=== PATIENT | female | born 1965 | race African-American/Black ===

== ENCOUNTER 2019-04-07 04:01 | Inpatient (IN) | payer MEDICARE ==
[~2019-04-07] VITALS: Ht 160 cm; Wt 54.0 kg
[2019-04-07] VITALS (19 sets, daily range): BP systolic 90–126; BP diastolic 60–85
[2019-04-07] MEDS ORDERED: ACETAMINOPHEN 1000 MG/100 ML IV STA (04:05)
[2019-04-07] MEDS ORDERED: CEFEPIME 2 GM/NS 0.9% 100 ML 100 ML IV ONE (04:15)
[2019-04-07] MEDS ORDERED: SODIUM CHLORIDE 0.9% 1000ML 1,000 ML IV ONE (04:15)
[2019-04-07 04:38] LABS: BASOPHILS # (AUTO) 0.1 (0.0-0.1); BASOPHILS % 0.3 % (0.0-1.0); HEMATOCRIT 42.1 % (34.2-44.1); LYMPHOCYTES # (AUTO) 1.2 (1.0-3.2); LYMPHOCYTES % 4.8 % (18.0-39.1); MEAN CORPUSCULAR HEMOGLOBIN 21.4 pg (28-32); MEAN CORPUSCULAR HGB CONC 28.5 g/dL (31-35); MEAN CORPUSCULAR VOLUME 75.2 fL (81-99); MONOCYTES # (AUTO) 1.8 (0.2-0.8); NEUTROPHILS # (AUTO) 22.1 (2.1-6.9); NEUTROPHILS % 87.2 % (38.7-80.0); PLATELET COUNT 317 x10e3/uL (140-360); RED CELL DISTRIBUTION WIDTH 19.2 % (11.7-14.4)
[2019-04-07 04:50] LABS: INR 1.64
[2019-04-07 04:51] LABS: PARTIAL THROMBOPLASTIN TIME 36.1 seconds (23.8-35.5)
[2019-04-07 04:59] LABS: ALANINE AMINOTRANSFERASE 187 IU/L (0-55); ALBUMIN 3.4 g/dL (3.5-5.0); ALBUMIN/GLOBULIN RATIO 0.6 (0.8-2.0); ALKALINE PHOSPHATASE 119 IU/L (40-150); BLOOD UREA NITROGEN 19 mg/dL (7-26); BUN/CREATININE RATIO 31 (6-25); CALCIUM 9.9 mg/dL (8.4-10.2); CARBON DIOXIDE 32 mmol/L (22-29); CHLORIDE 101 mmol/L (98-107); CREATININE, SERUM 0.62 mg/dL (0.57-1.11); EST GLOMERULAR FILTRATION RATE > 60 ML/MIN (60-); GLUCOSE 137 mg/dL (74-118); SODIUM 144 mmol/L (136-145)
--- NOTE | 2019-04-07 05:01 | Diagnostic Imaging Report ---
A single frontal view of the chest. HISTORY: Aspiration COMPARISON: None available. DISCUSSION: Portable technique, limits sensitivity of the exam. Soft tissue attenuation partially limits sensitivity of the exam. Overlying monitoring leads and artifacts. Tubes/Lines: Tracheostomy tube Lungs and pleura: Low lung volumes result in bibasilar vascular crowding, accentuation of the pulmonary interstitial markings, central pulmonary vasculature, and the cardiac silhouette. Allowing for these limitations, the findings are as follows: Mid to lower lung zone predominant increased interstitial markings with more confluent patchy interstitial and airspace opacities at the left lung base greater than the right. A small left pleural effusion is probable. Heart and mediastinum: The cardiomediastinal silhouette appears unremarkable. Bones and soft tissues: Appear unremarkable, given this limited exam. IMPRESSION: 1. Left greater than right basilar and additional and airspace opacities, compatible with provided history of aspiration. A multifocal pneumonia could have a similar appearance. 2. Probable small left pleural effusion. 3. Recommend short term follow up routine PA and lateral chest radiographs, in 6 to 8 weeks, to evaluate for resolution. Signed by: Dr. Delfin Frausto D.O., M.M.M. on 04/07/2019 4:58 AM
[2019-04-07] MEDS ORDERED: ONDANSETRON HCL INJ 2MG/ML 2ML 2 MG/ML VIAL IV STA (05:39)
[2019-04-07] MEDS ORDERED: SODIUM CHLORIDE 0.9% 1000ML 1,000 ML IV SCH (05:39)
[2019-04-07] MEDS ORDERED: ALBUTEROL SULF 0.083% NEB SOLN 3 ML NEB NEB SCH (05:45)
[2019-04-07] MEDS ORDERED: ACETAMINOPHEN 1000 MG/100 ML IV PRN (05:45)
--- OUTSIDE RECORDS SUMMARY | 2019-04-07 05:46 | XMS REPORT ---
Author Author [facility] Address Unknown Phone Unavailable Care Team Providers Care Dance Director Name Role Phone Stiven CHAIREZ Unavailable Unavailable Problems This patient has no known problems. Allergies, Adverse Reactions, Alerts This patient has no known allergies or adverse reactions. Medications This patient has no known medications. Results Test Description Test Time Test Comments Text Results Atomic Results Result Comments CHEST SINGLE (PORTABLE) 2019-04-07 04:54:00 [place] [address] Patient Name: MAYELA KAY MR #: [id number] : 1965 Age/Sex: 53/F Req #: [id number] Adm Physician: Ordered by: HUMA CHAIREZ MD Report #: [id number] Location: ER Room/Bed: Procedure: [id number] DX/CHEST SINGLE (PORTABLE) Exam Date: 04/07/19 Exam Time: 0435 REPORT STATUS: Signed A single frontal view of the chest. HISTORY: Aspiration COMPARISON: None available. DISCUSSION: Portable technique, limits sensitivity of the exam. Soft tissue attenuation partially limits sensitivity of the exam. Overlying monitoring leads and artifacts. Tubes/Lines: Tracheostomy tube Lungs and pleura: Low lung volumes result in bibasilar vascular crowding, accentuation of the pulmonary interstitial markings, central pulmonary vasculature, and the cardiac silhouette. Allowing for these limitations, the findings are as follows: Mid to lower lung zone predominant increased interstitial markings with more confluent patchy interstitial and airspace opacities at the left lung base greater than the right. A small left pleural effusion is probable. Heart and mediastinum: The cardiomediastinal silhouette appears unremarkable. Bones and soft tissues: Appear unremarkable, given this limited exam. IMPRESSION: 1. Left greater than right basilar and additional and airspace opacities, compatible with provided history of aspiration. A multifocal pneumonia could have a similar appearance. 2. Probable small left pleural effusion. 3. Recommend short term follow up routine PA and lateral chest radiographs, in 6 to 8 weeks, to evaluate for resolution. Signed by: Dr. Iam Frausto D.O., M.M.M. on 04/07/2019 4:58 AM Dictated By: IAM FRAUSTO DO 7 Transcribed By: DION on 04/07/19457 COPY TO: HUMA CHAIREZ MD
[2019-04-07] MEDS: CLINDAMYCIN 600MG / 50ML 50 ML IV SCH ×3 (05:54→21:27)
[2019-04-07 05:55] LABS: ABG PH 7.29 (7.31-7.41)
[2019-04-07 05:56] LABS: ABG HCO3 33 mmol/L (23-28); ABG PCO2 69 mmHg (41-51); ABG PO2 43 mmHg (80-105)
[2019-04-07 05:59] LABS: BILIRUBIN,URINE NEGATIVE (NEGATIVE); CLARITY,URINE CLEAR (CLEAR); COLOR,URINE YELLOW (YELLOW); KETONES,URINE NEGATIVE (NEGATIVE); LEUKOCYTE ESTERASE ,URINE NEGATIVE (NEGATIVE); NITRITE,URINE NEGATIVE (NEGATIVE); PROTEIN,URINE DIPSTICK NEGATIVE (NEGATIVE); URINE UROBILINOGEN 1 mg/dL (0.2 - 1)
[2019-04-07 06:12] LABS: BACTERIA,URINE FEW /HPF; EPITHELIAL CELLS,URINE FEW /LPF; RBC,URINE 0-5 /HPF (0-5)
--- NOTE | 2019-04-07 06:30 | NUR ---
Pts POA - Ciaran Jason [phone] - contacted via telephone to consent for PICC line placement; transfusion of blood and or blood products; verified by this RN and Reza Sharma LVN with NEEL Le
--- NOTE | 2019-04-07 06:36 | NUR ---
Annemarie Mackey [phone], pts daughter speaking to ER , Dr. Ko, at this time
[2019-04-07] MEDS ORDERED: LORAZEPAM INJ 2 MG/ML VIAL ONE (06:37)
--- NOTE | 2019-04-07 06:45 | NUR ---
Pt arrived to ICU at 0630, pt was medicated with 1mg ativan per Dr Stiven Melendrez. Dr Melendrez then changed the trach to a #4 Shiley cuffed. Respiratory at bedside to assist and place on vent post procedure. No complications noted.
[2019-04-07] MEDS ORDERED: SODIUM CHLORIDE 0.45% 1,000 ML IV ONE (07:00)
[2019-04-07] MEDS: PROPOFOL IV EMULSION 10MG/ML 100 ML IV SCH (07:00)
[2019-04-07] MEDS ORDERED: LORAZEPAM INJ 2 MG/ML VIAL IV ONE (07:00)
[2019-04-07 07:31] LABS: CREATINE KINASE MB 1.1 ng/mL (0-5.0)
[2019-04-07] MEDS: IPRATROPIUM BROMIDE 0.02% 2.5 ML NEB NEB SCH ×4 (07:50→19:00)
--- NOTE | 2019-04-07 07:55 | Consultation ---
DATE OF CONSULTATION: 04/07/2019 Pulmonary Critical Care Consultation ADDITIONAL REFERRING PHYSICIAN: Dr. Jaquan Faustin. CHIEF COMPLAINT: New infiltrate, leukocytosis, and respiratory distress. HISTORY OF PRESENT ILLNESS: The patient is a 53-year-old woman. 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 She also has a subsequent seizure disorder. She was hospitalized at [facility] from January 19 until February 07 with aspiration pneumonia. She required a tracheostomy and a PEG. She was subsequently sent back to [facility] [place] [facility], she had increasing dyspnea and congestion. She had phlegm production and tachypnea. The rescue squad was called and took her across the street to the [facility]. PAST SURGICAL HISTORY: 1. Status post tracheostomy. 2. Status post PEG. PAST MEDICAL HISTORY: 1. Cerebrovascular accident. 2. Chronic respiratory failure. 3. Protein-calorie malnutrition. 4. Seizure disorder. 5. Hypertension. SOCIAL HISTORY: The patient is not an active smoker or drinker. FAMILY HISTORY: Family history is noncontributory. REVIEW OF SYSTEMS: The patient possibly had fevers at [facility]. She had no headache. She had no neck pain. She had some more difficulty breathing. She had some phlegm production. She had no chest pain. She had cough and congestion. No abdominal pain. No nausea or vomiting. She has no leg edema. She has chronic neurological abnormalities. PHYSICAL EXAMINATION: VITAL SIGNS: The blood pressure is 133/81, respiratory rate is 28, the pulse is 130 to 140, and her T-max is 99.7. HEENT: Shows no facial swelling or erythema. She has a tracheostomy in place. The site looks clean. CARDIAC: Reveals a regular rate and rhythm with a normal S1 and S2. There are no murmurs or rubs. Auscultation of the lungs reveals rhonchorous breath sounds bilaterally. There is no wheezing. ABDOMEN: Soft and nontender. There is no rebound or guarding. There is a feeding tube in place. EXTREMITIES: There is no leg edema or calf tenderness. She does have some focal neurological abnormalities at whole. LABORATORY DATA: White blood cell count is 25.3, hemoglobin is 12, and platelet count is 371. BUN to creatinine ratio is 19 to 0.62 and the other electrolytes are within normal limits. AST is 88 and ALT is 187. Blood gas; 7.29, 69 with an O2 of 43 and a bicarb of 33. INR is 1.64. Urinalysis shows 10 to 20 white blood cells. RADIOGRAPHIC DATA: Chest x-ray shows left greater than right basilar airspace opacity. IMPRESSION: 1. Aspiration pneumonia with severe sepsis, present on admission. 2. Hdoja-od-anoyguc respiratory failure. 3. Moderate protein calorie malnutrition. 4. Hypertension. 5. Seizure disorder. 6. Remote stroke. PLAN: 1. The patient will need tracheostomy changed to a cuffed trach. She was subsequently restarted on mechanical ventilation. 2. Panculture the patient and begin appropriate antibiotics. 3. IV fluids. 4. Continue prior antiseizure regimen. 5. Continue current antihypertensive regimen. Rufino Melendrez MD [facility] /[id number]
[2019-04-07] MEDS: LEVOFLOXACIN 250MG/D5W 50ML 50 ML IV SCH (08:04)
--- NOTE | 2019-04-07 08:19 | Diagnostic Imaging Report ---
EXAMINATION: CHEST XRAY POST PROCEDURE INDICATION: Status post tracheostomy change COMPARISON: Chest radiograph of earlier the same day FINDINGS: TUBES and LINES: Tracheostomy and tube, terminating approximately 4 cm above the kaleb. EKG leads overlie the chest. LUNGS: The lungs volumes are low. There is perihilar fullness and indistinctness of the pulmonary vasculature.. Focal consolidation. PLEURA: No pleural effusion or pneumothorax. HEART AND MEDIASTINUM: The cardiomediastinal silhouette is normal in size and contour. BONES AND SOFT TISSUES: No acute fracture or dislocation. UPPER ABDOMEN: No free air under the diaphragm. IMPRESSION: Tracheostomy in good position. Low lung volumes and pulmonary interstitial edema. Signed by: Thuy Mahmood MD on 04/07/2019 8:16 AM
[2019-04-07] MEDS ORDERED: ALPRAZOLAM0.5 MG GT (08:41)
[2019-04-07] MEDS ORDERED: ONDANSETRON2 MG/1 ML IV (08:54)
[2019-04-07] MEDS ORDERED: METOPROLOL TART50 MG GT (08:54)
[2019-04-07] MEDS ORDERED: METOCLOPRA10 MG/2 ML IV (08:54)
[2019-04-07] MEDS ORDERED: BUDESONIDE0.5 MG/2 M NEB (08:54)
[2019-04-07] MEDS ORDERED: LUBRICANT EYE1 EACH OU (08:54)
[2019-04-07] MEDS ORDERED: ATORVASTATIN CA10 MG GT (08:54)
[2019-04-07] MEDS ORDERED: HYDRALAZIN20 MG/1 ML IV (08:54)
[2019-04-07] MEDS ORDERED: AMLODIPINE BESY10 MG GT (08:54)
[2019-04-07] MEDS ORDERED: LEVETIRACETAM500 MG GT (08:54)
[2019-04-07] MEDS ORDERED: LABETALOL20 MG/4 ML IVP (08:54)
[2019-04-07] MEDS ORDERED: DULCOLAX SUPP10 MG RC (08:54)
[2019-04-07] MEDS ORDERED: PROTONIX40 MG GT (08:54)
[2019-04-07] MEDS ORDERED: SERTRALINE HCL50 MG GT (08:56)
[2019-04-07] MEDS ORDERED: XARELTO20 MG GT (08:56)
[2019-04-07] MEDS ORDERED: TRANSDERM-SCOP1 EACH TD (08:56)
[2019-04-07] MEDS ORDERED: DOCUSATE SODIU100 MG PO (09:00)
[2019-04-07] MEDS ORDERED: SENNA LAX8.6 MG GT (09:00)
[2019-04-07] MEDS ORDERED: MAGNESIUM CITR296 ML GT (09:00)
[2019-04-07] MEDS ORDERED: COLACE100 MG/10 PO (09:00)
[2019-04-07] MEDS ORDERED: GLYCOPYRRO0.2 MG/1 M IV (09:02)
[2019-04-07] MEDS ORDERED: TYLENOL WITH C1 EACH GT (09:04)
[2019-04-07] MEDS ORDERED: ACETAMINOP325 MG/10 PO (09:04)
--- NOTE | 2019-04-07 11:02 | NUR ---
Nutrition Intervention Note RD Recommendation(s) for Physician: - When on the vent, rec to intitiate continuous TF with Vital 1.2 @25ml/hr, advance as tolerated to, goal rate of 45mL/hr (1296kcal, 81g protein, 876mL water) - to more adequately meet her protein and calorie needs - When off the vent, rec to resume old TF order with Jevity 1.2 @ goal rate of 65mL/hr (1872kcal, 87g protein, and 1259mL water) - Rec 50ml water flushes q 4hr, additional per MD - Check gastric residual, labs, and weight daily Plan of Care: RD following, monitoring for tolerance and adequacy, TF rec Nutrition reason for involvement:MD Consult - TF rec RD Assessment 04/07 - 53yo F, who was admitted [facility] for new infiltrate, leukocytosis, and respiratory distress.Pt had prior CVA with resulting aphasia and partial hemiparesis. Pt presented with PEG and tracheostomy. Trach was connected to vent. IVF at 125mL/hr noted. Visited pt in the room. Unable to obtain any info and no family on bedside. Reviewed medical record from [facility]. Pt was getting Jevity 1.2 @65mL/hr, providing 1872kcal, 87g protein, and 1259mL water. Will communicate TF rec with RN. Principal Problems/Diagnoses: 1. Aspiration pneumonia with severe sepsis, present on admission. 2. Oevjs-vc-blbjfdu respiratory failure. 3. Moderate protein calorie malnutrition. PMH: 1. Cerebrovascular accident. 2. Chronic respiratory failure. 3. Protein-calorie malnutrition. 4. Seizure disorder. 5. Hypertension. GI: + PEG Skin: No pressure wound noted Labs: (04/07) glucose 137 H Meds: NaCl @125mL/hr Ht: 63in Wt: 125lb; BMI: 22.1kg/m2 IBW: 115lb +/- 10% Malnutrition Evaluation (04/07/2019) Unable to determine as pt is non-verbal. No family on bedside to provide hx. Noted minimal muscle loss with some temporal depression. Nutrition Prescription (Diet Order): NPO Estimated Nutritional Needs (Ventilated): Calories: 1060 - 1325kcal (1.3-2kcal/kg/d) Weight used: IBW Protein:69 - 106g (1.3-2g/kg/d) Weight used: IBW Diet Adequacy: Not meeting calorie needs, Not meeting protein needs Diet Education Needs Assessment: Diet education not indicated. Nutrition Care Level: mod Nutrition Diagnosis: Inadequate oral intake related to CVA as evidenced by pt requiring watermelon inspector EN through PEG. Goal: Patient will meet 75-100% of estimated needs by follow up Progress: n/a Interventions: Composition, Rate, Route Monitoring/Evaluation: Total energy intake, Total protein intake, Formula/Solution, Weight change Signed: Isi Blackmon MS, RD, LD
--- NOTE | 2019-04-07 11:59 | Diagnostic Imaging Report ---
EXAMINATION: CHEST XRAY LINE PLACEMENT INDICATION: Line insertion COMPARISON: Chest rated graph of 04/07/2019 FINDINGS: TUBES and LINES: Interval placement of left PICC line terminating in the superior vena cava. LUNGS: The lungs are well-inflated. 5 mm nodular opacity over the right mid lung zone, likely a calcified granuloma. Previously seen pulmonary edema has resolved. No focal consolidation. PLEURA: No pleural effusion or pneumothorax. HEART AND MEDIASTINUM: The cardiomediastinal silhouette is normal in size and contour. BONES AND SOFT TISSUES: No acute fracture or dislocation. UPPER ABDOMEN: No free air under the diaphragm. IMPRESSION: Interval placement of left PICC line terminating in the SVC. No focal pneumonia or pulmonary edema. Signed by: Thuy Mahmood MD on 04/07/2019 11:56 AM
[2019-04-07 12:44] LABS: CREATINE KINASE MB 1.2 ng/mL (0-5.0)
[2019-04-07] MEDS: CEFEPIME 2 GM/NS 0.9% 100 ML 100 ML IV SCH ×2 (13:22→21:27)
[2019-04-07] MEDS ORDERED: CEFEPIME HCL 2 GM/SOD CHL 0.9% 100 ML BAG IV SCH (14:00)
[2019-04-07] MEDS: LEVALBUTEROL HCL SOLN NEBU 1.25 MG/3 ML NEB INH SCH ×2 (14:50→19:00)
[2019-04-07] MEDS ORDERED: LEVETIRACETAM 500 MG TAB GT SCH (16:45)
[2019-04-07] MEDS: METOCLOPRAMIDE HCL 10 MG TAB GT SCH ×2 (17:41→23:51)
[2019-04-07] MEDS: PANTOPRAZOLE SODIUM 40 MG SUSPDR.PKT GT SCH (17:41)
[2019-04-07] MEDS: LEVETIRACETAM ORAL SOLUTION 500 MG/5 ML SOLN PEG SCH (17:42)
--- NOTE | 2019-04-07 18:35 | NUR ---
0635- Pt arrived to unit per nightshift RN. 1200- PICC line placed and chest x ray ordered to verify placement.
[2019-04-07] MEDS: METOPROLOL TARTRATE 50 MG TAB GT SCH (20:15)
[2019-04-07] MEDS: RIVAROXABAN 20 MG TABLET GT SCH (20:15)
[2019-04-07 21:05] LABS: CREATINE KINASE 16 IU/L (29-168)
[2019-04-08] VITALS (25 sets, daily range): BP systolic 84–151; BP diastolic 44–101
[2019-04-08] MEDS: IPRATROPIUM BROMIDE 0.02% 2.5 ML NEB NEB SCH ×5 (01:50→23:10)
[2019-04-08] MEDS: LEVALBUTEROL HCL SOLN NEBU 1.25 MG/3 ML NEB INH SCH ×5 (01:50→23:10)
[2019-04-08] MEDS: METOPROLOL TARTRATE 50 MG TAB GT SCH ×2 (06:11→18:00)
[2019-04-08] MEDS: CLINDAMYCIN 600MG / 50ML 50 ML IV SCH ×3 (06:18→21:54)
[2019-04-08] MEDS: METOCLOPRAMIDE HCL 10 MG TAB GT SCH ×3 (06:18→18:11)
[2019-04-08] MEDS: CEFEPIME 2 GM/NS 0.9% 100 ML 100 ML IV SCH ×3 (06:18→21:54)
--- NOTE | 2019-04-08 06:22 | Diagnostic Imaging Report ---
A single frontal view of the chest. HISTORY: Respiratory failure COMPARISON: Chest radiographs April 07, 2019. DISCUSSION: Portable technique, limits sensitivity of the exam. Soft tissue attenuation partially limits sensitivity of the exam. Overlying monitoring leads and artifacts. Right anterior oblique rotation. Tubes/Lines: Tracheostomy tube and left upper extremity PICC line appear unchanged. Lungs and pleura: Low lung volumes result in bibasilar vascular crowding, accentuation of the pulmonary interstitial markings, central pulmonary vasculature, and the cardiac silhouette. Allowing for these limitations, the findings are as follows: Interval increased left basilar atelectasis versus aspiration. A small left pleural effusion remains probable. Heart and mediastinum: The cardiomediastinal silhouette appears unchanged. Bones and soft tissues: Appear unchanged. IMPRESSION: 1. Short-term increased left basilar opacity, considerations include atelectasis or aspiration in the appropriate setting. 2. Probable small left pleural effusion. Signed by: Dr. Delfin Frausto D.O., M.M.M. on 04/08/2019 6:19 AM
[2019-04-08 07:24] LABS: BASOPHILS # (AUTO) 0.1 (0.0-0.1); BASOPHILS % 0.4 % (0.0-1.0); EOSINOPHILS # (AUTO) 0.2 (0.0-0.4); EOSINOPHILS % 1.2 % (0.0-6.0); HEMATOCRIT 29.8 % (34.2-44.1); HEMOGLOBIN 8.8 g/dL (12.0-16.0); LYMPHOCYTES # (AUTO) 1.7 (1.0-3.2); LYMPHOCYTES % 12.4 % (18.0-39.1); MEAN CORPUSCULAR HEMOGLOBIN 21.6 pg (28-32); MEAN CORPUSCULAR HGB CONC 29.5 g/dL (31-35); MEAN CORPUSCULAR VOLUME 73.2 fL (81-99); MONOCYTES # (AUTO) 1.3 (0.2-0.8); MONOCYTES % 9.6 % (4.4-11.3); NEUTROPHILS # (AUTO) 10.4 (2.1-6.9); NEUTROPHILS % 75.8 % (38.7-80.0); PLATELET COUNT 174 x10e3/uL (140-360); RED BLOOD COUNT 4.07 x10e6/uL (3.6-5.1); RED CELL DISTRIBUTION WIDTH 18.7 % (11.7-14.4)
[2019-04-08 08:00] LABS: ALANINE AMINOTRANSFERASE 106 IU/L (0-55); ALBUMIN 2.6 g/dL (3.5-5.0); ALBUMIN/GLOBULIN RATIO 0.6 (0.8-2.0); ALKALINE PHOSPHATASE 76 IU/L (40-150); ANION GAP 10.2 mmol/L (8-16); BLOOD UREA NITROGEN 19 mg/dL (7-26); BUN/CREATININE RATIO 35 (6-25); CALCIUM 8.9 mg/dL (8.4-10.2); CARBON DIOXIDE 27 mmol/L (22-29); CHLORIDE 106 mmol/L (98-107); CREATININE, SERUM 0.55 mg/dL (0.57-1.11); EST GLOMERULAR FILTRATION RATE > 60 ML/MIN (60-); GLUCOSE 94 mg/dL (74-118); POTASSIUM 3.2 mmol/L (3.5-5.1); SODIUM 140 mmol/L (136-145)
--- NOTE | 2019-04-08 08:42 | Diagnostic Imaging Report ---
Abdominal ultrasound. History: Abnormal LFTs. Comparison: None available. Discussion: Transverse and longitudinal images of the abdomen were obtained demonstrating a liver of normal size but diffusely increased echogenicity measuring 12.3 cm in length. There is no focal hepatic abnormality. The portal vein is patent with hepatopetal flow and is within normal limits measuring 9 mm in diameter. There is no intrahepatic biliary ductal dilatation. The gallbladder is normal without evidence of stones, wall thickening, or pericholecystic fluid. The sonographic Shepherd's sign was negative. The kidneys are normal in size and echogenicity bilaterally without evidence of hydronephrosis, stones, or mass. The right kidney measures 10.8 cm and the left kidney measures 9.8 cm in length. The spleen is normal in size and appearance measuring 9.3 cm in length. The pancreatic head and body are visualized and are normal in appearance. The abdominal aorta and IVC are within normal limits. There is no evidence of free fluid. IMPRESSION: Diffuse fatty infiltration of the liver without focal hepatic abnormality. Otherwise unremarkable abdominal ultrasound. Signed by: Sherwin Justice on 04/08/2019 8:39 AM
[2019-04-08 08:52] LABS: ABG HCO3 27 mmol/L (23-28); ABG PCO2 49 mmHg (41-51); ABG PH 7.35 (7.31-7.41); ABG PO2 126 mmHg (80-105)
[2019-04-08] MEDS ORDERED: POTASSIUM CHLORIDE 20MEQ/15ML UDC NG ONE (09:00)
[2019-04-08] MEDS: LEVETIRACETAM ORAL SOLUTION 500 MG/5 ML SOLN PEG SCH ×2 (09:57→21:53)
[2019-04-08] MEDS: PANTOPRAZOLE SODIUM 40 MG SUSPDR.PKT GT SCH (09:57)
[2019-04-08] MEDS: SERTRALINE HCL 50 MG TAB GT SCH (09:57)
[2019-04-08] MEDS: LEVOFLOXACIN 250MG/D5W 50ML 50 ML IV SCH (09:57)
[2019-04-08] MEDS: PROPOFOL IV EMULSION 10MG/ML 100 ML IV SCH ×2 (10:35→10:36)
--- NOTE | 2019-04-08 10:45 | Progress Note ---
DATE: 04/08/2019 Pulmonary Critical Care Progress Note SUBJECTIVE: The patient has remained on mechanical ventilator. She was switched to CPAP of 5 and pressure support of 8 this morning. Her tidal volumes are 250 mL and her respiratory rate is 25-30. She continues to have some phlegm production. PHYSICAL EXAMINATION: VITAL SIGNS: The blood pressure is 124/82 and the pulse is 97. Saturation is 100%. The patient is on pressure support and CPAP as noted above. NECK: Tracheostomy site looks clean. There is a #[address] CARDIAC: Reveals regular rate and rhythm with normal S1, S2. LUNGS: Auscultation of lungs reveals decreased breath sounds and crackles at the left base. ABDOMEN: Soft, nontender. There is no distention. There is a feeding tube in place. EXTREMITIES: There is no leg edema or calf tenderness. NEUROLOGIC: There is residual hemiparesis from a prior stroke. LABORATORY DATA: BUN to creatinine ratio is normal. The potassium is 3.2. ALT is 106 and AST is 46. White blood cell count is 13.7 and hemoglobin is 8.8. The platelet count is 174. RADIOGRAPHIC DATA: Chest x-ray shows worsening left lower lobe infiltrate. IMPRESSION: 1. Aspiration pneumonia with severe sepsis, present on admission. 2. Acute on chronic respiratory failure. 3. Moderate protein-calorie malnutrition. 4. Hypertension. 5. Seizure disorder. 6. Prior stroke. 7. Elevated LFTs of unclear significance. PLAN: 1. Spontaneous breathing trial today as tolerated. 2. Continue current antibiotics and await culture results. 3. Continue prior anti-seizure regimen. 4. Continue enteral feedings. 5. Replete potassium. 6. Case discussed with Nursing, Respiratory, and Dr. Draper. Greater than 35 minutes in direct critical care time. Rufino Melendrez MD [facility] /[id number]
--- NOTE | 2019-04-08 19:00 | NUR ---
Report received. Assumed care. Assessment done. See interventions. Trach to vent. Vent settings: TV 400, FIO2 40%, PRVC 10 & PEEP 5cm. Propofol for sedation. Jevity 1.2 to PEG tube @ 35ml/hr.
[2019-04-08] MEDS: RIVAROXABAN 20 MG TABLET GT SCH (21:53)
[2019-04-09] VITALS (26 sets, daily range): BP systolic 98–140; BP diastolic 69–95
[2019-04-09] MEDS: METOCLOPRAMIDE HCL 10 MG TAB GT SCH ×4 (00:13→17:44)
--- NOTE | 2019-04-09 01:45 | NUR ---
Complete bed bath given. Bed linens changed.
[2019-04-09 04:44] LABS: BASOPHILS # (AUTO) 0.1 (0.0-0.1); BASOPHILS % 0.7 % (0.0-1.0); EOSINOPHILS # (AUTO) 0.3 (0.0-0.4); HEMATOCRIT 29.1 % (34.2-44.1); HEMOGLOBIN 8.5 g/dL (12.0-16.0); LYMPHOCYTES # (AUTO) 1.4 (1.0-3.2); LYMPHOCYTES % 17.8 % (18.0-39.1); MEAN CORPUSCULAR HEMOGLOBIN 21.4 pg (28-32); MEAN CORPUSCULAR HGB CONC 29.2 g/dL (31-35); MEAN CORPUSCULAR VOLUME 73.1 fL (81-99); MONOCYTES % 12.5 % (4.4-11.3); NEUTROPHILS % 64.6 % (38.7-80.0); PLATELET COUNT 172 x10e3/uL (140-360); RED BLOOD COUNT 3.98 x10e6/uL (3.6-5.1); RED CELL DISTRIBUTION WIDTH 18.5 % (11.7-14.4)
[2019-04-09 05:08] LABS: ALANINE AMINOTRANSFERASE 90 IU/L (0-55); ALBUMIN 2.5 g/dL (3.5-5.0); ALKALINE PHOSPHATASE 72 IU/L (40-150); ANION GAP 13.2 mmol/L (8-16); BILIRUBIN,DIRECT 0.4 mg/dL (0.0-0.5); BLOOD UREA NITROGEN 13 mg/dL (7-26); BUN/CREATININE RATIO 22 (6-25); CALCIUM 8.8 mg/dL (8.4-10.2); CARBON DIOXIDE 28 mmol/L (22-29); CHLORIDE 103 mmol/L (98-107); CREATININE, SERUM 0.59 mg/dL (0.57-1.11); EST GLOMERULAR FILTRATION RATE > 60 ML/MIN (60-); GLUCOSE 121 mg/dL (74-118); POTASSIUM 3.2 mmol/L (3.5-5.1); SODIUM 141 mmol/L (136-145)
[2019-04-09] MEDS: CEFEPIME 2 GM/NS 0.9% 100 ML 100 ML IV SCH ×3 (05:45→21:08)
[2019-04-09] MEDS: PROPOFOL IV EMULSION 10MG/ML 100 ML IV SCH (06:12)
[2019-04-09] MEDS: CLINDAMYCIN 600MG / 50ML 50 ML IV SCH (06:19)
[2019-04-09] MEDS: METOPROLOL TARTRATE 50 MG TAB GT SCH ×2 (06:19→17:44)
--- NOTE | 2019-04-09 06:36 | Diagnostic Imaging Report ---
A single frontal view of the chest. HISTORY: Left lower lobe pneumonia, aspiration COMPARISON: Chest radiograph April 08, 2019 DISCUSSION: Portable technique, limits sensitivity of the exam. Soft tissue attenuation partially limits sensitivity of the exam. Overlying monitoring leads and artifacts. Right anterior oblique rotation. Tubes/Lines: Tracheostomy tube and left upper extremity PICC line appear unchanged. Lungs and pleura: Low lung volumes result in bibasilar vascular crowding, accentuation of the pulmonary interstitial markings, central pulmonary vasculature, and the cardiac silhouette. Allowing for these limitations, the findings are as follows: Stable left basilar opacity which partially obscures the left hemidiaphragm. Heart and mediastinum: The cardiomediastinal silhouette appears unchanged. Bones and soft tissues: Appear unchanged. IMPRESSION: 1. Stable left basilar atelectasis versus aspiration in the appropriate setting. 2. Probable small left pleural effusion. Signed by: Dr. Delfin Frausto D.O., M.M.M. on 04/09/2019 6:33 AM
[2019-04-09] MEDS: IPRATROPIUM BROMIDE 0.02% 2.5 ML NEB NEB SCH ×3 (06:55→19:32)
[2019-04-09] MEDS: LEVALBUTEROL HCL SOLN NEBU 1.25 MG/3 ML NEB INH SCH ×3 (06:55→19:32)
[2019-04-09] MEDS ORDERED: POTASSIUM CHLORIDE 20MEQ/100ML 100 ML IV ONE (08:30)
[2019-04-09] MEDS: PANTOPRAZOLE SODIUM 40 MG SUSPDR.PKT GT SCH (08:35)
[2019-04-09] MEDS: SERTRALINE HCL 50 MG TAB GT SCH (08:35)
[2019-04-09] MEDS: LEVETIRACETAM ORAL SOLUTION 500 MG/5 ML SOLN PEG SCH ×2 (08:35→21:08)
--- NOTE | 2019-04-09 08:45 | Progress Note ---
DATE: 04/09/2019 SUBJECTIVE: The patient is awake this morning. She was placed on CPAP of 5 and pressure support of 8. She seems to be tolerating this well. PHYSICAL EXAMINATION: VITAL SIGNS: The blood pressure is 118/80, saturation is 100%, pulse is 70. HEENT: Shows no facial swelling or erythema. The nasal mucosa is normal. The oropharynx is normal. LYMPHATIC: Shows no submandibular, cervical, or supraclavicular adenopathy. CARDIAC: Reveals a regular rate and rhythm with normal S1 and S2. There are no murmurs or rubs heard. LUNGS: Auscultation of lungs reveals decreased breath sounds at the bases. ABDOMEN: Soft, nontender. There is no rebound or guarding. EXTREMITIES: Show no leg edema or calf tenderness. There is no cyanosis or clubbing. IMPRESSION: 1. Aspiration pneumonia with severe sepsis, present on admission. 2. Zcetm-en-lkdczho respiratory failure. 3. Moderate protein-calorie malnutrition. 4. Seizure disorder. 5. Hypertension. 6. Prior stroke. PLAN: 1. Spontaneous breathing trial and move to trach collar as tolerated. 2. Continue current antibiotics. 3. Enteral feedings. 4. DVT prophylaxis. 5. Replete potassium. Rufino Melendrez MD [facility] /[id number]
[2019-04-09] MEDS: VANCOMYCIN 1GM/NS 250 ML 250 ML IV SCH ×2 (09:14→21:20)
[2019-04-09 09:27] LABS: ABG PCO2 47 mmHg (41-51); ABG PH 7.42 (7.31-7.41)
[2019-04-09 09:28] LABS: ABG HCO3 30 mmol/L (23-28); ABG PO2 167 mmHg (80-105)
--- NOTE | 2019-04-09 09:45 | NUR ---
PT STARTED HAVING PERIODS OF APNEA, AND DESAT INTO 78-84. SWITCHED FROM CPAP TO PRVC AT THIS TIME. SATS 100% RR 16
[2019-04-09] MEDS ORDERED: SODIUM CHLORIDE 0.9% 250ML 250 ML ONE (13:00)
[2019-04-09] MEDS: RIVAROXABAN 20 MG TABLET GT SCH (21:08)
[2019-04-10] VITALS (26 sets, daily range): BP systolic 107–182; BP diastolic 73–119
[2019-04-10] MEDS: IPRATROPIUM BROMIDE 0.02% 2.5 ML NEB NEB SCH ×4 (00:01→18:53)
[2019-04-10] MEDS: LEVALBUTEROL HCL SOLN NEBU 1.25 MG/3 ML NEB INH SCH ×4 (00:01→18:53)
[2019-04-10 04:37] LABS: BASOPHILS % 0.6 % (0.0-1.0); EOSINOPHILS # (AUTO) 0.3 (0.0-0.4); EOSINOPHILS % 4.8 % (0.0-6.0); HEMATOCRIT 29.3 % (34.2-44.1); HEMOGLOBIN 8.5 g/dL (12.0-16.0); LYMPHOCYTES # (AUTO) 1.2 (1.0-3.2); LYMPHOCYTES % 18.4 % (18.0-39.1); MEAN CORPUSCULAR HEMOGLOBIN 21.1 pg (28-32); MEAN CORPUSCULAR VOLUME 72.9 fL (81-99); MONOCYTES # (AUTO) 0.9 (0.2-0.8); MONOCYTES % 14.2 % (4.4-11.3); NEUTROPHILS # (AUTO) 4.1 (2.1-6.9); NEUTROPHILS % 61.5 % (38.7-80.0); PLATELET COUNT 174 x10e3/uL (140-360); RED BLOOD COUNT 4.02 x10e6/uL (3.6-5.1); RED CELL DISTRIBUTION WIDTH 18.5 % (11.7-14.4)
[2019-04-10 04:58] LABS: ALANINE AMINOTRANSFERASE 76 IU/L (0-55); ALBUMIN 2.5 g/dL (3.5-5.0); ALBUMIN/GLOBULIN RATIO 0.6 (0.8-2.0); ALKALINE PHOSPHATASE 72 IU/L (40-150); ANION GAP 13.5 mmol/L (8-16); BLOOD UREA NITROGEN 13 mg/dL (7-26); BUN/CREATININE RATIO 23 (6-25); CALCIUM 9.2 mg/dL (8.4-10.2); CARBON DIOXIDE 27 mmol/L (22-29); CHLORIDE 104 mmol/L (98-107); CREATININE, SERUM 0.57 mg/dL (0.57-1.11); EST GLOMERULAR FILTRATION RATE > 60 ML/MIN (60-); GLUCOSE 120 mg/dL (74-118); POTASSIUM 3.5 mmol/L (3.5-5.1); SODIUM 141 mmol/L (136-145)
[2019-04-10 05:17] LABS: MAGNESIUM 1.6 MG/DL (1.3-2.1); PHOSPHORUS 3.2 MG/DL (2.3-4.7)
[2019-04-10] MEDS: METOPROLOL TARTRATE 50 MG TAB GT SCH ×2 (06:00→17:34)
[2019-04-10] MEDS: METOCLOPRAMIDE HCL 10 MG TAB GT SCH ×4 (06:00→17:34)
[2019-04-10] MEDS: CEFEPIME 2 GM/NS 0.9% 100 ML 100 ML IV SCH ×3 (06:19→21:57)
--- NOTE | 2019-04-10 06:43 | Diagnostic Imaging Report ---
A single frontal view of the chest. HISTORY: Aspiration pneumonia. COMPARISON: Chest radiograph April 09, 2019 DISCUSSION: Tubes/Lines: Tracheostomy tube and left upper extremity PICC are unchanged. Lungs and pleura: Lungs are better inflated with decrease in left lower lobe patchy density. No pleural effusion or pneumothorax. Heart and mediastinum: The cardiomediastinal silhouette appears unchanged. Bones and soft tissues: No acute osseous abnormality.. IMPRESSION: Lungs are better inflated, with decreasing patchy density in the left lower lobe. Otherwise no significant change. Signed by: Dr. Kadeem Holman M.D. on 04/10/2019 6:39 AM
[2019-04-10] MEDS: PANTOPRAZOLE SODIUM 40 MG SUSPDR.PKT GT SCH (08:51)
[2019-04-10] MEDS: SERTRALINE HCL 50 MG TAB GT SCH (09:01)
[2019-04-10] MEDS: LEVETIRACETAM ORAL SOLUTION 500 MG/5 ML SOLN PEG SCH ×2 (09:01→20:54)
[2019-04-10] MEDS: VANCOMYCIN 1GM/NS 250 ML 250 ML IV SCH ×2 (09:01→20:54)
--- NOTE | 2019-04-10 10:47 | NUR ---
PT WAS ON CPAP FOR ONE HOUR AND A HALF AND WAS TOLERATING ATTEMPTED TO SWITCH PATIENT TO O2 VIA TRACH. PT HR INCREASED BP UP TO 182/119 HR 134 IN LESS THAN FIVE MIN. PT PLACED BACK ON PRVC. WILL CONTINUE TO MONITOR CLOSELY
[2019-04-10] MEDS ORDERED: MAGNESIUM SULFATE 2GM/50ML 50 ML IV ONE (13:30)
[2019-04-10] MEDS ORDERED: POTASSIUM CHLORIDE 20MEQ/15ML UDC PEG ONE (13:30)
[2019-04-10] MEDS: PROPOFOL IV EMULSION 10MG/ML 100 ML IV SCH (13:49)
--- NOTE | 2019-04-10 15:27 | Progress Note ---
DATE: 04/10/2019 SUBJECTIVE: The patient still has some congestion. She was placed on a CPAP trial this morning, but became more tachypneic and had to be switched back. PHYSICAL EXAMINATION: VITAL SIGNS: The patient is afebrile. Blood pressure is 118/96 and saturation is 100%. The pulse is 80. HEENT: Shows no facial swelling or erythema. There is an oral endotracheal tube. CARDIAC: Reveals regular rate and rhythm with normal S1, S2. There are no murmurs or rubs. LUNGS: Auscultation of lungs reveals rhonchorous breath sounds bilaterally. There is no wheezing. ABDOMEN: Soft, nontender. There is no rebound or guarding. EXTREMITIES: Show no leg edema or calf tenderness. There is no cyanosis or clubbing. SKIN: Shows no rashes. NEUROLOGIC: Shows no focal abnormalities. LABORATORY DATA: White blood cell count is 6.6 and hemoglobin is 8.5. Platelet count is 174. BUN to creatinine ratio is normal. The other electrolytes are within normal limits. RADIOGRAPHIC DATA: Chest x-ray shows left lower lobe infiltrate. IMPRESSION: 1. Aspiration pneumonia with severe sepsis, present on admission. 2. Acute on chronic respiratory failure. 3. Moderate protein-calorie malnutrition. 4. Seizure disorder. 5. Hypertension. 6. Prior stroke. PLAN: 1. Continue spontaneous breathing trials as tolerated. 2. Consider extubation when neurological status improves. 3. Continue enteral feedings. 4. DVT prophylaxis. 5. Continue antibiotics. 6. Physical therapy. Rufino Melendrez MD [facility] /[id number]
[2019-04-10] MEDS ORDERED: POTASSIUM CHLORIDE 20MEQ/15ML UDC ONE (17:37)
[2019-04-10] MEDS: RIVAROXABAN 20 MG TABLET GT SCH (20:54)
[2019-04-11] VITALS (33 sets, daily range): BP systolic 103–139; BP diastolic 69–101
[2019-04-11] MEDS: METOCLOPRAMIDE HCL 10 MG TAB GT SCH ×4 (00:45→18:15)
[2019-04-11 05:14] LABS: BASOPHILS # (AUTO) 0.1 (0.0-0.1); EOSINOPHILS # (AUTO) 0.4 (0.0-0.4); EOSINOPHILS % 5.7 % (0.0-6.0); HEMATOCRIT 30.4 % (34.2-44.1); HEMOGLOBIN 8.7 g/dL (12.0-16.0); LYMPHOCYTES # (AUTO) 1.2 (1.0-3.2); LYMPHOCYTES % 19.4 % (18.0-39.1); MEAN CORPUSCULAR HEMOGLOBIN 21.3 pg (28-32); MEAN CORPUSCULAR HGB CONC 28.6 g/dL (31-35); MEAN CORPUSCULAR VOLUME 74.3 fL (81-99); MONOCYTES # (AUTO) 0.9 (0.2-0.8); MONOCYTES % 14.8 % (4.4-11.3); NEUTROPHILS # (AUTO) 3.7 (2.1-6.9); NEUTROPHILS % 58.5 % (38.7-80.0); PLATELET COUNT 193 x10e3/uL (140-360); RED BLOOD COUNT 4.09 x10e6/uL (3.6-5.1); RED CELL DISTRIBUTION WIDTH 18.6 % (11.7-14.4)
[2019-04-11 05:35] LABS: ANION GAP 12.9 mmol/L (8-16); BLOOD UREA NITROGEN 13 mg/dL (7-26); BUN/CREATININE RATIO 23 (6-25); CALCIUM 9.1 mg/dL (8.4-10.2); CARBON DIOXIDE 26 mmol/L (22-29); CHLORIDE 107 mmol/L (98-107); CREATININE, SERUM 0.56 mg/dL (0.57-1.11); EST GLOMERULAR FILTRATION RATE > 60 ML/MIN (60-); GLUCOSE 102 mg/dL (74-118); MAGNESIUM 2.2 MG/DL (1.3-2.1); PHOSPHORUS 3.8 MG/DL (2.3-4.7); POTASSIUM 3.9 mmol/L (3.5-5.1); SODIUM 142 mmol/L (136-145)
[2019-04-11] MEDS: CEFEPIME 2 GM/NS 0.9% 100 ML 100 ML IV SCH ×3 (05:49→21:19)
[2019-04-11] MEDS: METOPROLOL TARTRATE 50 MG TAB GT SCH ×2 (05:49→18:00)
[2019-04-11] MEDS: PROPOFOL IV EMULSION 10MG/ML 100 ML IV SCH (07:00)
[2019-04-11] MEDS: IPRATROPIUM BROMIDE 0.02% 2.5 ML NEB NEB SCH ×4 (07:15→19:14)
[2019-04-11] MEDS: LEVALBUTEROL HCL SOLN NEBU 1.25 MG/3 ML NEB INH SCH ×4 (07:15→19:14)
[2019-04-11 07:28] LABS: ANISOCYTOSIS F; HYPOCHROMASIA F; OVALOCYTES FEW; PLATELET ESTIMATE ADEQUATE; PLATELET MORPHOLOGY COMMENT FEW LARGE; POIKILOCYTOSIS F; RBC MORPHOLOGY COMMENT ABNORMAL
[2019-04-11] MEDS: SERTRALINE HCL 50 MG TAB GT SCH (08:36)
[2019-04-11] MEDS: PANTOPRAZOLE SODIUM 40 MG SUSPDR.PKT GT SCH (08:36)
[2019-04-11] MEDS: LEVETIRACETAM ORAL SOLUTION 500 MG/5 ML SOLN PEG SCH ×2 (08:37→21:01)
--- NOTE | 2019-04-11 09:20 | Progress Note ---
DATE: 04/11/2019 SUBJECTIVE: The patient has remained on mechanical ventilation overnight. She has enteral feedings and sedation. PHYSICAL EXAMINATION: VITAL SIGNS: The blood pressure is 135/85. HEENT: Shows no facial swelling or erythema. Tracheostomy site is clean. There is no drainage. CARDIAC: Reveals regular rate and rhythm. Normal S1 and S2. There are no murmurs or rubs. LUNGS: Auscultation of the lungs reveals rhonchorous breath sounds bilaterally. There is no wheezing. ABDOMEN: Soft and nontender. There is no rebound or guarding. EXTREMITIES: Examination of the leg shows no leg edema or calf tenderness. There is no cyanosis or clubbing. SKIN: Shows no rashes. NEUROLOGIC: Shows some hemiparesis. LABORATORY DATA: Lytes, BUN, and creatinine are within normal limits. CBC is normal. IMPRESSION: 1. Aspiration pneumonia with severe sepsis, present on admission. 2. Ozxeb-bt-aziixrw respiratory failure. 3. Moderate protein-calorie malnutrition. 4. Seizure disorder. 5. Hypertension. 6. Prior stroke. PLAN: 1. Repeat spontaneous breathing trial today. 2. Repeat ABG and work towards extubation. 3. Continue enteral feedings. 4. Continue antibiotics. 5. DVT prophylaxis. 6. Physical therapy. Rufino Melendrez MD [facility] /[id number]
[2019-04-11] MEDS: VANCOMYCIN 1GM/NS 250 ML 250 ML IV SCH ×2 (10:11→21:00)
[2019-04-11] MEDS ORDERED: SODIUM CHLORIDE 0.9% 250ML 250 ML ONE (14:24)
[2019-04-11] MEDS: RIVAROXABAN 20 MG TABLET GT SCH (21:01)
[2019-04-12] VITALS (25 sets, daily range): BP systolic 92–133; BP diastolic 66–111
[2019-04-12] MEDS: IPRATROPIUM BROMIDE 0.02% 2.5 ML NEB NEB SCH ×4 (00:06→18:55)
[2019-04-12] MEDS: LEVALBUTEROL HCL SOLN NEBU 1.25 MG/3 ML NEB INH SCH ×4 (00:06→18:55)
[2019-04-12] MEDS: METOCLOPRAMIDE HCL 10 MG TAB GT SCH ×4 (00:07→18:37)
[2019-04-12 04:36] LABS: BASOPHILS % 0.5 % (0.0-1.0); EOSINOPHILS # (AUTO) 0.2 (0.0-0.4); EOSINOPHILS % 4.2 % (0.0-6.0); HEMATOCRIT 27.8 % (34.2-44.1); HEMOGLOBIN 7.9 g/dL (12.0-16.0); LYMPHOCYTES # (AUTO) 1.2 (1.0-3.2); MEAN CORPUSCULAR HEMOGLOBIN 21.2 pg (28-32); MEAN CORPUSCULAR HGB CONC 28.4 g/dL (31-35); MEAN CORPUSCULAR VOLUME 74.7 fL (81-99); MONOCYTES # (AUTO) 0.8 (0.2-0.8); MONOCYTES % 14.4 % (4.4-11.3); NEUTROPHILS # (AUTO) 3.2 (2.1-6.9); NEUTROPHILS % 58.4 % (38.7-80.0); PLATELET COUNT 145 x10e3/uL (140-360); RED BLOOD COUNT 3.72 x10e6/uL (3.6-5.1); RED CELL DISTRIBUTION WIDTH 18.4 % (11.7-14.4)
[2019-04-12 04:57] LABS: ANION GAP 10.8 mmol/L (8-16); BLOOD UREA NITROGEN 14 mg/dL (7-26); BUN/CREATININE RATIO 26 (6-25); CARBON DIOXIDE 27 mmol/L (22-29); CHLORIDE 102 mmol/L (98-107); CREATININE, SERUM 0.54 mg/dL (0.57-1.11); EST GLOMERULAR FILTRATION RATE > 60 ML/MIN (60-); GLUCOSE 113 mg/dL (74-118); POTASSIUM 3.8 mmol/L (3.5-5.1); SODIUM 136 mmol/L (136-145)
[2019-04-12] MEDS: CEFEPIME 2 GM/NS 0.9% 100 ML 100 ML IV SCH ×3 (05:57→22:09)
[2019-04-12] MEDS: METOPROLOL TARTRATE 50 MG TAB GT SCH ×2 (05:57→18:37)
[2019-04-12] MEDS ORDERED: METHYLPREDNISOLONE SOD SUCC 40 MG/ML VIAL 1ML IV ONE (08:35)
[2019-04-12] MEDS ORDERED: FUROSEMIDE INJ 10 MG/ML 4 ML VIAL IV ONE (08:35)
[2019-04-12] MEDS: VANCOMYCIN 1GM/NS 250 ML 250 ML IV SCH ×2 (09:00→21:00)
[2019-04-12] MEDS: LEVETIRACETAM ORAL SOLUTION 500 MG/5 ML SOLN PEG SCH ×2 (09:00→21:00)
[2019-04-12] MEDS: PANTOPRAZOLE SODIUM 40 MG SUSPDR.PKT GT SCH (09:00)
[2019-04-12] MEDS: SERTRALINE HCL 50 MG TAB GT SCH (09:00)
--- NOTE | 2019-04-12 09:06 | Progress Note ---
DATE: 04/12/2019 Pulmonary Critical Care Progress Note. SUBJECTIVE: The patient was taken off the ventilator and placed on trach collar. She had some increased secretions and required suctioning. PHYSICAL EXAMINATION: VITAL SIGNS: Vital signs are stable. HEENT: Shows no facial swelling or erythema. The tracheostomy site looks clean. There is minimal drainage. CARDIAC: Reveals regular rate and rhythm with normal S1 and S2. There are no murmurs or rubs heard. LUNGS: Auscultation of lungs reveals rhonchorous breath sounds bilaterally. There is no wheezing. ABDOMEN: Soft and nontender. IMPRESSION: 1. Nmpcv-mk-tasyrdl respiratory failure. 2. Aspiration pneumonia with sepsis, present on admission. 3. Encephalopathy, metabolic. 4. Seizure disorder. PLAN: 1. Trach collar as tolerated with repeat ABG. 2. Continue current antibiotics. 3. Echocardiogram. 4. Repeat chest x-ray. 5. Lasix x1 dose. Rufino Melendrez MD [facility] /[id number]
[2019-04-12 09:19] LABS: ABG HCO3 29 mmol/L (23-28); ABG PCO2 50 mmHg (41-51); ABG PH 7.38 (7.31-7.41); ABG PO2 62 mmHg (80-105)
--- NOTE | 2019-04-12 14:38 | NUR ---
PT DISCUSSED IN BARRIER ROUNDS; PT IS FROM [facility], GOAL FEEDS ARE 50, HAS A LOT OF SECRETIONS ON LSIX, PEG TUBE FEEDING, 40% TRACH COLLAR, ABG AND LABS ARE GOOD
--- NOTE | 2019-04-12 14:47 | NUR ---
Nutrition Follow-up Note RD Recommendation(s) for Physician: - Rec increasing continuous TF of Jevity 1.2 to goal rate of 55mL/hr (1584kcal, 73g protein, and 1065mL water) - Water flushes per MD - Check gastric residual, labs, and weight daily Plan of Care: RD following, monitoring for tolerance and adequacy, TF rec Nutrition reason for involvement: Follow up RD Assessment 04/12 Pt was discussed during AM rounds. The patient was taken off the ventilator and placed on trach collar. Chemistry labs WNL. TF was running at 35mL/hr with Jevity 1.2. Pt was tolerating TF well without gastric residual. Notified RN Franny about goal rate. Will continue to monitor and follow. 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 Pt presented with PEG and tracheostomy. Trach was connected to vent. IVF at 125mL/hr noted. Visited pt in the room. Unable to obtain any info and no family on bedside. Reviewed medical record from [facility]. Pt was getting Jevity 1.2 @65mL/hr, providing 1872kcal, 87g protein, and 1259mL water. Will communicate TF rec with RN. Principal Problems/Diagnoses: 1. Aspiration pneumonia with severe sepsis, present on admission. 2. Vdvbu-pf-kwandfa respiratory failure. 3. Moderate protein calorie malnutrition. PMH: 1. Cerebrovascular accident. 2. Chronic respiratory failure. 3. Protein-calorie malnutrition. 4. Seizure disorder. 5. Hypertension. GI: + PEG Skin: No pressure wound noted Labs: (04/12) reviewed (04/07) glucose 137 H Meds: reglan, vancomycin,protonix, lopressor, cefepime Ht: 63in Wt: 125lb; 116lb BMI: 22.1kg/m2 IBW: 115lb +/- 10% Malnutrition Evaluation (04/07/2019) Unable to determine as pt is non-verbal. No family on bedside to provide hx. Noted minimal muscle loss with some temporal depression. Nutrition Prescription (Diet Order): Jevity 1.2 @50mL/hr Estimated Nutritional Needs (Non-ventilated): Calories: 1325 - 1590kcal (25-30kcal/kg/d) Weight used: CBW Protein: 53 - 80g (1-1.5g/kg/d) Weight used: CBW Diet Adequacy: Not meeting calorie needs, Not meeting protein needs Diet Education Needs Assessment: Diet education not indicated. Nutrition Care Level: mod Nutrition Diagnosis: Inadequate oral intake related to CVA as evidenced by pt requiring retirement EN through PEG. Goal: Patient will meet 75-100% of estimated needs by follow up Progress: progressing Interventions: Composition, Rate, Route Monitoring/Evaluation: Total energy intake, Total protein intake, Formula/Solution, Weight change Signed: Isi Blackmon MS, RD, LD
[2019-04-12] MEDS: RIVAROXABAN 20 MG TABLET GT SCH (21:00)
[2019-04-13] VITALS (26 sets, daily range): BP systolic 88–145; BP diastolic 60–94
[2019-04-13] MEDS: METOCLOPRAMIDE HCL 10 MG TAB GT SCH ×5 (00:21→23:56)
[2019-04-13] MEDS: LEVALBUTEROL HCL SOLN NEBU 1.25 MG/3 ML NEB INH SCH ×4 (02:50→19:15)
[2019-04-13] MEDS: IPRATROPIUM BROMIDE 0.02% 2.5 ML NEB NEB SCH ×4 (02:50→19:15)
[2019-04-13 05:31] LABS: BASOPHILS # (AUTO) 0.1 (0.0-0.1); BASOPHILS % 0.4 % (0.0-1.0); EOSINOPHILS # (AUTO) 0.1 (0.0-0.4); EOSINOPHILS % 0.9 % (0.0-6.0); HEMATOCRIT 30.1 % (34.2-44.1); HEMOGLOBIN 8.7 g/dL (12.0-16.0); LYMPHOCYTES # (AUTO) 2.1 (1.0-3.2); LYMPHOCYTES % 18.1 % (18.0-39.1); MEAN CORPUSCULAR HEMOGLOBIN 21.1 pg (28-32); MEAN CORPUSCULAR HGB CONC 28.9 g/dL (31-35); MEAN CORPUSCULAR VOLUME 73.1 fL (81-99); MONOCYTES # (AUTO) 1.4 (0.2-0.8); MONOCYTES % 12.4 % (4.4-11.3); NEUTROPHILS # (AUTO) 7.7 (2.1-6.9); NEUTROPHILS % 67.1 % (38.7-80.0); PLATELET COUNT 163 x10e3/uL (140-360); RED BLOOD COUNT 4.12 x10e6/uL (3.6-5.1); RED CELL DISTRIBUTION WIDTH 18.1 % (11.7-14.4)
[2019-04-13] MEDS: METOPROLOL TARTRATE 50 MG TAB GT SCH ×2 (05:48→17:45)
[2019-04-13] MEDS: CEFEPIME 2 GM/NS 0.9% 100 ML 100 ML IV SCH (05:49)
[2019-04-13 05:55] LABS: ALANINE AMINOTRANSFERASE 70 IU/L (0-55); ALBUMIN 2.6 g/dL (3.5-5.0); ALBUMIN/GLOBULIN RATIO 0.6 (0.8-2.0); ALKALINE PHOSPHATASE 79 IU/L (40-150); ANION GAP 11.6 mmol/L (8-16); BLOOD UREA NITROGEN 18 mg/dL (7-26); BUN/CREATININE RATIO 32 (6-25); CALCIUM 9.3 mg/dL (8.4-10.2); CARBON DIOXIDE 28 mmol/L (22-29); CHLORIDE 103 mmol/L (98-107); CREATININE, SERUM 0.57 mg/dL (0.57-1.11); EST GLOMERULAR FILTRATION RATE > 60 ML/MIN (60-); GLUCOSE 121 mg/dL (74-118); POTASSIUM 3.6 mmol/L (3.5-5.1); SODIUM 139 mmol/L (136-145)
--- NOTE | 2019-04-13 08:25 | Diagnostic Imaging Report ---
EXAMINATION: CHEST SINGLE (PORTABLE) INDICATION: Respiratory failure COMPARISON: Multiple prior chest radiographs, most recently of 04/10/2019 FINDINGS: TUBES and LINES: Tracheostomy tube in unchanged position. EKG leads overlie the chest. Left PICC line terminates in the SVC. LUNGS: The lungs are moderately inflated. No focal consolidation or pulmonary edema. PLEURA: No pleural effusion or pneumothorax. HEART AND MEDIASTINUM: The cardiomediastinal silhouette is normal in size and contour. BONES AND SOFT TISSUES: No acute fracture or dislocation. UPPER ABDOMEN: No free air under the diaphragm. IMPRESSION: No focal consolidation or pulmonary edema. Signed by: Thuy Mahmood MD on 04/13/2019 8:21 AM
[2019-04-13] MEDS: VANCOMYCIN 1GM/NS 250 ML 250 ML IV SCH (09:00)
[2019-04-13] MEDS: FERROUS SULFATE 300 MG/5 ML LIQD GT SCH ×2 (10:05→17:59)
[2019-04-13] MEDS: ASCORBIC ACID 500 MG TAB PO SCH ×2 (10:05→17:45)
[2019-04-13] MEDS: LEVETIRACETAM ORAL SOLUTION 500 MG/5 ML SOLN PEG SCH ×2 (10:05→20:37)
[2019-04-13] MEDS: PANTOPRAZOLE SODIUM 40 MG SUSPDR.PKT GT SCH (10:05)
[2019-04-13] MEDS: SERTRALINE HCL 50 MG TAB GT SCH (10:05)
[2019-04-13 10:49] LABS: HYPOCHROMASIA SLIGHT; LYMPHOCYTES % (MANUAL) 23 % (19-48); MONOCYTES % (MANUAL) 13 % (3.4-9.0); NEUTROPHILS % (MANUAL) 64 % (40-74)
[2019-04-13 10:52] LABS: PLATELET ESTIMATE ADEQUATE; PLATELET MORPHOLOGY COMMENT FEW AGRANULAR
--- NOTE | 2019-04-13 14:13 | Progress Note ---
DATE: 04/13/2019 Pulmonary Progress Note SUBJECTIVE: The patient was on trach collar yesterday, but returned to the ventilator last night. She is now back on trach collar. She has no fevers. She has less congestion. PHYSICAL EXAMINATION: VITAL SIGNS: The blood pressure is 126/90 and the saturation is 100% on a trach collar. HEENT: Shows no facial swelling or erythema. The tracheostomy site is clean. There is no drainage. CARDIAC: Reveals regular rate and rhythm with normal S1, S2. There are no murmurs or rubs. LUNGS: Auscultation of lungs reveals rhonchorous breath sounds bilaterally. There is no wheezing. ABDOMEN: Soft, nontender. There is no rebound or guarding. EXTREMITIES: Show no leg edema or calf tenderness. LABORATORY DATA: Electrolytes within normal limits. The white blood cell count is 11.5 and hemoglobin is 8.7. The other electrolytes are within the in normal limits. IMPRESSION: 1. Acute on chronic respiratory failure. 2. Aspiration pneumonia with sepsis, present on admission. 3. Metabolic encephalopathy. 4. Seizure disorder. 5. Anemia secondary to chronic blood loss. PLAN: 1. Continue current antibiotics. 2. Trach collar as tolerated. 3. Physical therapy. 4. Continue enteral feedings. Rufino Melendrez MD [facility]/MODL /[id number]
--- NOTE | 2019-04-13 16:52 | NUR ---
FAXED CLINICALS TO [facility] PER ORDER, WAITING ON AUTH.
--- NOTE | 2019-04-13 17:02 | NUR ---
STARTED RTF FOR TRANSFER PROCESS AND PUT ON CHART TO COMPLETE WHEN GET AUTH.
[2019-04-13] MEDS ORDERED: TRAMADOL HCL 50 MG TAB PO ONE (18:15)
--- NOTE | 2019-04-13 18:51 | NUR ---
Patient was taken off mechanical ventilator at 0715 and placed on pressure support. At 1205 patient was placed on a trach collar. At 1330 patient became slightly distressed. Continued to monitor. Respiratory therapy returned patient to mechanical vent at 1400. notified.
--- NOTE | 2019-04-13 19:00 | NUR ---
Report received. Assumed care. Assessment done. See interventions. Trach to vent. Vent settings: TV 400, FIO2 40%, PRVC 10 & PEEP5. Jevity 1.2 to G tube @ 50ml/hr.
[2019-04-13] MEDS: RIVAROXABAN 20 MG TABLET GT SCH (20:37)
[2019-04-14] VITALS (34 sets, daily range): BP systolic 91–222; BP diastolic 62–127
[2019-04-14 04:05] LABS: BASOPHILS % 0.4 % (0.0-1.0); EOSINOPHILS # (AUTO) 0.1 (0.0-0.4); EOSINOPHILS % 0.8 % (0.0-6.0); HEMATOCRIT 26.5 % (34.2-44.1); HEMOGLOBIN 7.6 g/dL (12.0-16.0); LYMPHOCYTES # (AUTO) 1.7 (1.0-3.2); LYMPHOCYTES % 14.9 % (18.0-39.1); MEAN CORPUSCULAR HEMOGLOBIN 21.3 pg (28-32); MEAN CORPUSCULAR HGB CONC 28.7 g/dL (31-35); MEAN CORPUSCULAR VOLUME 74.4 fL (81-99); MONOCYTES # (AUTO) 1.3 (0.2-0.8); MONOCYTES % 11.7 % (4.4-11.3); NEUTROPHILS % 71.4 % (38.7-80.0); PLATELET COUNT 117 x10e3/uL (140-360); RED BLOOD COUNT 3.56 x10e6/uL (3.6-5.1); RED CELL DISTRIBUTION WIDTH 18.3 % (11.7-14.4)
[2019-04-14 04:29] LABS: ANION GAP 10.5 mmol/L (8-16); BLOOD UREA NITROGEN 16 mg/dL (7-26); BUN/CREATININE RATIO 30 (6-25); CALCIUM 8.8 mg/dL (8.4-10.2); CARBON DIOXIDE 29 mmol/L (22-29); CHLORIDE 102 mmol/L (98-107); CREATININE, SERUM 0.53 mg/dL (0.57-1.11); EST GLOMERULAR FILTRATION RATE > 60 ML/MIN (60-); GLUCOSE 109 mg/dL (74-118); MAGNESIUM 1.8 MG/DL (1.3-2.1); POTASSIUM 3.5 mmol/L (3.5-5.1); SODIUM 138 mmol/L (136-145)
--- NOTE | 2019-04-14 05:00 | NUR ---
Edda care done. Purewick replaced.
[2019-04-14] MEDS: METOCLOPRAMIDE HCL 10 MG TAB GT SCH ×3 (05:56→18:08)
[2019-04-14] MEDS: METOPROLOL TARTRATE 50 MG TAB GT SCH ×2 (05:56→18:08)
[2019-04-14] MEDS: IPRATROPIUM BROMIDE 0.02% 2.5 ML NEB NEB SCH ×4 (06:45→19:30)
[2019-04-14] MEDS: LEVALBUTEROL HCL SOLN NEBU 1.25 MG/3 ML NEB INH SCH ×4 (06:45→19:30)
--- NOTE | 2019-04-14 08:30 | NUR ---
PLACED PT ON ATC 40%,O2 SAT 100%,HEART RATE 100.NO RESPIRATORY DISTRESS AT THIS TIME
[2019-04-14] MEDS ORDERED: ACETAMINOPHEN 325 MG TAB PEG PRN (08:45)
[2019-04-14] MEDS ORDERED: ALTEPLASE RECOMBINANT 2 MG/2 ML VIAL IV PRN (08:45)
[2019-04-14] MEDS ORDERED: ONDANSETRON HCL INJ 2MG/ML 2ML 2 MG/ML VIAL IV PRN (08:45)
[2019-04-14 09:03] LABS: LYMPHOCYTES % (MANUAL) 15 % (19-48); MONOCYTES % (MANUAL) 10 % (3.4-9.0); NEUTROPHILS % (MANUAL) 75 % (40-74)
[2019-04-14 09:04] LABS: ANISOCYTOSIS SLIG; POIKILOCYTOSIS SLIGHT
[2019-04-14 09:05] LABS: PLATELET ESTIMATE ADEQUATE; PLATELET MORPHOLOGY COMMENT NORMAL
[2019-04-14] MEDS: LEVETIRACETAM ORAL SOLUTION 500 MG/5 ML SOLN PEG SCH ×2 (09:11→20:40)
[2019-04-14] MEDS: SERTRALINE HCL 50 MG TAB GT SCH (09:11)
[2019-04-14] MEDS: ASCORBIC ACID 500 MG TAB PO SCH ×2 (09:11→18:08)
[2019-04-14] MEDS: FERROUS SULFATE 300 MG/5 ML LIQD GT SCH ×2 (09:11→18:08)
[2019-04-14] MEDS: PANTOPRAZOLE SODIUM 40 MG SUSPDR.PKT GT SCH (09:11)
--- NOTE | 2019-04-14 10:04 | NUR ---
pt c/o being hot and diaphoretic. temp 98.6, removed covers, monitor read irregular HR pt became zev in upper 30's administered Atropine 0.5mg IV. PEA noted per Dr. Hayes chest compressions started, Epi administered. MATILDE @ 1007. O2 sats WNL, HR and BP stabilized. will continue to monitor
--- NOTE | 2019-04-14 10:10 | NUR ---
Code Blue response: Race Board Attendant responded to call for Rapid. No family present. Intervention: Provided calming pastoral presence for staff. Outcome: Will follow as able. JULIANN Pierson Spiritual Care Department O: [phone] Pager: [phone] ([phone] calling from)
[2019-04-14] MEDS ORDERED: ASPIRIN 81 MG CHEW TAB PO ONE (10:30)
[2019-04-14] MEDS: VANCOMYCIN 1GM/NS 250 ML 250 ML IV SCH ×2 (10:35→20:40)
[2019-04-14 10:58] LABS: HEMATOCRIT 32.3 % (34.2-44.1); MEAN CORPUSCULAR HEMOGLOBIN 21.3 pg (28-32); MEAN CORPUSCULAR HGB CONC 27.9 g/dL (31-35); MEAN CORPUSCULAR VOLUME 76.5 fL (81-99); PLATELET COUNT 140 x10e3/uL (140-360); RED BLOOD COUNT 4.22 x10e6/uL (3.6-5.1); RED CELL DISTRIBUTION WIDTH 18.9 % (11.7-14.4)
[2019-04-14 11:14] LABS: ANION GAP 15.7 mmol/L (8-16); BLOOD UREA NITROGEN 14 mg/dL (7-26); BUN/CREATININE RATIO 22 (6-25); CALCIUM 9.6 mg/dL (8.4-10.2); CARBON DIOXIDE 25 mmol/L (22-29); CHLORIDE 105 mmol/L (98-107); CREATINE KINASE 35 IU/L (29-168); CREATININE, SERUM 0.65 mg/dL (0.57-1.11); EST GLOMERULAR FILTRATION RATE > 60 ML/MIN (60-); GLUCOSE 164 mg/dL (74-118); POTASSIUM 4.7 mmol/L (3.5-5.1); SODIUM 141 mmol/L (136-145)
--- NOTE | 2019-04-14 11:28 | Diagnostic Imaging Report ---
Chest, 1 view, 04/14/2019. History: Chest pain. Comparison: 04/13/2019. Findings: The cardiomediastinal silhouette and pulmonary vasculature are within normal limits for a portable exam. There is no focal consolidation or pleural effusion. Tracheotomy tube and left upper extremity PICC are unchanged in position. There are no acute osseous or soft tissue abnormalities. Impression: No acute cardiopulmonary abnormality. Signed by: Sherwin Justice on 04/14/2019 11:25 AM
[2019-04-14 11:37] LABS: INR 1.09; PROTHROMBIN TIME 14.6 seconds (11.9-14.5)
[2019-04-14] MEDS ORDERED: PROPOFOL IV EMULSION 10MG/ML 100 ML IV SCH (12:00)
[2019-04-14 12:11] LABS: EOSINOPHILS % (MANUAL) 3 % (0-7); LYMPHOCYTES % (MANUAL) 28 % (19-48); MONOCYTES % (MANUAL) 10 % (3.4-9.0); NEUTROPHILS % (MANUAL) 59 % (40-74)
[2019-04-14 12:12] LABS: PLATELET ESTIMATE ADEQUATE; PLATELET MORPHOLOGY COMMENT NORMAL; RBC MORPHOLOGY COMMENT NORMAL
[2019-04-14] MEDS: PROPOFOL IV EMULSION 10MG/ML 100 ML IV PRN (12:43)
[2019-04-14 12:58] LABS: ABG HCO3 29 mmol/L (23-28); ABG PCO2 32 mmHg (41-51); ABG PH 7.56 (7.31-7.41); ABG PO2 196 mmHg (80-105)
--- NOTE | 2019-04-14 13:20 | NUR ---
PT DISCUSSED IN BARRIER ROUNDS; NIMO IS CONSULTING VLADIMIR TO SEE ABOUT ADJUSTING TRACH SIZE, PT WAS A CODE TODAY, WILL STABILIZE AND CONTINUE CARE.
--- NOTE | 2019-04-14 13:21 | NUR ---
WHEN STABLE PT CAN GO TO ROOM [address] MARTÍN EGAN AT [facility].
--- NOTE | 2019-04-14 13:43 | Progress Note ---
DATE: 04/14/2019 Pulmonary Critical Care Progress Note SUBJECTIVE: The patient was on trach collar this morning and suddenly became bradycardic. She had some subsequent PEA and required atropine and epinephrine. She required CPR briefly. She is now back on the ventilator. She is responding to questions. She expressed a desire not to have any further CPR, although she still wants mechanical ventilation. PHYSICAL EXAMINATION: VITAL SIGNS: The blood pressure is 91/64 and the pulse is 78. Saturation is normal. HEENT: Shows no facial swelling or erythema. CARDIAC: Reveals regular rate and rhythm with normal S1 and S2. LUNGS: Auscultation of lungs reveals rhonchorous breath sounds bilaterally. There is no wheezing. ABDOMEN: Soft, nontender. There is no rebound or guarding. EXTREMITIES: Shows no leg edema or calf tenderness. There is no cyanosis or clubbing. IMPRESSION: 1. Acute on chronic respiratory failure. 2. Brief respiratory arrest possibly related to mucus plugging. 3. Recurrent aspiration pneumonia with sepsis, present on admission. 4. Seizure disorder. 5. Anemia secondary to chronic blood loss. PLAN: 1. Continue antibiotics. 2. Consult ENT to change the tracheostomy to a #4. 3. Continue assisted ventilation for now and restart propofol. 4. Continue enteral feedings. 5. Case discussed with nursing staff, family, Cha Pendleton NP and Dr. Draper. Greater than 35 minutes in direct critical care time. Rufino Melendrez MD [facility]/MODL /[id number]
[2019-04-14] MEDS ORDERED: ASPIRIN 81 MG CHEW TAB ONE (14:00)
--- NOTE | 2019-04-14 19:00 | NUR ---
Report received from Russel TAPIA, Olga TAPIA, and Nilesh TAPIA.
--- NOTE | 2019-04-14 19:45 | Consultation ---
DATE OF CONSULTATION: 04/14/2019 Hospital Consultation HISTORY OF PRESENT ILLNESS: I was kindly asked to see this 53-year-old woman for evaluation for tracheostomy tube change. The patient has a history of previous CVA and chronic respiratory failure. She had a long-term #4 Shiley tracheostomy tube placed for pulmonary toilet and chronic respiratory failure. She developed aspiration pneumonia. The patient required ventilator support. Her history of present illness, past medical history and past surgical history were all reviewed in detail in the chart. PHYSICAL EXAMINATION: On examination, the patient had a #[address]. This was removed and using facelift scissors and 1%lidocaine with epinephrine 1: 100,000 the tracheostomy fistula was opened and a #6 Shiley [employer]COME [employer]AX [employer]NAGER tracheostomy tube easily inserted. The patient was ventilating well. ASSESSMENT: Respiratory failure, status post tracheostomy tube changed to #6 Shiley INCOME TAX MANAGER tracheostomy tube. PLAN: No additional Otolaryngology input. MD MIT[facility] Ramos/MODL /[id number] MTDD
[2019-04-15] VITALS (22 sets, daily range): BP systolic 112–155; BP diastolic 70–92
[2019-04-15] MEDS: METOCLOPRAMIDE HCL 10 MG TAB GT SCH ×5 (00:50→23:38)
[2019-04-15 05:04] LABS: BASOPHILS % 0.4 % (0.0-1.0); EOSINOPHILS # (AUTO) 0.1 (0.0-0.4); EOSINOPHILS % 0.7 % (0.0-6.0); HEMATOCRIT 26.5 % (34.2-44.1); HEMOGLOBIN 7.8 g/dL (12.0-16.0); LYMPHOCYTES # (AUTO) 1.6 (1.0-3.2); MEAN CORPUSCULAR HEMOGLOBIN 21.4 pg (28-32); MEAN CORPUSCULAR HGB CONC 29.4 g/dL (31-35); MONOCYTES % 13.1 % (4.4-11.3); NEUTROPHILS # (AUTO) 4.8 (2.1-6.9); NEUTROPHILS % 64.3 % (38.7-80.0); PLATELET COUNT 163 x10e3/uL (140-360); RED BLOOD COUNT 3.64 x10e6/uL (3.6-5.1); RED CELL DISTRIBUTION WIDTH 18.9 % (11.7-14.4)
[2019-04-15 05:05] LABS: MEAN CORPUSCULAR VOLUME 72.8 fL (81-99)
[2019-04-15 05:29] LABS: ANION GAP 12.2 mmol/L (8-16); BLOOD UREA NITROGEN 17 mg/dL (7-26); BUN/CREATININE RATIO 31 (6-25); CALCIUM 9.4 mg/dL (8.4-10.2); CARBON DIOXIDE 27 mmol/L (22-29); CHLORIDE 106 mmol/L (98-107); CREATININE, SERUM 0.55 mg/dL (0.57-1.11); EST GLOMERULAR FILTRATION RATE > 60 ML/MIN (60-); GLUCOSE 82 mg/dL (74-118); MAGNESIUM 1.7 MG/DL (1.3-2.1); POTASSIUM 3.2 mmol/L (3.5-5.1); SODIUM 142 mmol/L (136-145)
[2019-04-15] MEDS: METOPROLOL TARTRATE 50 MG TAB GT SCH ×2 (05:37→17:16)
[2019-04-15] MEDS: PROPOFOL IV EMULSION 10MG/ML 100 ML IV PRN (06:34)
[2019-04-15] MEDS: LEVALBUTEROL HCL SOLN NEBU 1.25 MG/3 ML NEB INH SCH ×4 (07:05→19:45)
[2019-04-15] MEDS: IPRATROPIUM BROMIDE 0.02% 2.5 ML NEB NEB SCH ×4 (07:05→19:45)
[2019-04-15 07:20] LABS: ALBUMIN 2.5 g/dL (3.5-5.0); BILIRUBIN,DIRECT 0.4 mg/dL (0.0-0.5)
[2019-04-15 07:48] LABS: LYMPHOCYTES % (MANUAL) 21 % (19-48); MONOCYTES % (MANUAL) 14 % (3.4-9.0); NEUTROPHILS % (MANUAL) 65 % (40-74)
[2019-04-15 07:49] LABS: ANISOCYTOSIS MARKED; HYPOCHROMASIA SLIGHT
[2019-04-15 07:50] LABS: PLATELET ESTIMATE ADEQUATE; PLATELET MORPHOLOGY COMMENT FEW EDTA CLUMPING
[2019-04-15] MEDS: LEVETIRACETAM ORAL SOLUTION 500 MG/5 ML SOLN PEG SCH ×2 (07:50→21:00)
[2019-04-15] MEDS: PANTOPRAZOLE SODIUM 40 MG SUSPDR.PKT GT SCH (07:51)
[2019-04-15] MEDS: ASCORBIC ACID 500 MG TAB PO SCH ×2 (07:51→17:15)
[2019-04-15] MEDS: SERTRALINE HCL 50 MG TAB GT SCH (07:51)
[2019-04-15] MEDS: FERROUS SULFATE 300 MG/5 ML LIQD GT SCH ×2 (07:51→17:15)
[2019-04-15] MEDS: VANCOMYCIN 1GM/NS 250 ML 250 ML IV SCH ×2 (07:53→21:00)
--- NOTE | 2019-04-15 08:20 | Diagnostic Imaging Report ---
EXAMINATION: CHEST SINGLE (PORTABLE) INDICATION: Respiratory failure COMPARISON: Multiple prior chest radiograph most recently of 04/14/2019 FINDINGS: TUBES and LINES: EKG leads and external pacer pads overlie the chest. Tracheostomy in unchanged position. LUNGS: The lungs are moderately inflated. No focal consolidation. No pulmonary edema. PLEURA: No pleural effusion or pneumothorax. HEART AND MEDIASTINUM: The cardiomediastinal silhouette is unchanged in size and contour. BONES AND SOFT TISSUES: No acute fracture or dislocation. UPPER ABDOMEN: No free air under the diaphragm. IMPRESSION: No significant interval change. Signed by: Thuy Mahmood MD on 04/15/2019 8:17 AM
--- NOTE | 2019-04-15 13:44 | Progress Note ---
DATE: 04/15/2019 SUBJECTIVE: The patient is following commands well and interacting well today. She does not have much phlegm or secretions. ENT changed her trach to a #6. PHYSICAL EXAMINATION: VITAL SIGNS: The patient is afebrile. The blood pressure is normal. HEENT: Shows no facial swelling or erythema. Oropharynx is normal. NECK: Tracheostomy site is clean. There is no drainage. CARDIAC: Reveals a regular rate and rhythm with normal S1, S2. There are no murmurs or rubs heard. LUNGS: Auscultation of lungs reveals rhonchorous breath sounds bilaterally. There is no wheezing. ABDOMEN: Soft, nontender. There is no rebound or guarding. EXTREMITIES: Show no leg edema or calf tenderness. NEUROLOGICAL: Shows a residual hemiparesis. LABORATORY DATA: White blood cell count is 7.5 and hemoglobin is 7.8. The platelet count is 163. Electrolytes are within normal limits. RADIOGRAPHIC DATA: Chest x-ray shows no active disease. IMPRESSION: 1. Yhuzg-hn-rlclroq respiratory failure. 2. Recurrent aspiration pneumonia with sepsis, present on admission. 3. Seizure disorder. 4. Remote stroke with residual hemiparesis. 5. Anemia, secondary to chronic blood loss. PLAN: 1. The patient has been placed back on CPAP of 5 and pressure support of 8. We will continue this during the day and rest her on assist control at night. She tolerates this well. We will consider trach collar again tomorrow. 2. Continue current antibiotics. 3. Monitor blood counts. 4. DVT prophylaxis. 5. Enteral feedings. Rufino Melendrez MD [facility]/MODL /[id number]
[2019-04-15] MEDS ORDERED: POTASSIUM CHLORIDE 20MEQ/15ML UDC NG ONE (14:00)
--- NOTE | 2019-04-15 14:00 | NUR ---
PICC line dressing changed. New dressing CDI.
[2019-04-15] MEDS: RIVAROXABAN 20 MG TABLET PO SCH (17:17)
[2019-04-16] VITALS (24 sets, daily range): BP systolic 119–165; BP diastolic 74–101
[2019-04-16] MEDS: LEVALBUTEROL HCL SOLN NEBU 1.25 MG/3 ML NEB INH SCH ×4 (00:30→19:20)
[2019-04-16] MEDS: IPRATROPIUM BROMIDE 0.02% 2.5 ML NEB NEB SCH ×4 (00:30→19:20)
[2019-04-16 05:01] LABS: BASOPHILS % 0.5 % (0.0-1.0); EOSINOPHILS # (AUTO) 0.1 (0.0-0.4); EOSINOPHILS % 1.3 % (0.0-6.0); HEMOGLOBIN 7.9 g/dL (12.0-16.0); LYMPHOCYTES # (AUTO) 1.3 (1.0-3.2); LYMPHOCYTES % 20.7 % (18.0-39.1); MEAN CORPUSCULAR HEMOGLOBIN 21.8 pg (28-32); MEAN CORPUSCULAR HGB CONC 29.3 g/dL (31-35); MEAN CORPUSCULAR VOLUME 74.4 fL (81-99); MONOCYTES % 15.3 % (4.4-11.3); NEUTROPHILS # (AUTO) 3.9 (2.1-6.9); NEUTROPHILS % 61.7 % (38.7-80.0); PLATELET COUNT 140 x10e3/uL (140-360); RED BLOOD COUNT 3.63 x10e6/uL (3.6-5.1); RED CELL DISTRIBUTION WIDTH 19.5 % (11.7-14.4)
[2019-04-16 05:24] LABS: ALANINE AMINOTRANSFERASE 59 IU/L (0-55); ALBUMIN 2.4 g/dL (3.5-5.0); ALBUMIN/GLOBULIN RATIO 0.6 (0.8-2.0); ALKALINE PHOSPHATASE 79 IU/L (40-150); ANION GAP 13.5 mmol/L (8-16); BLOOD UREA NITROGEN 14 mg/dL (7-26); BUN/CREATININE RATIO 25 (6-25); CALCIUM 9.2 mg/dL (8.4-10.2); CARBON DIOXIDE 26 mmol/L (22-29); CHLORIDE 105 mmol/L (98-107); CREATININE, SERUM 0.55 mg/dL (0.57-1.11); EST GLOMERULAR FILTRATION RATE > 60 ML/MIN (60-); GLUCOSE 107 mg/dL (74-118); POTASSIUM 3.5 mmol/L (3.5-5.1); SODIUM 141 mmol/L (136-145)
[2019-04-16] MEDS: METOCLOPRAMIDE HCL 10 MG TAB GT SCH ×3 (06:00→17:25)
[2019-04-16] MEDS: METOPROLOL TARTRATE 50 MG TAB GT SCH ×2 (06:00→17:24)
--- NOTE | 2019-04-16 07:30 | Diagnostic Imaging Report ---
EXAMINATION: CHEST SINGLE (PORTABLE) INDICATION: Respiratory failure COMPARISON: Multiple prior chest radiographs, most recently 04/15/2019. FINDINGS: TUBES and LINES: Tracheostomy in unchanged position. LUNGS: The lungs are moderately inflated. Increasing patchy opacity in the left retrocardiac region. No evidence of pulmonary edema. PLEURA: No pleural effusion or pneumothorax. HEART AND MEDIASTINUM: The cardiomediastinal silhouette is unchanged. BONES AND SOFT TISSUES: No acute osseous abnormality. UPPER ABDOMEN: No free air under the diaphragm. IMPRESSION: Increasing patchy left retrocardiac opacity may reflect atelectasis or pneumonia in the appropriate clinical setting. Signed by: Dr. Giuliana Abarca MD on 04/16/2019 7:26 AM
[2019-04-16] MEDS ORDERED: ONDANSETRON HCL INJ 2MG/ML 2ML 2 MG/ML VIAL IV PRN (08:15)
[2019-04-16] MEDS: ASCORBIC ACID 500 MG TAB PO SCH (08:18)
[2019-04-16] MEDS: SERTRALINE HCL 50 MG TAB GT SCH (08:18)
[2019-04-16] MEDS: FERROUS SULFATE 300 MG/5 ML LIQD GT SCH ×2 (08:18→09:00)
[2019-04-16] MEDS: VANCOMYCIN 1GM/NS 250 ML 250 ML IV SCH ×2 (08:18→21:00)
[2019-04-16] MEDS: LEVETIRACETAM ORAL SOLUTION 500 MG/5 ML SOLN PEG SCH ×2 (08:18→21:00)
[2019-04-16] MEDS: PANTOPRAZOLE SODIUM 40 MG SUSPDR.PKT GT SCH (08:18)
[2019-04-16] MEDS: ASCORBIC ACID 500 MG TAB PEG SCH ×2 (09:00→16:47)
[2019-04-16] MEDS ORDERED: SCOPOLAMINE 1.5 MG PATCH ONE (11:29)
[2019-04-16] MEDS ORDERED: SCOPOLAMINE 1.5 MG PATCH TOP SCH (11:30)
[2019-04-16] MEDS: HYDRALAZINE HCL 20 MG/ML VIAL IV PRN (11:31)
--- NOTE | 2019-04-16 13:00 | Progress Note ---
DATE: 04/16/2019 Pulmonary Critical Care Progress Note SUBJECTIVE: The patient was on trach collar for 2 hours today and was switched back to ventilator support because of tachypnea. She has some increased secretions. PHYSICAL EXAMINATION: VITAL SIGNS: The patient is afebrile. The blood pressure is 160/99 and saturation is 100%. HEENT: Shows no facial swelling or erythema. The nasal mucosa is normal. NECK: Tracheostomy site is clean. There is no drainage. CARDIAC: Reveals regular rate and rhythm with normal S1 and S2. There are no murmurs or rubs. LUNGS: Auscultation of lungs reveals rhonchorous breath sounds bilaterally. There is no wheezing. ABDOMEN: Soft and nontender. There is no rebound or guarding. EXTREMITIES: Show no leg edema or calf tenderness. There is no cyanosis or clubbing. SKIN: Shows no rashes. LABORATORY DATA: BUN to creatinine ratio is normal. Other electrolytes within normal limits. CBC is within normal limits. IMPRESSION: 1. Lvrtt-cb-apjracu respiratory failure. 2. Aspiration pneumonia with sepsis, present on admission. 3. Remote stroke with residual hemiparesis. 4. Anemia secondary to chronic blood loss. PLAN: 1. Continue trach collar trials as tolerated. 2. Continue current antibiotics. 3. Continue to use enteral feedings. 4. Repeat CBC and CMP in a.m. 5. Repeat urinalysis and blood cultures. Rufino Melendrez MD [facility] /[id number]
--- NOTE | 2019-04-16 13:00 | NUR ---
0900- Pt placed on CPAP by RT, pt is tolerating well. 0925- Pt placed on Trach collar and tolerated for 2 hours. Respirations increased to 35 bpm. BP and HR increased as well. Patient placed back on Vent. Will continue to monitor.
[2019-04-16] MEDS: RIVAROXABAN 20 MG TABLET PO SCH (16:47)
[2019-04-16 17:35] LABS: BILIRUBIN,URINE NEGATIVE (NEGATIVE); CLARITY,URINE SL CLOUDY (CLEAR); COLOR,URINE YELLOW (YELLOW); KETONES,URINE NEGATIVE (NEGATIVE); LEUKOCYTE ESTERASE ,URINE NEGATIVE (NEGATIVE); NITRITE,URINE NEGATIVE (NEGATIVE); PROTEIN,URINE DIPSTICK NEGATIVE (NEGATIVE); URINE UROBILINOGEN 2 mg/dL (0.2 - 1)
[2019-04-16 17:56] LABS: AMORPHOUS SEDIMENT,URINE FEW (FEW); BACTERIA,URINE FEW /HPF; EPITHELIAL CELLS,URINE RARE /LPF; RBC,URINE 0-5 /HPF (0-5); WBC,URINE (MAN) 0-5 /HPF (0-5)
[2019-04-17] VITALS (25 sets, daily range): BP systolic 101–170; BP diastolic 60–109
[2019-04-17] MEDS: LEVALBUTEROL HCL SOLN NEBU 1.25 MG/3 ML NEB INH SCH ×4 (01:40→19:00)
[2019-04-17] MEDS: IPRATROPIUM BROMIDE 0.02% 2.5 ML NEB NEB SCH ×4 (01:40→19:00)
[2019-04-17] MEDS: HYDRALAZINE HCL 20 MG/ML VIAL IV PRN (02:08)
[2019-04-17 04:46] LABS: BASOPHILS % 0.5 % (0.0-1.0); EOSINOPHILS % 0.6 % (0.0-6.0); HEMATOCRIT 25.7 % (34.2-44.1); HEMOGLOBIN 7.6 g/dL (12.0-16.0); LYMPHOCYTES % 15.6 % (18.0-39.1); MEAN CORPUSCULAR HEMOGLOBIN 21.8 pg (28-32); MEAN CORPUSCULAR HGB CONC 29.6 g/dL (31-35); MEAN CORPUSCULAR VOLUME 73.9 fL (81-99); MONOCYTES # (AUTO) 0.8 (0.2-0.8); MONOCYTES % 12.5 % (4.4-11.3); NEUTROPHILS # (AUTO) 4.6 (2.1-6.9); NEUTROPHILS % 70.2 % (38.7-80.0); PLATELET COUNT 141 x10e3/uL (140-360); RED BLOOD COUNT 3.48 x10e6/uL (3.6-5.1); RED CELL DISTRIBUTION WIDTH 19.9 % (11.7-14.4)
[2019-04-17 05:17] LABS: ANION GAP 13.1 mmol/L (8-16); BLOOD UREA NITROGEN 12 mg/dL (7-26); BUN/CREATININE RATIO 24 (6-25); CALCIUM 9.3 mg/dL (8.4-10.2); CARBON DIOXIDE 25 mmol/L (22-29); CHLORIDE 108 mmol/L (98-107); CREATININE, SERUM 0.51 mg/dL (0.57-1.11); EST GLOMERULAR FILTRATION RATE > 60 ML/MIN (60-); GLUCOSE 97 mg/dL (74-118); POTASSIUM 3.1 mmol/L (3.5-5.1); SODIUM 143 mmol/L (136-145)
[2019-04-17] MEDS: METOPROLOL TARTRATE 50 MG TAB GT SCH ×2 (05:22→17:24)
[2019-04-17] MEDS: METOCLOPRAMIDE HCL 10 MG TAB GT SCH ×5 (05:23→23:21)
[2019-04-17 05:38] LABS: FERRITIN 29.55 ng/mL (4.63-204.00)
[2019-04-17 06:57] LABS: FOLATE 37.8 ng/mL (7.0-15.4)
--- NOTE | 2019-04-17 07:48 | Diagnostic Imaging Report ---
Examination: Single AP view of the chest. COMPARISON: Portable chest 04/16/2019 INDICATION: Respiratory failure IMPRESSION: 1. Lines and Tubes: Unchanged tracheostomy and left-sided PICC line. 2. Interval improvement in left retrocardiac opacity consistent with atelectasis. Right lung is grossly clear. 3. Cardiomediastinal silhouette is normal. Pulmonary vasculature is normal. 4. No acute bony abnormalities. Signed by: Dr. Eugenio Lazo M.D. on 04/17/2019 7:45 AM
[2019-04-17] MEDS: SERTRALINE HCL 50 MG TAB GT SCH (08:16)
[2019-04-17] MEDS: ASCORBIC ACID 500 MG TAB PEG SCH ×2 (08:16→17:23)
[2019-04-17] MEDS: LEVETIRACETAM ORAL SOLUTION 500 MG/5 ML SOLN PEG SCH ×2 (08:16→20:05)
[2019-04-17] MEDS: FERROUS SULFATE 300 MG/5 ML LIQD GT SCH (08:16)
[2019-04-17] MEDS: PANTOPRAZOLE SODIUM 40 MG SUSPDR.PKT GT SCH (08:16)
[2019-04-17] MEDS: VANCOMYCIN 1GM/NS 250 ML 250 ML IV SCH (09:30)
[2019-04-17] MEDS ORDERED: POTASSIUM CHLORIDE 20MEQ/100ML 100 ML IV ONE (09:30)
--- NOTE | 2019-04-17 09:53 | Progress Note ---
DATE: 04/17/2019 Pulmonary Critical Care Progress Note SUBJECTIVE: The patient reports some abdominal pain today. Enteral feedings were held. PHYSICAL EXAMINATION: VITAL SIGNS: Her temperature was 99.9 last night. HEENT: Shows no facial swelling or erythema. CARDIAC: Reveals regular rate and rhythm with a normal S1, S2. There are no murmurs or rubs. LUNGS: Auscultation of lungs reveal decreased breath sounds at the bases. There is no wheezing. ABDOMEN: Soft. There is no rebound or guarding. EXTREMITIES: Show no leg edema or calf tenderness. There is no cyanosis or clubbing. LABORATORY DATA: BUN to creatinine ratio is normal. Potassium is 3.1. The other electrolytes are within normal limits. Hemoglobin 7.6, and the white blood cell count is 6.8. IMPRESSION: 1. Abdominal pain. 2. Low-grade fevers. 3. Acute on chronic respiratory failure. 4. Aspiration pneumonia with sepsis, present on admission. 5. Remote history of stroke. 6. Anemia secondary to chronic blood loss. PLAN: 1. CT scan of the abdomen and pelvis. 2. Urinalysis. 3. Replete potassium. 4. CPAP trials as tolerated. 5. Adjust vancomycin. Rufino Melendrez MD [facility]/MODL /[id number]
--- NOTE | 2019-04-17 11:43 | Diagnostic Imaging Report ---
EXAMINATION: CT of the abdomen and pelvis with contrast. TECHNIQUE: Spiral CT images of the abdomen and pelvis were performed from the lung bases to the lesser trochanters after the intravenous administration of 100 cc of Isovue-370 and the oral administration of water. Coronal and sagittal reformatted images were obtained. COMPARISON: None. CLINICAL HISTORY:Aspiration pneumonia, generalized abdominal pain today DISCUSSION: ABDOMEN/PELVIS: LOWER THORAX:Wedge-shaped area of consolidation in the posteromedial right lower lobe (series 2, image 7) and to a lesser degree left lower lobe (series 2, image 24) . HEPATOBILIARY: No focal hepatic lesions. No intra or extrahepatic biliary ductal dilation. GALLBLADDER: No radio-opaque stones or sludge. No wall thickening. SPLEEN: No splenomegaly. PANCREAS: No focal masses or ductal dilatation. ADRENALS: No adrenal nodules. KIDNEYS/URETERS: No hydronephrosis, stones, or solid mass lesions. PELVIC ORGANS/BLADDER: Bladder is decompressed and grossly unremarkable. Uterus unremarkable. No adnexal masses. PERITONEUM/RETROPERITONEUM: No free air or fluid. LYMPH NODES: No intra-abdominal, retroperitoneal, pelvic or inguinal lymphadenopathy. VESSELS: The celiac trunk,superior and inferior mesenteric and bilateral renal arteries are patent The portal, superior mesenteric and splenic veins are patent. Incidental note is made of separate origin of the left gastric artery from the aorta. GI TRACT: No bowel dilation or evidence of obstruction. Appendix is well identified and normal in caliber. Moderate retained stool in the colon. Gastrostomy tube in place. BONES AND SOFT TISSUE: No aggressive lytic lesions. Bilateral L5-S1 pars interarticularis defects. No soft tissue abnormalities. IMPRESSION: 1. No acute abdominal pelvic abnormalities. 2. Moderate retained stool in the colon suggesting constipation. 3. Bilateral lower lobe wedge-shaped areas of consolidation, right greater than left, which may reflect aspiration pneumonia or atelectasis. Signed by: Dr. Eugenio Lazo M.D. on 04/17/2019 11:39 AM
[2019-04-17] MEDS ORDERED: SODIUM CHLORIDE 0.9% 50ML 50 ML ONE (11:44)
[2019-04-17] MEDS ORDERED: IOPAMIDOL 370 MG/ML 200 ML INFUS..BTL INJ ONE (11:44)
[2019-04-17] MEDS ORDERED: BISACODYL 10 MG SUPP PR ONE (12:00)
--- NOTE | 2019-04-17 12:00 | NUR ---
Patient complained of abdominal pain. Dr. Melendrez informed. Tube feeds placed on hold at this time. CT scan done of abdomen. Dr. Melendrez informed of results. Will continue to monitor.
[2019-04-17] MEDS: RIVAROXABAN 20 MG TABLET PO SCH (17:23)
[2019-04-18] VITALS (26 sets, daily range): BP systolic 97–166; BP diastolic 58–96
[2019-04-18] MEDS: IPRATROPIUM BROMIDE 0.02% 2.5 ML NEB NEB SCH ×3 (01:40→13:00)
[2019-04-18] MEDS: LEVALBUTEROL HCL SOLN NEBU 1.25 MG/3 ML NEB INH SCH ×4 (01:40→19:30)
[2019-04-18 03:30] LABS: BASOPHILS % 0.5 % (0.0-1.0); EOSINOPHILS # (AUTO) 0.1 (0.0-0.4); EOSINOPHILS % 1.1 % (0.0-6.0); HEMATOCRIT 25.3 % (34.2-44.1); HEMOGLOBIN 7.5 g/dL (12.0-16.0); LYMPHOCYTES # (AUTO) 1.1 (1.0-3.2); MEAN CORPUSCULAR HEMOGLOBIN 22.2 pg (28-32); MEAN CORPUSCULAR HGB CONC 29.6 g/dL (31-35); MEAN CORPUSCULAR VOLUME 74.9 fL (81-99); MONOCYTES # (AUTO) 0.7 (0.2-0.8); MONOCYTES % 12.5 % (4.4-11.3); NEUTROPHILS # (AUTO) 3.7 (2.1-6.9); NEUTROPHILS % 66.5 % (38.7-80.0); PLATELET COUNT 150 x10e3/uL (140-360); RED BLOOD COUNT 3.38 x10e6/uL (3.6-5.1); RED CELL DISTRIBUTION WIDTH 20.7 % (11.7-14.4)
[2019-04-18 03:49] LABS: ANION GAP 13.5 mmol/L (8-16); BLOOD UREA NITROGEN 14 mg/dL (7-26); BUN/CREATININE RATIO 25 (6-25); CALCIUM 9.2 mg/dL (8.4-10.2); CARBON DIOXIDE 24 mmol/L (22-29); CHLORIDE 106 mmol/L (98-107); CREATININE, SERUM 0.56 mg/dL (0.57-1.11); EST GLOMERULAR FILTRATION RATE > 60 ML/MIN (60-); GLUCOSE 105 mg/dL (74-118); POTASSIUM 3.5 mmol/L (3.5-5.1); SODIUM 140 mmol/L (136-145)
[2019-04-18] MEDS: METOPROLOL TARTRATE 50 MG TAB GT SCH ×2 (06:00→16:55)
[2019-04-18] MEDS: METOCLOPRAMIDE HCL 10 MG TAB GT SCH ×4 (06:34→23:56)
[2019-04-18 06:50] LABS: ALANINE AMINOTRANSFERASE 55 IU/L (0-55); ALBUMIN 2.3 g/dL (3.5-5.0); ALKALINE PHOSPHATASE 73 IU/L (40-150); BILIRUBIN,DIRECT 0.4 mg/dL (0.0-0.5)
[2019-04-18] MEDS: VANCOMYCIN 1GM/NS 250 ML 250 ML IV SCH (09:54)
[2019-04-18] MEDS: PANTOPRAZOLE SODIUM 40 MG SUSPDR.PKT GT SCH (09:54)
[2019-04-18] MEDS: ASCORBIC ACID 500 MG TAB PEG SCH ×2 (09:54→16:55)
[2019-04-18] MEDS: FERROUS SULFATE 300 MG/5 ML LIQD GT SCH (09:54)
[2019-04-18] MEDS: LEVETIRACETAM ORAL SOLUTION 500 MG/5 ML SOLN PEG SCH ×2 (09:54→21:15)
[2019-04-18] MEDS: SERTRALINE HCL 50 MG TAB GT SCH (09:54)
--- NOTE | 2019-04-18 12:00 | NUR ---
Dr Stiven Melendrez to bedside; trach collar for 15 minutes and back to mechanical vent to trach.
--- NOTE | 2019-04-18 12:07 | NUR ---
Nutrition Follow-up Note RD Recommendation(s) for Physician: - Continue Jevity 1.2 at goal rate of 50 ml/hr - Water flushes per MD - Check gastric residual, labs, and weight daily Plan of Care: RD following, monitoring for tolerance and adequacy, TF rec Nutrition reason for involvement: Follow up RD Assessment 04/18- Pt remains vent dependent via trach, sleeping at time of visit with no family present. TF infusing at goal rate of 50ml/hr, tolerating per RN. TF held yesterday 2/2 c/o abdominal pain. Pt discussed during am rounds, pending discharge to outside facility. Will monitor and continue to follow. 04/12 Pt was discussed during AM rounds. The patient was taken off the ventilator and placed on trach collar. Chemistry labs WNL. TF was running at 35mL/hr with Jevity 1.2. Pt was tolerating TF well without gastric residual. Notified WILLIE Blanton about goal rate. Will continue to monitor and follow. 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 Pt presented with PEG and tracheostomy. Trach was connected to vent. IVF at 125mL/hr noted. Visited pt in the room. Unable to obtain any info and no family on bedside. Reviewed medical record from [facility]. Pt was getting Jevity 1.2 @65mL/hr, providing 1872kcal, 87g protein, and 1259mL water. Will communicate TF rec with RN. Principal Problems/Diagnoses: 1. Aspiration pneumonia with severe sepsis, present on admission. 2. Btcvl-gi-lfgrtev respiratory failure. 3. Moderate protein calorie malnutrition. PMH: 1. Cerebrovascular accident. 2. Chronic respiratory failure. 3. Protein-calorie malnutrition. 4. Seizure disorder. 5. Hypertension. GI: LBM 04/16; + PEG Skin: No pressure wound noted Labs: 04/18: BMP WNL (04/12) reviewed (04/07) glucose 137 H Meds: reglan, keppra, vitamin C, feosol, protinix, zofran Ht: 63in Wt: 125lb; 116lb BMI: 22.1kg/m2 IBW: 115lb +/- 10% Malnutrition Evaluation (04/07/2019) Unable to determine as pt is non-verbal. No family on bedside to provide hx. Noted minimal muscle loss with some temporal depression. Nutrition Prescription (Diet Order): Jevity 1.2 @50mL/hr (providing 1440 kcal and 67 gm protein) Estimated Nutritional Needs (Non-ventilated): Calories: 1325 - 1590kcal (25-30kcal/kg/d) Weight used: CBW Protein: 53 - 80g (1-1.5g/kg/d) Weight used: CBW Diet Adequacy: Meeting calorie needs, Meeting protein needs Diet Education Needs Assessment: Diet education not indicated. Nutrition Care Level: mod Nutrition Diagnosis: Inadequate oral intake related to CVA as evidenced by pt requiring mcc EN through PEG. Goal: Patient will meet 75-100% of estimated needs by follow up Progress: goal met Interventions: Composition, Rate, Route Monitoring/Evaluation: Total energy intake, Total protein intake, Formula/Solution, Weight change Signed: Grecia Harrell RD, LD, CNSC
--- NOTE | 2019-04-18 12:34 | NUR ---
ORDERS REC'D BY TIERNEY NELSON FOR DC BACK TO [facility] TODAY NURSE CALLED DR Stiven SUERO TO ASK IF HE WAS OK WITH DC AND HE SAID NO DR SUERO CALLED TIERNEY AND SHE CALLED NURSE WITH AN LTAC ORDER EMAIL TO DR HUA, JUSTIN AIKEN AND BENI FREY
--- NOTE | 2019-04-18 13:45 | Progress Note ---
DATE: 04/18/2019 Pulmonary and Critical Care Progress Note SUBJECTIVE: The patient remains on mechanical ventilation. She is afebrile. PHYSICAL EXAMINATION: VITAL SIGNS: The blood pressure is 109/70 and the pulse is 73. HEENT: Shows no facial swelling or erythema. NECK: Tracheostomy site is clean. There is no drainage. CARDIAC: Reveals regular rate and rhythm with normal S1 and S2. LUNGS: Auscultation of lungs reveals rhonchorous breath sounds bilaterally. There is no wheezing. ABDOMEN: Soft and nontender. There is no rebound or guarding. EXTREMITIES: Show no leg edema or calf tenderness. There is no cyanosis or clubbing. SKIN: Shows no rashes. NEUROLOGIC: Shows the patient to have hemiparesis. She is awake. RADIOGRAPHIC DATA: CT scan of abdomen and pelvis from yesterday shows constipation. IMPRESSION: 1. Hlokj-ri-rmnlfam respiratory failure. 2. Aspiration pneumonia with sepsis, present on admission. 3. Remote history of stroke. 4. Anemia. PLAN: 1. Continue weaning trials. The patient did tolerate CPAP for 2 hours yesterday. 2. Continue antibiotics. 3. Physical therapy. 4. Enteral feedings. 5. LTAC evaluation. MD JELENA Banegas/SIDRA /[id number]
--- NOTE | 2019-04-18 15:00 | NUR ---
Dr Draper to bedside.
[2019-04-18] MEDS: RIVAROXABAN 20 MG TABLET PO SCH (16:55)
[2019-04-18] MEDS ORDERED: ATROPINE SULFATE 0.1 MG/ML 10ML SYR ONE (17:52)
[2019-04-18] MEDS ORDERED: EPINEPHRINE HCL 1:1000 1ML 1 MG/ML AMP ONE (17:52)
[2019-04-19] VITALS (26 sets, daily range): BP systolic 95–174; BP diastolic 12–101
[2019-04-19] MEDS: LEVALBUTEROL HCL SOLN NEBU 1.25 MG/3 ML NEB INH SCH ×4 (00:30→19:45)
[2019-04-19] MEDS: HYDRALAZINE HCL 20 MG/ML VIAL IV PRN (03:05)
[2019-04-19 04:58] LABS: BASOPHILS % 0.6 % (0.0-1.0); EOSINOPHILS % 0.6 % (0.0-6.0); HEMATOCRIT 27.8 % (34.2-44.1); HEMOGLOBIN 8.1 g/dL (12.0-16.0); LYMPHOCYTES # (AUTO) 1.1 (1.0-3.2); LYMPHOCYTES % 21.1 % (18.0-39.1); MEAN CORPUSCULAR HEMOGLOBIN 21.8 pg (28-32); MEAN CORPUSCULAR HGB CONC 29.1 g/dL (31-35); MEAN CORPUSCULAR VOLUME 74.9 fL (81-99); MONOCYTES # (AUTO) 0.8 (0.2-0.8); MONOCYTES % 14.1 % (4.4-11.3); NEUTROPHILS # (AUTO) 3.4 (2.1-6.9); NEUTROPHILS % 63.4 % (38.7-80.0); PLATELET COUNT 155 x10e3/uL (140-360); RED BLOOD COUNT 3.71 x10e6/uL (3.6-5.1); RED CELL DISTRIBUTION WIDTH 20.8 % (11.7-14.4)
[2019-04-19 05:22] LABS: ANION GAP 11.5 mmol/L (8-16); BLOOD UREA NITROGEN 12 mg/dL (7-26); BUN/CREATININE RATIO 23 (6-25); CALCIUM 8.8 mg/dL (8.4-10.2); CARBON DIOXIDE 26 mmol/L (22-29); CHLORIDE 104 mmol/L (98-107); CREATININE, SERUM 0.53 mg/dL (0.57-1.11); EST GLOMERULAR FILTRATION RATE > 60 ML/MIN (60-); GLUCOSE 127 mg/dL (74-118); POTASSIUM 3.5 mmol/L (3.5-5.1); SODIUM 138 mmol/L (136-145)
--- NOTE | 2019-04-19 05:45 | NUR ---
Complete bed bath given. Bed linens changed. Purewick external catheter replaced.
[2019-04-19] MEDS: METOPROLOL TARTRATE 50 MG TAB GT SCH ×2 (05:55→17:51)
[2019-04-19] MEDS: METOCLOPRAMIDE HCL 10 MG TAB GT SCH ×3 (05:55→17:51)
[2019-04-19] MEDS: FERROUS SULFATE 300 MG/5 ML LIQD GT SCH (08:02)
[2019-04-19] MEDS: PANTOPRAZOLE SODIUM 40 MG SUSPDR.PKT GT SCH (08:02)
[2019-04-19] MEDS: SERTRALINE HCL 50 MG TAB GT SCH (08:02)
[2019-04-19] MEDS: ASCORBIC ACID 500 MG TAB PEG SCH ×2 (08:02→17:50)
[2019-04-19] MEDS: LEVETIRACETAM ORAL SOLUTION 500 MG/5 ML SOLN PEG SCH ×2 (08:02→20:50)
[2019-04-19 08:15] LABS: BAND NEUTROPHILS % (MANUAL) 2 %; LYMPHOCYTES % (MANUAL) 21 % (19-48); MONOCYTES % (MANUAL) 9 % (3.4-9.0); NEUTROPHILS % (MANUAL) 67 % (40-74)
[2019-04-19 08:16] LABS: ELLIPTOCYTE, RBC SLIGHT; OVALOCYTES FEW; PLATELET ESTIMATE ADEQUATE; PLATELET MORPHOLOGY COMMENT FEW LARGE; POIKILOCYTOSIS SLIGHT; POLYCHROMASIA FEW; RBC MORPHOLOGY COMMENT ABNORMAL
[2019-04-19 08:17] LABS: HELMET CELLS SLIGHT
[2019-04-19] MEDS: VANCOMYCIN 1GM/NS 250 ML 250 ML IV SCH (09:30)
--- NOTE | 2019-04-19 11:55 | Progress Note ---
DATE: 04/19/2019 SUBJECTIVE: The patient is awake and interacting well. She was on a pressure regulated volume control. She has been switched to a pressure support of 8 and CPAP of 5. She has tidal volumes of 250 mL with the respiratory rate of 30. PHYSICAL EXAMINATION: VITAL SIGNS: The patient is afebrile. The vital signs are stable. HEENT: Shows no facial swelling or erythema. The tracheostomy site is clean. There is no drainage. CARDIAC: Reveals regular rate and rhythm with normal S1, S2. There are no murmurs or rubs. LUNGS: Auscultation of lungs reveals rhonchorous breath sounds bilaterally. There is no wheezing. ABDOMEN: Soft, nontender. There is no rebound or guarding. EXTREMITIES: Show no leg edema or calf tenderness. There is no cyanosis or clubbing. SKIN: Shows no rashes. LABORATORY DATA: The hemoglobin is 8.1, and white blood cell count is 5.3. The platelet count is 155. The BUN to creatinine ratio is normal and the other electrolytes are within normal limits. IMPRESSION: 1. Fkikp-qr-eiasvlr respiratory failure. 2. Aspiration pneumonia with sepsis, present on admission. 3. Remote history of stroke. 4. Anemia, secondary to chronic blood loss. PLAN: 1. Continue CPAP trials for now and repeat ABG at 2:30 p.m. 2. Complete antibiotics. 3. Enteral feedings. 4. Physical therapy. 5. LTAC evaluation. Rufino Melendrez MD [facility] /[id number]
--- NOTE | 2019-04-19 12:53 | Diagnostic Imaging Report ---
EXAMINATION: CHEST SINGLE (PORTABLE) INDICATION: Respiratory failure COMPARISON: Multiple prior chest radiographs, most recently 04/17/2019 FINDINGS: LINES/TUBES:Tracheostomy tube in unchanged position. EKG leads overlie the chest. Left PICC line terminates in SVC. LUNGS:The lungs are moderately inflated. There is left basilar opacity silhouetting the left rosalina diaphragm. PLEURA:No pleural effusion or pneumothorax. MEDIASTINUM:The cardiomediastinal silhouette appears unchanged in size and shape. BONES/SOFT TISSUES:No acute osseous injury. ABDOMEN:No free air under the diaphragm. IMPRESSION: Patchy opacity at the left lung base more likely subsegmental atelectasis than superimposed aspiration or pneumonia. Otherwise no significant interval change. Signed by: Thuy Mahmood MD on 04/19/2019 12:50 PM
[2019-04-19 14:39] LABS: ABG HCO3 28 mmol/L (23-28); ABG PCO2 45 mmHg (41-51); ABG PO2 151 mmHg (80-105)
--- NOTE | 2019-04-19 14:51 | NUR ---
CM SPOKE WITH DR CARDOZA WHO STATES TO PROCEED WITH LTAC EVAL HE IS WILLING TO DO [facility] IF DENIED CHOICE LETTER OBTAINED OVER THE PHONE FROM SISTER IN LAW AND MEDICAL POWER OF SENIOR DIRECTOR FINANCE LYUDMILA PACE AT [phone] NOTIFIED JONE ALCAZAR WITH [facility] OF CONSULT AWAIT INSURANCE DECISION BACK UP PLAN IS MEDICAL RESORT [facility]
--- NOTE | 2019-04-19 15:40 | NUR ---
MOT INITIATED AND PLACED ON FRONT OF CHART
--- NOTE | 2019-04-19 16:07 | NUR ---
Per nader Shannon to use right central line.
[2019-04-19] MEDS: RIVAROXABAN 20 MG TABLET PO SCH (17:50)
[2019-04-20] VITALS (18 sets, daily range): BP systolic 109–157; BP diastolic 70–91
[2019-04-20] MEDS: METOCLOPRAMIDE HCL 10 MG TAB GT SCH ×3 (01:00→12:00)
[2019-04-20] MEDS: LEVALBUTEROL HCL SOLN NEBU 1.25 MG/3 ML NEB INH SCH ×2 (02:00→07:00)
--- NOTE | 2019-04-20 04:10 | NUR ---
Report called to WILLIE Ferrari at [facility] and patient will be going to ICU-#11. [facility] called by supervisor sign shop and will be here before 5 to transport patient.
[2019-04-20 05:09] LABS: BASOPHILS % 0.4 % (0.0-1.0); EOSINOPHILS % 0.2 % (0.0-6.0); HEMATOCRIT 27.3 % (34.2-44.1); HEMOGLOBIN 7.9 g/dL (12.0-16.0); LYMPHOCYTES # (AUTO) 0.6 (1.0-3.2); LYMPHOCYTES % 11.5 % (18.0-39.1); MEAN CORPUSCULAR HEMOGLOBIN 21.9 pg (28-32); MEAN CORPUSCULAR HGB CONC 28.9 g/dL (31-35); MEAN CORPUSCULAR VOLUME 75.8 fL (81-99); MONOCYTES # (AUTO) 0.6 (0.2-0.8); MONOCYTES % 12.1 % (4.4-11.3); NEUTROPHILS # (AUTO) 3.7 (2.1-6.9); NEUTROPHILS % 75.4 % (38.7-80.0); PLATELET COUNT 136 x10e3/uL (140-360); RED CELL DISTRIBUTION WIDTH 20.7 % (11.7-14.4)
[2019-04-20 05:24] LABS: ANION GAP 11.7 mmol/L (8-16); BLOOD UREA NITROGEN 10 mg/dL (7-26); BUN/CREATININE RATIO 18 (6-25); CALCIUM 9.1 mg/dL (8.4-10.2); CARBON DIOXIDE 28 mmol/L (22-29); CHLORIDE 102 mmol/L (98-107); CREATININE, SERUM 0.56 mg/dL (0.57-1.11); EST GLOMERULAR FILTRATION RATE > 60 ML/MIN (60-); GLUCOSE 115 mg/dL (74-118); POTASSIUM 3.7 mmol/L (3.5-5.1); SODIUM 138 mmol/L (136-145)
[2019-04-20] MEDS: METOPROLOL TARTRATE 50 MG TAB GT SCH (06:24)
[2019-04-20 06:32] LABS: LYMPHOCYTES % (MANUAL) 12 % (19-48); MONOCYTES % (MANUAL) 14 % (3.4-9.0); NEUTROPHILS % (MANUAL) 74 % (40-74)
[2019-04-20 06:41] LABS: ANISOCYTOSIS SLIGHT; PLATELET ESTIMATE SLIGHTLY DECREASED; PLATELET MORPHOLOGY COMMENT NORMAL; POIKILOCYTOSIS SLIGHT; RBC MORPHOLOGY COMMENT NORMAL
--- NOTE | 2019-04-20 07:12 | NUR ---
Patient received asleep and awakens when called by name. On Trache to Vent: SIMV-8; FIO2-40%; TV-300 and Peep-5 and tolerating well with 02 sats at 100%. Respirations are even and unlabored. Denies any pain or discomfort. V/S are stablel
[2019-04-20] MEDS: LEVETIRACETAM ORAL SOLUTION 500 MG/5 ML SOLN PEG SCH (09:02)
[2019-04-20] MEDS: ASCORBIC ACID 500 MG TAB PEG SCH (09:02)
[2019-04-20] MEDS: PANTOPRAZOLE SODIUM 40 MG SUSPDR.PKT GT SCH (09:02)
[2019-04-20] MEDS: SERTRALINE HCL 50 MG TAB GT SCH (09:02)
[2019-04-20] MEDS: FERROUS SULFATE 300 MG/5 ML LIQD GT SCH (09:24)
[2019-04-20] MEDS: VANCOMYCIN 1GM/NS 250 ML 250 ML IV SCH (09:25)
[2019-04-20] MEDS ORDERED: SCOPOLAMINE 1.5 MG PATCH TOP SCH (13:45)
--- NOTE | 2019-04-20 14:10 | NUR ---
Patient placed on CPAP and then 40% trache collar and tolerated trache collar for approx. 30 minutes and respirations increased from 20 bpm to 33 bpm and thick copius secretions also developed. Thick, whitish secretions suctioned out via trache site and tolerated well. Patient returned to Vent with settings of: SIMV-8; TV-300; FIO2-40% AND Peep of 5 and 02 sats are 100% and Respiratory rate of 24 bpm.
--- NOTE | 2019-04-20 14:32 | Progress Note ---
DATE: 04/20/2019 Pulmonary Critical Care Progress Note. SUBJECTIVE: The patient was placed on trach collar today and seems to be tolerating it well for the last 20 minutes. She remains awake. She is receiving enteral feedings. PHYSICAL EXAMINATION: VITAL SIGNS: The patient is afebrile. HEENT: Shows no facial swelling or erythema. NECK: Tracheostomy site is clean. There is no drainage. CARDIAC: Reveals regular rate and rhythm with normal S1, S2. LUNGS: Auscultation of lungs reveals rhonchorous breath sounds bilaterally. There is no wheezing. ABDOMEN: Soft, nontender. There is no rebound or guarding. EXTREMITIES: Show no leg edema or calf tenderness. There is no cyanosis or clubbing. SKIN: Shows no rashes. IMPRESSION: 1. Ttwor-mf-otrotxp respiratory failure. 2. Staph aureus pneumonia with sepsis, present on admission and secondary to aspiration. 3. Remote history of stroke with residual hemiparesis. 4. Anemia secondary to chronic blood loss. PLAN: 1. Continue trach collar as tolerated today for up to 2 hours and then return to mechanical ventilation. 2. Continue enteral feedings. 3. Continue antibiotics. 4. DVT prophylaxis. Rufino Melendrez MD [facility] /[id number]
--- NOTE | 2019-04-20 16:50 | NUR ---
[facility] here to transport patient via stretcher to [facility]. Patient incontinent of brown, soft stool and bed bath given and tolerated well. V/S are stable. Annemarie Mackey (POA) notified of patient being transferred to [facility] today.
--- NOTE | 2019-04-21 05:36 | Discharge Summary ---
ADMISSION DIAGNOSES: Sepsis, aspiration pneumonia with sepsis present on admission, acute hypoxic and hypercapnic respiratory failure, acute on chronic respiratory failure, seizures, hypertension, elevated LFTs, dysphagia due to previous stroke. DISCHARGE DIAGNOSES: Sepsis, aspiration pneumonia with sepsis present on admission, acute hypoxic and hypercapnic respiratory failure, acute on chronic respiratory failure, seizures, hypertension, elevated LFTs, dysphagia due to previous stroke, and mucus plug, hypokalemia, rule out gastrointestinal bleed, methicillin-resistant Staphylococcus aureus aspiration pneumonia present on admission. HISTORY: The patient has a history of hypertension, CVA, AMS, and seizures. SURGICAL HISTORY: Trach and PEG placement. FAMILY HISTORY: Noncontributory. SOCIAL HISTORY: Noncontributory. HOSPITAL COURSE: A 53-year-old female with previous stroke and right hemiparesis, AMS, dysphagia, has a trach and PEG, and [facility] with [facility] distress after vomiting and presumably aspirating. On admission, IV fluid bolus was given and broad-spectrum antibiotics were started. Nebs, tube feeding, and Reglan were also started. Pulmonary was consulted. Chest x-ray showed left greater than right basilar and additional airspace opacities compatible with provided history of aspiration. Multifocal pneumonia could have similar appearance. Probable small left pleural effusion. The patient had a left upper arm PICC placed. Echo showed an EF of 55 plus percent. EKG showed sinus tach of 158. Due to the elevated LFTs, the patient had an ultrasound of the abdomen that showed diffuse fatty infiltration of the liver without hepatic abnormality. During hospitalization, the LFTs continued to trend down. Chest x-ray after few days showed improvement of the left retrocardiac opacity consistent with atelectasis. Right lung is grossly clear. Due to complaints of abdominal pain, a CT of the abdomen was done and showed no acute pelvic abnormalities. Moderate retained stool in the colon. Bilateral lower lobe wedge-shaped areas of consolidation, right greater than left, which may reflect aspiration or atelectasis. Blood cultures were negative. Urine culture was negative. Sputum culture came back positive for methicillin-resistant Staphylococcus aureus, so the patient was resumed on vancomycin only. Stool for blood was negative, although the patient remains anemic. Her hemoglobin was stable. At one point, the patient had an apparent mucus plug and coded, so ENT was consulted and changed her trach to a size 6 Shiley. The patient tolerated the procedure well and remained stable throughout the rest of the hospitalization. She was unable to wean off the vent after multiple attempts. She could only tolerate CPAP for trach collar intermittently, so the patient will transfer to [place] for close physician monitoring. The wastewater treatment engineer and other consults will continue to follow the patient at [place]. Vital signs stable and the patient afebrile. Dictated by Cha Pendleton NP MD [facility] /[id number]
== END 2019-04-20 17:30 | DRG 870 ==
LOC: ER 04:01 → EDBD 04:01 → ERHOLD 05:42 → ICU 06:30
PROVIDERS: ADMIT Internal Medicine; ATTEND Internal Medicine
PROC: 5A1955Z Respiratory Ventilation, Greater than 96 Consecutive Hours (ICD-10-PCS; principal; 2019-04-07)
PROC: 02HV33Z Insertion of Infusion Device into Superior Vena Cava, Percutaneous Approach (ICD-10-PCS; 2019-04-07)
PROC: 3E0G76Z Introduction of Nutritional Substance into Upper GI, Via Natural or Artificial Opening (ICD-10-PCS; 2019-04-07)
PROC: 0B21XFZ Change Tracheostomy Device in Trachea, External Approach (ICD-10-PCS; 2019-04-14)
PROC: 5A12012 Performance of Cardiac Output, Single, Manual (ICD-10-PCS; 2019-04-14)
DX: A41.9 Sepsis, unspecified organism (principal); J69.0 Pneumonitis due to inhalation of food and vomit; J15.212 Pneumonia due to Methicillin resistant Staphylococcus aureus; J96.22 Acute and chronic respiratory failure with hypercapnia; J96.21 Acute and chronic respiratory failure with hypoxia; G93.41 Metabolic encephalopathy; E44.0 Moderate protein-calorie malnutrition; I69.351 Hemiplegia and hemiparesis following cerebral infarction affecting right dominant side; E87.2 Acidosis; D50.0 Iron deficiency anemia secondary to blood loss (chronic); R65.20 Severe sepsis without septic shock; G40.909 Epilepsy, unspecified, not intractable, without status epilepticus; I10 Essential (primary) hypertension; I69.320 Aphasia following cerebral infarction; I69.391 Dysphagia following cerebral infarction; R13.10 Dysphagia, unspecified; Z93.0 Tracheostomy status; Z93.1 Gastrostomy status; R94.5 Abnormal results of liver function studies; T17.990A Other foreign object in respiratory tract, part unspecified in causing asphyxiation, initial encounter; X58.XXXA Exposure to other specified factors, initial encounter; E87.6 Hypokalemia; R00.0 Tachycardia, unspecified; K76.0 Fatty (change of) liver, not elsewhere classified; E83.42 Hypomagnesemia; D63.8 Anemia in other chronic diseases classified elsewhere; Z79.01 Long term (current) use of anticoagulants
CPT/HCPCS: 36415; 36569; 36600; 71045; 74177; 76700; 80048; 80053; 80076; 80202; 81001; 82270; 82550; 82553; 82607; 82728; 82746; 82805; 82948; 83540; 83605; 83735; 83880; 84100; 84134; 84466; 84484; 85007; 85025; 85027; 85379; 85610; 85730; 87040; 87070; 87071; 87086; 87186; 87205; 87449; 93005; 93306; 94002; 94003; 94640; 97139; 99285; C1769; J0171; J0360; J1940; J1956; J2060; J2920; J2997; J3370; J3475; J3480; J7030; J7050; Q9967

== ENCOUNTER 2019-06-04 15:33 | Inpatient (IN) | payer MEDICARE ==
[~2019-06-04] VITALS: Ht 160 cm; Wt 55.9 kg
[2019-06-04] VITALS (8 sets, daily range): BP systolic 127–137; BP diastolic 73–88
[~2019-06-04 15:33] MED LIST: ACETAMINOP325 MG/10 PO; ALPRAZOLAM0.5 MG GT; AMLODIPINE BESY10 MG GT; ATORVASTATIN CA10 MG GT; BUDESONIDE0.5 MG/2 M NEB; COLACE100 MG/10 PO; DOCUSATE SODIU100 MG PO; DULCOLAX SUPP10 MG RC; GLYCOPYRRO0.2 MG/1 M IV; HYDRALAZIN20 MG/1 ML IV; LABETALOL20 MG/4 ML IVP; LEVETIRACETAM500 MG GT; LUBRICANT EYE1 EACH OU; MAGNESIUM CITR296 ML GT; METOCLOPRA10 MG/2 ML IV; METOPROLOL TART50 MG GT; ONDANSETRON2 MG/1 ML IV; PROTONIX40 MG GT; SENNA LAX8.6 MG GT; SERTRALINE HCL50 MG GT; TRANSDERM-SCOP1 EACH TD; TYLENOL WITH C1 EACH GT; XARELTO20 MG GT
--- OUTSIDE RECORDS SUMMARY | 2019-06-04 15:38 | XMS REPORT ---
Author Author Brandie Jones Organization [employer] Address Unknown Phone Unavailable Care Team Providers Care Propagation Worker Name Role Phone Brandie Jones Unavailable Encounters Encounter Location Date Refill Brandie Jones MD April 10, 2014 Refill Brandie Jones MD Jun 22, 2014 Problems Problem Type Condition ICD-9 Code Onset Dates Condition Status Problem Contact dermatitis and other eczema, due to unspecified cause 692.9 Active Problem Neck sprain and strain 847.0 Active Problem Acute, but ill-defined, cerebrovascular disease 436 Active Problem Essential hypertension, benign 401.1 Active Problem Lumbar sprain 847.2 Active Problem Hip pain, right 719.45 Active Problem Hyperlipidemia 272.4 Active Problem Leg pain, left 729.5 Active Problem Swelling of both feet 729.81 Active Problem Shoulder pain 719.41 Active Problem Edema 782.3 Active Medications Medication Code System Code Instructions Start Date End Date Status Dosage Lasix MEDISPAN [address]-19 20 mg Orally Once a day January 30, 2014 Active 1 tablet Social History Social History Element Qualifiers Date Reported Tobacco Use: . Are you a: never smoker May 29, 2014 Marital Status: . May 29, 2014 Caffeine intake? . Status: Yes, What type: Coffee, Tea, Soft Drinks, 2-3 Cups a day May 29, 2014 Do you exercise? . Answer: Yes May 29, 2014 Do you drink alcohol? . Status: Yes, Type: Socially May 29, 2014 Summary Purpose [employer] Submission
--- OUTSIDE RECORDS SUMMARY | 2019-06-04 15:38 | XMS REPORT ---
Author Author Brandie Jones Organization [employer] Address Unknown Phone Unavailable Care Team Providers Care Sport Shoe Spike Assembler Name Role Phone Brandie Jones CP Unavailable Allergies, Adverse Reactions, Alerts Substance Reaction Event Type N.K.D.A. Info Not Available Non Drug Allergy Problems Problem Type Condition Code Onset Dates Condition Status Problem Hypertension, benign 401.1 Active Problem CVA (cerebral vascular accident) 434.91 Active Problem Acute, but ill-defined, cerebrovascular disease 436 Active Problem Contact dermatitis and other eczema, due to unspecified cause 692.9 Active Problem Neck sprain and strain 847.0 Active Problem Swelling of both feet 729.81 Active Problem Leg pain, left 729.5 Active Problem Edema 782.3 Active Problem Shoulder pain 719.41 Active Problem Aphasia R47.01 Active Problem Hip pain, right 719.45 Active Problem Hemiparesis affecting right side as late effect of cerebrovascular accident I69.351 Active Problem Lumbar sprain 847.2 Active Problem Status post CVA Z86.73 Active Problem BMI 25.0-25.9,adult Z68.25 Active Problem Abdominal pain, unspecified location R10.9 Active Problem 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 Active Problem 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 Problem Hemiplegia, post-stroke 438.20 Active Problem Headache 784.0 Active Problem History of influenza vaccination within 1 year Z92.89 Active Problem Hyperlipidemia 272.4 Active Problem Numbness of left hand R20.8 Active Problem Gastroesophageal reflux disease without esophagitis K21.9 Active Problem Hemiplegia and hemiparesis following cerebral infarction affecting unspecified side I69.359 Active Problem Gastritis without bleeding, unspecified chronicity, unspecified gastritis type K29.70 Active Assessment Hemiparesis affecting right side as late effect of cerebrovascular accident I69.351 Active Problem Hyperlipidemia E78.5 Active Assessment Benign essential hypertension I10 Active Problem CVA (cerebral vascular accident) I63.9 Active Assessment Seizure disorder G40.909 Active Problem Tinea versicolor 111.0 Active Assessment Hyperlipidemia E78.5 Active Problem Sprain of cervical neck 847.0 Active Assessment History of influenza vaccination within 1 year Z92.89 Active Problem Expressive aphasia R47.01 Active Assessment Gastroesophageal reflux disease without esophagitis K21.9 Active Problem Seizure disorder G40.909 Active Problem Benign essential hypertension I10 Active Problem Sprain lumbar region S33.5XXA Active Medications Medication Code System Code Instructions Start Date End Date Status Dosage Wheelchair [facility] 65[address] 1 Standard Wheelchair as directed May 01, 2014 Active as directed Pravachol [facility] [address]-09 10 MG Orally once every night Active 1 tablet Norvasc [facility] [address]-81 5 MG Orally Once a day January 27, 2014 Active 1 tablet Zantac 150 Maximum Strength [facility] [address]-84 150 MG Orally twice a day (bid) Oct 01, 2016 Active 1 tablet Mattress Pad [facility] [address]54-[address]4710 1 Matress as directed May 01, 2014 Active as directed Lopid [facility] [address]-45 600 MG Orally Once a Day Oct 03, 2015 Active 1 tablet Aspirin [facility] [address]-60 81 MG Orally Once a day Active 1 tablet Vital Signs Date/Time: January 20, 2017 Blood Pressure Diastolic 80 mm Hg Blood Pressure Systolic 140 mm Hg Height 61 in Temperature 98.2 F Respiratory Rate 16 /min Cardiac Monitoring Heart Rate 80 /min Results No Known Results Summary Purpose [employer] Submission
--- OUTSIDE RECORDS SUMMARY | 2019-06-04 15:38 | XMS REPORT | Continuity of Care Document ---
Author Author [employer] Organization [employer] Address Unknown Phone Unavailable Care Team Providers Care Cook Larder Name Role Phone [employer] Information Cryptonator Unavailable Unavailable Problems Problem Status Onset Date Classification Date Reported Comments Source ASPIRATION INTO AIRWAY,VOMITING,GI BLEED Active 10/23/2018 [facility] COUGH Active 10/23/2018 [facility] Nausea with vomiting, unspecified 06/01/2018 12/12/2018 [facility] VOMITING Active 05/23/2018 [facility] ACUTE DEEP VEIN THROMBOSIS (DVT) OF RIGH Active 05/23/2018 [facility] Zoster without complications 03/28/2018 03/31/2018 [facility] INFECTION Active 03/27/2018 [facility] VOMTING Active 03/07/2018 [facility] Injury of conjunctiva and corneal abrasion without foreign body, left eye, initial encounter 03/03/2018 03/06/2018 [facility] Pain in arm, unspecified 03/03/2018 03/06/2018 [facility] CHEST PAIN Active 03/02/2018 [facility] Cramp and spasm 03/01/2018 03/04/2018 [facility] Chest pain, unspecified 03/01/2018 03/04/2018 [facility] WEAKNESS Active 03/01/2018 [facility] EVAL Active 01/11/2018 [facility] BLURRY VISION; HEADACHE Active 01/03/2018 [facility] HEAD PAIN Active 01/03/2018 [facility] Other muscle spasm 12/20/2017 03/24/2018 [facility] BOTOX INJ Active 12/01/2017 [facility] F/U Active 10/26/2017 [facility] FOLLOW UP Active 03/16/2017 [facility] BOTOX INJ. Active 03/16/2017 [facility] 2 WEEK BOTOX Active 02/17/2017 [facility] F/U LAST SAW 04/2015 Active 11/18/2016 [facility] Z86.73 Active 10/01/2016 [facility] [id number] Active 06/23/2016 [facility] STROKE Active 04/26/2015 Condition 04/26/2015 [facility] SUBDURAL HEMATOMA Active 04/09/2015 Condition 04/26/2015 [facility] Cerebrovascular accident (disorder) Resolved 03/03/2001 Problem 12/12/2018 [facility],[id number], [facility], [facility] CVA Active 09/21/2000 [facility] WHEELCHAIR FINAL FITTING Active 09/21/2000 [facility] Leg pain, left Active Problem 11/19/2017 Brandie H Karen Swelling of both feet Active Problem 11/19/2017 Brandie [facility] Karen Shoulder pain Active Problem 11/19/2017 Brandie H Karen Edema Active Problem 11/19/2017 Brandie [facility] Karen Hip pain, right Active Problem 11/19/2017 Brandie H Karen Lumbar sprain Active Problem 11/19/2017 Brandie H Karen Hyperlipidemia Active Problem 11/19/2017 Brandie H Karen Headache Active Problem 11/19/2017 Brandie H Karen Hemiplegia, post-stroke Active Problem 11/19/2017 Brandie H Karen Gastroesophageal reflux disease without esophagitis Active Diagnosis 11/19/2017 Brandie H Karen Tinea versicolor Active Problem 11/19/2017 Brandie H Karen Numbness of left hand Active Problem 11/19/2017 Brandie H Karen Sprain of cervical neck Active Problem 11/19/2017 Brandie H Karen Gastritis without bleeding, unspecified chronicity, unspecified gastritis type Active Problem 11/19/2017 Brandie H Karen Hemiplegia and hemiparesis following cerebral infarction affecting unspecified side Active Problem 11/19/2017 Brandie H Karen Screening for breast cancer Active Problem 11/19/2017 Brandie H Karen Screening for colon cancer Active Problem 11/19/2017 Brandie H Karen Benign essential hypertension Active Diagnosis 11/19/2017 Brandie H Karen CVA (cerebral vascular accident) Active Problem 11/19/2017 Brandie H Karen Hyperlipidemia Active Problem 11/19/2017 Brandie H Karen Dysphagia following cerebral infarction Active Problem 11/19/2017 Brandie H Karen Screening for rectal cancer Active Problem 11/19/2017 Brandie H Karen Screening for osteoporosis Active Problem 11/19/2017 Brandie H Karen Acute, but ill-defined, cerebrovascular disease Active Problem 11/19/2017 Brandie H Karen Seizure disorder Active Problem 11/19/2017 Brandie H Karen Neck sprain and strain Active Problem 11/19/2017 Brandie H Karen Aphasia Active Problem 11/19/2017 Brandie H Karen Hypertension, benign Active Problem 11/19/2017 Brandie H Karen Sprain lumbar region Active Problem 11/19/2017 Brandie H Karen Contact dermatitis and other eczema, due to unspecified cause Active Problem 11/19/2017 Brandie H Karen Expressive aphasia Active Problem 11/19/2017 Brandie H Karen Abdominal pain, unspecified location Active Problem 11/19/2017 Brandie H Karen CVA (cerebral vascular accident) Active Problem 11/19/2017 Brandie H Karen BMI 25.0-25.9,adult Active Problem 11/19/2017 Brandie H Karen Hemiparesis affecting right side as late effect of cerebrovascular accident Active Diagnosis 11/19/2017 Brandie H Karen Status post CVA Active Diagnosis 11/19/2017 Brandie H Karen Essential hypertension, benign Active Problem 07/26/2014 Brandie H Karen BMI 26.0-26.9,adult Active Diagnosis 04/18/2016 Brandie H Akren Unspecified abdominal pain 12/12/2018 [facility] Acute embolism and thrombosis of right femoral vein 12/12/2018 [facility] Essential (primary) hypertension 12/12/2018 [facility] Diverticulosis of large intestine without perforation or abscess without bleeding 12/12/2018 [facility] Bed confinement status 12/12/2018 [facility] Hyperosmolality and hypernatremia 12/12/2018 [facility] Aphasia following cerebral infarction [facility] Hemiplegia and hemiparesis following cerebral infarction affecting right dominant side 12/12/2018 [facility] Hyperlipidemia, unspecified 12/12/2018 [facility] Hypokalemia 12/12/2018 [facility] [place] Other specified inflammatory liver diseases 12/12/2018 [facility] Internuclear ophthalmoplegia, left eye 12/12/2018 [facility] 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 Intracranial aneurysm (disorder) Active Problem 12/12/2018 [facility],[id number],[facility] Cholestatic hepatitis (disorder) Active Problem 12/12/2018 [facility],[id number],[facility] Chronic headache disorder (disorder) Active Problem 12/12/2018 [facility],[id number],[facility] Finding related to ability to perform personal care activity (finding) Active Problem 12/12/2018 [facility],[id number], [facility] Hypertensive disorder, systemic arterial (disorder) Resolved Problem 12/12/2018 [facility],[id number], [facility] Hypercholesterolemia (disorder) Resolved Problem 12/12/2018 [facility],[id number], [facility] Internuclear ophthalmoplegia (disorder) Active Problem 12/12/2018 [facility],[id number], [facility] Moderate protein energy malnutrition (disorder) Active Problem 12/12/2018 [facility] Paralysis (finding) Resolved Problem 12/12/2018 [facility],[id number] Spasm (finding) Resolved Problem 12/12/2018 [facility],[id number], [facility] Spastic hemiplegia of dominant side (disorder) Active Problem 12/12/2018 [facility],[id number], [facility], [facility] ENCNTR FOR F/U EXAM AFT TRTMT FOR COND O Active [facility] OTHER MUSCLE SPASM Active [facility] PARAPLEGIA, UNSPECIFIED Active [facility] SPRAIN OF LIGAMENTS OF LUMBAR SPINE, INI Active [facility] CRAMP AND SPASM Active [facility] ACUTE EMBOLISM AND THROMBOSIS OF RIGHT F Active [facility] NAUSEA WITH VOMITING, UNSPECIFIED Active [facility] UNSP FB IN RESP TRACT, PART UNSP CAUSING Active [facility] VOMITING, UNSPECIFIED Active [facility] GASTROINTESTINAL HEMORRHAGE, UNSPECIFIED Active [facility] Medications Medication Details Route Status Patient Instructions Ordering Provider Order Date Source metoprolol tartrate 25 mg oral tablet 25 mg=1 tab, PO, Q12H, # 60 tab, 0 Refill(s), Pharmacy: [facility] Active 11/04/2018 [facility] rivaroxaban 15 mg oral tablet 15 mg=1 tab, PO, Daily, # 30 tab, 0 Refill(s), Pharmacy: [facility] Active 11/04/2018 [facility] Levetiracetam 100 MG/ML Oral Solution [Keppra] 500 mg=5 mL, PO, Q12H, # 300 mL, 0 Refill(s), Pharmacy: [facility] Active 11/04/2018 [facility] pantoprazole 40 MG Granules [Protonix] =1 Pack, PO, BID, # 60 tab, 0 Refill(s), Pharmacy: [facility] Active 11/04/2018 [facility] Xarelto 15 mg, 1 tab, Route: PO, Drug form: TAB, Daily, Dosing Weight 52.091, kg, Start date: 11/03/18 9:00:00 ANIMAL CARE PROVIDER, Duration: 30 day, Stop date: 12/02/18 9:00:00 CDTNotes: (Same as: Xarelto) Administer with food No Longer Active 11/03/2018 [facility] Xarelto 15 mg, 1 tab, Route: PO, Drug form: TAB, BID, Dosing Weight 52.091, kg, Start date: 11/02/18 9:00:00 ANIMAL CARE PROVIDER, Duration: 30 day, Stop date: 12/01/18 17:00:00 CDTNotes: (Same as: Xarelto) Administer with food Inactive 11/02/2018 [facility] metoprolol tartrate 25 mg, 1 tab, Route: PO, Drug form: TAB, Q12H, Dosing Weight 52.091, kg, Start date: 11/01/18 21:00:00 ANIMAL CARE PROVIDER, Duration: 30 day, Stop date: 12/01/18 9:00:00 CDTNotes: (Same as: Lopressor) No Longer Active 11/02/2018 [facility] Levetiracetam 100 MG/ML Oral Solution [Keppra] 500 mg, 5 mL, Route: PO, Drug form: SOLN, Q12H, Dosing Weight 52.091, kg, Start date: 11/01/18 21:00:00 ANIMAL CARE PROVIDER, Duration: 30 day, Stop date: 12/01/18 9:00:00 CDTNotes: Same as: Keppra No Longer Active 11/02/2018 [facility] Metoprolol 2.5 mg, 2.5 mL, Route: IVP, Drug form: INJ, Q6H, Dosing Weight 59.4, kg, Start date: 10/31/18 22:00:00 ANIMAL CARE PROVIDER, Duration: 30 day, Stop date: 12/01/18 5:00:00 CDTNotes: (Same as: Lopressor) Push over 2 mi nutes No Longer Active 11/01/2018 [facility] Metoprolol 2.5 mg, 2.5 mL, Route: IVP, Drug form: INJ, Q4H, Dosing Weight 59.4, kg, Start date: 10/28/18 12:00:00 ANIMAL CARE PROVIDER, Duration: 30 day, Stop date: 11/27/18 8:00:00 CSTNotes: (Same as: Lopressor) Push over 2 mi nutes No Longer Active 10/28/2018 [facility] metoprolol tartrate 25 mg, 1 tab, Route: PO, Drug form: TAB, BID, Dosing Weight 59.4, kg, Start date: 10/27/18 21:00:00 ANIMAL CARE PROVIDER, Duration: 30 day, Stop date: 11/26/18 9:00:00 CSTNotes: (Same as: Lopressor) No Longer Active 10/28/2018 [facility] ocular lubricant 1 drp, Route: BOTH EYES, Q6H, Drug form: SOLN, PRN as needed for dry eyes, Start date: 10/27/18 17:50:00 ANIMAL CARE PROVIDER, Duration: 30 day, Stop date: 11/26/18 17:49:00 ANIMAL CARE PROVIDER No Longer Active 10/27/2018 [facility] sodium phosphate 30 mmol, 10 mL, Route: IVPB, PRN, Dosing Weight 59.4, kg, PRN Abnormal Lab Result, For NON-ICU Patients Only., Start date: 10/27/18 15:39:00 ANIMAL CARE PROVIDER, Duration: 30 day, Stop date: 11/26/18 15:38:00 CSTNotes: Infuse over 4 hour. Do not infuse phosphorous concurrently in the same line as TPN or IVF that contains calcium. For double lumen central lines, phosphorous may be infused in a separate lumen from TPN. No Longer Active 10/27/2018 [facility] potassium phosphate 15 mmol, 5 mL, Route: IVPB, PRN, Dosing Weight 59.4, kg, PRN Abnormal Lab Result, For NON-ICU Patients Only., Start date: 10/27/18 15:39:00 ANIMAL CARE PROVIDER, Duration: 30 day, Stop date: 11/26/18 15:38:00 CSTNotes: (Same as: K Phosphate.) Do not infuse phosphorous concurrently in the same line as TPN or IVF that contains calcium. For double lumen central lines, phosphorous may be infused in a separate lumen from TPN. 1 mMol phoshate has 1.47 mEq potassium Infuse over 4 hours No Longer Active 10/27/2018 [facility] potassium phosphate-sodium phosphate 250 mg-280 mg-160 mg oral powder for reconstitution 2 pkt, Route: PO, Drug Form: PDR/REC, Dosing Weight 59.4, kg, PRN, PRN Abnormal Lab Result, For NON-ICU Patients Only, Start date: 10/27/18 15:39:00 ANIMAL CARE PROVIDER, Duration: 30 day, Stop date: 11/26/18 15:38:00 CSTNotes: (Same as: Phos-NaK) Each 1.5 gm pkt has 250mg phosphorous. Mix w/2.5oz water and stir. No Longer Active 10/27/2018 [facility] Magnesium Oxide 800 mg, 2 tab, Route: PO, Drug form: TAB, PRN, Dosing Weight 59.4, kg, PRN Abnormal Lab Result, For NON-ICU Patients Only., Start date: 10/27/18 15:39:00 ANIMAL CARE PROVIDER, Duration: 30 day, Stop date: 11/26/18 15:38:00 CSTNotes: (Same as: Mag-Ox 400) Magnesium oxide [id number] elemental magnesium Dose=____mg magnesium oxide (___mg elemental magnesium) No Longer Active 10/27/2018 [facility] Potassium Chloride 10 mEq, 100 mL, Route: IVPB, Drug form: INJ, PRN, Dosing Weight 59.4, kg, PRN Abnormal Lab Result, For NON-ICU Patients Only, Start date: 10/27/18 15:39:00 ANIMAL CARE PROVIDER, Duration: 30 day, Stop date: 11/26/18 15:38:00 CSTNotes: Infuse at a rate of 10 mEq/hr. (Same as: KCL) No Longer Active 10/27/2018 [facility] Calcium Gluconate 2 gm, 20 mL, Route: IVPB, PRN, Dosing Weight 59.4, kg, PRN Abnormal Lab Result, For NON-ICU Patients Only., Start date: 10/27/18 15:39:00 ANIMAL CARE PROVIDER, Duration: 30 day, Stop date: 11/26/18 15:38:00 CSTNotes: WASTE: F/P - Sink; E - Municipal Trash Bin No Longer Active 10/27/2018 [facility] Magnesium Sulfate 2 gm, 50 mL, Route: IVPB, Drug form: INJ, PRN, Dosing Weight 59.4, kg, PRN Abnormal Lab Result, For NON-ICU Patients Only., Start date: 10/27/18 15:39:00 ANIMAL CARE PROVIDER, Duration: 30 day, Stop date: 11/26/18 15:38:00 CSTNotes: WASTE: F/P - Sink; E - Municipal Trash Bin No Longer Active 10/27/2018 [facility] Keppra 500 mg, Route: IVPB, Q12H, Dosing Weight 59.4, kg, Start date: 10/26/18 21:00:00 ANIMAL CARE PROVIDER, Duration: 30 day, Stop date: 11/25/18 9:00:00 CSTNotes: Same as Keppra Mix with 100 mL NS, LR or D5W MEDICATION WASTE Product Size: 500 mg Product Wasted: ___ mg No Longer Active 10/27/2018 [facility] heparin 5,000 unit, 1 mL, Route: SUB-Q, Drug form: INJ, Q12H, Dosing Weight 59.4, kg, Start date: 10/26/18 21:00:00 ANIMAL CARE PROVIDER, Duration: 30 day, Stop date: 11/25/18 9:00:00 CSTNotes: porcine heparin No Longer Active 10/27/2018 [facility] Metoprolol 2.5 mg, 2.5 mL, Route: IVP, Drug form: INJ, Q4H, Dosing Weight 59.4, kg, Start date: 10/26/18 21:00:00 ANIMAL CARE PROVIDER, Duration: 30 day, Stop date: 11/25/18 20:00:00 CSTNotes: (Same as: Lopressor) Push over 2 m inutes No Longer Active 10/27/2018 [facility] Metoprolol 2.5 mg, 2.5 mL, Route: IVP, Drug form: INJ, Q4H, Dosing Weight 59.4, kg, PRN Arrhythmias, Start date: 10/26/18 17:57:00 ANIMAL CARE PROVIDER, Duration: 30 day, Stop date: 11/25/18 17:56:00 CSTNotes: (Same as: Lopressor) Push over 2 minutes No Longer Active 10/26/2018 [facility] Metoprolol 2.5 mg, 2.5 mL, Route: IVP, Drug form: INJ, ONCE, Dosing Weight 59.4, kg, Start date: 10/26/18 17:55:00 ANIMAL CARE PROVIDER, Stop date: 10/26/18 17:55:00 CSTNotes: (Same as: Lopressor) Push over 2 minutes Inactive 10/26/2018 [facility] Robinul 0.2 mg, 1 mL, Route: IVP, Drug form: INJ, QID, Dosing Weight 59.4, kg, PRN Secretions, Start date: 10/25/18 22:41:00 ANIMAL CARE PROVIDER, Duration: 30 day, Stop date: 11/24/18 22:40:00 CSTNotes: (Same as: Robinul) No Longer Active 10/26/2018 [facility] Levetiracetam 100 MG/ML Oral Solution [Keppra] 500 mg, 5 mL, Route: PO, Drug form: SOLN, Q12H, Dosing Weight 59.4, kg, Start date: 10/25/18 9:00:00 ANIMAL CARE PROVIDER, Duration: 30 day, Stop date: 11/23/18 21:00:00 CSTNotes: Same as: Keppra No Longer Active 10/25/2018 [facility] Midazolam 2 mg, 2 mL, Route: IVP, Drug form: INJ, Q2H, Dosing Weight 59.4, kg, PRN Sedation, Start date: 10/25/18 7:55:00 ANIMAL CARE PROVIDER, Duration: 30 day, Stop date: 11/24/18 7:54:00 CSTNotes: (Same as: Versed) MEDICATION WASTE Product Size: 2 mg Product Wasted: ___ mg No Longer Active 10/25/2018 [facility] Fentanyl 50 microgram, 1 mL, Route: IVP, Drug form: INJ, Q2H, Dosing Weight 59.4, kg, PRN Pain Score 7-10, Start date: 10/25/18 7:55:00 ANIMAL CARE PROVIDER, Duration: 30 day, Stop date: 11/24/18 7:54:00 CSTNotes: (Same as: Ángel rodrigues) Preservative free. No Longer Active 10/25/2018 [facility] pantoprazole 40 mg, Route: IVP, Drug form: INJ, Before Breakfast, Dosing Weight 59.4, kg, Start date: 10/25/18 7:48:00 ANIMAL CARE PROVIDER, Duration: 30 day, Stop date: 11/24/18 7:30:00 CSTNotes: For IV push reconstitute with 10 ml 0.9% sodium chloride and push over 2 minutes. (Same as: Protonix) No Longer Active 10/25/2018 [facility] Protonix 40 mg, 1 tab, Route: PO, Drug form: ECTAB, Before Breakfast, Dosing Weight 59.4, kg, Start date: 10/25/18 7:30:00 ANIMAL CARE PROVIDER, Duration: 30 day, Stop date: 11/23/18 7:30:00 CSTNotes: Tablet should not be chewed or crushed. (Same as: Protonix) Inactive 10/25/2018 [facility] Mupirocin 1 appl, Route: NASAL, Q12H, Drug form: OINT, Start date: 10/24/18 21:00:00 ANIMAL CARE PROVIDER, Duration: 5 day, Stop date: 10/29/18 9:00:00 ANIMAL CARE PROVIDER, MRSA Decolonization No Longer Active 10/25/2018 [facility] Calcium Carbonate 500 MG Chewable Tablet 500 mg, 1 tab, Route: PO, Drug form: CHEWTAB, PRN, Dosing Weight 59.4, kg, PRN Abnormal Lab Result, FOR ICU USE ONLY, Start date: 10/24/18 11:25:00 ANIMAL CARE PROVIDER, Duration: 30 day, Stop date: 11/23/18 11:24:00 CSTNotes: (Same As: Tums) Calcium Carbonate 500 ee=064 mg elemental calcium Dose= mg calcium carbonate ( mg elemental calcium) No Longer Active 10/24/2018 [facility] Magnesium Oxide 800 mg, 2 tab, Route: PO, Drug form: TAB, PRN, Dosing Weight 59.4, kg, PRN Abnormal Lab Result, FOR ICU USE ONLY, Start date: 10/24/18 11:25:00 ANIMAL CARE PROVIDER, Duration: 30 day, Stop date: 11/23/18 11:24:00 ANIMAL CARE PROVIDER Notes: (Same as: Mag-Ox 400) Magnesium oxide [id number] elemental magnesium Dose=____mg magnesium oxide (___mg elemental magnesium) No Longer Active 10/24/2018 [facility] Calcium Gluconate 1 gm, 50 mL, Route: IVPB, Drug form: INJ, PRN, Dosing Weight 59.4, kg, PRN Abnormal Lab Result, Start date: 10/24/18 11:25:00 ANIMAL CARE PROVIDER, Duration: 30 day, Stop date: 11/23/18 11:24:00 ANIMAL CARE PROVIDER, FOR ICU USE ONLYNotes: WASTE: F/P - Sink; E - Municipal Trash Bin No Longer Active 10/24/2018 [facility] Magnesium Sulfate 2 gm, 50 mL, Route: IVPB, Drug form: INJ, PRN, Dosing Weight 59.4, kg, PRN Abnormal Lab Result, Start date: 10/24/18 11:25:00 ANIMAL CARE PROVIDER, Duration: 30 day, Stop date: 11/23/18 11:24:00 ANIMAL CARE PROVIDER, FOR ICU USE ONLYNotes: WASTE: F/P - Sink; E - Municipal Trash Bin No Longer Active 10/24/2018 [facility] sodium phosphate 30 mmol, 10 mL, Route: IVPB, PRN, Dosing Weight 59.4, kg, PRN Abnormal Lab Result, Start date: 10/24/18 11:25:00 ANIMAL CARE PROVIDER, Duration: 30 day, Stop date: 11/23/18 11:24:00 ANIMAL CARE PROVIDER, FOR ICU USE ONLYNotes: Infuse over 4 hour. Do not infuse phosphorous concurrently in the same line as TPN or IVF that contains calcium. For double lumen central lines, phosphorous may be infused in a separate lumen from TPN. No Longer Active 10/24/2018 [facility] Potassium Chloride 20 mEq, 15 mL, Route: NJ, Drug form: LIQ, PRN, Dosing Weight 59.4, kg, PRN Abnormal Lab Result, Start date: 10/24/18 11:25:00 ANIMAL CARE PROVIDER, Duration: 30 day, Stop date: 11/23/18 11:24:00 ANIMAL CARE PROVIDER, FOR ICU USE ONLYNotes: (Same as: Potassium Chloride) No Longer Active 10/24/2018 [facility] potassium phosphate-sodium phosphate 250 mg-280 mg-160 mg oral powder for reconstitution 2 pkt, Route: PO, Drug Form: PDR/REC, Dosing Weight 59.4, kg, PRN, PRN Abnormal Lab Result, FOR ICU USE ONLY, Start date: 10/24/18 11:25:00 ANIMAL CARE PROVIDER, Duration: 30 day, Stop date: 11/23/18 11:24:00 CSTNotes: (Same as: Phos-NaK) Each 1.5 gm pkt has 250mg phosphorous. Mix w/2.5oz water and stir. No Longer Active 10/24/2018 [facility] potassium phosphate 30 mmol, 10 mL, Route: IVPB, PRN, Dosing Weight 59.4, kg, PRN Abnormal Lab Result, Start date: 10/24/18 11:25:00 ANIMAL CARE PROVIDER, Duration: 30 day, Stop date: 11/23/18 11:24:00 ANIMAL CARE PROVIDER, FOR ICU USE ONLYNotes: (Same as: K Phosphate.) Do not infuse phosphorous concurrently in the same line as TPN or IVF that contains calcium. For double lumen central lines, phosphorous may be infused in a separate lumen from TPN. 1 mMol phoshate has 1.47 mEq potassium Infuse over 4 hours No Longer Active 10/24/2018 [facility] LR IV 1,000 mL 1,000 mL, Rate: 75 ml/hr, Infuse over: 13.3 hr, Route: IV, Dosing Weight 59.4 kg, Total Volume: 1,000, Start date: 10/24/18 11:21:00 ANIMAL CARE PROVIDER, Duration: 30 day, Stop date: 11/23/18 11:20:00 ANIMAL CARE PROVIDER, 1.64, m2 No Longer Active 10/24/2018 [facility] pneumococcal capsular polysaccharide type 1 vaccine / pneumococcal capsular polysaccharide type 10A vaccine / pneumococcal capsular polysaccharide type 11A vaccine / pneumococcal capsular polysaccharide type 12F vaccine / pneumococcal capsular polysacchar 0.5 mL, Route: IM, Drug Form: INJ, ONCALL, Start date: 10/24/18 6:30:41 ANIMAL CARE PROVIDER, Stop date: 11/23/18 6:25:41 CSTNotes: (Same as: Pneumovax 23) Refrigerate No Longer Active 10/24/2018 [facility] chlorhexidine gluconate 1.2 MG/ML Mouthwash 15 mL, Route: Swab Mouth, Q12H, Drug form: LIQ, Start date: 10/23/18 21:00:00 ANIMAL CARE PROVIDER, Duration: 30 day, Stop date: 11/22/18 9:00:00 CSTNotes: (Same As: Peridex) No Longer Active 10/24/2018 [facility] Zosyn 3.375 gm, Route: IVPB, [id number], Dosing Weight 54.545, kg, Start date: 10/23/18 19:00:00 ANIMAL CARE PROVIDER, Duration: 7 day, Stop date: 10/30/18 11:00:00 ANIMAL CARE PROVIDER, ABX Indication: PneumoniaNotes: (Same as: Zosyn) Dosing based on Piperacillin component MEDICATION WASTE Product Size: 3375 mg Product Wasted: ___ mg No Longer Active 10/24/2018 [facility] NS 1,000 mL 1,000 mL, Rate: 100 ml/hr, Infuse over: 10 hr, Route: IV, Dosing Weight 54.545 kg, Total Volume: 1,000, Start date: 10/23/18 18:13:00 ANIMAL CARE PROVIDER, Duration: 30 day, Stop date: 11/22/18 18:12:00 ANIMAL CARE PROVIDER, 1.58, m2 No Longer Active 10/24/2018 [facility] ocular lubricant 1 drp, Route: BOTH EYES, Q6H, Drug form: SOLN, Start date: 10/23/18 18:00:00 ANIMAL CARE PROVIDER, Duration: 30 day, Stop date: 11/22/18 12:00:00 CSTNotes: Same as Tears Naturale and GenTeal Tears No Longer Active 10/24/2018 [facility] Acetaminophen 300 MG / Codeine Phosphate 30 MG Oral Tablet [Tylenol with Codeine #3] 1 tab, PO, TID No Longer Active 10/23/2018 [facility] rivaroxaban 15 MG Oral Tablet [Xarelto] 15 mg=1 tab, PO, BID No Longer Active 10/23/2018 [facility] Levetiracetam 100 MG/ML Oral Solution [Keppra] 500 mg=5 mL, PO, Q12H No Longer Active 10/23/2018 [facility] Docusate Sodium 100 MG Oral Capsule 100 mg=1 cap, PO, BID No Longer Active 10/23/2018 [facility] Hydroxyzine Hydrochloride 25 MG Oral Tablet 25 mg=1 tab, PO, BID No Longer Active 10/23/2018 [facility] chlorhexidine gluconate 1.2 MG/ML Mouthwash 15 mL, Route: Swab Mouth, PRN, Drug form: LIQ, PRN Other -See Comment, Start date: 10/23/18 17:29:00 ANIMAL CARE PROVIDER, Duration: 30 day, Stop date: 11/22/18 17:28:00 CSTNotes: (Same As: Peridex) No Longer Active 10/23/2018 [facility] Protonix 80 mg, Route: IVP, ONCE, Dosing Weight 54.545, kg, Priority: STAT, Start date: 10/23/18 17:28:00 ANIMAL CARE PROVIDER, Stop date: 10/23/18 17:28:00 ANIMAL CARE PROVIDER Inactive 10/23/2018 [facility] pantoprazole additive 80 mg + Sodium Chloride 0.9% IV 100 mL 100 mL, Rate: 10 ml/hr, Infuse over: 10 hr, Route: IVPB, Dosing Weight 54.545 kg, Total Volume: 100, Infuse at 8 mg/hr for 72 hrs for GI bleeding, Start date: 10/23/18 17:27:00 ANIMAL CARE PROVIDER, Duration: 72 hr, Stop date: 10/26/18 17:26:00 ANIMAL CARE PROVIDER, 1.58, [id number]: For IV push reconstitute with 10 ml 0.9% sodium chloride and push over 2 minutes. (Same as: Protonix) No Longer Active 10/23/2018 [facility] Midazolam 50 mg, 50 mL, Rate: Titrate, Start Dose: 1 mg/hr, Titration: Rebolus 1 mg IV and/or Titrate infusion by 1 mg/hour every 30 minutes, Goal(s): RASS -2, Max Dose: 10 mg/hr, Route: IV, Dosing Weight 54.545 kg, Total Volume: 50, Start date: 10/23/18 17:19:...Notes: (Same as: Versed) Inactive 10/23/2018 [facility] Fentanyl 1,250 microgram, 250 mL, Rate: Titrate, Start Dose: 50 microgram/hr, Titration: 25 microgram/hour every 15 minutes, Goal(s): RASS -2, Max Dose: 300 microgram/hr, Route: IV, Dosing Weight 54.545 kg, Total Volume: 250, Start date: 10/23/18 17:18:00 ANIMAL CARE PROVIDER,...Notes: Concentration: 5 microgram / ml No Longer Active 10/23/2018 [facility] Succinylcholine Route: IV, ONCE, Dosing Weight 54.545, kg, Start date: 10/23/18 17:03:00 ANIMAL CARE PROVIDER, Stop date: 10/23/18 17:03:00 ANIMAL CARE PROVIDER Inactive 10/23/2018 [facility] Etomidate 20 mg, Route: IVP, ONCE, Dosing Weight 54.545, kg, Priority: STAT, Start date: 10/23/18 17:03:00 ANIMAL CARE PROVIDER, Stop date: 10/23/18 17:03:00 ANIMAL CARE PROVIDER Inactive 10/23/2018 [facility] Protonix 40 mg, Route: IVP, Drug form: INJ, ONCE, Dosing Weight 54.545, kg, Priority: STAT, Start date: 10/23/18 16:57:00 ANIMAL CARE PROVIDER, Stop date: 10/23/18 16:57:00 CSTNotes: For IV push reconstitute with 10 ml 0.9% sodi um chloride and push over 2 minutes. (Same as: Protonix) Inactive 10/23/2018 [facility] Zofran 4 mg, Route: IVP, Drug form: INJ, ONCE, Dosing Weight 54.545, kg, Priority: STAT, Start date: 10/23/18 16:57:00 ANIMAL CARE PROVIDER, Stop date: 10/23/18 16:57:00 ANIMAL CARE PROVIDER Inactive 10/23/2018 [facility] Sodium Chloride 0.9% (Bolus) IV 1,000 mL, 1000 ml/hr, Infuse Over: 1 hr, Route: IV, 1,000, Drug form: INJ, ONCE, Priority: STAT, Dosing Weight 54.545 kg, Start date: 10/23/18 16:35:00 ANIMAL CARE PROVIDER, Stop date: 10/23/18 16:35:00 ANIMAL CARE PROVIDER Inactive 10/23/2018 [facility] Sodium Chloride 0.9% (Bolus) IV 1,000 mL, 1000 ml/hr, Infuse Over: 1 hr, Route: IV, 1,000, Drug form: INJ, ONCE, Priority: STAT, Dosing Weight 54.545 kg, Start date: 10/23/18 13:33:00 ANIMAL CARE PROVIDER, Stop date: 10/23/18 13:33:00 ANIMAL CARE PROVIDER Inactive 10/23/2018 [facility] cefepime 2 gm, Route: IVP, ONCE, Dosing Weight 54.545, kg, Priority: STAT, Start date: 10/23/18 13:17:00 ANIMAL CARE PROVIDER, Stop date: 10/23/18 13:17:00 ANIMAL CARE PROVIDER, ABX Indication: PneumoniaNotes: (Same as: Maxipime) MEDICA TION WASTE Product Size: 2000 mg Product Wasted: ___ mg Inactive 10/23/2018 [facility] Saline Flush 0.9% 10 mL, Route: IVP, Drug Form: INJ, Dosing Weight 54.545, kg, PRN, PRN Line Flush, Start date: 10/23/18 13:17:00 ANIMAL CARE PROVIDER, Duration: 30 day, Stop date: 11/22/18 13:16:00 CSTNotes: preservative free. No Longer Active 10/23/2018 [facility] Eliquis 10 mg, 2 tab, Route: PO, Drug form: TAB, ONCE, Dosing Weight 55.625, kg, Start date: 05/25/18 21:00:00 CDT, Stop date: 05/25/18 21:00:00 CDTNotes: Same as: Eliquis Inactive 05/26/2018 [facility] apixaban 5 MG Oral Tablet [Eliquis] 10 mg=2 tab, PO, Q12H, Please take Eliquis 10 mg twice daily for 7 days then Eliquis 5 mg twice daily, # 28 tab, 0 Refill(s) No Longer Active 05/25/2018 [facility] Eliquis 5 mg, Route: PO, Drug form: TAB, ONCE, Dosing Weight 55.625, kg, Start date: 05/25/18 17:00:00 CDT, Stop date: 05/25/18 17:00:00 CDT Inactive 05/25/2018 [facility] apixaban 5 MG Oral Tablet [Eliquis] 5 mg, PO, Q12H, # 60 tab, 1 Refill(s) No Longer Active 05/25/2018 [facility] apixaban 5 MG Oral Tablet [Eliquis] 5 mg, PO, Q12H, # 60 tab, 0 Refill(s) Inactive 05/25/2018 [facility] Gemfibrozil 600 mg, 1 tab, Route: PO, Drug form: TAB, Daily, Dosing Weight 55.625, kg, Start date: 05/25/18 9:00:00 CDT, Duration: 30 day, Stop date: 06/23/18 9:00:00 CDTNotes: (Same as: Lopid) No Longer Active 05/25/2018 [facility] Amlodipine 5 mg, 1 tab, Route: PO, Drug form: TAB, Daily, Dosing Weight 55.625, kg, Start date: 05/25/18 9:00:00 CDT, Duration: 30 day, Stop date: 06/23/18 9:00:00 CDTNotes: (Same as: Norvasc) No Longer Active 05/25/2018 [facility] Plavix 75 mg, 1 tab, Route: PO, Drug form: TAB, Daily, Dosing Weight 55.625, kg, Start date: 05/25/18 9:00:00 CDT, Duration: 30 day, Stop date: 06/23/18 9:00:00 CDTNotes: (Same As: Plavix) No Longer Active 05/25/2018 [facility] gabapentin 300 MG Oral Capsule 300 mg, 1 cap, Route: PO, Drug form: CAP, Q8H, Dosing Weight 55.625, kg, Start date: 05/25/18 0:00:00 CDT, Duration: 30 day, Stop date: 06/23/18 16:00:00 CDTNotes: (Same as: Neurontin) No Longer Active 05/25/2018 [facility] Pravastatin 10 mg, 0.5 tab, Route: PO, Drug form: TAB, Bedtime, Dosing Weight 55.625, kg, Start date: 05/24/18 21:00:00 CDT, Duration: 30 day, Stop date: 06/22/18 21:00:00 CDTNotes: (Same as: Pravachol) No Longer Active 05/25/2018 [facility] Acetaminophen 300 MG / Codeine Phosphate 30 MG Oral Tablet [Tylenol with Codeine #3] 1 - 2 tab, PO, Q8H, PRN Pain, # 32 tab, 0 Refill(s) No Longer Active 05/24/2018 [facility] Hydroxyzine 25 mg=1 tab, PO, Q6H, PRN rash / allergy symptoms, 0 Refill(s) No Longer Active 05/24/2018 [facility] potassium chloride 20 mEq oral tablet, extended release 40 mEq, 2 tab, Route: PO, Drug form: ERTAB, ONCE, Dosing Weight 55.625, kg, Start date: 05/24/18 15:57:00 CDT, Stop date: 05/24/18 15:57:00 CDTNotes: (Same as: K-Dur 20) "Do Not Crush" For patients unable to swallow tablet, dissolve in one half glass of water. Allow about 2 minutes for the tablets to disintegrate. Stir before giving to prepare slurry and administer. Please exclude Patient’s with feeding tube less than 14 [place] (Dobhoff, J-tube etc) and pediatric and patients. With food and full glass of water Inactive 05/24/2018 [facility] D5W 1,000 mL 1,000 mL, Rate: 75 ml/hr, Infuse over: 13.3 hr, Route: IV, Dosing Weight 55.625 kg, Total Volume: 1,000, Start date: 05/24/18 15:51:00 CDT, Duration: 30 day, Stop date: 06/23/18 15:50:00 CDT, 1.6, m2 No Longer Active 05/24/2018 [facility] Enoxaparin 60 mg, 0.6 mL, Route: SUB-Q, Drug form: INJ, [id number], Dosing Weight 55.625, kg, Start date: 05/24/18 12:00:00 CDT, Duration: 30 day, Stop date: 06/23/18 0:00:00 CDTNotes: Nurse to ensure documentation of patient education per anticoagulation policy. (Same as: Lovenox) No Longer Active 05/24/2018 [facility] Zofran 4 mg, 2 mL, Route: IVP, Drug form: INJ, [id number], Dosing Weight 55.625, kg, PRN Nausea, Start date: 05/24/18 9:00:00 CDT, Duration: 30 day, Stop date: 06/23/18 8:59:00 CDTNotes: (Same as: Zofran) MEDICATION WASTE Product Size: 4 mg Product Wasted: ___ mg No Longer Active 05/24/2018 [facility] Phenergan 25 mg, 1 mL, Route: IV Central, Q6H, Dosing Weight 55.625, kg, PRN Nausea & Vomiting, Priority: NOW, Start date: 05/24/18 8:58:00 CDT, Duration: 30 day, Stop date: 06/23/18 8:57:00 CDTNotes: Do not give IV push. (Same as: Phenergan) No Longer Active 05/24/2018 [facility] Zofran 4 mg, Route: IVP, Drug form: INJ, Q8H, Dosing Weight 55.625, kg, PRN Nausea, Start date: 05/24/18 8:58:00 CDT, Duration: 30 day, Stop date: 06/23/18 8:57:00 CDT Inactive 05/24/2018 [facility] Omnipaque 300 injectable solution 100 mL, Route: IVP, Drug Form: SOLN, Dosing Weight 55.625, kg, ONCALL, GFR > 45 mL/min, Start date: 05/24/18 3:00:00 CDT, Duration: 1 doses or timesNotes: (Same as:Omnipaque 300). WASTE: F/P - Black; E - Municipal Trash Bin No Longer Active 05/24/2018 [facility] Lovenox 80 mg, Route: SUB-Q, Drug form: INJ, ONCE, Dosing Weight 79.545, kg, Priority: STAT, Start date: 05/23/18 22:38:00 CDT, Stop date: 05/23/18 22:38:00 CDT Inactive 05/24/2018 [facility] Heparin 80 unit/kg Bolus (Heparin Dosing Weight) Pharmacy To Manage, Route: IVP, PRN, Drug form: INJ, PRN, Heparin Protocol, Start date: 05/23/18 22:21:00 CDT Stop date: 06/22/18 22:20:00 CDT, 30 day Inactive 05/24/2018 [facility] Heparin 40 unit/kg Bolus (Heparin Dosing Weight) Pharmacy To Manage, Route: IVP, PRN, Drug form: INJ, PRN, Heparin Protocol, Start date: 05/23/18 22:21:00 CDT Stop date: 06/22/18 22:20:00 CDT, 30 day Inactive 05/24/2018 [facility] heparin additive 25,000 unit [18 unit/kg/hr] + Premix Diluent Dextrose 5% 500 mL 500 mL, Rate: 28.64 ml/hr, Infuse over: 17.5 hr, Route: IV, Dosing Weight 79.545 kg, Total Volume: 500 mL, Start date: 05/23/18 22:21:00 CDT, Duration: 30 day, Stop date: 06/22/18 22:20:00 CDT, 1.96, m2 Inactive 05/24/2018 [facility] Heparin - one time bolus for DVT/PE 4,000 unit, Route: IVP, Drug form: INJ, ONCE, Dosing Weight 79.545, kg, Priority: STAT, Start date: 05/23/18 22:21:00 CDT, Stop date: 05/23/18 22:21:00 CDT Inactive 05/24/2018 [facility] Reglan 10 mg, 2 mL, Route: IVP, Drug form: INJ, ONCE, Dosing Weight 79.545, kg, Start date: 05/23/18 19:38:00 CDT, Stop date: 05/23/18 19:38:00 CDTNotes: (Same as: Reglan) Inactive 05/24/2018 [facility] Acetaminophen 300 MG / Codeine Phosphate 30 MG Oral Tablet 1 tab, PO, Q8H, PRN Pain, # 20 tab, 0 Refill(s) Active 03/28/2018 [facility] Metoclopramide 5 mg, 1 mL, Route: IVP, Drug form: INJ, ONCE, Dosing Weight 79.545, kg, Priority: STAT, Start date: 03/27/18 22:47:00 CDT, Stop date: 03/27/18 22:47:00 CDTNotes: (Same as: Reglan) Inactive 03/28/2018 [facility] Morphine 4 mg, 1 mL, Route: IVP, Drug form: SOLN, ONCE, Dosing Weight 79.545, kg, Priority: STAT, Start date: 03/27/18 22:47:00 CDT, Stop date: 03/27/18 22:47:00 CDTNotes: (Same as:MORPhine Sulfate) Inactive 03/28/2018 [facility] Sodium Chloride 0.9% (Bolus) IV 1,000 mL, 1000 ml/hr, Infuse Over: 1 hr, Route: IV, 1,000, Drug form: INJ, ONCE, Priority: STAT, Dosing Weight 79.545 kg, Start date: 03/27/18 22:47:00 CDT, Stop date: 03/27/18 22:47:00 CDT Inactive 03/28/2018 [facility] potassium chloride 20 mEq oral tablet, extended release 20 mEq=1 tab, PO, BID, # 2 tab, 0 Refill(s) Active 03/07/2018 [facility] Ondansetron 4 MG Disintegrating Tablet [Zofran] 4 mg=1 tab, PO, BID, PRN Nausea and Vomiting, Dissolve tab under tongue, # 10 tab, 0 Refill(s) Active 03/07/2018 [facility] Potassium Chloride 10 mEq, 100 mL, Route: IVPB, Drug form: INJ, Q1H, Dosing Weight 75, kg, Total Dose=20 meq, Start date: 03/07/18 16:00:00 CDT, Duration: 2 doses or times, Stop date: 03/07/18 17:00:00 CDT, Peripheral LineNotes: Infuse at a rate of 10 mEq/hr. (Same as: KCL) Inactive 03/07/2018 [facility] Omnipaque 300 100 mL, Route: IV, Drug Form: SOLN, Dosing Weight 75, kg, ONCE, Start date: 03/07/18 15:36:00 CDT, Stop date: 03/07/18 15:36:00 CDTNotes: (Same as:Omnipaque 300). WASTE: F/P - Black; E - Municipal T rash Bin Inactive 03/07/2018 [facility] Ondansetron 4 mg, 2 mL, Route: IVP, Drug form: INJ, ONCE, Dosing Weight 75, kg, Priority: STAT, Start date: 03/07/18 14:28:00 CDT, Stop date: 03/07/18 14:28:00 CDTNotes: (Same as: Chilo) MEDICATION WASTE Product Size: 4 mg Product Wasted: ___ mg Inactive 03/07/2018 [facility] Sodium Chloride 0.9% (Bolus) IV 1,000 mL, 1000 ml/hr, Infuse Over: 1 hr, Route: IV, 1,000, Drug form: INJ, ONCE, Priority: STAT, Dosing Weight 75 kg, Start date: 03/07/18 14:28:00 CDT, Stop date: 03/07/18 14:28:00 CDT Inactive 03/07/2018 [facility] Acetaminophen 300 MG / Codeine Phosphate 30 MG Oral Tablet [Tylenol with Codeine #3] 1 - 2 tab, PO, Q4H, PRN Pain, X 3 day, # 12 tab, 0 Refill(s) Active 03/03/2018 [facility] Erythromycin 0.02 MG/MG Topical Ointment 1 appl, TOP, BID, X 7 day, # 30 gm, 0 Refill(s) Active 03/03/2018 [facility] Proparacaine-Fluorescein ophthalmic soln Proparacaine-Fluorescein ophthalmic soln, 2 drp, Drug form: MISC, Route: BOTH EYES, ONCE, 03/03/18 6:38:00 CDT, Stop date: 03/03/18 6:38:00 CDT Inactive 03/03/2018 [facility] benoxinate-fluorescein ophthalmic solution 2 drp, Route: BOTH EYES, ONCE, Start date: 03/03/18 6:27:00 CDT, Stop date: 03/03/18 6:27:00 CDT Inactive 03/03/2018 [facility] GI cocktail 30 mL, Route: PO, Dosing Weight 68.182, kg, ONCE, STAT, Start date: 03/03/18 3:54:00 CDT, Stop date: 03/03/18 3:54:00 CDT Inactive 03/03/2018 [facility] Ondansetron 4 mg, Route: IVP, Drug form: INJ, ONCE, Dosing Weight 68.182, kg, Priority: STAT, Start date: 03/03/18 3:54:00 CDT, Stop date: 03/03/18 3:54:00 CDT Inactive 03/03/2018 [facility] Morphine 4 mg, Route: IVP, ONCE, Dosing Weight 68.182, kg, Priority: STAT, Start date: 03/03/18 3:54:00 CDT, Stop date: 03/03/18 3:54:00 CDT Inactive 03/03/2018 [facility] Saline Flush 0.9% 10 mL, Route: IVP, Drug Form: INJ, Dosing Weight 68.182, kg, PRN, PRN Line Flush, Start date: 03/01/18 16:10:00 CDT, Duration: 30 day, Stop date: 03/31/18 16:09:00 CDTNotes: (Same as: BD Posiflush) Inactive 03/01/2018 [facility] Plavix 75 mg, 1 tab, Route: PO, Drug form: TAB, Daily, Dosing Weight 68.182, kg, Priority: NOW, Start date: 01/04/18 13:03:00 CDT, Duration: 30 day, Stop date: 02/03/18 9:00:00 CDTNotes: (Same As: Plavix) Inactive 01/04/2018 [facility] clopidogrel 75 MG Oral Tablet [Plavix] 75 mg=1 tab, PO, Daily, # 30 tab, 0 Refill(s), Pharmacy: [facility] [id number] Active 01/04/2018 [facility] Amlodipine 5 mg, 1 tab, Route: PO, Drug form: TAB, Daily, Dosing Weight 68.182, kg, Start date: 01/04/18 9:00:00 CDT, Duration: 30 day, Stop date: 02/02/18 9:00:00 CDTNotes: (Same as: Norvasc) Inactive 01/04/2018 [facility] Aspirin 81 MG Enteric Coated Tablet 81 mg, 1 tab, Route: PO, Drug form: ECTAB, Daily, Dosing Weight 68.182, kg, Start date: 01/04/18 9:00:00 CDT, Duration: 30 day, Stop date: 02/02/18 9:00:00 CDTNotes: Do not crush or chew. (Same As: Ecotrin) Inactive 01/04/2018 [facility] gabapentin 300 MG Oral Capsule 300 mg, 1 cap, Route: PO, Drug form: CAP, Bedtime, Dosing Weight 68.182, kg, Start date: 01/03/18 21:00:00 CDT, Duration: 30 day, Stop date: 02/01/18 21:00:00 CDTNotes: (Same as: Neurontin) No Longer Active 01/04/2018 [facility] Pravastatin 10 mg, 0.5 tab, Route: PO, Drug form: TAB, Bedtime, Dosing Weight 68.182, kg, Start date: 01/03/18 21:00:00 CDT, Duration: 30 day, Stop date: 02/01/18 21:00:00 CDTNotes: (Same as: Pravachol) No Longer Active 01/04/2018 [facility] Acetaminophen 650 mg, 2 tab, Route: PO, Drug form: TAB, Q4H, Dosing Weight 68.182, kg, PRN Pain 1-3/Temp > 100.4 F, Start date: 01/03/18 17:57:00 CDT, Duration: 30 day, Stop date: 02/02/18 17:56:00 CDTNotes: Do not exceed 4 gm/day. (Same as: Tylenol) No Longer Active 01/03/2018 [facility] Docusate 100 mg, 1 cap, Route: PO, Drug form: CAP, BID, Dosing Weight 68.182, kg, PRN as needed for constipation, Start date: 01/03/18 17:57:00 CDT, Duration: 30 day, Stop date: 02/02/18 17:56:00 CDTNotes: (Same as: Colace) (Do Not Crush) No Longer Active 01/03/2018 [facility] Ondansetron 4 mg, 2 mL, Route: IVP, Drug form: INJ, Q6H, Dosing Weight 68.182, kg, PRN Nausea & Vomiting, Start date: 01/03/18 17:57:00 CDT, Duration: 30 day, Stop date: 02/02/18 17:56:00 CDTNotes: (Same as: Zofran) MEDICATION WASTE Product Size: 4 mg Product Wasted: ___ mg No Longer Active 01/03/2018 [facility] Omnipaque 350 100 ml, Route: IV, Drug Form: SOLN, Dosing Weight 64.744, kg, ONCE, STAT, Start date: 01/03/18 17:14:00 CDT, Stop date: 01/03/18 17:14:00 CDTNotes: (same as:Omnipaque 350). WASTE: F/P - Black; E - M unicipal Trash Bin Inactive 01/03/2018 [facility] Benadryl 25 mg, 1 cap, Route: IVP, Drug form: CAP, ONCE, Dosing Weight 64.744, kg, Priority: STAT, Start date: 01/03/18 14:44:00 CDT, Stop date: 01/03/18 14:44:00 CDTNotes: (Same as: Benadryl) Inactive 01/03/2018 [facility] Reglan 10 mg, 2 mL, Route: IVP, Drug form: INJ, ONCE, Dosing Weight 64.744, kg, Priority: STAT, Start date: 01/03/18 14:44:00 CDT, Stop date: 01/03/18 14:44:00 CDTNotes: (Same as: Reglan) Inactive 01/03/2018 [facility] Saline Flush 0.9% 10 mL, Route: IVP, Drug Form: INJ, Dosing Weight 64.744, kg, PRN, PRN Line Flush, Start date: 01/03/18 14:43:00 CDT, Duration: 30 day, Stop date: 02/02/18 14:42:00 CDTNotes: Same as: BD Posiflush Sterile No Longer Active 01/03/2018 [facility] Sodium Chloride 0.9% (Bolus) IV 1,000 mL, 1000 ml/hr, Infuse Over: 1 hr, Route: IV, 1,000, Drug form: INJ, ONCE, Priority: STAT, Dosing Weight 64.744 kg, Start date: 01/03/18 14:43:00 CDT, Stop date: 01/03/18 14:43:00 CDT Inactive 01/03/2018 [facility] gabapentin 100 MG Oral Capsule 100 mg=1 cap, PO, Bedtime, 0 Refill(s) No Longer Active 12/01/2017 [facility] gabapentin 300 MG Oral Capsule 300 mg=1 cap, PO, Bedtime, # 90 cap, 0 Refill(s), Pharmacy: [facility] [id number] Active [facility]/18/[facility] Ranitidine 150 MG Oral Tablet 150 mg=1 tab, PO, BID, 0 Refill(s) No Longer Active 10/27/[facility] gabapentin 100 MG Oral Capsule See Instructions, 1 po qhs for 3 nights then 2 po qhs for 3 nights t hen 3 po qhs, # 90 cap, 0 Refill(s), Pharmacy: [id number] No Longer Active 10/20/2017 [facility] Botulinum Toxin Type A 600 unit, Route: IM, ONCALL, Dosing Weight 60, kg, Start date: 03/03/17 17:00:00 CDT, Duration: 30 day, Stop date: 04/02/17 16:59:00 CDT Inactive 03/03/2017 [facility] Aspirin 81 MG Chewable Tablet See Instructions, PO, 81 mg, # 30 tab, 0 Refill(s) Active 02/17/2017 [facility] Ranitidine 150 MG Oral Tablet 150 mg=1 tab, PO, BID, 0 Refill(s) Active 02/17/2017 [facility] pravastatin 10 mg oral tablet 10 mg=1 tab, PO, Bedtime, 0 Refill(s) Active 02/17/2017 [facility] gemfibrozil 600 mg oral tablet 600 mg=1 tab, PO, Daily, 0 Refill(s) Active 02/17/2017 [facility] Zantac 150 Maximum Strength 1 tablet Orally Active 150 MG Orally twice a day (bid) [facility] 10/01/2016 [facility] Zantac 150 Maximum Strength 1 tablet Orally Active 150 MG Orally twice a day (bid) [facility] 10/01/2016 [facility] Mobic 1 tablet Orally No Longer Active 15 MG Orally Once a day [facility] 06/23/2016 [facility] Lopid 1 tablet Orally Active 600 MG Orally Once a Day [facility] 10/03/2015 Brandie [facility] Acetaminophen 300 MG / Codeine Phosphate 30 MG Oral Tablet [Tylenol with Codeine #3] 1 - 2 tab, PO, Q4H, PRN Pain, # 20 tab, 0 Refill(s) Active 08/09/2015 [facility] Wheelchair as directed Standard Wheelchair Active 1 Standard Wheelchair as directed [facility] 05/01/2014 [facility] Mattress Pad as directed Matress Active 1 Matress as directed [facility] 05/01/2014 [facility] Wheelchair as directed Standard Wheelchair Active 1 Standard Wheelchair as directed [facility] 05/01/2014 [facility] Mattress Pad as directed Matress Active 1 Matress as directed [facility]/01[facility] En[facility] 30 ml as needed Orally Active 10 GM/15ML Orally twice a day (bid) as needed (prn) [facility] 04/10/2014 [facility] Lasix 1 tablet Orally Active 20 mg Orally Once a day [facility] 01/30/2014 [facility] Norvasc 1 tablet Orally Active 5 MG Orally Once a day [facility] 01/27/2014 Brandie H [facility] Aspirin 1 tablet Orally Active 81 MG Orally Once a day [facility] Pravachol 1 tablet Orally Active 10 MG Orally once every night [facility] Tricor 1 tablet Orally No Longer Active 145 MG Orally Once a day [facility] Zoloft 1 tablet Orally No Longer Active 25 MG Orally Once a day [facility] Tylenol/Codeine #3 1 tablet Orally No Longer Active 300-30 MG Orally every six to eight hours, PRN for Pain [facility] Phenergan 1/2 half tablet Injection No Longer Active 25 MG/ML Injection three times a day (tid) as needed (prn) [facility] Neurontin 2 Capsules Orally Active 100 mg Orally Once Every Night [facility] Lasix 1 tablet Orally No Longer Active 20 mg Orally as needed (prn) [facility] Keppra 1 tablet Orally No Longer Active 500 mg Orally twice a day (bid) [facility] Aspirin 1 tablet Orally Active 81 MG Orally Once a day [facility] Aspirin 1 tablet Orally Active 81 MG Orally Once a day [facility] Norvasc 1 tablet Orally Active 5 MG Orally Once a day [facility] Lopid 1 tablet Orally Active 600 MG Orally Once a Day [facility] Allergies, Adverse Reactions, Alerts Substance Category Reaction Severity Reaction type Status Date Reported Comments Source N.K.D.A. Adverse Reaction Info Not Available Adverse Reaction Active 11/17/2017 Brandieerik Jones Zanaflex Assertion Drug allergy Active [facility] Zantac Assertion Drug allergy Active [facility] Zoloft Assertion Drug allergy Active [facility] Immunizations Immunization Date Given Site Status Last Updated Comments Source pneumococcal 23-valent vaccine 04/23/2014 Left Deltoid completed [facility],[id number], [facility] Results Order Name Results Value Reference Range Date Interpretation Comments Source ELECTROLYTES AGAP 13.2 10.0 - 20.0 10/28/2018 [facility] ELECTROLYTES eGFR 117 10/28/2018 Result Comment: The eGFR is calculated using the CKD-EPI formula. In most young, healthy individuals the eGFR will be >90 mL/min/1.73m2. The eGFR declines with age. An eGFR of 60-89 may be normal in some populations, particularly the elderly, for whom the CKD-EPI formula has not been extensively validated. Use of the eGFR is not recommended in the following populations:

Individuals with unstable creatinine concentrations, including patients and those with serious co-morbid conditions.

Patients with extremes in muscle mass or diet.

The data above are obtained from the National Kidney Disease Education Program (NKDEP) which additionally recommends that when the eGFR is used in patients with extremes of body mass index for purposes of drug dosing, the eGFR should be multiplied by the estimated BMI. [facility] ELECTROLYTES Calcium Lvl 9.3 8.5 - 10.5 10/28/2018 [facility] ELECTROLYTES CO2 23 24 - 32 10/28/2018 [facility] ELECTROLYTES Glucose Lvl 101 70 - 99 10/28/2018 [facility] ELECTROLYTES BUN 8 7 - 22 10/28/2018 [facility] ELECTROLYTES Creatinine Lvl 0.63 0.50 - 1.40 10/28/2018 [facility] ELECTROLYTES Potassium Lvl 4.2 3.5 - 5.1 10/28/2018 [facility] ELECTROLYTES Sodium Lvl 142 135 - 145 10/28/2018 [facility] ELECTROLYTES Chloride Lvl 110 95 - 109 10/28/2018 [facility] MCHC 32.8 32.0 - 36.0 10/28/2018 [facility] MCH 26.9 27.0 - 31.0 10/28/2018 [facility] Platelet 221 133 - 450 10/28/2018 [facility] RDW 18.8 11.5 - 14.5 10/28/2018 [facility] RBC 4.58 4.20 - 5.40 10/28/2018 [facility] MCV 81.9 80.0 - 98.0 10/28/2018 [facility] Hct 37.5 36.0 - 48.0 10/28/2018 [facility] WBC 6.6 3.7 - 10.4 10/28/2018 [facility] Hgb 12.3 12.0 - 16.0 10/28/2018 [facility] MPV 9.2 7.4 - 10.4 10/28/2018 [facility] Segs 48.7 45.0 - 75.0 10/28/2018 [facility] Lymphocytes # 2.1 1.0 - 5.5 10/28/2018 [facility] Neutrophils # 3.2 1.5 - 8.1 10/28/2018 [facility] Basophils 1.3 0.0 - 1.0 10/28/2018 [facility] Eosinophils 2.7 0.0 - 4.0 10/28/2018 [facility] Monocytes 15.4 2.0 - 12.0 10/28/2018 [facility] Basophils # 0.1 0.0 - 0.2 10/28/2018 [facility] Eosinophils # 0.2 0.0 - 0.5 10/28/2018 [facility] Lymphocytes 31.9 20.0 - 40.0 10/28/2018 [facility] Monocytes # 1.0 0.0 - 0.8 10/28/2018 [facility] CHEM PANEL eGFR 122 10/27/2018 Result Comment: The eGFR is calculated using the CKD-EPI formula. In most young, healthy individuals the eGFR will be >90 mL/min/1.73m2. The eGFR declines with age. An eGFR of 60-89 may be normal in some populations, particularly the elderly, for whom the CKD-EPI formula has not been extensively validated. Use of the eGFR is not recommended in the following populations:

Individuals with unstable creatinine concentrations, including patients and those with serious co-morbid conditions.

Patients with extremes in muscle mass or diet.

The data above are obtained from the National Kidney Disease Education Program (NKDEP) which additionally recommends that when the eGFR is used in patients with extremes of body mass index for purposes of drug dosing, the eGFR should be multiplied by the estimated BMI. [facility] CHEM PANEL Calcium Lvl 9.2 8.5 - 10.5 10/27/2018 [facility] CHEM PANEL AGAP 9.0 10.0 - 20.0 10/27/2018 [facility] CHEM PANEL CO2 25 24 - 32 10/27/2018 [facility] CHEM PANEL Sodium Lvl 141 135 - 145 10/27/2018 [facility] CHEM PANEL Chloride Lvl 111 95 - 109 10/27/2018 [facility] CHEM PANEL Creatinine Lvl 0.55 0.50 - 1.40 10/27/2018 [facility] CHEM PANEL Potassium Lvl 4.0 3.5 - 5.1 10/27/2018 [facility] CHEM PANEL BUN 7 7 - 22 10/27/2018 [facility] CHEM PANEL Glucose Lvl 85 70 - 99 10/27/2018 [facility] Monocytes # 0.8 0.0 - 0.8 10/27/2018 [facility] Neutrophils # 3.2 1.5 - 8.1 10/27/2018 [facility] Lymphocytes # 2.0 1.0 - 5.5 10/27/2018 [facility] HEMATOLOGY Basophils 1.2 0.0 - 1.0 10/27/2018 [facility] Eosinophils # 0.3 0.0 - 0.5 10/27/2018 [facility] Eosinophils 4.3 0.0 - 4.0 10/27/2018 [facility] Basophils # 0.1 0.0 - 0.2 10/27/2018 [facility] Lymphocytes 31.4 20.0 - 40.0 10/27/2018 [facility] Monocytes 12.0 2.0 - 12.0 10/27/2018 [facility] Segs 51.1 45.0 - 75.0 10/27/2018 [facility] MPV 9.0 7.4 - 10.4 10/27/2018 [facility] RDW 19.7 11.5 - 14.5 10/27/2018 [facility] MCHC 32.8 32.0 - 36.0 10/27/2018 [facility] Platelet 180 133 - 450 10/27/2018 [facility] Hgb 10.8 12.0 - 16.0 10/27/2018 [facility] MCH 27.1 27.0 - 31.0 10/27/2018 [facility] MCV 82.7 80.0 - 98.0 10/27/2018 [facility] Hct 33.0 36.0 - 48.0 10/27/2018 [facility] RBC 3.99 4.20 - 5.40 10/27/2018 [facility] WBC 6.3 3.7 - 10.4 10/27/2018 [facility] ELECTROLYTES Potassium Lvl 4.4 3.5 - 5.1 10/26/2018 [facility] PTT 41.3 22.9 - 35.8 10/26/2018 [facility] INR 1.32 0.85 - 1.17 10/26/2018 [facility] PT 16.1 12.0 - 14.7 10/26/2018 [facility] ELECTROLYTES AGAP 9.8 10.0 - 20.0 10/26/2018 [facility] ELECTROLYTES eGFR 119 10/26/2018 Result Comment: The eGFR is calculated using the CKD-EPI formula. In most young, healthy individuals the eGFR will be >90 mL/min/1.73m2. The eGFR declines with age. An eGFR of 60-89 may be normal in some populations, particularly the elderly, for whom the CKD-EPI formula has not been extensively validated. Use of the eGFR is not recommended in the following populations:

Individuals with unstable creatinine concentrations, including patients and those with serious co-morbid conditions.

Patients with extremes in muscle mass or diet.

The data above are obtained from the National Kidney Disease Education Program (NKDEP) which additionally recommends that when the eGFR is used in patients with extremes of body mass index for purposes of drug dosing, the eGFR should be multiplied by the estimated BMI. [facility] ELECTROLYTES CO2 22 24 - 32 10/26/2018 [facility] ELECTROLYTES Calcium Lvl 8.4 8.5 - 10.5 10/26/2018 [facility] ELECTROLYTES Chloride Lvl 113 95 - 109 10/26/2018 [facility] ELECTROLYTES Sodium Lvl 141 135 - 145 10/26/2018 [facility] ELECTROLYTES Glucose Lvl 127 70 - 99 10/26/2018 [facility] ELECTROLYTES BUN 7 7 - 22 10/26/2018 [facility] ELECTROLYTES Creatinine Lvl 0.59 0.50 - 1.40 10/26/2018 [facility] HEMATOLOGY RBC 3.60 4.20 - 5.40 10/26/2018 [facility] HEMATOLOGY WBC 6.1 3.7 - 10.4 10/26/2018 [facility] HEMATOLOGY MCHC 32.6 32.0 - 36.0 10/26/2018 [facility] HEMATOLOGY RDW 19.3 11.5 - 14.5 10/26/2018 [facility] HEMATOLOGY Platelet 163 133 - 450 10/26/2018 [facility] MPV 9.5 7.4 - 10.4 10/26/2018 [facility] Hct 29.3 36.0 - 48.0 10/26/2018 [facility] MCV 81.4 80.0 - 98.0 10/26/2018 [facility] MCH 26.5 27.0 - 31.0 10/26/2018 [facility] HEMATOLOGY Hgb 9.6 12.0 - 16.0 10/26/2018 [facility] HEMATOLOGY Basophils 0.6 0.0 - 1.0 10/26/2018 [facility] HEMATOLOGY Lymphocytes # 1.7 1.0 - 5.5 10/26/2018 [facility] HEMATOLOGY Eosinophils # 0.3 0.0 - 0.5 10/26/2018 [facility] HEMATOLOGY Monocytes # 0.7 0.0 - 0.8 10/26/2018 [facility] HEMATOLOGY Neutrophils # 3.4 1.5 - 8.1 10/26/2018 [facility] HEMATOLOGY Eosinophils 4.2 0.0 - 4.0 10/26/2018 [facility] HEMATOLOGY Monocytes 11.5 2.0 - 12.0 10/26/2018 [facility] HEMATOLOGY Segs 56.4 45.0 - 75.0 10/26/2018 [facility] Lymphocytes 27.3 20.0 - 40.0 10/26/2018 [facility] CHEM PANEL Phosphorus 2.5 2.5 - 4.5 10/25/2018 [facility] CHEM PANEL Magnesium Lvl 2.0 1.8 - 2.4 10/25/2018 [facility] CHEM PANEL Total Protein 5.6 6.4 - 8.4 10/25/2018 [facility] CHEM PANEL Bili Total 2.0 0.2 - 1.3 10/25/2018 [facility] CHEM PANEL ALT 11 0 - 65 10/25/2018 [facility] CHEM PANEL Albumin Lvl 2.6 3.5 - 5.0 10/25/2018 [facility] CHEM PANEL AST 13 0 - 37 10/25/2018 [facility] CHEM PANEL Alk Phos 44 39 - 136 10/25/2018 [facility] CHEM PANEL Globulin 3.0 2.7 - 4.2 10/25/2018 [facility] CHEM PANEL B/C Ratio 15 6 - 25 10/25/2018 [facility] CHEM PANEL A/G Ratio 0.9 0.7 - 1.6 10/25/2018 [facility] HEMATOLOGY Basophils # 0.1 0.0 - 0.2 10/25/2018 [facility] HEMATOLOGY PTT 43.7 22.9 - 35.8 10/25/2018 [facility] HEMATOLOGY PT 22.6 12.0 - 14.7 10/25/2018 [facility] HEMATOLOGY INR 2.04 0.85 - 1.17 10/25/2018 [facility] CHEM PANEL Magnesium Lvl 2.1 1.8 - 2.4 10/25/2018 [facility] VIRAL - SEROLOGY Influ A Negative (10/24/18 5:50 AM) Negative 10/24/2018 [facility] VIRAL - SEROLOGY Influ B Negative (10/24/18 5:50 AM) Negative 10/24/2018 [facility] CHEM PANEL Magnesium Lvl 1.8 1.8 - 2.4 10/24/2018 [facility] CHEM PANEL Phosphorus 3.2 2.5 - 4.5 10/24/2018 [facility] BLOOD BANK RESULTS ABO/Rh B POS 10/23/2018 [facility] BLOOD [facility] RESULTS Antibody Scrn Negative (10/23/18 5:22 PM) 10/23/2018 [facility] URINE AND STOOL UA Urobilinogen <=1.0 mg/dL 0.1 - 1.0 10/23/2018 [facility] URINE AND STOOL UA pH 7.0 5.0 - 8.0 10/23/2018 [facility] URINE AND STOOL UA Spec Grav 1.011 <=1.030 10/23/2018 [facility] URINE AND STOOL UA Ketones 20 mg/dL Negative mg/dL 10/23/2018 [facility] URINE AND STOOL UA Bili Negative *NA* (10/23/18 5:13 PM) Negative 10/23/2018 [facility] URINE AND STOOL UA Blood Negative (10/23/18 5:13 PM) Negative 10/23/2018 [facility] URINE AND STOOL UA Leuk Est Negative (10/23/18 5:13 PM) Negative 10/23/2018 [facility] URINE AND STOOL UA Nitrite Negative (10/23/18 5:13 PM) Negative 10/23/2018 [facility] URINE AND STOOL UA WBC 1 0 - 5 10/23/2018 [facility] URINE AND STOOL UA Sq Epi None Seen (10/23/18 5:13 PM) Few 10/23/2018 [facility] URINE AND STOOL UA Glucose Negative *NA* (10/23/18 5:13 PM) Negative 10/23/2018 [facility] URINE AND STOOL UA Protein Negative (10/23/18 5:13 PM) Negative 10/23/2018 [facility] URINE AND STOOL UA Color Ltyellow 10/23/2018 [facility] URINE AND STOOL UA Turbidity Clear (10/23/18 5:13 PM) Clear 10/23/2018 [facility] CARDIAC ENZYMES Total CK 65 12 - 191 10/23/2018 [facility] CARDIAC ENZYMES Troponin-I <0.02 0.00 - 0.40 10/23/2018 [facility] CHEM PANEL Alk Phos 66 39 - 136 10/23/2018 [facility] CHEM PANEL Bili Total 1.3 0.2 - 1.3 10/23/2018 [facility] CHEM PANEL ALT 17 0 - 65 10/23/2018 [facility] CHEM PANEL AST 20 0 - 37 10/23/2018 [facility] CHEM PANEL Total Protein 8.5 6.4 - 8.4 10/23/2018 [facility] CHEM PANEL Albumin Lvl 4.1 3.5 - 5.0 10/23/2018 [facility] CHEM PANEL A/G Ratio 0.9 0.7 - 1.6 10/23/2018 [facility] CHEM PANEL B/C Ratio 21 6 - 25 10/23/2018 [facility] CHEM PANEL Globulin 4.4 2.7 - 4.2 10/23/2018 [facility] CHEM PANEL Lactic Acid Lvl 1.4 0.5 - 2.2 10/23/2018 [facility] CHEM PANEL Procalcitonin Lvl <0.05 0.00 - 0.10 10/23/2018 [facility] HEMATOLOGY PTT 32.1 22.9 - 35.8 10/23/2018 [facility] HEMATOLOGY PT 20.7 12.0 - 14.7 10/23/2018 [facility] HEMATOLOGY INR 1.82 0.85 - 1.17 10/23/2018 [facility] CHEM PANEL eGFR 92 05/25/2018 Result Comment: The eGFR is calculated using the CKD-EPI formula. In most young, healthy individuals the eGFR will be >90 mL/min/1.73m2. The eGFR declines with age. An eGFR of 60-89 may be normal in some populations, particularly the elderly, for whom the CKD-EPI formula has not been extensively validated. Use of the eGFR is not recommended in the following populations:

Individuals with unstable creatinine concentrations, including patients and those with serious co-morbid conditions.

Patients with extremes in muscle mass or diet.

The data above are obtained from the National Kidney Disease Education Program (NKDEP) which additionally recommends that when the eGFR is used in patients with extremes of body mass index for purposes of drug dosing, the eGFR should be multiplied by the estimated BMI. [facility] CHEM PANEL Glucose Lvl 74 70 - 99 05/25/2018 [facility] CHEM PANEL Creatinine Lvl 0.82 0.50 - 1.40 05/25/2018 [facility] CHEM PANEL BUN 13 7 - 22 05/25/2018 [facility] CHEM PANEL Potassium Lvl 3.9 3.5 - 5.1 05/25/2018 [facility] CHEM PANEL CO2 27 24 - 32 05/25/2018 [facility] CHEM PANEL Sodium Lvl 142 135 - 145 05/25/2018 [facility] CHEM PANEL Chloride Lvl 109 95 - 109 05/25/2018 [facility] CHEM PANEL AGAP 9.9 10.0 - 20.0 05/25/2018 [facility] CHEM PANEL Calcium Lvl 8.5 8.5 - 10.5 05/25/2018 [facility] HEMATOLOGY RBC 4.48 4.20 - 5.40 05/25/2018 [facility] HEMATOLOGY WBC 4.7 3.7 - 10.4 05/25/2018 [facility] HEMATOLOGY MCV 88.0 80.0 - 98.0 05/25/2018 [facility] MCH 28.4 27.0 - 31.0 05/25/2018 [facility] HEMATOLOGY Hct 39.4 36.0 - 48.0 05/25/2018 [facility] Hgb 12.7 12.0 - 16.0 05/25/2018 [facility] MPV 10.6 7.4 - 10.4 05/25/2018 [facility] Platelet 162 133 - 450 05/25/2018 [facility] MCHC 32.3 32.0 - 36.0 05/25/2018 [facility] RDW 17.3 11.5 - 14.5 05/25/2018 [facility] CHEM PANEL eGFR 106 05/24/2018 Result Comment: The eGFR is calculated using the CKD-EPI formula. In most young, healthy individuals the eGFR will be >90 mL/min/1.73m2. The eGFR declines with age. An eGFR of 60-89 may be normal in some populations, particularly the elderly, for whom the CKD-EPI formula has not been extensively validated. Use of the eGFR is not recommended in the following populations:

Individuals with unstable creatinine concentrations, including patients and those with serious co-morbid conditions.

Patients with extremes in muscle mass or diet.

The data above are obtained from the National Kidney Disease Education Program (NKDEP) which additionally recommends that when the eGFR is used in patients with extremes of body mass index for purposes of drug dosing, the eGFR should be multiplied by the estimated BMI. [facility] CHEM PANEL Glucose Lvl 84 70 - 99 05/24/2018 [facility] CHEM PANEL Sodium Lvl 150 135 - 145 05/24/2018 [facility] CHEM PANEL BUN 10 7 - 22 05/24/2018 [facility] CHEM PANEL Creatinine Lvl 0.74 0.50 - 1.40 05/24/2018 [facility] CHEM PANEL Potassium Lvl 3.5 3.5 - 5.1 05/24/2018 [facility] CHEM PANEL CO2 28 24 - 32 05/24/2018 [facility] CHEM PANEL Chloride Lvl 110 95 - 109 05/24/2018 [facility] CHEM PANEL Calcium Lvl 9.1 8.5 - 10.5 05/24/2018 [facility] CHEM PANEL AGAP 15.5 10.0 - 20.0 05/24/2018 [facility] HEMATOLOGY Eosinophils 3.2 0.0 - 4.0 05/24/2018 [facility] HEMATOLOGY Lymphocytes 44.4 20.0 - 40.0 05/24/2018 [facility] HEMATOLOGY Segs 38.4 45.0 - 75.0 05/24/2018 [facility] HEMATOLOGY Monocytes 12.6 2.0 - 12.0 05/24/2018 [facility] Basophils 1.4 0.0 - 1.0 05/24/2018 [facility] Eosinophils # 0.1 0.0 - 0.5 05/24/2018 [facility] Monocytes # 0.6 0.0 - 0.8 05/24/2018 [facility] Lymphocytes # 2.1 1.0 - 5.5 05/24/2018 [facility] Neutrophils # 1.8 1.5 - 8.1 05/24/2018 [facility] Basophils # 0.1 0.0 - 0.2 05/24/2018 [facility] INR 1.15 0.85 - 1.17 05/24/2018 [facility] PT 14.7 12.0 - 14.7 05/24/2018 [facility] PTT 39.6 22.9 - 35.8 05/24/2018 [facility] WBC 4.7 3.7 - 10.4 05/24/2018 [facility] Platelet 155 133 - 450 05/24/2018 [facility] RDW 16.9 11.5 - 14.5 05/24/2018 [facility] MCH 29.6 27.0 - 31.0 05/24/2018 [facility] MCHC 33.5 32.0 - 36.0 05/24/2018 [facility] MCV 88.3 80.0 - 98.0 05/24/2018 [facility] Hgb 14.0 12.0 - 16.0 05/24/2018 [facility] RBC 4.73 4.20 - 5.40 05/24/2018 [facility] Hct 41.8 36.0 - 48.0 05/24/2018 [facility] MPV 10.2 7.4 - 10.4 05/24/2018 [facility] CHEM PANEL eGFR 109 05/24/2018 Result Comment: The eGFR is calculated using the CKD-EPI formula. In most young, healthy individuals the eGFR will be >90 mL/min/1.73m2. The eGFR declines with age. An eGFR of 60-89 may be normal in some populations, particularly the elderly, for whom the CKD-EPI formula has not been extensively validated. Use of the eGFR is not recommended in the following populations:

Individuals with unstable creatinine concentrations, including patients and those with serious co-morbid conditions.

Patients with extremes in muscle mass or diet.

The data above are obtained from the National Kidney Disease Education Program (NKDEP) which additionally recommends that when the eGFR is used in patients with extremes of body mass index for purposes of drug dosing, the eGFR should be multiplied by the estimated BMI. [facility] CHEM PANEL AGAP 9.2 10.0 - 20.0 05/24/2018 [facility] CHEM PANEL B/C Ratio 14 6 - 25 05/24/2018 [facility] CHEM PANEL A/G Ratio 1.0 0.7 - 1.6 05/24/2018 [facility] CHEM PANEL ALT 12 0 - 65 05/24/2018 [facility] CHEM PANEL AST 16 0 - 37 05/24/2018 [facility] CHEM PANEL Globulin 3.5 2.7 - 4.2 05/24/2018 [facility] CHEM PANEL Sodium Lvl 146 135 - 145 05/24/2018 [facility] CHEM PANEL Potassium Lvl 3.2 3.5 - 5.1 05/24/2018 [facility] CHEM PANEL Chloride Lvl 109 95 - 109 05/24/2018 [facility] CHEM PANEL Calcium Lvl 9.5 8.5 - 10.5 05/24/2018 [facility] CHEM PANEL CO2 31 24 - 32 05/24/2018 [facility] CHEM PANEL Albumin Lvl 3.4 3.5 - 5.0 05/24/2018 [facility] CHEM PANEL Total Protein 6.9 6.4 - 8.4 05/24/2018 [facility] CHEM PANEL Alk Phos 61 39 - 136 05/24/2018 [facility] CHEM PANEL Bili Total 1.0 0.2 - 1.3 05/24/2018 [facility] CHEM PANEL Creatinine Lvl 0.72 0.50 - 1.40 05/24/2018 [facility] CHEM PANEL Glucose Lvl 89 70 - 99 05/24/2018 [facility] CHEM PANEL BUN 10 7 - 22 05/24/2018 [facility] CHEM PANEL Lipase Lvl 79 73 - 393 05/24/2018 [facility] CHEM PANEL Lactic Acid Lvl 1.3 0.5 - 2.2 05/24/2018 [facility] HEMATOLOGY PTT 26.2 22.9 - 35.8 05/24/2018 [facility] HEMATOLOGY INR 1.00 0.85 - 1.17 05/24/2018 [facility] HEMATOLOGY PT 13.2 12.0 - 14.7 05/24/2018 Result Comment: Specimen slightly hemolyzed. 05/23/2018 21:31 iko [facility] WBC 5.5 3.7 - 10.4 05/24/2018 [facility] RBC 5.42 4.20 - 5.40 05/24/2018 [facility] Hgb 15.5 12.0 - 16.0 05/24/2018 [facility] Platelet 200 133 - 450 05/24/2018 [facility] MPV 10.7 7.4 - 10.4 05/24/2018 [facility] MCH 28.5 27.0 - 31.0 05/24/2018 [facility] MCHC 32.3 32.0 - 36.0 05/24/2018 [facility] Hct 47.9 36.0 - 48.0 05/24/2018 [facility] MCV 88.4 80.0 - 98.0 05/24/2018 [facility] RDW 17.2 11.5 - 14.5 05/24/2018 [facility] Basophils # 0.1 0.0 - 0.2 05/24/2018 [facility] Monocytes # 0.5 0.0 - 0.8 05/24/2018 [facility] Eosinophils # 0.1 0.0 - 0.5 05/24/2018 [facility] Eosinophils 2.7 0.0 - 4.0 05/24/2018 [facility] Basophils 1.1 0.0 - 1.0 05/24/2018 [facility] Lymphocytes 35.5 20.0 - 40.0 05/24/2018 [facility] Monocytes 9.5 2.0 - 12.0 05/24/2018 [facility] Neutrophils # 2.8 1.5 - 8.1 05/24/2018 [facility] Lymphocytes # 2.0 1.0 - 5.5 05/24/2018 [facility] Segs 51.2 45.0 - 75.0 05/24/2018 [facility] Culture: Urine No Growth 05/24/2018 [facility] URINE AND STOOL UA Urobilinogen <=1.0 mg/dL 0.1 - 1.0 05/24/2018 [facility] [facility]OOL UA WBC <1 0 - 5 05/24/2018 [facility] URINE AND STOOL UA RBC <1 0 - 2 05/24/2018 [facility] URINE AND STOOL UA Blood Negative (05/23/18 8:46 PM) Negative 05/24/2018 [facility] URINE AND STOOL UA Sq Epi Occasional /LPF Few /LPF 05/24/2018 [facility] URINE AND STOOL UA Leuk Est Negative (05/23/18 8:46 PM) Negative 05/24/2018 [facility] URINE AND STOOL UA Nitrite Negative (05/23/18 8:46 PM) Negative 05/24/2018 [facility] URINE AND STOOL UA Amorph Akiko Few /HPF None Seen /HPF 05/24/2018 [facility] URINE AND STOOL UA Protein Negative mg/dL Negative mg/dL 05/24/2018 [facility] URINE AND STOOL UA Glucose Negative mg/dL Negative mg/dL 05/24/2018 [facility] URINE AND STOOL UA Ketones Negative mg/dL Negative mg/dL 05/24/2018 [facility] URINE AND STOOL UA Bili Negative *NA* (05/23/18 8:46 PM) Negative 05/24/2018 [facility] URINE AND STOOL UA pH 8.0 5.0 - 8.0 05/24/2018 [facility] URINE AND STOOL UA Spec Grav 1.010 <=1.030 05/24/2018 [facility] URINE AND STOOL UA Color Yellow *NA* (05/23/18 8:46 PM) Yellow 05/24/2018 [facility] URINE AND STOOL UA Turbidity Marked *ABN* (05/23/18 8:46 PM) Clear 05/24/2018 [facility] ELECTROLYTES AGAP 22.4 10.0 - 20.0 03/28/2018 [facility] ELECTROLYTES B/C Ratio 21 6 - 25 03/28/2018 [facility] ELECTROLYTES Globulin 4.3 2.7 - 4.2 03/28/2018 [facility] ELECTROLYTES A/G Ratio 0.7 0.7 - 1.6 03/28/2018 [facility] ELECTROLYTES Potassium Lvl 4.4 3.5 - 5.1 03/28/2018 [facility] ELECTROLYTES CO2 20 24 - 32 03/28/2018 [facility] ELECTROLYTES Chloride Lvl 104 95 - 109 03/28/2018 [facility] ELECTROLYTES Albumin Lvl 3.2 3.5 - 5.0 03/28/2018 [facility] ELECTROLYTES Calcium Lvl 9.4 8.5 - 10.5 03/28/2018 [facility] ELECTROLYTES Glucose Lvl 57 70 - 99 03/28/2018 [facility] ELECTROLYTES BUN 18 7 - 22 03/28/2018 [facility] ELECTROLYTES Sodium Lvl 142 135 - 145 03/28/2018 [facility] ELECTROLYTES ALT 24 0 - 65 03/28/2018 [facility] ELECTROLYTES Creatinine Lvl 0.87 0.50 - 1.40 03/28/2018 [facility] ELECTROLYTES AST 25 0 - 37 03/28/2018 [facility] ELECTROLYTES eGFR 87 03/28/2018 Result Comment: The eGFR is calculated using the CKD-EPI formula. In most young, healthy individuals the eGFR will be >90 mL/min/1.73m2. The eGFR declines with age. An eGFR of 60-89 may be normal in some populations, particularly the elderly, for whom the CKD-EPI formula has not been extensively validated. Use of the eGFR is not recommended in the following populations:

Individuals with unstable creatinine concentrations, including patients and those with serious co-morbid conditions.

Patients with extremes in muscle mass or diet.

The data above are obtained from the National Kidney Disease Education Program (NKDEP) which additionally recommends that when the eGFR is used in patients with extremes of body mass index for purposes of drug dosing, the eGFR should be multiplied by the estimated BMI. [facility] ELECTROLYTES Bili Total 1.8 0.2 - 1.3 03/28/2018 [facility] ELECTROLYTES Alk Phos 76 39 - 136 03/28/2018 [facility] ELECTROLYTES Total Protein 7.5 6.4 - 8.4 03/28/2018 [facility] HEMATOLOGY Segs 61.2 45.0 - 75.0 03/28/2018 [facility] HEMATOLOGY Lymphocytes # 1.4 1.0 - 5.5 03/28/2018 [facility] HEMATOLOGY Monocytes # 0.8 0.0 - 0.8 03/28/2018 [facility] HEMATOLOGY Segs-Bands # 3.6 1.5 - 8.1 03/28/2018 [facility] HEMATOLOGY Lymphocytes 24.1 20.0 - 40.0 03/28/2018 [facility] HEMATOLOGY Monocytes 13.4 2.0 - 12.0 03/28/2018 [facility] HEMATOLOGY Eosinophils 0.7 0.0 - 4.0 03/28/2018 [facility] HEMATOLOGY Basophils 0.6 0.0 - 1.0 03/28/2018 [facility] HEMATOLOGY Platelet 127 133 - 450 03/28/2018 [facility] HEMATOLOGY MPV 11.7 7.4 - 10.4 03/28/2018 [facility] HEMATOLOGY MCHC 32.7 32.0 - 36.0 03/28/2018 [facility] HEMATOLOGY RDW 16.9 11.5 - 14.5 03/28/2018 [facility] HEMATOLOGY Hct 49.9 36.0 - 48.0 03/28/2018 [facility] HEMATOLOGY Hgb 16.3 12.0 - 16.0 03/28/2018 [facility] HEMATOLOGY MCV 87.3 80.0 - 98.0 03/28/2018 [facility] HEMATOLOGY MCH 28.5 27.0 - 31.0 03/28/2018 [facility] HEMATOLOGY RBC 5.72 4.20 - 5.40 03/28/2018 [facility] HEMATOLOGY WBC 5.8 3.7 - 10.4 03/28/2018 [facility] URINE AND STOOL UA Color Mae 03/28/2018 [facility] URINE AND STOOL UA Hyal Cast 3 0 - 2 03/28/2018 [facility] URINE AND STOOL UA WBC 3 0 - 5 03/28/2018 [facility] URINE AND STOOL UA Sq Epi Occasional /LPF Few /LPF 03/28/2018 [facility] URINE AND STOOL UA Mucus Many /LPF None Seen /LPF 03/28/2018 [facility] URINE AND STOOL UA RBC <1 0 - 2 03/28/2018 [facility] URINE AND STOOL UA Urobilinogen 4.0 0.1 - 1.0 03/28/2018 [facility] URINE AND STOOL UA Leuk Est Negative (03/27/18 11:05 PM) Negative 03/28/2018 [facility] URINE AND STOOL UA Nitrite Negative (03/27/18 11:05 PM) Negative 03/28/2018 [facility] URINE AND STOOL UA Blood Negative (03/27/18 11:05 PM) Negative 03/28/2018 [facility] URINE AND STOOL UA Bili Small *ABN* (03/27/18 11:05 PM) Negative 03/28/2018 [facility] URINE AND STOOL UA Glucose Negative mg/dL Negative mg/dL 03/28/2018 [facility] URINE AND STOOL UA Ketones 80 mg/dL Negative mg/dL 03/28/2018 [facility] URINE AND STOOL UA Protein 30 mg/dL Negative mg/dL 03/28/2018 [facility] URINE AND STOOL UA pH 5.0 5.0 - 8.0 03/28/2018 [facility] URINE AND STOOL UA Spec Grav 1.031 <=1.030 03/28/2018 [facility] URINE AND STOOL UA Turbidity Slight *ABN* (03/27/18 11:05 PM) Clear 03/28/2018 [facility] URINE AND STOOL UA Urobilinogen <=1.0 mg/dL 0.1 - 1.0 03/07/2018 [facility] URINE AND STOOL UA RBC <1 0 - 2 03/07/2018 [facility] URINE AND STOOL UA WBC 2 0 - 5 03/07/2018 [facility] URINE AND STOOL UA Sq Epi Occasional /LPF Few /LPF 03/07/2018 [facility] URINE AND STOOL UA Bili Negative *NA* (03/07/18 4:30 PM) Negative 03/07/2018 [facility] URINE AND STOOL UA Nitrite Negative (03/07/18 4:30 PM) Negative 03/07/2018 [facility] URINE AND STOOL UA Blood Negative (03/07/18 4:30 PM) Negative 03/07/2018 [facility] URINE AND STOOL UA Mucus Few /LPF None Seen /LPF 03/07/2018 [facility] URINE AND STOOL UA Leuk Est Moderate *ABN* (03/07/18 4:30 PM) Negative 03/07/2018 [facility] URINE AND STOOL UA Ketones Trace mg/dL Negative mg/dL 03/07/2018 [facility] URINE AND STOOL UA Glucose Negative mg/dL Negative mg/dL 03/07/2018 [facility] URINE AND STOOL UA Color Light Yellow *NA* (03/07/18 4:30 PM) Yellow 03/07/2018 [facility] URINE AND STOOL UA Spec Grav >1.060 <=1.030 03/07/2018 [facility] URINE AND STOOL UA Turbidity Clear (03/07/18 4:30 PM) Clear 03/07/2018 [facility] URINE AND STOOL UA pH 6.0 5.0 - 8.0 03/07/2018 [facility] URINE AND STOOL UA Protein Negative mg/dL Negative mg/dL 03/07/2018 [facility] CARDIAC ENZYMES Troponin-I <0.02 0.00 - 0.40 03/07/2018 [facility] CHEM PANEL Lipase Lvl 95 73 - 393 03/07/2018 [facility] CHEM PANEL eGFR 82 03/07/2018 Result Comment: The eGFR is calculated using the CKD-EPI formula. In most young, healthy individuals the eGFR will be >90 mL/min/1.73m2. The eGFR declines with age. An eGFR of 60-89 may be normal in some populations, particularly the elderly, for whom the CKD-EPI formula has not been extensively validated. Use of the eGFR is not recommended in the following populations:

Individuals with unstable creatinine concentrations, including patients and those with serious co-morbid conditions.

Patients with extremes in muscle mass or diet.

The data above are obtained from the National Kidney Disease Education Program (NKDEP) which additionally recommends that when the eGFR is used in patients with extremes of body mass index for purposes of drug dosing, the eGFR should be multiplied by the estimated BMI. [facility] CHEM PANEL Globulin 4.0 2.7 - 4.2 03/07/2018 [facility] CHEM PANEL Total Protein 7.7 6.4 - 8.4 03/07/2018 [facility] CHEM PANEL Albumin Lvl 3.7 3.5 - 5.0 03/07/2018 [facility] CHEM PANEL Bili Total 1.2 0.2 - 1.3 03/07/2018 [facility] CHEM PANEL AST 15 0 - 37 03/07/2018 [facility] CHEM PANEL Alk Phos 74 39 - 136 03/07/2018 [facility] CHEM PANEL Calcium Lvl 9.5 8.5 - 10.5 03/07/2018 [facility] CHEM PANEL B/C Ratio 31 6 - 25 03/07/2018 [facility] CHEM PANEL Chloride Lvl 112 95 - 109 03/07/2018 [facility] CHEM PANEL CO2 25 24 - 32 03/07/2018 [facility] CHEM PANEL AGAP 15.0 10.0 - 20.0 03/07/2018 [facility] CHEM PANEL ALT 17 0 - 65 03/07/2018 [facility] CHEM PANEL A/G Ratio 0.9 0.7 - 1.6 03/07/2018 [facility] CHEM PANEL Potassium Lvl 3.0 3.5 - 5.1 03/07/2018 Result Comment: Critical Result(s) called to jan solis at 03/07/2018 15:05 by javed. Read back OK. [facility] CHEM PANEL BUN 28 7 - 22 03/07/2018 [facility] CHEM PANEL Sodium Lvl 149 135 - 145 03/07/2018 [facility] CHEM PANEL Glucose Lvl 97 70 - 99 03/07/2018 [facility] CHEM PANEL Creatinine Lvl 0.91 0.50 - 1.40 03/07/2018 [facility] HEMATOLOGY INR 1.04 0.85 - 1.17 03/07/2018 [facility] HEMATOLOGY PT 13.6 12.0 - 14.7 03/07/2018 [facility] HEMATOLOGY Basophils 0.8 0.0 - 1.0 03/07/2018 [facility] HEMATOLOGY Eosinophils 1.0 0.0 - 4.0 03/07/2018 [facility] HEMATOLOGY Monocytes 12.4 2.0 - 12.0 03/07/2018 [facility] HEMATOLOGY Lymphocytes 33.2 20.0 - 40.0 03/07/2018 [facility] HEMATOLOGY Segs 52.6 45.0 - 75.0 03/07/2018 [facility] HEMATOLOGY Eosinophils # 0.1 0.0 - 0.5 03/07/2018 [facility] HEMATOLOGY Monocytes # 0.7 0.0 - 0.8 03/07/2018 [facility] HEMATOLOGY Lymphocytes # 1.9 1.0 - 5.5 03/07/2018 [facility] HEMATOLOGY Segs-Bands # 3.0 1.5 - 8.1 03/07/2018 [facility] HEMATOLOGY MPV 11.6 7.4 - 10.4 03/07/2018 [facility] HEMATOLOGY Platelet 144 133 - 450 03/07/2018 [facility] HEMATOLOGY MCH 28.4 27.0 - 31.0 03/07/2018 [facility] HEMATOLOGY MCV 85.7 80.0 - 98.0 03/07/2018 [facility] HEMATOLOGY RDW 16.4 11.5 - 14.5 03/07/2018 [facility] HEMATOLOGY MCHC 33.1 32.0 - 36.0 03/07/2018 [facility] HEMATOLOGY WBC 5.7 3.7 - 10.4 03/07/2018 [facility] HEMATOLOGY RBC 5.37 4.20 - 5.40 03/07/2018 [facility] HEMATOLOGY Hct 46.0 36.0 - 48.0 03/07/2018 [facility] HEMATOLOGY Hgb 15.2 12.0 - 16.0 03/07/2018 [facility] CARDIAC ENZYMES CK MB Index 0.7 0.0 - 2.5 03/03/2018 [facility] CARDIAC ENZYMES BNP <2 <=100 pg/mL 03/03/2018 [facility] CARDIAC ENZYMES Troponin-I <0.02 0.00 - 0.40 03/03/2018 [facility] CARDIAC ENZYMES Total CK 123 12 - 191 03/03/2018 [facility] CARDIAC ENZYMES CK MB 0.9 0.5 - 3.6 03/03/2018 [facility] CHEM PANEL eGFR 77 03/03/2018 Result Comment: The eGFR is calculated using the CKD-EPI formula. In most young, healthy individuals the eGFR will be >90 mL/min/1.73m2. The eGFR declines with age. An eGFR of 60-89 may be normal in some populations, particularly the elderly, for whom the CKD-EPI formula has not been extensively validated. Use of the eGFR is not recommended in the following populations:

Individuals with unstable creatinine concentrations, including patients and those with serious co-morbid conditions.

Patients with extremes in muscle mass or diet.

The data above are obtained from the National Kidney Disease Education Program (NKDEP) which additionally recommends that when the eGFR is used in patients with extremes of body mass index for purposes of drug dosing, the eGFR should be multiplied by the estimated BMI. [facility] CHEM PANEL Glucose Lvl 84 70 - 99 03/03/2018 [facility] CHEM PANEL Globulin 3.9 2.7 - 4.2 03/03/2018 [facility] CHEM PANEL A/G Ratio 1.0 0.7 - 1.6 03/03/2018 [facility] CHEM PANEL AGAP 17.1 10.0 - 20.0 03/03/2018 [facility] CHEM PANEL B/C Ratio 27 6 - 25 03/03/2018 [facility] CHEM PANEL Albumin Lvl 3.9 3.5 - 5.0 03/03/2018 [facility] CHEM PANEL Bili Total 1.1 0.2 - 1.3 03/03/2018 [facility] CHEM PANEL AST 14 0 - 37 03/03/2018 [facility] CHEM PANEL Alk Phos 85 39 - 136 03/03/2018 [facility] CHEM PANEL ALT 15 0 - 65 03/03/2018 [facility] CHEM PANEL Calcium Lvl 9.6 8.5 - 10.5 03/03/2018 [facility] CHEM PANEL Total Protein 7.8 6.4 - 8.4 03/03/2018 [facility] CHEM PANEL Sodium Lvl 149 135 - 145 03/03/2018 [facility] CHEM PANEL BUN 26 7 - 22 03/03/2018 [facility] CHEM PANEL Creatinine Lvl 0.97 0.50 - 1.40 03/03/2018 [facility] CHEM PANEL Chloride Lvl 111 95 - 109 03/03/2018 [facility] CHEM PANEL CO2 24 24 - 32 03/03/2018 [facility] CHEM PANEL Potassium Lvl 3.1 3.5 - 5.1 03/03/2018 [facility] CHEM PANEL Lipase Lvl 80 73 - 393 03/03/2018 [facility] HEMATOLOGY Eosinophils # 0.1 0.0 - 0.5 03/03/2018 [facility] HEMATOLOGY Monocytes # 0.4 0.0 - 0.8 03/03/2018 [facility] HEMATOLOGY Lymphocytes # 1.6 1.0 - 5.5 03/03/2018 [facility] HEMATOLOGY Basophils 0.8 0.0 - 1.0 03/03/2018 [facility] HEMATOLOGY Eosinophils 1.2 0.0 - 4.0 03/03/2018 [facility] HEMATOLOGY Monocytes 8.5 2.0 - 12.0 03/03/2018 [facility] HEMATOLOGY Lymphocytes 29.5 20.0 - 40.0 03/03/2018 [facility] HEMATOLOGY Segs-Bands # 3.2 1.5 - 8.1 03/03/2018 [facility] HEMATOLOGY Segs 60.0 45.0 - 75.0 03/03/2018 [facility] HEMATOLOGY D-Dimer 0.50 03/03/2018 [facility] HEMATOLOGY PTT 29.2 22.9 - 35.8 03/03/2018 [facility] HEMATOLOGY PT 13.4 12.0 - 14.7 03/03/2018 [facility] HEMATOLOGY INR 1.02 0.85 - 1.17 03/03/2018 [facility] HEMATOLOGY RBC 5.32 4.20 - 5.40 03/03/2018 [facility] HEMATOLOGY WBC 5.3 3.7 - 10.4 03/03/2018 [facility] HEMATOLOGY MPV 11.1 7.4 - 10.4 03/03/2018 [facility] HEMATOLOGY Platelet 164 133 - 450 03/03/2018 [facility] HEMATOLOGY RDW 16.5 11.5 - 14.5 03/03/2018 [facility] HEMATOLOGY MCH 28.0 27.0 - 31.0 03/03/2018 [facility] HEMATOLOGY MCV 86.3 80.0 - 98.0 03/03/2018 [facility] HEMATOLOGY Hct 45.9 36.0 - 48.0 03/03/2018 [facility] HEMATOLOGY Hgb 14.9 12.0 - 16.0 03/03/2018 [facility] HEMATOLOGY MCHC 32.5 32.0 - 36.0 03/03/2018 [facility] CARDIAC ENZYMES CK MB 0.7 0.5 - 3.6 03/01/2018 [facility] CARDIAC ENZYMES Troponin-I <0.02 0.00 - 0.40 03/01/2018 [facility] CARDIAC ENZYMES Total CK 132 12 - 191 03/01/2018 [facility] CARDIAC ENZYMES CK MB Index 0.5 0.0 - 2.5 03/01/2018 [facility] CHEM PANEL eGFR 77 03/01/2018 Result Comment: The eGFR is calculated using the CKD-EPI formula. In most young, healthy individuals the eGFR will be >90 mL/min/1.73m2. The eGFR declines with age. An eGFR of 60-89 may be normal in some populations, particularly the elderly, for whom the CKD-EPI formula has not been extensively validated. Use of the eGFR is not recommended in the following populations:

Individuals with unstable creatinine concentrations, including patients and those with serious co-morbid conditions.

Patients with extremes in muscle mass or diet.

The data above are obtained from the National Kidney Disease Education Program (NKDEP) which additionally recommends that when the eGFR is used in patients with extremes of body mass index for purposes of drug dosing, the eGFR should be multiplied by the estimated BMI. [facility] CHEM PANEL Globulin 4.1 2.7 - 4.2 03/01/2018 [facility] CHEM PANEL Bili Total 0.9 0.2 - 1.3 03/01/2018 [facility] CHEM PANEL AGAP 13.6 10.0 - 20.0 03/01/2018 [facility] CHEM PANEL A/G Ratio 0.9 0.7 - 1.6 03/01/2018 [facility] CHEM PANEL ALT 15 0 - 65 03/01/2018 [facility] CHEM PANEL Albumin Lvl 3.7 3.5 - 5.0 03/01/2018 [facility] CHEM PANEL B/C Ratio 24 6 - 25 03/01/2018 [facility] CHEM PANEL Alk Phos 86 39 - 136 03/01/2018 [facility] CHEM PANEL AST 22 0 - 37 03/01/2018 [facility] CHEM PANEL Calcium Lvl 9.2 8.5 - 10.5 03/01/2018 [facility] CHEM PANEL Total Protein 7.8 6.4 - 8.4 03/01/2018 [facility] CHEM PANEL CO2 25 24 - 32 03/01/2018 [facility] CHEM PANEL BUN 23 7 - 22 03/01/2018 [facility] CHEM PANEL Glucose Lvl 85 70 - 99 03/01/2018 [facility] CHEM PANEL Creatinine Lvl 0.97 0.50 - 1.40 03/01/2018 [facility] CHEM PANEL Potassium Lvl 3.6 3.5 - 5.1 03/01/2018 [facility] CHEM PANEL Sodium Lvl 149 135 - 145 03/01/2018 [facility] CHEM PANEL Chloride Lvl 114 95 - 109 03/01/2018 [facility] HEMATOLOGY RBC 5.32 4.20 - 5.40 03/01/2018 [facility] HEMATOLOGY Hgb 15.1 12.0 - 16.0 03/01/2018 [facility] HEMATOLOGY Hct 45.3 36.0 - 48.0 03/01/2018 [facility] HEMATOLOGY MCH 28.3 27.0 - 31.0 03/01/2018 [facility] HEMATOLOGY MCV 85.2 80.0 - 98.0 03/01/2018 [facility] HEMATOLOGY MPV 10.7 7.4 - 10.4 03/01/2018 [facility] HEMATOLOGY Platelet 144 133 - 450 03/01/2018 [facility] HEMATOLOGY RDW 16.5 11.5 - 14.5 03/01/2018 [facility] HEMATOLOGY MCHC 33.3 32.0 - 36.0 03/01/2018 [facility] HEMATOLOGY WBC 4.7 3.7 - 10.4 03/01/2018 [facility] HEMATOLOGY Segs-Bands # 3.4 1.5 - 8.1 03/01/2018 [facility] HEMATOLOGY Basophils 0.8 0.0 - 1.0 03/01/2018 [facility] HEMATOLOGY Lymphocytes # 0.9 1.0 - 5.5 03/01/2018 [facility] HEMATOLOGY Eosinophils 1.0 0.0 - 4.0 03/01/2018 [facility] HEMATOLOGY Monocytes 8.0 2.0 - 12.0 03/01/2018 [facility] HEMATOLOGY Monocytes # 0.4 0.0 - 0.8 03/01/2018 [facility] HEMATOLOGY Segs 71.8 45.0 - 75.0 03/01/2018 [facility] HEMATOLOGY Lymphocytes 18.4 20.0 - 40.0 03/01/2018 [facility] CARDIAC ENZYMES Total CK 79 12 - 191 01/03/2018 [facility] CARDIAC ENZYMES Troponin-I <0.02 0.00 - 0.40 01/03/2018 [facility] CHEM PANEL eGFR 96 01/03/2018 Result Comment: The eGFR is calculated using the CKD-EPI formula. In most young, healthy individuals the eGFR will be >90 mL/min/1.73m2. The eGFR declines with age. An eGFR of 60-89 may be normal in some populations, particularly the elderly, for whom the CKD-EPI formula has not been extensively validated. Use of the eGFR is not recommended in the following populations:

Individuals with unstable creatinine concentrations, including patients and those with serious co-morbid conditions.

Patients with extremes in muscle mass or diet.

The data above are obtained from the National Kidney Disease Education Program (NKDEP) which additionally recommends that when the eGFR is used in patients with extremes of body mass index for purposes of drug dosing, the eGFR should be multiplied by the estimated BMI. [facility] CHEM PANEL Sodium Lvl 142 135 - 145 01/03/2018 [facility] CHEM PANEL Creatinine Lvl 0.80 0.50 - 1.40 01/03/2018 [facility] CHEM PANEL AST 11 0 - 37 01/03/2018 [facility] CHEM PANEL ALT 14 0 - 65 01/03/2018 [facility] CHEM PANEL Albumin Lvl 3.8 3.5 - 5.0 01/03/2018 [facility] CHEM PANEL Total Protein 7.8 6.4 - 8.4 01/03/2018 [facility] CHEM PANEL Calcium Lvl 9.1 8.5 - 10.5 01/03/2018 [facility] CHEM PANEL Bili Total 0.7 0.2 - 1.3 01/03/2018 [facility] CHEM PANEL Alk Phos 92 39 - 136 01/03/2018 [facility] CHEM PANEL CO2 26 24 - 32 01/03/2018 [facility] CHEM PANEL Chloride Lvl 108 95 - 109 01/03/2018 [facility] CHEM PANEL Potassium Lvl 4.2 3.5 - 5.1 01/03/2018 [facility] CHEM PANEL Glucose Lvl 81 70 - 99 01/03/2018 [facility] CHEM PANEL BUN 17 7 - 22 01/03/2018 [facility] CHEM PANEL AGAP 12.2 10.0 - 20.0 01/03/2018 [facility] CHEM PANEL A/G Ratio 1.0 0.7 - 1.6 01/03/2018 [facility] CHEM PANEL Globulin 4.0 2.7 - 4.2 01/03/2018 [facility] CHEM PANEL B/C Ratio 21 6 - 25 01/03/2018 [facility] HEMATOLOGY Basophils # 0.1 0.0 - 0.2 01/03/2018 [facility] HEMATOLOGY Eosinophils # 0.1 0.0 - 0.5 01/03/2018 [facility] HEMATOLOGY Lymphocytes 24.0 20.0 - 40.0 01/03/2018 [facility] HEMATOLOGY Segs 66.8 45.0 - 75.0 01/03/2018 [facility] HEMATOLOGY Monocytes 6.9 2.0 - 12.0 01/03/2018 [facility] HEMATOLOGY Segs-Bands # 3.6 1.5 - 8.1 01/03/2018 [facility] HEMATOLOGY Lymphocytes # 1.3 1.0 - 5.5 01/03/2018 [facility] HEMATOLOGY Monocytes # 0.4 0.0 - 0.8 01/03/2018 [facility] HEMATOLOGY Eosinophils 1.1 0.0 - 4.0 01/03/2018 [facility] HEMATOLOGY Basophils 1.2 0.0 - 1.0 01/03/2018 [facility] HEMATOLOGY RBC 5.48 4.20 - 5.40 01/03/2018 [facility] HEMATOLOGY Hgb 15.1 12.0 - 16.0 01/03/2018 [facility] [facility] HEMATOLOGY Hct 46.4 36.0 - 48.0 01/03/2018 [facility] HEMATOLOGY MCV 84.8 80.0 - 98.0 01/03/2018 [facility] HEMATOLOGY RDW 15.8 11.5 - 14.5 01/03/2018 [facility] HEMATOLOGY MCH 27.6 27.0 - 31.0 01/03/2018 [facility] HEMATOLOGY MCHC 32.5 32.0 - 36.0 01/03/2018 [facility] HEMATOLOGY Platelet 180 133 - 450 01/03/2018 [facility] HEMATOLOGY MPV 10.4 7.4 - 10.4 01/03/2018 [facility] HEMATOLOGY WBC 5.5 3.7 - 10.4 01/03/2018 [facility] HEMATOLOGY PT 13.4 12.0 - 14.7 01/03/2018 [facility] HEMATOLOGY INR 1.02 0.85 - 1.17 01/03/2018 [facility] HEMATOLOGY PTT 29.4 22.9 - 35.8 01/03/2018 [facility] Pathology Reports No Data Provided for This Section Diagnostic Reports Report Value Date Source Pelvis w Pelvis Transvaginal US Pelvis w Pelvis Transvaginal US CLINICAL HX: - post-menopausal bleeding; COMPARISON: None TECHNIQUE: Multiple static transabdominal and endovaginal images of the pelvis are submitted for review. Endovaginal images were performed in an attempt to better visualize the endometrial stripe and adnexal regions. FINDINGS: Evaluation is limited due to patient's underlying clinical condition. UTERUS: The uterus measures approximately 5.9 cm in the sagittal length. Irregular echogenic focus is visualized within the endometrium approximately 3.6 x 1.4 x 2.7 cm in size. OVARIES: Neither ovary could be visualized. No free fluid is present in the cul-de-sac. IMPRESSION: Irregular echogenic focus in the endometrium may represent hemorrhage and/or mass. Differential considerations include endometrial carcinoma. SL: RONAK 10/30/2018 [facility] Chest 1view DX Study: Chest 1view DX Clinical Indication: - aspiration Comparison: Chest x-ray from 10/25/2018 FINDINGS: Cardiac silhouette is normal in size. Asymmetric elevation of the right hemidiaphragm is seen with mild right basilar atelectasis. There is no pleural effusion or pneumothorax. The osseous structures are unremarkable. IMPRESSION: Mild right basilar atelectasis. SL: WILLIAM 10/27/2018 [facility] Esophagus BA swallow function video DX Patient Name: MAYELA JASON : 1965; Age: 53 years Female MR: [id number] Study: Esophagus BA swallow function video DX Order Time: 10/27/2018 13:11 ANIMAL CARE PROVIDER Clinical Indication: Dysphagia FT- 1 min 29 seconds Reference Air Kerma-6.[address] Church - history of aspiration. COMPARISON: None. FT- 1 min 29 seconds Reference Air Kerma-6.25 mGy TECHNIQUE: Fluoroscopic assistance was provided for the speech pathologist for modified barium swallow examination. Varying consistencies of barium were administered po. FINDINGS: Thin consistency barium: No aspiration or any significant laryngeal penetration. [place] consistency barium: No aspiration or any significant laryngeal penetration. Honey consistency barium: No aspiration or any significant laryngeal penetration. Pudding coated barium: No aspiration or any significant laryngeal penetration. Barium with cracker preparation: No aspiration or any significant laryngeal penetration. IMPRESSION: Normal modified swallow. SL: [id number] 10/27/2018 [facility] 1view DX Clinical Indication:53 years Female with Tube placement/removal/reposition - aspiration Comparison: Chest x-ray 10/24/2018 FINDINGS: Lines: Endotracheal tube tip is 3.4 cm above the kaleb. Left-sided central venous catheter tip at the mid SVC. Enteric tube tip is below the coverage of the study, likely distal gastric body. The single frontal chest radiograph shows normal lung volumes. Right basilar opacities. Elevated right hemidiaphragm. No pleural effusion. No pneumothorax. Cardiac silhouette is normal. Pulmonary vasculature is normal. The trachea is midline. There are no acute osseous abnormalities noted. IMPRESSION: 1. No significant change from 10/24/2018. Support lines and tubes unchanged. 2. Elevated right hemidiaphragm. Right basilar atelectasis or infiltrate. 10/25/2018 [facility] Abdomen AP DX Clinical Indication: - OG tube placement; Comparison: Abdomen 1 view 01/03/2018 FINDINGS: The AP supine view of the abdomen shows an enteric tube with tip overlying the gastric body. There is gas scattered in the small bowel and large bowel in the upper abdomen in a non-obstructive bowel gas pattern. There is no abnormal dilatation of bowel loops. There is no pneumatosis or mass effect. There are no radiopaque densities noted. There are no clinically significant osseous abnormalities noted. IMPRESSION: Enteric tube tip overlies the stomach. SL: [id number] 10/24/2018 [facility] 1view DX Patient Name: MAYELA JASON : 1965; Age: 53 years y/o Female MR: [id number] Study: Chest 1view DX 10/24/2018 3:00 AM ANIMAL CARE PROVIDER Ordering Physician: Robert Reno DO Comparison: Chest radiograph 10/23/2018 Clinical Indication: Tube placement/removal/reposition - respiratory failure Findings: Stable position of endotracheal tube, enteric tube and left IJ central venous catheter. Hazy opacification of the right lower lung with elevation of the right hemidiaphragm. No pneumothorax. The cardiac silhouette is within normal limits of size. Midline trachea. No acute osseous abnormalities. IMPRESSION: Hazy opacification of the right lower lung may represent a combination of atelectasis and layering effusion. SL: KOURTNEY 10/24/2018 [facility] Chest 1 v for Placement DX Clinical Indication: Line Placement - Chest 1 view for line placement; Comparison: Chest radiograph from earlier today. FINDINGS: Tip of endotracheal tube terminates 2.3 cm above the kaleb. Tip of the left- sided IJ central venous catheter terminates in the inferior SVC. Unchanged position of the nasogastric tube with tip terminating in the lateral fundus. There is unchanged elevation of the right hemidiaphragm associated with relaxation atelectasis. No definite focal consolidation. No pleural effusion. No pneumothorax. The heart size and pulmonary vasculature are stable. The trachea is midline. There are no clinically significant osseous abnormalities noted. IMPRESSION: 1. Tip of the left-sided IJ central venous catheter terminates in the inferior SVC. 2. Unchanged elevation of the right hemidiaphragm associated with relaxation atelectasis. SL: TRAVIS 10/23/2018 [facility] Ext Lower Venous Doppler Bilat US Clinical Indication: Bilateral leg pain. Comparison: None TECHNIQUE: Sonographic evaluation of the bilateral lower extremity veins was performed using high resolution B-mode imaging, along with pulse and color Doppler imaging. FINDINGS: Right lower extremity: The common femoral vein, femoral vein, popliteal vein and visualized posterior tibial/calf veins are patent. There is no echogenic debris to suggest deep venous thrombosis. The saphenofemoral junction is unremarkable. Left lower extremity: The common femoral vein, superficial femoral vein, popliteal vein and visualized posterior tibial/calf veins are patent. There is no echogenic debris to suggest deep venous thrombosis. The saphenofemoral junction is unremarkable. IMPRESSION: 1. No deep venous thrombus in the right or left lower extremities. SL: [id number] 10/23/2018 [facility] Chest 1 v for Placement DX CHEST RADIOGRAPH ONE VIEW 10/23/2018 AT 1712 HOURS. CLINICAL HISTORY: Tube placement. COMPARISON STUDIES: Chest one view from earlier today at 1325 hours. FINDINGS: One view of the chest was obtained. The patient has been intubated with the endotracheal tube tip terminating roughly 2.5 cm above the kaleb and the nasogastric tube terminating below the diaphragm. The tip is located at the level of the proximal gastric body. Right diaphragmatic elevation with compressive atelectasis. No pulmonary edema or lobar consolidation. No pneumothorax. The cardiac silhouette is not enlarged. No destructive bone lesions. IMPRESSION: 1. Endotracheal and nasogastric tube in satisfactory position. 2. Right diaphragmatic elevation with compressive atelectasis. SL: [id number] 10/23/2018 [facility] Chest 1view DX 1 VIEW CXR. PORTABLE EXAM 1:25 PM HISTORY: Cough. Sore throat. COMPARISON: 05/23/2018 chest x-ray. Chronic right hemidiaphragm elevation again noted. The lungs are clear. Cardiomediastinal silhouette and bony thorax normal. IMPRESSION: Normal exam. END OF IMPRESSION SL: [id number] 10/23/2018 [facility] Abdomen/Pelvis w IV contrast CT Study: Abdomen/Pelvis w IV contrast CT Clinical Indication: - intractable N/V Comparison: CT abdomen and pelvis from 03/07/2018 TECHNIQUE: Multiple axial CT images of the abdomen and pelvis were acquired following the administration of intravenous contrast. Oral contrast was administered to the patient. Sagittal and coronal reformatted images were performed. CT Radiation Dose DLP 1150.64 mGy-cm FINDINGS: Limited views of the lung bases show mild bibasilar scarring. The liver, gallbladder, pancreas, spleen, kidneys, and adrenal glands have a normal CT appearance. No intrahepatic or extrahepatic biliary duct dilatation is seen. Urinary bladder is well-distended. Uterus and ovaries are unremarkable. Scattered diverticula of the ascending colon are seen without inflammatory change to suggest acute diverticulitis. The appendix is unremarkable. Superficial soft tissues are unremarkable. Degenerative changes of the lower lumbar spine are seen. IMPRESSION: 1. No acute intra-abdominal/pelvic abnormality. 2. Colonic diverticulosis without acute diverticulitis. SL: [id number] 05/24/2018 [facility] Spine cervical wo contrast CT (ER) Study: Spine cervical wo contrast CT (ER) 05/23/2018 7:38 PM CDT Clinical Indication: Pain, Trauma - vomiting; Comparison: None TECHNIQUE: Helical noncontrast images of the cervical spine. Axial, sagittal and coronal reconstructions are available. CT imaging performed at this location utilizes radiation dose optimization techniques which include one or more of the following: -Automated exposure control -Adjustment of the mA and/or kV according to patient size -Use of iterative reconstruction technique CT radiation dose: TKZ=0013 mGy-cm FINDINGS: Anatomic alignment is intact from the skull base to T1. Normal alignment of the lateral masses of C1 and C2. Occipital condyles are intact. Dens basion distance and predental space are within normal limits. No prevertebral soft tissue swelling, facet malalignment, or interspinous widening. Endplate margins are intact. No acute bony fracture. Vertebral body height are maintained. Degenerative disc disease spanning C5-C6 to C6-C7. Limited visualized skull base and mastoid air cells are unremarkable. Limited visualized lung apices are also unremarkable. IMPRESSION: No acute bony abnormalities of the cervical spine. SL: [email or web address] 05/23/2018 [facility] Ext Lower Venous Doppler Unilat US Study: Ext Lower Venous Doppler Unilat US 05/23/2018 7:38 PM CDT Ordering Physician: Abby Rosales MD Clinical Indication: - RLE swelling Comparison: None TECHNIQUE: Sonographic evaluation of the bilateral lower extremity veins is performed using high resolution B-mode imaging, along with pulse and color Doppler imaging. FINDINGS: The right common femoral, as well as proximal, mid and distal superficial femoral veins are incompletely compressible. On grayscale images, there appears to be thrombus with incomplete occlusion of the right common femoral vein. Normal, spontaneous, phasic flow with normal compression is identified in the greater saphenous and popliteal veins. IMPRESSION: There is incompletely occlusive deep venous thrombosis in the right common femoral and superficial femoral veins. Findings have been communicated by telephone to Dr. Abby Rosales, in the emergency department, at 9:44 PM on 05/23/2018. SL: [id number] 05/23/2018 [facility] Chest 1view DX EXAM: Chest 1view DX DATE: 05/23/2018 7:38 PM CDT INDICATION: Abnormal chest sounds - vomiting COMPARISON: 03/07/2018. IMPRESSION: Stable cardiac silhouette and mediastinum. Tortuous atherosclerotic thoracic aorta. No focal consolidation, significant pleural effusion or pneumothorax. SL: [id number] 05/23/2018 [facility] Brain wo contrast CT Study: Brain wo contrast CT 05/23/2018 7:38 PM CDT Ordering Physician: Abby Rosales MD Clinical Indication: - vomiting Comparison: March 07, 2018 TECHNIQUE: CT images are obtained from the foramen magnum to the vertex on a multidetector CT. Sagittal and coronal reformats are acquired. CT radiation dose DLP: 901 mGy-cm. FINDINGS: Large left frontotemporal craniectomy defect noted, with skull implant. A large region of encephalomalacia is present involving the left frontal, lateral temporal and parietal lobes, as well as the left external capsule and most of the left basal ganglia. Marked ex vacuo dilatation of the left lateral ventricle and temporal horn is seen. The appearance suggests the presence of a large old watershed left SHAYNE/MCA infarct. Please correlate clinically. There is pronounced left wallerian degeneration. Volume loss of the cerebellum is accelerated for stated age of 53 years. Basilar cisterns are fairly normal in appearance. There is no evidence for intracranial mass, mass effect or extra-axial fluid collection. There is no evidence for intracranial hemorrhage. The skull is intact. Visualized paranasal sinuses are clear. Mastoid air cells are clear. Orbital structures are grossly unremarkable. 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 Cerebellar volume loss is present. Left frontotemporal craniectomy/cranioplasty. Findings are stable as compared to the previous study dated March 07, 2018. No acute intracranial pathology is seen. SL: [id number] 05/23/2018 [facility] Abdomen/Pelvis w IV contrast CT STUDY: Abdomen/Pelvis w IV contrast CT 03/07/2018 2:37 PM CDT Ordering Physician: Tara Ko MD Patient Name: MAYELA KAY MR: [id number] : 1965; Age: 52 years y/o Female Clinical Indication: Generalized abdominal pain and vomiting. Comparison: None TECHNIQUE: Multiple contiguous postcontrast transaxial CT images were obtained from the diaphragm through the symphysis pubis.Sagittal and coronal reformatted images were prepared. IV CONTRAST: 100 mL Omnipaque 300 DLP: 800.42 mGy-cm CT ABDOMEN AND PELVIS WITH CONTRAST: VISUALIZED LUNG BASES: 1. Mild bilateral basilar subsegmental atelectasis and scarring. 2. Normal size heart. BOWEL GAS: Nonspecific bowel gas pattern associated with mildly prominent and thick-walled small bowel loops in the left mid abdomen. APPENDIX: Normal appendix without inflammatory change. STOMACH: Under distended appropriately thick-walled. Scarring seen anteriorly to the stomach extending to the abdominal wall likely represents prior gastrostomy. PERITONEUM AND MESENTERY: Free Air: No evidence of pneumoperitoneum. Free Fluid: No evidence of significant free fluid, loculated fluid, peripherally enhancing abscess, or hemorrhage. Mesenteric and peritoneal fat: Normal without focal lesion or inflammation. LYMPH NODES: Scattered subcentimeter in shortest axis central mesenteric and retroperitoneal lymph nodes without lymphadenopathy or mass. VASCULAR: Abdominal Aorta: Normal caliber abdominal aorta without aneurysm or dissection. IVC: Normal caliber nonenhanced. ABDOMINAL ORGANS: Liver: Normal size and morphology without discrete lesion. Gallbladder: Normal appearing gallbladder without calcified gallstones, gallbladder wall thickening, or pericholecystic inflammation. Biliary Tree: Normal without dilatation. Kidneys: Normal size and morphology without discrete lesion or hydronephrosis. Adrenal Glands: Normal size and morphology without discrete lesion. Pancreas: Normal size and morphology without discrete lesion. Spleen: Normal size and morphology without discrete lesion. PELVIC ORGANS: Urinary bladder: Nonopacified under distended appropriately thick-walled. Reproductive organs: Normal uterus and adnexa. SOFT TISSUES: No suspicious soft tissue lesion or abnormality. OSSEOUS STRUCTURES: No fracture, dislocation, or suspicious focal osseous lesion. Bilateral spondylolysis of L5 without spondylolisthesis. IMPRESSION: 1. Nonspecific bowel gas pattern associated with mildly prominent and thick-walled small bowel in the left mid abdomen along with scattered subcentimeter lymph nodes. No focal inflammatory process is appreciated. Findings suggest mild nonspecific enteritis. 2. Bilateral spondylolysis of L5 without spondylolisthesis. SL: [id number] 03/07/2018 [facility] Chest 1view DX Study: Chest 1view DX Clinical Indication: - n/v/ams Comparison: Chest x-ray from 03/03/2018 FINDINGS: The cardiac silhouette is normal in size. The lungs are clear and without consolidation or congestion. No pleural effusion or pneumothorax is seen. The osseous structures are unremarkable. IMPRESSION: No acute cardiopulmonary disease. SL: [id number] 03/07/2018 [facility] Brain contrast CT Study: Brain wo contrast CT 03/07/2018 2:34 PM CDT Ordering Physician: Tara Ko MD Clinical Indication: - ams. History of stroke and skull replacement. Comparison: 03/03/2018 TECHNIQUE: CT images are obtained from the foramen magnum to the vertex on a multidetector CT. Sagittal and coronal reformats are acquired. CT radiation dose DLP: 1030 mGy-cm. FINDINGS: Left frontotemporal -- parietal craniectomy noted, with skull implant. There is evidence for a large, old left SHAYNE/MCA watershed infarct, involving the entire anterior cerebral artery distribution and most of the left MCA distribution, including the left basal ganglia. There is marked ex vacuo widening of the left lateral ventricle and 3rd ventricle. Left wallerian degeneration is present. The right cerebral hemisphere and cerebellum are normal in appearance. Basilar cisterns are within normal limits for age. The talley-white junction is intact. There is no evidence for intracranial mass, mass effect or extra-axial fluid collection. There is no evidence for intracranial hemorrhage. Visualized paranasal sinuses are clear. Mastoid air cells are clear. Orbital structures are grossly unremarkable. IMPRESSION: There is a large old cortical-based infarct involving virtually the entire left anterior and middle cerebral artery distributions. Ex vacuo dilatation of the left lateral ventricle and 3rd ventricle is seen. No acute intracranial pathology and no interval change as compared to the previous study performed 4 days ago. SL: [id number] 03/07/2018 [facility] contrast CT CT HEAD WITHOUT CONTRAST CLINICAL INFORMATION: Headache TECHNIQUE: Axial CT images of the head are acquired without contrast. This exam was performed according to our departmental dose optimization program, which includes automated exposure control, adjustment of the mA and/or kv according to patient size and/or use of iterative reconstruction technique. COMPARISON: 01/03/2018 FINDINGS: No acute intracranial hemorrhage. 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 Talley-white matter differentiation is otherwise maintained. Ex vacuo dilatation of the left lateral ventricle and 3rd ventricle. Unremarkable orbits. The paranasal sinuses are well aerated. Unremarkable mastoid air cells. Prior left craniectomy and cranioplasty. IMPRESSION: No acute intracranial abnormality. 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 03/03/2018 [facility] Wrist complete DX CLINICAL HISTORY : , - Pain s/p fall EXAM : 3 views of the left wrist 03/03/2018 4:39 AM CDT COMPARISON : None FINDINGS : There is no acute fracture or dislocation. There is no focal soft tissue swelling. The bony alignment is normal. The inter-carpal, carpometacarpal, and visualized metacarpophalangeal joints are normal. IMPRESSION: No acute fracture or dislocation. 03/03/2018 [facility] Hand 2 views DX CLINICAL HISTORY : , - Pain s/p fall EXAM : AP and lateral views of the left hand 03/03/2018 4:39 AM CDT COMPARISON : none FINDINGS : There is no acute fracture or dislocation. There is no focal soft tissue swelling. . The bony alignment is normal. The inter-carpal, carpometacarpal, metacarpophalangeal, and interphalangeal joints are normal. IMPRESSION: No acute fracture or dislocation. 03/03/2018 [facility] Shoulder series DX CLINICAL HISTORY: , - Pain s/p fall EXAM: 3 views of the left shoulder 03/03/2018 4:39 AM CDT Comparisons: None. FINDINGS: There is no acute fracture or dislocation. The glenohumeral articulation is intact. The acromioclavicular joint is normal. Limited evaluation of the left chest demonstrates no gross abnormalities. IMPRESSION: No acute fracture or dislocation. 03/03/2018 [facility] Chest 1view DX Clinical History : , - chest pain Exam : Portable AP view of the chest 03/03/2018 12:40 AM CDT Comparisons : Portable AP view of the chest 03/01/2018 Findings : The lungs are clear without focal consolidation or pleural effusion. The heart is normal in size. The mediastinal contours are normal in appearance. The thoracic spine is age appropriate. The shoulders are unremarkable. Limited evaluation of the upper abdomen demonstrates no gross abnormalities. Impression: No acute cardiopulmonary disease (stable appearing chest). 03/03/2018 [facility] Chest 1view DX : 1965. Technique: Portable AP chest x-ray. Comparison: January 03, 2018. Clinical history: - chest pain. Heart size: Normal. Lungs: No acute consolidation. Shallow inspiration. Pleura: No pleural effusion. No pneumothorax. Mediastinum and rafiq: Unremarkable. Musculoskeletal: Unremarkable. Support tubings: None. Impression: 1. No active disease in the chest. 03/01/2018 [facility] Brain wo contrast MRI Patient Name: MAYELA KAY : 1965; Age: 52 years y/o Female MR: [id number] Study: Brain wo contrast MRI 01/03/2018 5:04 PM CDT Ordering Physician: Coreen Jaeger MD Clinical Indication: - blurry vision and headache; Comparison: MRI brain dated 04/21/2014. TECHNIQUE: Multiplanar MRI of the brain is performed on a 1.5 Aletha magnet. Contrast: None. FINDINGS: BRAIN PARENCHYMA: No abnormal signal identified on diffusion-weighted imaging to suggest an acute infarction. Large old infarction of the left MCA and SHAYNE distribution noted. Moderate dilatation of the left lateral ventricle is similar to prior study and felt to be related to volume loss. There is wallerian degeneration on the left. Patchy areas of increased signal intensity on T2- weighted images in the right frontal white matter, occipital white matter bilaterally, right chan radiata and right centrum semiovale consistent with small amount of small vessel changes. No significant extra-axial fluid collection, mass effect or shift. CEREBELLOPONTINE REGIONS AND SKULL BASE: The craniocervical junction, skull base and pituitary gland are unremarkable. Cerebellar pontine angles unremarkable bilaterally. VENTRICLES: Changes of cerebral atrophy again noted. VESSELS: The flow void for the left internal carotid artery and left middle cerebral artery are small. Otherwise normal flow-voids identified in the major vessels at the base of the brain. ORBITS, VISUALIZED PARANASAL SINUSES AND MASTOIDS: The visualized orbits and paranasal sinuses are unremarkable. The mastoid air cells are clear. IMPRESSION: 1. Large old left MCA and SHAYNE infarcts. 2. Moderate dilatation of the left lateral ventricle similar to the prior study due to volume loss. 3. Cerebral atrophy. 4. Small amount of small vessel occlusive change for age. 5. Wallerian degeneration on the left. 6. Flow void for left internal carotid artery and left middle cerebral artery are small. SL: QAMARRSTROM-PC 01/03/2018 [facility] Abdomen AP DX Patient Name: MAYELA KAY : 1965; Age: 52 years y/o Female MR: [id number] Study: Abdomen AP DX dated 01/03/2018. Clinical Indication: - metal screen for MRI; Comparison: None Contrast is seen within nondilated collecting systems bilaterally and within the bladder that has an unremarkable appearance. Nonpathologic bowel gas pattern without evidence of bowel obstruction. No radiopaque foreign body identified on the abdominal film to preclude patient from having MRI study. SL: CSODERSTROM-PC 01/03/2018 [facility] Chest 1view DX Clinical Indication: Metal screen for MR examination, left-sided headache and vision changes. Comparison: 04/21/2014 FINDINGS: AP view of the chest submitted for interpretation. Lungs are clear. Heart size is normal. Central pulmonary vasculature appears normal. No effusion. No pneumothorax. No radiographically apparent acute osseous abnormality. No metallic structures identified. IMPRESSION: 1. No radiographically apparent acute cardiopulmonary process. No metallic structures identified in the imaged chest. SL: [id number] 01/03/2018 [facility] Brain CTA HEAD CTA HISTORY: Headache; aneurysm; COMPARISON: CT brain dated 01/03/2018 and 06/15/2015 TECHNIQUE: Thin collimation axial dynamic postcontrast images were obtained from the skull base to the cranial vertex for the purposes of evaluating the vascular structures. Coronal and sagittal MIP reconstructions were included for interpretation. 3-D reconstructions were included. 100 mL IV Omnipaque, CT DLP 1041 FINDINGS: Severe diffuse encephalomalacia involving the left frontal, parietal, and temporal lobes again noted with changes of prior left hemicraniectomy and skull reconstruction. Left frontal subdural seroma/loculated hygroma is again noted. The left petrous and cavernous intracranial internal carotid arteries normal. There is moderate diffuse stenosis of the left supraclinoid intracranial internal carotid artery. Left SHAYNE not visualized compatible with occlusion. Moderate diffuse stenosis of the left MCA. Right intracranial internal carotid artery demonstrates mild calcification but no stenosis. Right internal carotid artery and MCA are normal without stenosis. Intracranial vertebral arteries, basilar artery, and posterior cerebral arteries are normal without stenosis. No intracranial aneurysm is identified. IMPRESSION: 1. Unchanged severe left cerebral encephalomalacia with sparing of only the left TRAVEL REGISTERED NURSE NICU distribution brain parenchyma. 2. 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 3. Moderate diffuse stenosis of the left supraclinoid intracranial internal carotid artery and left MCA. Occlusion of the left SHAYNE. 4. No other arterial stenosis or occlusion. 5. No aneurysm. SL: ROSY 01/03/2018 [facility] Brain wo contrast CT Clinical Indication: - left sided headache, blurry vision for 2 weeks, hx aneurysm and craniectomy; Comparison: 06/15/2015 TECHNIQUE: CT images were obtained from the foramen magnum to the vertex without the use of intravenous contrast on a multidetector CT. Coronal and sagittal reconstructions were obtained. CT radiation dose DLP: 1029.93 mGy-cm FINDINGS: BRAIN PARENCHYMA: There is extensive cystic volume loss involving the left frontal, temporal, and portions of the anterior parietal lobe which remains unchanged. There is mild prominence of the cerebellar folia. There are no focal mass lesions on this noncontrast head CT. There is no mass effect, midline shift or edema. There are no intra-axial or extra-axial fluid collections, intraventricular or intraparenchymal hemorrhage. The pineal, sellar, brainstem, cerebellum and skull base regions appear unremarkable. VENTRICLES: The there is moderate to marked enlargement of the left lateral ventricle in comparison to the right. The 3rd ventricle is mildly prominent. The basilar cisterns are normal. ORBITS, MASTOIDS AND PARANASAL SINUSES: The visualized orbits and paranasal sinuses are unremarkable. The mastoid air cells are clear. SKULL: There are no osseous abnormalities. There was previous left frontal, temporal, parietal craniectomy. The cranioplasty graft is in stable position.. If there is further concern for intracranial pathology or acute stroke, MRI of the brain may be performed for complete assessment. IMPRESSION: 1. Left frontal, temporal, and partial parietal cystic encephalomalacia which remains unchanged. Associated ex vacuo dilatation of the left lateral ventricle. 2. No acute intracranial abnormality. SL: [id number] 01/03/2018 [facility] Spine lumbar series DX Patient Name: MAYELA KAY : 1965; Age: 51 years y/o Female MR: [id number] * LUMBAR SPINE, 5 views HISTORY: ; S33.5XXA Sprain of ligaments of lumbar spine, initial encounter TECHNIQUE: Frontal, lateral and bilateral oblique radiographs of the lumbar spine and a coned-down lateral view of the lumbosacral junction were obtained. FINDINGS: There are 6 lumbar-type vertebral bodies. For the purposes of this report, we will be referred to as L1 through L6 with the lumbosacral junction referred to as L6 -- S1. There is very minimal lumbar scoliosis, convexity right, centered at L3 which may even be positional or related to spasm. There is otherwise normal alignment and lordosis of the lumbar spine. There is no evidence of spondylolisthesis or spondylolysis. Vague lucency over the right L6 pars interarticularis on the right posterior oblique view appears to represent overlying bowel gas. The vertebral bodies are normal in height. There are no compression deformities or destructive lesions. There is no evidence of fracture or acute change. The disc spaces are well-maintained. There are no significant degenerative changes. IMPRESSION: 1. Essentially negative lumbar spine. No significant abnormalities are seen. 2. 6 lumbar-type vertebral bodies are noted. 3. Minimal lumbar scoliosis which may be positional or related to spasm. SL: [id number] 06/23/2016 [facility] Hip 2 views DX EXAM: XR RIGHT HIP 2 VIEWS DATE: 08/09/2015 at 1442 hours INDICATION: Right hip pain, localized greater trochanter. COMPARISON: None available TECHNIQUE: AP and frog-leg lateral radiographs of the right hip FINDINGS: No fracture, dislocation or other acute bony abnormality is identified. Mild right hip joint space narrowing is present. Minimal calcific tendinopathy is present at the greater trochanter on the frog-leg view only, with enthesophyte formation in this region. IMPRESSION: Enthesophyte formation and tiny areas of calcific tendinopathy at the right greater trochanter. Mild osteoarthritis of the right hip. 08/09/2015 [facility] Consultation Notes No Data Provided for This Section Discharge Summaries No Data Provided for This Section History and Physicals No Data Provided for This Section Vital Signs Vital Sign Value Date Comments Source Heart Rate 92 11/04/2018 [facility] Temperature Oral (F) 98.4 F 11/04/2018 [facility] Systolic (mm Hg) 108 11/04/2018 [facility] Diastolic (mm Hg) 80 11/04/2018 [facility] Respitory Rate 16 11/04/2018 [facility] Respitory Rate 17 11/04/2018 [facility] Systolic (mm Hg) 130 11/04/2018 [facility] Diastolic (mm Hg) 98 11/04/2018 [facility] Temperature Oral (F) 98.2 F 11/04/2018 [facility] Heart Rate 78 11/04/2018 [facility] Respitory Rate 17 11/04/2018 [facility] Systolic (mm Hg) 118 11/04/2018 [facility] Diastolic (mm Hg) 74 11/04/2018 [facility] Temperature Oral (F) 98.5 F 11/04/2018 [facility] Heart Rate 107 11/04/2018 [facility] BMI Calculated 20.34 10/28/2018 [facility] Weight 52.091 10/28/2018 [facility] Height 160.02 cm 10/28/2018 [facility] Height 160.02 cm 10/26/2018 [facility] Height 160.02 cm 10/26/2018 [facility] Weight 59.4 10/24/2018 [facility] Weight 54.545 10/24/2018 [facility] BMI Calculated 21.3 10/24/2018 [facility] Heart Rate 89 05/26/2018 [facility] Temperature Oral (F) 98.6 F 05/26/2018 [facility] Respitory Rate 16 05/26/2018 [facility] Systolic (mm Hg) 131 05/26/2018 [facility] Diastolic (mm Hg) 83 05/26/2018 [facility] Respitory Rate 18 05/25/2018 [facility] Systolic (mm Hg) 145 05/25/2018 [facility] Diastolic (mm Hg) 82 05/25/2018 [facility] Temperature Oral (F) 98.5 F 05/25/2018 [facility] Heart Rate 77 05/25/2018 [facility] Temperature Oral (F) 98.2 F 05/25/2018 [facility] Heart Rate 78 05/25/2018 [facility] Respitory Rate 18 05/25/2018 [facility] Systolic (mm Hg) 142 05/25/2018 [facility] Diastolic (mm Hg) 87 05/25/2018 [facility] Height 162.56 cm 05/24/2018 [facility] Height 162.56 cm 05/24/2018 [facility] BMI Calculated 21.05 05/24/2018 [facility] Weight 55.625 05/24/2018 [facility] Temperature Oral (F) 99 F 03/28/2018 [facility] Respitory Rate 18 03/28/2018 [facility] Systolic (mm Hg) 130 03/28/2018 [facility] Diastolic (mm Hg) 116 03/28/2018 [facility] Heart Rate 70 03/28/2018 [facility] Respitory Rate 18 03/28/2018 [facility] Heart Rate 69 03/28/2018 [facility] Systolic (mm Hg) 125 03/28/2018 [facility] Diastolic (mm Hg) 55 03/28/2018 [facility] Weight 79.545 03/28/2018 [facility] Temperature Oral (F) 99.2 F 03/28/2018 [facility] Respitory Rate 18 03/28/2018 [facility] Heart Rate 68 03/28/2018 [facility] Systolic (mm Hg) 160 03/28/2018 [facility] Diastolic (mm Hg) 72 03/28/2018 [facility] Temperature Oral (F) 98.4 F 03/07/2018 [facility] Respitory Rate 10 03/07/2018 [facility] Systolic (mm Hg) 141 03/07/2018 [facility] Diastolic (mm Hg) 85 03/07/2018 [facility] Weight 75 03/07/2018 [facility] BMI Calculated 25.9 03/07/2018 [facility] Height 170.18 cm 03/07/2018 [facility] Temperature Oral (F) 98.3 F 03/07/2018 [facility] Respitory Rate 20 03/07/2018 [facility] Heart Rate 88 03/07/2018 [facility] Systolic (mm Hg) 145 03/07/2018 [facility] Diastolic (mm Hg) 97 03/07/2018 [facility] Systolic (mm Hg) 128 03/03/2018 [facility] Diastolic (mm Hg) 86 03/03/2018 [facility] Respitory Rate 18 03/03/2018 [facility] Temperature Oral (F) 98.1 F 03/03/2018 [facility] Systolic (mm Hg) 130 03/03/2018 [facility] Diastolic (mm Hg) 87 03/03/2018 [facility] Respitory Rate 20 03/03/2018 [facility] Systolic (mm Hg) 134 03/03/2018 [facility] Diastolic (mm Hg) 96 03/03/2018 [facility] Heart Rate 96 03/03/2018 [facility] Temperature Oral (F) 98.2 F 03/03/2018 [facility] Respitory Rate 22 03/03/2018 [facility] Systolic (mm Hg) 129 03/02/2018 [facility] Diastolic (mm Hg) 84 03/02/2018 [facility] Respitory Rate 18 03/02/2018 [facility] Heart Rate 77 03/02/2018 [facility] Respitory Rate 18 03/02/2018 [facility] Heart Rate 72 03/02/2018 [facility] Systolic (mm Hg) 136 03/02/2018 [facility] Diastolic (mm Hg) 92 03/02/2018 [facility] Heart Rate 75 03/01/2018 [facility] Respitory Rate 18 03/01/2018 [facility] Systolic (mm Hg) 141 03/01/2018 [facility] Diastolic (mm Hg) 92 03/01/2018 [facility] Temperature Oral (F) 98.8 F 03/01/2018 [facility] Systolic (mm Hg) 118 01/04/2018 [facility] Diastolic (mm Hg) 80 01/04/2018 [facility] Temperature Oral (F) 97.6 F 01/04/2018 [facility] Respitory Rate 20 01/04/2018 [facility] Heart Rate 102 01/04/2018 [facility] Systolic (mm Hg) 118 01/04/2018 [facility] Diastolic (mm Hg) 78 01/04/2018 [facility] Temperature Oral (F) 97.2 F 01/04/2018 [facility] Respitory Rate 20 01/04/2018 [facility] Heart Rate 76 01/04/2018 [facility] Respitory Rate 18 01/04/2018 [facility] Temperature Oral (F) 97.9 F 01/04/2018 [facility] Systolic (mm Hg) 111 01/04/2018 [facility] Diastolic (mm Hg) 84 01/04/2018 [facility] Heart Rate 92 01/04/2018 [facility] Weight 68.182 01/03/2018 [facility] BMI Calculated 25.8 01/03/2018 [facility] Height 162.56 cm 01/03/2018 [facility] Weight 68.182 01/03/2018 [facility] Weight 68.182 01/03/2018 [facility] Systolic (mm Hg) 132 12/31/[facility] Diastolic (mm Hg) 79 12/31/2017 [facility] Heart Rate 97 12/31/2017 [facility] BMI Calculated 26.97 12/16/2017 [facility] Weight 64.744 12/16/2017 [facility] Height 154.94 cm 12/16/2017 [facility] Heart Rate 102 12/16/2017 [facility] Respitory Rate 18 12/16/2017 [facility] Systolic (mm Hg) 147 12/16/2017 [facility] Diastolic (mm Hg) 81 12/16/2017 [facility] Respitory Rate 20 12/01/2017 [facility] Heart Rate 94 12/01/2017 [facility] Systolic (mm Hg) 137 12/01/2017 [facility] Diastolic (mm Hg) 84 12/01/2017 [facility] Height 157.48 cm 12/01/2017 [facility] Heart Rate 83 11/18/2017 [facility] BMI Calculated 26.96 11/18/2017 [facility] Weight 64.716 11/18/2017 [facility] Height 154.94 cm 11/18/2017 [facility] Systolic (mm Hg) 159 11/18/2017 [facility] Diastolic (mm Hg) 80 11/18/2017 [facility] Diastolic (mm Hg) 70 11/17/2017 [facility] Systolic (mm Hg) 140 11/17/2017 [facility] Height 61 11/17/2017 [facility] Temperature Oral (F) 97.2 F 11/17/2017 [facility] Respitory Rate 16 11/17/2017 [facility] Heart Rate 80 11/17/2017 [facility] Heart Rate 94 10/20/2017 [facility] Systolic (mm Hg) 124 10/20/2017 [facility] Diastolic (mm Hg) 78 10/20/2017 [facility] Weight 64.545 10/20/2017 [facility] Height 154.94 cm 10/20/2017 [facility] BMI Calculated 26.89 10/20/2017 [facility] Diastolic (mm Hg) 80 05/06/2017 [facility] Systolic (mm Hg) 130 05/06/2017 [facility] Height 61 05/06/2017 [facility] Temperature Oral (F) 97.8 F 05/06/2017 [facility] Respitory Rate 16 05/06/2017 [facility] Heart Rate 80 05/06/2017 [facility] Height 154.94 cm 05/05/2017 [facility] Heart Rate 89 05/05/2017 [facility] Respitory Rate 18 05/05/2017 [facility] Systolic (mm Hg) 138 05/05/2017 [facility] Diastolic (mm Hg) 86 05/05/2017 [facility] Weight 51.364 05/05/2017 [facility] BMI Calculated 21.4 05/05/2017 [facility] Weight 51.364 03/03/2017 [facility] BMI Calculated 22.12 03/03/2017 [facility] Height 152.4 cm 03/03/2017 [facility] Respitory Rate 20 03/03/2017 [facility] Heart Rate 100 03/03/2017 [facility] Systolic (mm Hg) 123 03/03/2017 [facility] Diastolic (mm Hg) 85 03/03/2017 [facility] Weight 60 02/17/2017 [facility] BMI Calculated 24.99 02/17/2017 [facility] Height 154.94 cm 02/17/2017 [facility] Respitory Rate 20 02/17/2017 [facility] Systolic (mm Hg) 126 02/17/2017 [facility] Diastolic (mm Hg) 87 02/17/2017 [facility] Heart Rate 101 02/17/2017 [facility] Diastolic (mm Hg) 80 02/05/2017 [facility] Systolic (mm Hg) 130 02/05/2017 [facility] Height 61 02/05/2017 [facility] Temperature Oral (F) 98.0 F 02/05/2017 [facility] Respitory Rate 16 02/05/2017 [facility] Heart Rate 80 02/05/2017 [facility] Diastolic (mm Hg) 80 01/20/2017 [facility] Systolic (mm Hg) 140 01/20/2017 [facility] Height 61 01/20/2017 [facility] Temperature Oral (F) 98.2 F 01/20/2017 [facility] Respitory Rate 16 01/20/2017 [facility] Heart Rate 80 01/20/2017 [facility] Weight 135 10/01/2016 [facility] Height 61 10/01/2016 [facility] Respitory Rate 18 10/01/2016 [facility] Heart Rate 80 10/01/2016 [facility] Diastolic (mm Hg) 80 10/01/2016 [facility] Systolic (mm Hg) 120 10/01/2016 [facility] Temperature Oral (F) 98.2 F 10/01/2016 [facility] Heart Rate 104 09/01/2016 [facility] Systolic (mm Hg) 132 09/01/2016 [facility] Diastolic (mm Hg) 82 09/01/2016 [facility] Heart Rate 74 08/27/2016 [facility] Systolic (mm Hg) 139 08/27/2016 [facility] Diastolic (mm Hg) 94 08/27/2016 [facility] Systolic (mm Hg) 126 08/18/2016 [facility] Diastolic (mm Hg) 91 08/18/2016 [facility] Heart Rate 70 08/18/2016 [facility] Heart Rate 106 08/11/2016 [facility] Systolic (mm Hg) 136 08/11/2016 [facility] Diastolic (mm Hg) 94 08/11/2016 [facility] Diastolic (mm Hg) 80 07/09/2016 [facility] Systolic (mm Hg) 120 07/09/2016 [facility] Height 61 07/09/2016 [facility] Temperature Oral (F) 98.0 F 07/09/2016 [facility] Respitory Rate 16 07/09/2016 [facility] Heart Rate 80 07/09/2016 [facility] Karen Diastolic (mm Hg) 80 06/23/2016 [facility] Karen Systolic (mm Hg) 120 06/23/2016 [facility] Height 61 06/23/2016 [facility] Temperature Oral (F) 98.0 F 06/23/2016 [facility] Respitory Rate 16 06/23/2016 [facility] Heart Rate 80 06/23/2016 [facility] Karen Systolic (mm Hg) 125 06/16/2016 [facility] Diastolic (mm Hg) 86 06/16/2016 [facility] Heart Rate 87 06/09/2016 [facility] Systolic (mm Hg) 131 06/09/2016 [facility] Diastolic (mm Hg) 92 06/09/2016 [facility] Systolic (mm Hg) 120 06/04/2016 [facility] Diastolic (mm Hg) 83 06/04/2016 [facility] Heart Rate 65 06/04/2016 [facility] Systolic (mm Hg) 136 06/02/2016 [facility] Diastolic (mm Hg) 85 06/02/2016 [facility] Heart Rate 83 06/02/2016 [facility] Systolic (mm Hg) 135 04/30/2016 [facility] Diastolic (mm Hg) 87 04/30/2016 [facility] Heart Rate 99 04/30/2016 [facility] Systolic (mm Hg) 143 04/23/2016 [facility] Diastolic (mm Hg) 88 04/23/2016 [facility] Heart Rate 103 04/23/2016 [facility] Heart Rate 82 04/16/2016 [facility] Systolic (mm Hg) 128 04/16/2016 [facility] Diastolic (mm Hg) 80 04/16/2016 [facility] Weight 138 04/16/2016 [facility] Height 61 04/16/2016 [facility] Respitory Rate 16 04/16/2016 [facility] Heart Rate 80 04/16/2016 [facility] Diastolic (mm Hg) 80 04/16/2016 [facility] Systolic (mm Hg) 120 04/16/2016 [facility] Temperature Oral (F) 98.0 F 04/16/2016 [facility] Systolic (mm Hg) 128 03/10/2016 [facility] Diastolic (mm Hg) 90 03/10/2016 [facility] Heart Rate 100 03/10/2016 [facility] Systolic (mm Hg) 131 11/13/2015 [facility] Diastolic (mm Hg) 90 11/13/2015 [facility] Height 157.48 cm 08/09/2015 [facility] Systolic (mm Hg) 118 08/09/2015 [facility] Diastolic (mm Hg) 77 08/09/2015 [facility] Respitory Rate 18 08/09/2015 [facility] Heart Rate 112 08/09/2015 [facility] Height 157.48 cm 07/19/2015 [facility] BMI Calculated 25.66 07/19/2015 [facility] Weight 63.636 07/19/2015 [facility] Systolic (mm Hg) 127 07/19/2015 [facility] Diastolic (mm Hg) 80 07/19/2015 [facility] Heart Rate 100 07/19/2015 [facility] Weight 140 04/26/2015 [facility] Height 62 04/26/2015 [facility] Temperature Oral (F) 98.2 F 04/26/2015 [facility] Heart Rate 100 04/26/2015 [facility] Systolic (mm Hg) 133 04/26/2015 [facility] Diastolic (mm Hg) 90 04/26/2015 [facility] Encounters Location Location Details Encounter Type Encounter Number Reason For Visit Attending Provider ADM Date DC Date Status Source Brandie Jones MD Refill [id number] 04/10/2014 04/10/2014 Brandie H Karen Jones MD Refill [id number] 04/10/2014 04/10/2014 Brandie Jones MD Refill [id number] 04/10/2014 04/10/2014 Brandie Jones MD Refill [id number] 04/10/2014 04/10/2014 Brandie Jones MD Refill [id number] 04/10/2014 04/10/2014 Brandie Jones MD Refill [id number] 04/10/2014 04/10/2014 Brandie Jones MD Refill [id number] 04/10/2014 04/10/2014 Brandie Jones MD Refill [id number] 04/10/2014 04/10/2014 Brandie Jones MD Refill [id number] 04/10/2014 04/10/2014 Brandie Jones MD Refill [id number] 06/22/2014 06/22/2014 Brandie Jones MD Refill [id number] 06/22/2014 06/22/2014 Brandie Jones MD Refill [id number] 06/22/2014 06/22/2014 Brandie Jones MD Refill [id number] 06/22/2014 06/22/2014 Brandie Jones MD Refill [id number] 06/22/2014 06/22/2014 Brandie Jones MD Refill [id number] 06/22/2014 06/22/2014 Brandie Jones MD Refill [id number] 06/22/2014 06/22/2014 Brandie Jones MD Refill [id number] 06/22/2014 06/22/2014 Brandie Jones [facility] [place] Visit [id number] Isaac Rees MD 04/26/2015 04/26/2015 [facility] [id number] KALEE CAROLA 06/27/2015 [facility] OP Recurring [id number] Brandie Jones 07/19/2015 08/18/2015 [facility] Outpatient [id number] Tyrell Melendez 08/09/2015 08/10/2015 [facility] Brandie Jones MD Refill [id number] 10/03/2015 10/03/2015 Brandie Jones MD Refill [id number] 10/03/2015 10/03/2015 Brandie Jones MD Refill [id number] 10/03/2015 10/03/2015 Brandie Jones MD Refill [id number] 10/03/2015 10/03/2015 Brandie Jones MD Refill [id number] 10/03/2015 10/03/2015 Brandie Jones MD Refill [id number] 10/03/2015 10/03/2015 Brandie Jones [facility] OP Recurring [id number] Brandie Jones 11/13/2015 12/13/2015 [facility] OP Therapy Patients [id number] Brandie Jones 03/10/2016 04/09/2016 [facility] OP Therapy Patients [id number] Brandie Jones 04/09/2016 05/09/2016 [facility] Brandie Jones MD Routine Meds. [id number] 04/16/2016 04/16/2016 Brandie Jones MD Routine Meds. [id number] 04/16/2016 04/16/2016 Brandie Jones MD Routine Meds. [id number] 04/16/2016 04/16/2016 Brandie Jones MD Routine Meds. [id number] 04/16/2016 04/16/2016 Brandie Jones MD Routine Meds. [id number] 04/16/2016 04/16/2016 Brandie Jones [facility] OP Therapy Patients [id number] Brandie Jones 05/12/2016 06/11/2016 [facility] OP Therapy Patients [id number] Obed Garcia 06/16/2016 07/16/2016 [facility] Brandie Jones MD Back Pain [id number] 06/23/2016 06/23/2016 Brandie Jones MD Back Pain [id number] 06/23/2016 06/23/2016 Brandie Jones MD Back Pain [id number] 06/23/2016 06/23/2016 Brandie Jones [facility] Outpatient [id number] Brandie Jones 06/23/2016 06/24/2016 [facility] Brandie Jones MD Back Pain [id number] 06/23/2016 06/23/2016 Brandie Jones MD Routine Meds. [id number] 07/09/2016 07/09/2016 Brandie Jones MD Routine Meds. [id number] 07/09/2016 07/09/2016 Brandie Jones MD Other [id number] 07/09/2016 07/09/2016 Brandie Jones MD Other [id number] 07/09/2016 07/09/2016 Brandie Jones MD Other [id number] 07/09/2016 07/09/2016 Brandie Jones [facility] OP Therapy Patients [id number] Obed Camby 07/17/2016 08/16/2016 [facility] OP Therapy Patients [id number] Obed Camby 08/18/2016 09/17/2016 [facility] Brandie Jones MD [facility] [id number] 10/01/2016 10/01/2016 Brandie Jones [facility] Outpatient [id number] [facility] 02/17/2017 02/18/2017 [facility] Outpatient [id number] [facility] 03/03/2017 03/04/2017 [facility] Outpatient [id number] [facility] 05/05/2017 05/06/2017 [facility] Outpatient [id number] MONE HENDRICKSON 10/20/2017 [facility] Neurology [facility] Outpatient [id number] Mone Hendrickson 10/20/2017 10/21/2017 [facility] Outpatient [id number] DIONYSIA VIDYA 11/18/2017 [facility] Neurology [facility] Outpatient [id number] Dionysia Vidya 11/18/2017 11/19/2017 [facility] [id number] [facility] 12/01/2017 12/02/2017 [facility] Outpatient [id number] [facility] 12/16/2017 12/17/2017 [facility] Outpatient Imaging [facility] Outpt Diag Services [id number] Nael Alanis 12/24/2017 12/25/2017 [id number] Outpatient [id number] LISA FLURY 12/31/2017 Active [facility] Neurology [facility] Outpatient [id number] Lisa Flury 12/31/2017 01/01/2018 [facility] Observation [id number] Jose Berumen 01/03/2018 01/04/2018 [facility] Neurology of [facility] Phone Message [id number] 01/04/2018 01/06/2018 [facility] Neurology of [facility] Phone Message [id number] 01/04/2018 01/06/2018 [facility] Neurology of [facility] Phone Message [id number] 01/04/2018 01/06/2018 [facility] Neurology of [facility] Phone Message [id number] 01/13/2018 01/15/2018 [facility] Neurology of [facility] Phone Message [id number] 01/21/2018 01/23/2018 [facility] Outpatient [id number] LISA FLURY 02/03/2018 Active [facility] Neurology of [facility] Ambulatory Pre-Reg [id number] Lisa Flury 02/03/2018 02/03/2018 [facility] Neurology of [facility] Phone Message [id number] 02/03/2018 02/05/2018 [facility] Emergency [id number] Juvencio Willson 03/01/2018 03/02/2018 [facility] Emergency [id number] Jose Ramongonzález Siegel 03/03/2018 03/03/2018 [facility] Emergency [id number] Tara Avitiaacott 03/07/2018 03/08/2018 [facility] Emergency [id number] Minh Lopesu 03/28/2018 03/28/2018 [facility] Observation [id number] Maco Lowery 05/23/2018 05/26/2018 [facility] Inpatient [id number] Ziggy Qureshiugouris 10/23/2018 11/04/2018 [facility] Procedures Procedure Code Date Perfomer Comments Source MRI of brain<sup>1</sup> [id number] 04/21/2014 mr brain w/o [facility],[id number], [facility] Breast reduction, bilateral [id number] [facility],[id number], [facility] Cranioplasty<sup>2</sup> [id number] 05/2015 [facility],[id number], [facility] Craniotomy [id number] [facility],[id number], [facility] Hair bearing graft of skin to scalp [id number] [facility],[id number], [facility] Assessment and Plan Assessment and Plan Date Source Extracted from:Title: Cardiology Progress Note Author: Chet Solis MD Date: 11/04/18 Impression and Plan - Aspiration pneumonia - Acute hypoxemic respiratory failure s/p extubation on 10/26/18 - Tachycardia / SVT - UGIB d/t erosive gastritis - H/o CVA - H/o craniotomy with aphasia and R sided hemiplegia - Chronic anemia - HTN - HLD - H/o DVT in 05/2018 (repeat doppler in 10/2018 neg) - Has alternating bouts of tachycardia with HR 120-150s. - Telemetry reviewed with the bulk of her tachycardia appearing to be sinus - Occasional HR random rises above 150 bpms which is more c/w a SVT - Likely this is exacerbated by her respiratory failure - HR later improved since being on MTP - 11/01: Transition to po MTP and xarelto. Of note, no evidence of DVT on recent doppler though reasonable to restart as she is a risk for reoccurence - 11/02: Pending d/c to SNF. D/w Dr. Denney - 11/04: HR stable. Pending dispo Extracted from:Title: Hypoxia Author: Robert Reno DO Date: 10/23/18 Critical Care Medicine Chief complaint: Hypoxia History of present illness: 53 y.o female with a h/o aphasia and right sided hemiplegia following an aneurysmal ICH, DVTon AC, HTN, and HLD presented to to [facility] with a productive cough. She was transfer to the trauma bay after she started choking on her sputum and was subsequently intubated. Repeat CXR reveals aspiration. She also has coffeee ground emesis noted in her OG tube. The patient is bedriddemn. She had a craniectomy at the time of her ICH. Past medical history: CVA (cerebral vascular accident) HTN (hypertension) Hypercholesteremia DVT Past family history: Mother: High blood pressure Brother: High blood pressure Surgical history: MRI of brain: 04/21/14 Breast reduction, bilateral Craniotomy Cranioplasty Hair bearing graft of skin to scalp Social history: Employment/School Details: Status: Unemployed. 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 Uses [employer]. On [employer] Previous employment/school: Worked for [employer] previously.. Other: Lives with mother and 1dog. Has 2 brothers who are not helpful. Has 1 daughter aged 25, not involved. Uncle does provide some assistance.. Alcohol Details: Past, Last use: 2009. Tobacco Details: Use: Never smoker. Tobacco smoke exposure: None. Did the Patient Smoke Cigarettes Anytime During the Last 365 Days? No. Cessation Counseling Provided? No. Details: Use: Never smoker. Type: Cigarettes. Tobacco smoke exposure: None. Did the Patient Smoke Cigarettes Anytime During the Last 365 Days? No. Cessation Counseling Provided? No. Details: Use: Never smoker. Tobacco smoke exposure: None. Did the Patient Smoke Cigarettes Anytime During the Last 365 Days? No. Cessation Counseling Provided? No. Medications: Medication List Active Medications Ordered chlorhexidine topical: 15 mL, Swab Mouth, Q12H. chlorhexidine topical: 15 mL, Swab Mouth, PRN, PRN: Other -See Comment. fentaNYL 1,250 microgram: Titrate, IV, Stop: 11/22/18 17:17:00 ANIMAL CARE PROVIDER. midazolam 50 mg: Titrate, IV, Stop: 11/22/18 17:18:00 ANIMAL CARE PROVIDER. ocular lubricant: 1 drp, BOTH EYES, Q6H. pantoprazole 80 mg + Sodium Chloride 0.9% IV 100 mL: 10 ml/hr, IVPB, Stop: 10/26/18 17:26:00 ANIMAL CARE PROVIDER. sodium chloride: 10 mL, IVP, PRN, PRN: Line Flush. Documented acetaminophen-codeine: 1 tab, PO, TID. docusate: 100 mg, 1 cap, PO, BID. hydrOXYzine: 25 mg, 1 tab, PO, BID. levETIRAcetam: 500 mg, 5 mL, PO, Q12H. rivaroxaban: 15 mg, 1 tab, PO, BID. Medications Inactivated in the Last 72 Hours acetaminophen-codeine: 1 - 2 tab, PO, Q8H, for 4 day, PRN: Pain, 32 tab, 0 Refill(s). amLODIPine: 5 mg, PO, Daily. apixaban: 10 mg, 2 tab, PO, Q12H, for 7 day, Please take Eliquis 10 mg twice daily for 7 days then Eliquis 5 mg twice daily, 28 tab, 0 Refill(s). apixaban: 5 mg, PO, Q12H, for 30 day, 60 tab, 1 Refill(s). cefepime: 1 gm, PYXIS, ONCE. cefepime: 2 gm, PYXIS, ONCE. cefepime + sterile water 20 mL: 2 gm, 240 ml/hr, IVP, ONCE. clopidogrel: 75 mg, 1 tab, PO, Daily, 30 tab, 0 Refill(s). etomidate: 20 mg, IVP, ONCE. fentaNYL: 1,250 microgram, 250 mL, PYXIS, ONCE. gabapentin: 300 mg, 1 cap, PO, Bedtime, 90 cap, 0 Refill(s). gemfibrozil: 600 mg, 1 tab, PO, Daily, 0 Refill(s). hydrOXYzine: 25 mg, 1 tab, PO, Q6H, PRN: rash / allergy symptoms, 0 Refill(s). midazolam: 50 mg, 50 mL, PYXIS, ONCE. octreotide: 100 microgram, 1 mL, PYXIS, ONCE. ondansetron: 4 mg, 2 mL, PYXIS, ONCE. ondansetron: 4 mg, IVP, ONCE. ondansetron: 4 mg, 1 tab, PO, BID, for 5 day, Dissolve tab under tongue, PRN: Nausea and Vomiting, 10 tab, 0 Refill(s). pantoprazole: 80 mg, PYXIS, ONCE. pantoprazole: 40 mg, PYXIS, ONCE. pantoprazole: 40 mg, IVP, ONCE. pantoprazole: 80 mg, IVP, ONCE. pantoprazole 80 mg + Sodium Chloride 0.9% IV 100 mL: 10 ml/hr, IVPB, Stop: 10/26/18 17:26:00 ANIMAL CARE PROVIDER. pravastatin: 10 mg, 1 tab, PO, Bedtime, 0 Refill(s). Sodium Chloride 0.9% IV: 1,000 mL, 1000 ml/hr, IV, ONCE. Sodium Chloride 0.9% IV: 1,000 mL, PYXIS, ONCE. Sodium Chloride 0.9% IV: 1,000 mL, PYXIS, ONCE. Sodium Chloride 0.9% IV: 1,000 mL, 1000 ml/hr, IV, ONCE. sterile water: 10 mL, PYXIS, ONCE. sterile water: 20 mL, PYXIS, ONCE. succinylcholine: 80, IV, ONCE. Review of systems: Unable to obtain due to the patients condition General: No fevers chills, weight loss, weakness. HEENT: No blurring of vision, sore throat, nasal congestion, epistaxis, tinnitus. Cardiovascular: No palpitations, chest pain, syncope/near syncope, dyspnea on exertion, paroxysmal nocturnal dyspnea Respiratory: No shortness of breath, cough, pain with respiration, hemoptysis Gastrointestinal: Normal appetite, no hematemesis, vomiting, bloody stool, abdominal pain, diarrhea Genitourinary: No frequency, urgency, nocturia, hematuria or dysuria. Musculoskeletal: No arthralgias or myalgias. Dermatology: No swelling, bruising, contusions,abrasions, lymphangitis. Neurology: No headache, neck pain, numbness or tingling of the extremities. or weakness. Endocrine: No history of thyroid, diabetes or adrenal problems. Hematologic: No bleeding, petechiae,bruising. Allergy: No asthma, urticaria. Psychiatric: No confusion or depression Physical Exam Vitals Tmp(F) Pulse BP RR SpO2 FIO2 10/23 17:54 ---- 109 122/103 15 100 --- 10/23 17:20 ---- --- ----- 14 100 45% 10/23 17:09 ---- --- ----- -- 100 45% 10/23 17:05 ---- 153 141/104 30 92 --- 10/23 16:00 ---- 128 137/84 20 96 --- 24 Hr Tmax: 97.7F (36.50c) at 10/23 12:26 Vital Signs are the last 5 in the past 48 hours. Gen: no acute distress HEENT: intubated Neuro: sedated Cardio: tachycardic Pulm: diminished on right base Abd: soft, normal bowel sounds Derm: no rash Ext: no edema, no cyanosis, no limb ischemia Labs (Last four charted values) WBC H 12.1 (OCT 23) Hgb 14.6 (OCT 23) Hct 45.4 (OCT 23) Plt 254 (OCT 23) Na 141 (OCT 23) K 3.8 (OCT 23) CO2 24 (OCT 23) Cl 109 (OCT 23) Cr 0.62 (OCT 23) BUN 13 (OCT 23) Glucose Random 82 (OCT 23) Ca 9.9 (OCT 23) PT H 20.7 (OCT 23) INR H 1.82 (OCT 23) PTT 32.1 (OCT 23) Troponin <0.02 (OCT 23) Total CK 65 (OCT 23) Impression: 1. Hypoxic respiratory failure 2. Aspiration pneumonia 3. UGIB 4. DVT on oral AC 5. h/o CVA with residual aphasia and hemiplegia 6. HTN 7. HLD Plan: - ICU care - full vent supoort - sedation with fentynal gtt - versed puses if needed - PPI gtt - GI consultation - NPO for now - start zosyn for aspiration - check venous dopplers - IV fluids CCM time exclusive of procedures is: 34min Time was spent in reviewing, laboratory and radiographic data, in direct management of patient at bedside as well as coordination Requires critical care due to the acute impairment of vital organ systems and a high probability of imminent and life threatening deterioration. 11/04/2018 MELISA Holloway Extracted from:Title: HemOnc Author: Myah Hernandez MD Date: 05/25/18 Impression and Plan Ms. Jason is a 53-year-old female with known history of hypertension, hyperlipidemia and cerebrovascular accident leading to right-sided hemiplegia, and intra-ocular thermoplegia, as well as residual aphasia. She has presented with not feeling well. Workup in the emergency department remained inconclusive, then a Doppler of the lower extremities was performed, revealing acute DVT of the right lower extremity. The patient has been started on Lovenox and hematology/oncology has been consulted to assist with the management. 1. Acute DVT: Provoked due to bedbound status. OK to switch to Eliquis 10 mg po q 12 hrly for 1 week then 5 mg po q12 hrly. 2. I will continue to be available. Please call with questions. Extracted from:Title: Discharge Summary * Author: Maco Lowery MD Date: 05/25/18 Discharge Information Disposition to home Condition stable Medications: See med reconciliation form Diet: Heart healthy Discharge Plan In the event of any worsening symptoms patient was to come back to the ED for further evaluation Discharge summary to greater than 35 minutes Extracted from:Title: Clinical Document Author: Panchito Ceballos MD Date: 05/24/18 full H&P dictated, #[id number] date/time: 05/24/2018 01:29 05/26/2018 [facility] Extracted from:Title: Progress Note Author: Sravani Larson Date: 01/04/18 Progress Note - Daily [facility] Completed: Dec, 11:29 by Sravani Larson RM: 38 - 00, GH CLAUS KAY MAYELA Y 52y (: 1965) F Attending: Jose Berumen DO Service: Internal Medicine Reason for Admission: BLURRY VISION; HEADACHE Working DRG: None Documented Code status: None Specified=FULL CODE Isolation: No Isolation/Standard Precautions Allergies: Zoloft, Zantac, Zanaflex SUBJECTIVE Pt examined at bedside, no acute events overnight. Pt reports feeling good, indicates some continued visual issues intermittently. Denies LOWERY, dizziness, chest pain, SOB, abd pain, N/V, new weakness/paresthesias, visual/auditory/speech disturbances. OBJECTIVE General: NAD; patient sitting in chair at bedside Chest: regular respirations without use of accessory muscles Abdomen: soft, nontender, nondistended Neuro: Awake, alert. Speech is dysarthric and limited, will sometimes nod/shake her head to communicate or use hand signals, reliably follows commands. Pupils equal, round, and reactive to light. L ophthalmoplegia. Facial sensation and movement intact. Tongue protrudes midline, palate elevation intact. Shoulder shrug symmetrical. Sensation: intact to light touch in upper and lower extremities bilaterally. Strength: spastic R hemiparesis noted Deltoids: (L) 5 Biceps: (L) 5 Triceps: (L) 5 Card Reader: (L) 5 Iliopsoas: (R) 3-4/(L) 5 Quadriceps: (R) 3-4/(L) 5 Tibialis Anterior: (R) 1-2/(L) 5 Extensor hallucus longus: (R) 1-2/(L) 5 Gastrocnemius: (R) 2-3/(L) 5 Gait: deferred 24hr Labs 01/03 1530 Sodium Lvl 142 Potassium Lvl 4.2 Chloride Lvl 108 CO2 26 AGAP 12.2 Glucose Lvl 81 Creatinine Lvl 0.80 BUN 17 B/C Ratio 21 Total Protein 7.8 Albumin Lvl 3.8 Globulin 4.0 A/G Ratio 1.0 Calcium Lvl 9.1 ALT 14 AST 11 Alk Phos 92 Bili Total 0.7 eGFR 96 Total CK 79 Troponin-I <0.02 WBC 5.5 RBC 5.48 H Hgb 15.1 Hct 46.4 MCV 84.8 MCH 27.6 MCHC 32.5 RDW 15.8 H Platelet 180 MPV 10.4 Segs 66.8 Monocytes 6.9 Lymphocytes 24.0 Eosinophils 1.1 Basophils 1.2 H Segs-Bands # 3.6 Lymphocytes # 1.3 Monocytes # 0.4 Eosinophils # 0.1 Basophils # 0.1 PT 13.4 INR 1.02 PTT 29.4 Vitals Tmp(F) Pulse BP RR SpO2 FIO2 01/04 08:11 97.2 76 118/78 20 97 --- 01/04 05:16 97.9 72 111/84 18 99 --- 01/04 00:01 98.3 80 118/94 18 97 --- 01/03 21:12 98.3 92 130/112 -- 100 --- 01/03 18:44 97.9 94 115/80 16 97 --- 24 Hr Tmax: 98.3F (36.83c) at 01/04 00:01 Vital Signs are the last 5 in the past 48 hours. Date Wt(kg) Wt(lb) Ht(cm) Ht(in) Method 01/03 (initial) 68.18 150.00 162.56 64.00 Estimated I&O Record In Out Bal 01/04 24hr Tot 0 0 0 01/03 24hr Tot 1110 0 1110 Medications (12) Active Scheduled Meds (4): 01/04/18 amLODIPine 5 mg PO Daily 01/04/18 aspirin (aspirin 81 mg tablet, enteric coated) 81 mg PO Daily 01/03/18 gabapentin (gabapentin 300 mg oral capsule) 300 mg PO Bedtime 01/03/18 pravastatin 10 mg PO Bedtime Unscheduled Meds: None PRN Meds (4): 01/03/18 acetaminophen 650 mg PO Q4H 01/03/18 docusate 100 mg PO BID 01/03/18 ondansetron 4 mg IVP Q6H 01/03/18 sodium chloride (Saline Flush 0.9%) 10 mL IVP PRN One Time Meds (4): 01/03/18 (Completed) Sodium Chloride 0.9% IV (Sodium Chloride 0.9% (Bolus) IV) 1,000 mL IV ONCE 1000 ml/hr 01/03/18 (Completed) diphenhydrAMINE (Benadryl) 25 mg IVP ONCE 01/03/18 (Completed) iohexol (Omnipaque 350) 100 ml IV ONCE 01/03/18 (Completed) metoclopramide (Reglan) 10 mg IVP ONCE Continuous Infusions: None ASSESSMENT Ms. 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 c her mother c reported h/o blurred vision and intermittent LOWERY x 2 weeks. MRI brain and CTA brain did not demonstrate any acute changes, c evidence of chronic L MCA/SHAYNE territory encephalomalacia and multifocal intracranial stenosis (and occlusion of L SHAYNE). Given history and findings, pt's presentation of LOWERY/blurred vision not related to acute intracranial process. PLAN and TREATMENT -- neuro as described above -- MRI brain without contrast results reviewed, discussed c pt -- CTA brain results reviewed, discussed c pt -- telemetry -- continue aspirin 81mg PO daily, but recommend proceeding c initiation of dual antiplatelet therapy c addition of Plavix 75mg PO daily -- continue pravastatin 10mg PO qHS -- labs reviewed -- DVT/GI prophylaxis per primary team -- medical management per primary team -- plan of care reviewed c pt and primary team -- no further inpatient neurological recommendations, will sign off- please call for any questions/concerns that may present Dictated by Sravani Larson PA-C on behalf of Dr. Jan Alvarez. Thank you for including us in the care of this patient. Addendum by Bradley Alvarez MD on 01/04/2018 21:31 I saw and evaluated the patient. I agree with the findings and the plan of care as documented in the note. Extracted from:Title: General Admission H&P * Author: Jose Berumen DO Date: 01/03/18 Impression and Plan 1. Blurry vision and chronic headache -poor history by patient and family so a little unclear -MRI brain=> need metal screening with CXR, KUB as patient's mother poor historian. -neurology following -cont gabapentin 2. Prior CVA and right spastic hemiplegia -at baseline -cont ASA, statin 3. HTN -cont amlodipine 4. HLD -cont statin 5. Home care: Looking at outpatient records, patient in very poor living situation and patient's elderly mother not really able to take care of her, will get social work involved, they had also been trying to set up home health care outpatient so maybe we can try to get this initiated before she leaves as well. Dispo: observation status Extracted from:Title: Neurology Consult Note Author: Coreen Jaeger MD Date: 01/03/18 50 y/oright handedAfricanAmerican womanwith HTN, craniotomy s/p cerebral aneurysm, and prior stroke (L MCA in 1999) left sided headache and blurry vision x 2 weeks and poor historian 1. Blurry vision and headache . MRI brain 2. neurology will follow Addendum by Coreen Jaeger MD on 01/03/2018 17:05 CDT 2. history of aneurysm . CTA brain. 01/04/2018 [facility] Plan of Care No Data Provided for This Section Social History Social History Date Source Social History TypeResponse Employment/School Status: Unemployed. 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 Uses [employer]. On [employer].. Previous employment/school: Worked for [employer] previously.. Other: Lives with mother and 1dog. Has 2 brothers who are not helpful. Has 1 daughter aged 25, not involved. Uncle does provide some assistance.. Alcohol Current Smoking Status Never smoker; Exposure to Tobacco Smoke None; Cigarette Smoking Last 365 Days No; Reg Smoking Cessation Counseling No entered on: 03/07/18 10/20/2017 [facility] Social History TypeResponse Employment/School Status: Unemployed. 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 Uses [employer]. On [employer].. Previous employment/school: Worked for [employer] previously.. Other: Lives with mother and 1dog. Has 2 brothers who are not helpful. Has 1 daughter aged 25, not involved. Uncle does provide some assistance.. Alcohol Current Smoking Status Never smoker; Exposure to Tobacco Smoke None; Cigarette Smoking Last 365 Days No; Reg Smoking Cessation Counseling No entered on: 03/27/18 10/20/2017 [facility] Social History TypeResponse Employment/School Status: Unemployed. 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 Uses [employer]. On [employer].. Previous employment/school: Worked for [employer] previously.. Other: Lives with mother and 1dog. Has 2 brothers who are not helpful. Has 1 daughter aged 25, not involved. Uncle does provide some assistance.. Alcohol Current Smoking Status Never smoker; Exposure to Tobacco Smoke None; Cigarette Smoking Last 365 Days No; Reg Smoking Cessation Counseling No entered on: 03/07/18 10/20/2017 [facility] Social History TypeResponse Employment/School Status: Unemployed. 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 Uses [employer]. On [employer].. Previous employment/school: Worked for [employer] previously.. Other: Lives with mother and 1dog. Has 2 brothers who are not helpful. Has 1 daughter aged 25, not involved. Uncle does provide some assistance.. Alcohol Current Smoking Status Never smoker; Exposure to Tobacco Smoke None; Cigarette Smoking Last 365 Days No; Reg Smoking Cessation Counseling No entered on: 03/27/18 10/20/2017 [facility] Social History TypeResponse Employment/School Status: Unemployed. 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 Uses [employer]. On [employer].. Previous employment/school: Worked for [employer] previously.. Other: Lives with mother and 1dog. Has 2 brothers who are not helpful. Has 1 daughter aged 25, not involved. Uncle does provide some assistance.. Alcohol Current Smoking Status Never smoker; Exposure to Tobacco Smoke None; Cigarette Smoking Last 365 Days No; Reg Smoking Cessation Counseling No entered on: 03/27/18 10/20/2017 [id number] Social History TypeResponse Employment/School Status: Unemployed. 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 Uses [employer]. On [employer].. Previous employment/school: Worked for [employer] previously.. Other: Lives with mother and 1dog. Has 2 brothers who are not helpful. Has 1 daughter aged 25, not involved. Uncle does provide some assistance.. Alcohol Past, Last use: 2009. Smoking Status Never smoker; Exposure to Tobacco Smoke None; Cigarette Smoking Last 365 Days No; Reg Smoking Cessation Counseling No entered on: 10/27/18 10/20/2017 [facility] Social History ElementQualifiersDate Reported Tobacco Use: . Are you a: never smoker Oct 01, 2016 Marital Status: . Oct 01, 2016 Caffeine intake? . Status: Yes Oct 01, 2016 Do you exercise? . Answer: Yes Oct 01, 2016 Do you drink alcohol? . Status: Yes, Type: Socially Oct 01, 2016 10/01/2016 Brandie Jones Family History Value Date Source QualifierDescriptionCommentDate Reported Maternal Grandmother Comment not available Oct 01, 2016 Paternal Grandmother Comment not available Oct 01, 2016 Siblings alive Comment not available Oct 01, 2016 Maternal Grandfather Comment not available Oct 01, 2016 Children Comment not available Oct 01, 2016 Father Comment not available Oct 01, 2016 Paternal Grandfather Comment not available Oct 01, 2016 Mother alive Comment not available Oct 01, 2016 Other: Comment not available Oct 01, 2016 10/05/2016 Brandie Jones QualifierDescriptionCommentDate Reported Maternal Grandmother Comment not available Oct 23, 2015 Paternal Grandmother Comment not available Oct 23, 2015 Siblings alive Comment not available Oct 23, 2015 Maternal Grandfather Comment not available Oct 23, 2015 Children Comment not available Oct 23, 2015 Father Comment not available Oct 23, 2015 Paternal Grandfather Comment not available Oct 23, 2015 Mother alive Comment not available Oct 23, 2015 Other: Comment not available Oct 23, 2015 10/27/2015 Brandie Jones Advance Directives No Data Provided for This Section Functional Status No Data Provided for This Section
--- OUTSIDE RECORDS SUMMARY | 2019-06-04 15:38 | XMS REPORT ---
Author Author Brandie Jones Organization e[employer] Address Unknown Phone Unavailable Care Team Providers Care Job Press Feeder Name Role Phone Brandie Jones CP Unavailable Allergies, Adverse Reactions, Alerts Substance Reaction Event Type N.K.D.A. Info Not Available Non Drug Allergy Problems Problem Type Condition Code Onset Dates Condition Status Problem Edema 782.3 Active Problem Leg pain, left 729.5 Active Problem Hip pain, right 719.45 Active Problem Shoulder pain 719.41 Active Problem Lumbar sprain 847.2 Active Problem Hyperlipidemia 272.4 Active Assessment Gastroesophageal reflux disease without esophagitis K21.9 Active Problem Headache 784.0 Active Problem Hemiplegia, post-stroke 438.20 Active Problem Tinea versicolor 111.0 Active Problem BMI 25.0-25.9,adult Z68.25 Active Problem Sprain of cervical neck 847.0 Active Problem Numbness of left hand R20.8 Active Problem CVA (cerebral vascular accident) I63.9 Active Problem Abdominal pain, unspecified location R10.9 Active Problem Gastritis without bleeding, unspecified chronicity, unspecified gastritis type K29.70 Active Problem Gastroesophageal reflux disease without esophagitis K21.9 Active Problem Annual physical exam Z00.00 Active Problem Screening for osteoporosis Z13.820 Active Problem Sprain lumbar region S33.5XXA Active Problem Hyperlipidemia E78.5 Active Assessment Benign essential hypertension I10 Active Problem History of influenza vaccination Z92.29 Active Problem Benign essential hypertension I10 Active Assessment History of influenza vaccination Z92.29 Active Problem Screening for breast cancer Z12.39 Active Assessment Hyperlipidemia E78.5 Active Problem History of influenza vaccination within 1 year Z92.89 Active Assessment Status post CVA Z86.73 Active Problem Screening for rectal cancer Z12.12 Active Assessment Hemiparesis affecting right side as late effect of cerebrovascular accident I69.351 Active Problem Screening for colon cancer Z12.11 Active Problem Neck sprain and strain 847.0 Active Problem Hemiparesis affecting right side as late effect of cerebrovascular accident I69.351 Active Problem Swelling of both feet 729.81 Active Problem Status post CVA Z86.73 Active Problem Contact dermatitis and other eczema, due to unspecified cause 692.9 Active Problem Expressive aphasia R47.01 Active Problem Acute, but ill-defined, cerebrovascular disease 436 Active Problem Seizure disorder G40.909 Active Problem CVA (cerebral vascular accident) 434.91 Active Problem Hemiplegia and hemiparesis following cerebral infarction affecting unspecified side I69.359 Active Problem Hypertension, benign 401.1 Active Problem 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 Problem Aphasia R47.01 Active Problem 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 Active Medications Medication Code System Code Instructions Start Date End Date Status Dosage Aspirin [facility] 20157863135 81 MG Orally Once a day Active 1 tablet Pravachol [facility] [address]-73 10 MG Orally once every night Active 1 tablet Wheelchair [facility] 74023939769 1 Standard Wheelchair as directed May 01, 2014 Active as directed Mattress Pad [facility] 92804813449 1 Matress as directed May 01, 2014 Active as directed Neurontin [facility] [address]-85 100 mg Orally Once Every Night Active 2 Capsules Norvasc [facility] 05000585102 5 MG Orally Once a day Active 1 tablet Lopid [facility] 42788023241 600 MG Orally Once a Day Active 1 tablet Zantac 150 Maximum Strength [facility] 02458757731 150 MG Orally twice a day (bid) Oct 01, 2016 Active 1 tablet Vital Signs Date/Time: Nov 17, 2017 Blood Pressure Diastolic 70 mm Hg Blood Pressure Systolic 140 mm Hg Height 61 in Temperature 97.2 F Respiratory Rate 16 /min Cardiac Monitoring Heart Rate 80 /min Results No Known Results Summary Purpose eClinicalWorks Submission
--- OUTSIDE RECORDS SUMMARY | 2019-06-04 15:38 | XMS REPORT ---
Author Author Brandie Jones Organization [employer] Address Unknown Phone Unavailable Care Team Providers Care Commercial Sewing Instructor Name Role Phone Brandie Jones Unavailable Encounters [...] Date End Date Status Dosage Lasix MEDISPAN [address]-39 20 mg Orally Once a day January [...]
--- OUTSIDE RECORDS SUMMARY | 2019-06-04 15:38 | XMS REPORT ---
Author Author Brandie Jones [facility] eClinical[employer] Address Unknown Phone Unavailable Care Team Providers Care Video Effects Editor Name Role Phone Brandie Jones Unavailable Encounters Encounter Location Date Refill Brandie Jones MD April 10, 2014 Refill Brandie Jones MD Jun 22, 2014 Refill Brandie Jones MD Oct 03, 2015 Problems Problem Type Condition ICD-9 Code Onset Dates Condition Status Problem Lumbar sprain 847.2 Active Problem Headache 784.0 Active Problem Hyperlipidemia 272.4 Active Problem Benign essential hypertension I10 Active Problem CVA (cerebral vascular accident) I63.9 Active Problem Sprain lumbar region S33.5XXA Active Problem Tinea versicolor 111.0 Active Problem Hemiplegia, post-stroke 438.20 Active Problem Hyperlipidemia E78.5 Active Problem Sprain of cervical neck 847.0 Active Problem Contact dermatitis and other eczema, due to unspecified cause 692.9 Active Problem Acute, but ill-defined, cerebrovascular disease 436 Active Problem CVA (cerebral vascular accident) 434.91 Active Problem Hypertension, benign 401.1 Active Problem Leg pain, left 729.5 Active Problem Edema 782.3 Active Problem Neck sprain and strain 847.0 Active Problem Shoulder pain 719.41 Active Problem Swelling of both feet 729.81 Active Problem Hip pain, right 719.45 Active Medications Medication Code System Code Instructions Start Date End Date Status Dosage Lopid MEDISPAN [address]-65 600 MG Orally Once a Day Oct 03, 2015 Active 1 tablet Tricor [facility] [address]-37 145 MG Orally Once a day Inactive 1 tablet Social History Social History Element Qualifiers Date Reported Tobacco Use: . Are you a: never smoker Oct 23, 2015 Marital Status: . Oct 23, 2015 Caffeine intake? . Status: Yes Oct 23, 2015 Do you exercise? . Answer: Yes Oct 23, 2015 Do you drink alcohol? . Status: Yes, Type: Socially Oct 23, 2015 Family history Qualifier Description Comment Date Reported Maternal Grandmother Comment not available Oct [...] Other: Comment not available Oct 23, 2015 Summary Purpose eClinicalWorks Submission
--- OUTSIDE RECORDS SUMMARY | 2019-06-04 15:38 | XMS REPORT ---
Author Author Brandie Jones Organization [employer] Address Unknown Phone Unavailable Care Team Providers Care Line Up Machine Operator Name Role Phone Brandie Jones CP Unavailable Allergies, Adverse Reactions, Alerts Substance Reaction Event Type N.K.D.A. Info Not Available Non Drug Allergy Problems Problem Type Condition Code Onset Dates Condition Status Problem Leg pain, left 729.5 Active Problem Swelling of both feet 729.81 Active Problem Shoulder pain 719.41 Active Problem Edema 782.3 Active Problem Hip pain, right 719.45 Active Problem Lumbar sprain 847.2 Active Problem Hyperlipidemia 272.4 Active Problem Headache 784.0 Active Problem Hemiplegia, post-stroke 438.20 Active Problem Gastroesophageal reflux disease without esophagitis K21.9 Active Problem Tinea versicolor 111.0 Active Problem Numbness of left hand R20.8 Active Problem Sprain of cervical neck 847.0 Active Problem Gastritis without bleeding, unspecified chronicity, unspecified gastritis type K29.70 Active Problem 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 Problem Hemiplegia and hemiparesis following cerebral infarction affecting unspecified side I69.359 Active Problem Screening for breast cancer Z12.39 Active Problem Screening for colon cancer Z12.11 Active Problem Benign essential hypertension I10 Active Problem CVA (cerebral vascular accident) I63.9 Active Assessment History of influenza vaccination within 1 year Z92.89 Active Problem Annual physical exam Z00.00 Active Problem Hyperlipidemia E78.5 Active Assessment Screening for breast cancer Z12.39 Active Problem History of influenza vaccination within 1 year Z92.89 Active Assessment Screening for colon cancer Z12.11 Active Problem 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 Active Assessment Screening for rectal cancer Z12.12 Active Problem Screening for rectal cancer Z12.12 Active Assessment Screening for osteoporosis Z13.820 Active Problem Screening for osteoporosis Z13.820 Active Problem Acute, but ill-defined, cerebrovascular disease 436 Active Problem Seizure disorder G40.909 Active Problem Neck sprain and strain 847.0 Active Problem Aphasia R47.01 Active Problem Hypertension, benign 401.1 Active Problem Sprain lumbar region S33.5XXA Active Problem Contact dermatitis and other eczema, due to unspecified cause 692.9 Active Problem Expressive aphasia R47.01 Active Assessment Annual physical exam Z00.00 Active Problem Abdominal pain, unspecified location R10.9 Active Problem CVA (cerebral vascular accident) 434.91 Active Problem BMI 25.0-25.9,adult Z68.25 Active Problem Hemiparesis affecting right side as late effect of cerebrovascular accident I69.351 Active Problem Status post CVA Z86.73 Active Medications Medication Code System Code Instructions Start Date End Date Status Dosage Lopid [facility] [address]-82 600 MG Orally Once a Day Oct 03, 2015 Active 1 tablet Wheelchair [facility] 71602-[address]66 1 Standard Wheelchair as directed May 01, 2014 Active as directed Norvasc [facility] [address]-24 5 MG Orally Once a day January 27, 2014 Active 1 tablet Zantac 150 Maximum Strength [facility] [address]-08 150 MG Orally twice a day (bid) Oct 01, 2016 Active 1 tablet Aspirin [facility] [address]-62 81 MG Orally Once a day Active 1 tablet Mattress Pad [facility] 37853-33398 1 Matress as directed May 01, 2014 Active as directed Pravachol [facility] [address]-39 10 MG Orally once every night Active 1 tablet Vital Signs Date/Time: February 05, 2017 Blood Pressure Diastolic 80 mm Hg Blood Pressure Systolic 130 mm Hg Height 61 in Temperature 98.0 F Respiratory Rate 16 /min Cardiac Monitoring Heart Rate 80 /min Results No Known Results Summary Purpose eClinicalWorks Submission
--- OUTSIDE RECORDS SUMMARY | 2019-06-04 15:38 | XMS REPORT ---
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 Active Assessment Aphasia R47.01 Active Problem Screening for rectal cancer Z12.12 Active Assessment Gastroesophageal reflux disease without esophagitis K21.9 Active Problem Screening for osteoporosis Z13.820 Active Problem Acute, but ill-defined, cerebrovascular disease 436 Active Problem Seizure disorder G40.909 Active Problem Neck sprain and strain 847.0 Active Problem Aphasia R47.01 Active Problem Hypertension, benign 401.1 Active Problem Sprain lumbar region S33.5XXA Active Problem Contact dermatitis and other eczema, due to unspecified cause 692.9 Active Problem Expressive aphasia R47.01 Active Assessment Benign essential hypertension I10 Active Problem Abdominal pain, unspecified location R10.9 Active Problem CVA (cerebral vascular accident) 434.91 Active Problem BMI 25.0-25.9,adult Z68.25 Active Problem Hemiparesis affecting right side as late effect of cerebrovascular accident I69.351 Active Problem Status post CVA Z86.73 Active Medications Medication Code System Code Instructions Start Date End Date Status Dosage Pravachol [facility] [address]-35 10 MG Orally once every night Active 1 tablet Lopid [facility] [address]-43 600 MG Orally Once a Day Oct 03, 2015 Active 1 tablet Mattress Pad [facility] 05[address]3971 1 Matress as directed May 01, 2014 Active as directed Zantac 150 Maximum Strength [facility] [address]-32 150 MG Orally twice a day (bid) Oct 01, 2016 Active 1 tablet Wheelchair [facility] 8[address]43-[address]284 1 Standard Wheelchair as directed May 01, 2014 Active as directed Norvasc [facility] [address]-30 5 MG Orally Once a day January 27, 2014 Active 1 tablet Aspirin [facility] [address]-77 81 MG Orally Once a day Active 1 tablet Vital Signs Date/Time: May 06, 2017 Blood Pressure Diastolic 80 mm Hg Blood Pressure Systolic 130 mm Hg Height 61 in Temperature 97.8 F Respiratory Rate 16 /min Cardiac Monitoring Heart Rate 80 /min Results No Known Results Summary Purpose eClinicalWorks Submission
--- OUTSIDE RECORDS SUMMARY | 2019-06-04 15:38 | XMS REPORT ---
Author Author Brandie Jones [facility] eClinicalWorks Address Unknown Phone Unavailable Care Team Providers Care Song And Dance Performer Name Role Phone Brandie Jones Unavailable Allergies, Adverse Reactions, Alerts Substance Reaction Event Type N.K.D.A. Info Not Available Non Drug Allergy Encounters Encounter Location Date Routine Meds. Brandie Jones MD April 16, 2016 Refill Brandie Jones MD April 10, 2014 Refill Brandie Jones MD Jun 22, 2014 Refill Brandie Jones MD Oct 03, 2015 Problems Problem Type Condition ICD-9 Code Onset Dates Condition Status Assessment Seizure disorder G40.909 Active Assessment BMI 26.0-26.9,adult Z68.26 Active Assessment Aphasia R47.01 Active Assessment Hemiparesis affecting right side as late effect of cerebrovascular accident I69.351 Active Assessment Status post CVA Z86.73 Active Assessment Hyperlipidemia E78.5 Active Assessment Benign essential hypertension I10 Active Problem Hemiplegia, post-stroke 438.20 Active Problem CVA (cerebral vascular accident) 434.91 Active Problem Tinea versicolor 111.0 Active Problem Hypertension, benign 401.1 Active Problem Sprain of cervical neck 847.0 Active Problem CVA (cerebral vascular accident) I63.9 Active Problem Hyperlipidemia E78.5 Active Problem Hemiparesis affecting right side as late effect of cerebrovascular accident I69.351 Active Problem Aphasia R47.01 Active Problem Neck sprain and strain 847.0 Active Problem Acute, but ill-defined, cerebrovascular disease 436 Active Problem Status post CVA Z86.73 Active Problem Contact dermatitis and other eczema, due to unspecified cause 692.9 Active Problem Sprain lumbar region S33.5XXA Active Problem Benign essential hypertension I10 Active Problem Seizure disorder G40.909 Active Problem Expressive aphasia R47.01 Active Problem Edema 782.3 Active Problem Shoulder pain 719.41 Active Problem Swelling of both feet 729.81 Active Problem Leg pain, left 729.5 Active Problem Hyperlipidemia 272.4 Active Problem Headache 784.0 Active Problem Hip pain, right 719.45 Active Problem Lumbar sprain 847.2 Active Medications Medication Code System Code Instructions Start Date End Date Status Dosage [facility]ft [facility] [address]-76 25 MG Orally Once a day Active 1 tablet Tylenol/Codeine #3 [facility] [address]-20 300-30 MG Orally every six to eight hours, PRN for Pain Active 1 tablet Phenergan [facility] [address]-39 25 MG/ML Injection three times a day (tid) as needed (prn) Active 1/2 half tablet Lopid [facility] [address]-95 600 MG Orally Once a Day Oct 03, 2015 Active 1 tablet Norvasc [facility] [address]-93 5 MG Orally Once a day January 27, 2014 Active 1 tablet Pravachol [facility] [address]-94 10 mg Orally once every night Active 1 tablet Neurontin [facility] [address]-99 100 mg Orally Once Every Night Active 2 capsule Mattress Pad [facility] 71036-13014 1 Matress as directed May 01, 2014 Active as directed Wheelchair [facility] 17304-16801 1 Standard Wheelchair as directed May 01, 2014 Active as directed Lasix [facility] [address]-74 20 mg Orally as needed (prn) Active 1 tablet Keppra [facility] [address]-49 500 mg Orally twice a day (bid) Active 1 tablet Aspirin [facility] [address]-32 81 MG Orally Once a day Active 1 tablet Social History Social History Element Qualifiers Date Reported Tobacco Use: . Are you a: never smoker April 16, 2016 Marital Status: . April 16, 2016 Caffeine intake? . Status: Yes April 16, 2016 Do you exercise? . Answer: Yes April 16, 2016 Do you drink alcohol? . Status: Yes, Type: Socially April 16, 2016 Vital Signs Date/Time: April 16, 2016 Weight 138 lbs Height 61 in Respiratory Rate 16 /min Cardiac Monitoring Heart Rate 80 /min Blood Pressure Diastolic 80 mm Hg Blood Pressure Systolic 120 mm Hg Temperature 98.0 F Summary Purpose eClinicalWorks Submission
--- OUTSIDE RECORDS SUMMARY | 2019-06-04 15:38 | XMS REPORT ---
Author Author Brandie Jones Organization [employer] Address Unknown Phone Unavailable Care Team Providers Care Agricultural Equipment Mechanic Name Role Phone Brandie Jones CP Unavailable Encounters Encounter Location Date Refill Brandie Jones MD April 10, 2014 Problems Problem Type Condition ICD-9 Code Onset Dates Condition Status Problem Essential hypertension, benign 401.1 Active Problem Edema 782.3 Active Problem Leg pain, left 729.5 Active Problem Shoulder pain 719.41 Active Problem Acute, but ill-defined, cerebrovascular disease 436 Active Problem Contact dermatitis and other eczema, due to unspecified cause 692.9 Active Problem Swelling of both feet 729.81 Active Problem Neck sprain and strain 847.0 Active Medications Medication Code System Code Instructions Start Date End Date Status Dosage Enulose [facility]ISP[facility] [address]-56 10 GM/15ML Orally twice a day (bid) as needed (prn) April 10, 2014 May 10, 2014 Active 30 ml as needed Social History Social History Element Qualifiers Date Reported Tobacco Use: . Are you a: never smoker May 01, 2014 Marital Status: . May 01, 2014 Caffeine intake? . Status: Yes, What type: Coffee, Tea, Soft Drinks, 2-3 Cups a day May 01, 2014 Do you exercise? . Answer: Yes May 01, 2014 Do you drink alcohol? . Status: Yes, Type: Socially May 01, 2014 Summary Purpose eClinicalWorks Submission
--- OUTSIDE RECORDS SUMMARY | 2019-06-04 15:39 | XMS REPORT | Summary of Care ---
Author Author [facility] Organization [facility] Address Unknown Phone Unavailable Encounter NILESH Saucedo(BLACK) [id number] Date(s): 05/12/16 - 06/10/16 [facility] [address] [place] [address]- Discharge Disposition: Home or Self Care Attending Physician: Brandie Jones MD Vital Signs 1 2 3 Most recent to oldest [Reference Range]: 131/92 mmHg (06/09/16 11:04 AM) 120/83 mmHg (06/04/16 12:00 PM) 136/85 mmHg (06/02/16 12:05 PM) Blood Pressure [90-140/60-90 mmHg] 87 bpm (06/09/16 11:04 AM) 65 bpm (06/04/16 12:00 PM) 83 bpm (06/02/16 12:05 PM) Peripheral Pulse Rate [60-100 bpm] Problem List Condition Effective Dates Status Health Status Informant Cerebral Active aneurysm(Confirmed) Cholestatic Active hepatitis(Confirmed) HTN - Active Hypertension(Confirm ed) Hypertension(Confirm Active ed) Stroke(Confirmed) Active Allergies, Adverse Reactions, Alerts Substance Reaction Severity Status Zanaflex Active Zantac Active Zoloft Active Medications No data available for this section Results No data available for this section Immunizations Given and Recorded Vaccine Date Status Refusal Reason pneumococcal 23-valent vaccine 04/23/14 Given Procedures Procedure Date Related Diagnosis Body Site MRI of brain1 04/21/14 Breast reduction, bilateral Cranioplasty2 Craniotomy 1mr brain w/o Social History Social History Type Response Alcohol Current Smoking Status Never smoker; Exposure to Tobacco Smoke None; Cigarette Smoking Last 365 Days No; Reg Smoking Cessation Counseling No Assessment and Plan No data available for this section
--- OUTSIDE RECORDS SUMMARY | 2019-06-04 15:39 | XMS REPORT | Summary of Care ---
Author Author [facility] Organization [facility] Address Unknown Phone Unavailable Encounter HQ Sheryl(BLACK) [id number] Date(s): 06/23/16 - 06/23/16 [facility] [address] [place] [address]- Discharge Disposition: Home or Self Care Attending Physician: Brandie Jones MD Admitting Physician: Brandie Jones MD Vital Signs No data available for this section Problem List Condition Effective Dates Status Health [...]
--- OUTSIDE RECORDS SUMMARY | 2019-06-04 15:39 | XMS REPORT | Summary of Care ---
Author Author [facility] Address Unknown Phone Unavailable Care Team Providers Care Deoiling Machine Operator Name Role Phone NONE, None PCP Unavailable Encounter HQ Sheryl(BLACK) [id number] Date(s): 08/09/15 - 08/09/[address] Discharge Disposition: Home Attending Physician: Tyrell Melendez MD Referring Physician: Tyrell Melendez MD Vital Signs Most recent to 1 oldest [Reference Range]: Height 157.48 cm (08/09/15 1:21 PM) Blood Pressure 118/77 mmHg [90-140/60-90 mmHg] (08/09/15 1:21 PM) Respiratory Rate 18 BRMIN [14-20 BRMIN] (08/09/15 1:21 PM) Peripheral Pulse 112 bpm Rate [60-100 bpm] *HI* (08/09/15 1:21 PM) Problem List Condition Effective Dates Status Health Status Informant Cerebral Active aneurysm(Confirmed) Cholestatic Active hepatitis(Confirmed) HTN - Active Hypertension(Confirm ed) Hypertension(Confirm Active ed) Stroke(Confirmed) Active Allergies, Adverse Reactions, Alerts Substance Reaction Severity Status Zanaflex Active Zantac Active Zoloft Active Medications Tylenol with Codeine #3 oral tablet 1 - 2 tab, PO, Q4H, PRN Pain, # 20 tab, 0 Refill(s) Start Date: 08/09/15 Stop Date: 08/11/15 Status: Ordered Results No data available for this section Immunizations Vaccine Date Refusal Reason pneumococcal 23-valent vaccine 04/23/14 Procedures Procedure Date Related Diagnosis Body Site MRI of brain1 04/21/14 Breast reduction, bilateral Cranioplasty2 Craniotomy 1mr brain w/o Social History Social History Type Response Alcohol Current Smoking Status Never smoker; Exposure to Tobacco Smoke None; Cigarette Smoking Last 365 Days No; Reg Smoking Cessation Counseling No Assessment and Plan No data available for this section
--- OUTSIDE RECORDS SUMMARY | 2019-06-04 15:39 | XMS REPORT ---
Author Author Brandie Jones [facility] eClinicalWorks Address Unknown Phone Unavailable Care Team Providers Care Membership Assistant Name Role Phone Brandie Jones Unavailable Allergies, Adverse Reactions, Alerts Substance Reaction Event Type N.K.D.A. Info Not Available Non Drug Allergy Encounters Encounter Location Date Routine Meds. Brandie Jones MD April 16, 2016 Back Pain Brandie Jones MD Jun 23, 2016 Other Brandie Jones MD Jul 09, 2016 Routine Meds. Brandie Jones MD Jul 09, 2016 Refill Brandie Jones MD April 10, 2014 Refill Brandie Jones MD Jun 22, 2014 Refill Brandie Jones MD Oct 03, 2015 Routine Meds. Brandie Jones MD Oct 01, 2016 Problems Problem Type Condition ICD-9 Code Onset Dates Condition Status Problem CVA (cerebral vascular accident) 434.91 Active Assessment Benign essential hypertension I10 Active Problem Contact dermatitis and other eczema, due to unspecified cause 692.9 Active Problem Hypertension, benign 401.1 Active Problem Acute, but ill-defined, cerebrovascular disease 436 Active Problem Neck sprain and strain 847.0 Active Assessment BMI 25.0-25.9,adult Z68.25 Active Problem Swelling of both feet 729.81 Active Problem Leg pain, left 729.5 Active Problem Edema 782.3 Active Problem Seizure disorder G40.909 Active Problem Shoulder pain 719.41 Active Problem Aphasia R47.01 Active Problem Hip pain, right 719.45 Active Problem Hemiparesis affecting right side as late effect of cerebrovascular accident I69.351 Active Problem Abdominal pain, unspecified location R10.9 Active Problem Status post CVA Z86.73 Active Problem 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 Problem Hemiplegia and hemiparesis following cerebral infarction affecting unspecified side I69.359 Active Problem Headache 784.0 Active Problem Hyperlipidemia 272.4 Active Assessment Gastroesophageal reflux disease without esophagitis K21.9 Active Problem 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 Active Problem Lumbar sprain 847.2 Active Assessment Gastritis without bleeding, unspecified chronicity, unspecified gastritis type K29.70 Active Problem Gastroesophageal reflux disease without esophagitis K21.9 Active Assessment Numbness of left hand R20.8 Active Problem BMI 25.0-25.9,adult Z68.25 Active Assessment Abdominal pain, unspecified location R10.9 Active Problem Gastritis without bleeding, unspecified chronicity, unspecified gastritis type K29.70 Active Assessment Hemiparesis affecting right side as late effect of cerebrovascular accident I69.351 Active Problem Numbness of left hand R20.8 Active Assessment Seizure disorder G40.909 Active Problem Sprain of cervical neck 847.0 Active Assessment Hyperlipidemia E78.5 Active Problem Hyperlipidemia E78.5 Active Assessment 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 Problem Hemiplegia, post-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.20 Active Assessment Status post CVA Z86.73 Active Problem Tinea versicolor 111.0 Active Assessment 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 Active Problem Sprain lumbar region S33.5XXA Active Assessment Hemiplegia and hemiparesis following cerebral infarction affecting unspecified side I69.359 Active Problem Expressive aphasia R47.01 Active Problem CVA (cerebral vascular accident) I63.9 Active Problem Benign essential hypertension I10 Active Medications Medication Code System Code Instructions Start Date End Date Status Dosage Pravachol [facility] [address]-19 10 MG Orally once every night Active 1 tablet Wheelchair [facility] [address] 1 Standard Wheelchair as directed May 01, 2014 Active as directed Zantac 150 Maximum Strength [facility] [address]-01 150 MG Orally twice a day (bid) Oct 01, 2016 Active 1 tablet Aspirin [facility] [address]-06 81 MG Orally Once a day Inactive 1 tablet Lopid [facility] [address]-76 600 MG Orally Once a Day Oct 03, 2015 Active 1 tablet Norvasc [facility] [address]-75 5 MG Orally Once a day January 27, 2014 Active 1 tablet Mattress Pad [facility] [address] 1 Matress as directed May 01, 2014 Active as directed Mobic [facility] [address]-79 15 MG Orally Once a day Jun 23, 2016 Inactive 1 tablet Social History Social History Element Qualifiers Date Reported Tobacco Use: . Are you a: never smoker Oct 01, 2016 Marital Status: . Oct 01, 2016 Caffeine intake? . Status: Yes Oct 01, 2016 Do you exercise? . Answer: Yes Oct 01, 2016 Do you drink alcohol? . Status: Yes, Type: Socially Oct 01, 2016 Family history Qualifier Description Comment Date Reported [...] Other: Comment not available Oct 01, 2016 Vital Signs Date/Time: Oct 01, 2016 Weight 135 lbs Height 61 in Respiratory Rate 18 /min Cardiac Monitoring Heart Rate 80 /min Blood Pressure Diastolic 80 mm Hg Blood Pressure Systolic 120 mm Hg Temperature 98.2 F Results CBC w/ Auto Diff and Platelet MPV(-7.4-10.4 fl) 10.9 Hgb(-12.0-16.0 g/dL) 13.5 Hct(-36.0-48.0 %) 42.3 MCV(-80.0-98.0 fl) 81.5 MCH(-27.0-31.0 pg) 25.9 MCHC(-32.0-36.0 g/dL) 31.8 RDW(-11.5-14.5 %) 18.4 Platelet(-133-450 K/CMM) 154 WBC(-3.7-10.4 K/CMM) 4.9 RBC(-4.20-5.40 M/CMM) 5.19 Hepatic Function Panel Bili Indirect(-0.0-1.0 mg/dL) 0.5 Bili Direct(-0.0-0.3 mg/dL) 0.1 AST(-0-37 U/L) 11 Alk Phos(-39-136 U/L) 76 Total Protein(-6.4-8.4 g/dL) 7.8 Bili Total(-0.2-1.3 mg/dL) 0.6 Albumin Lvl(-3.5-5.0 g/dL) 4.0 A/G Ratio(-0.7-1.6 ) 1.1 ALT(-0-65 U/L) 17 Globulin(-2.7-4.2 g/dL) 3.8 BMP (Basic Metabolic Panel) Calcium Lvl(-8.5-10.5 mg/dL) 9.4 AGAP(-10.0-20.0 mEq/L) 9.1 CO2(-24-32 mEq/L) 28 Chloride Lvl(-95-109 mEq/L) 107 Potassium Lvl(-3.5-5.1 mEq/L) 4.1 Glucose Lvl(-70-99 mg/dL) 79 eGFR(- mL/min/1.73m2) 84 BUN(-7-22 mg/dL) 17 Creatinine Lvl(-0.50-1.40 mg/dL) 0.90 Sodium Lvl(-135-145 mEq/L) 140 Lipid Panel w/calculated LDL LDL (Calculated)(-<=99 mg/dL) 72 CHD Risk(-3.90-5.80 ) 2.72 Trig(-<=149 mg/dL) 104 HDL(->=61 mg/dL) 54 Chol(-<=199 mg/dL) 147 Summary Purpose eClinicalWorks Submission
--- OUTSIDE RECORDS SUMMARY | 2019-06-04 15:39 | XMS REPORT | Summary of Care ---
Author Author [facility] Address Unknown Phone Unavailable Encounter NILESH Saucedo(BLACK) [id number] Date(s): 03/03/17 - 03/03/17 [facility] [address] [place], [place] [address] Discharge Disposition: Home or Self Care Attending Physician: Garret Cai MD Referring Physician: Tyrell Melendez MD Vital Signs Most recent to 1 oldest [Reference Range]: Height 152.4 cm (03/03/17 1:43 PM) Blood Pressure 123/85 mmHg [90-140/60-90 mmHg] (03/03/17 1:43 PM) Respiratory Rate 20 BRMIN [14-20 BRMIN] (03/03/17 1:43 PM) Peripheral Pulse 100 bpm Rate [60-100 bpm] (03/03/17 1:43 PM) Weight 51.364 kg (03/03/17 1:43 PM) Body Mass Index 22.12 m2 (03/03/17 1:43 PM) Problem List Condition Effective Dates Status Health Status Informant Cerebral Active aneurysm(Confirmed) Cholestatic Active hepatitis(Confirmed) CVA (cerebral 03/03/01 Resolved vascular accident)(Confirmed) Abnormality of gait Active as late effect of cerebrovascular accident (CVA)(Confirmed) HTN Resolved (hypertension)(Confi rmed) HTN - Active Hypertension(Confirm ed) Hypercholesteremia(C Resolved onfirmed) Hypertension(Confirm Active ed) Paralysis(Confirmed) Resolved Other muscle Active spasm(Confirmed) 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(Confirmed) Stroke(Confirmed) Active Allergies, Adverse Reactions, Alerts Substance Reaction Severity Status Zanaflex Active Zantac Active Zoloft Active Medications ONAbotulinumtoxinA 600 unit, Route: IM, ONCALL, Dosing Weight 60, kg, Start date: 03/03/17 17:00:00 CDT, Duration: 30 day, Stop date: 04/02/17 16:59:00 CDT Start Date: 03/03/17 Stop Date: 03/03/17 Status: Completed Results No data available for this section Immunizations Given and Recorded Vaccine Date Status Refusal Reason pneumococcal 23-valent vaccine 04/23/14 Given Procedures Procedure Date Related Diagnosis Body Site MRI of brain1 04/21/14 Breast reduction, bilateral Cranioplasty2 Craniotomy Hair bearing graft of skin to scalp 1mr brain w/o Social History Social History Type Response Alcohol Current Smoking Status Never smoker; Exposure to Tobacco Smoke None; Cigarette Smoking Last 365 Days No; Reg Smoking Cessation Counseling No Assessment and Plan No data available for this section
--- OUTSIDE RECORDS SUMMARY | 2019-06-04 15:39 | XMS REPORT | Summary of Care ---
Author Author [facility] Address Unknown Phone Unavailable Care Team Providers Care Automotive Glass Technician Name Role Phone NONE, None PCP Unavailable Encounter HQ Octavio_dedra(FIN) [id number] Date(s): 11/13/15 - 12/12/15 [place] [address] [address] [phone] Discharge Disposition: Home Attending Physician: Brandie Jones MD Referring Physician: Brandie Jones MD Vital Signs Most recent to 1 oldest [Reference Range]: Blood Pressure 131/90 mmHg [90-140/60-90 mmHg] (11/13/15 10:46 AM) Problem List Condition Effective Dates Status Health [...]
--- OUTSIDE RECORDS SUMMARY | 2019-06-04 15:39 | XMS REPORT ---
Author Author Brandie Jones [facility] eClinicalWorks Address Unknown Phone Unavailable Care Team Providers Care Leaf Stamper Name Role Phone Brandie Jones Unavailable Allergies, Adverse Reactions, Alerts Substance Reaction Event Type N.K.D.A. Info Not Available Non Drug Allergy Encounters Encounter Location Date Routine Meds. 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.20 Active Problem [...] Instructions Start Date End Date Status Dosage Phenergan [facility] [address]-37 25 MG/ML Injection three times a day (tid) as needed (prn) Active 1/2 half tablet Mobic [facility] [address]-68 15 MG Orally Once a day Jun 23, 2016 Active 1 tablet Aspirin [facility] [address]-56 81 MG Orally Once a day Active 1 tablet Lopid [facility] [address]-00 600 MG Orally Once a Day Oct 03, 2015 Active 1 tablet Lasix [facility] [address]-40 20 mg Orally as needed (prn) Active 1 tablet Pravachol [facility] [address]-84 10 mg Orally once every night Active 1 tablet Zoloft [facility] [address]-97 25 MG Orally Once a day Active 1 tablet Neurontin [facility] [address]-97 100 mg Orally Once Every Night Active 2 capsule Wheelchair [facility] [address] 1 Standard Wheelchair as directed May 01, 2014 Active as directed Keppra [facility] [address]-31 500 mg Orally twice a day (bid) Active 1 tablet Tylenol/Codeine #3 [facility] [address]-40 300-30 MG Orally every six to eight hours, PRN for Pain Active 1 tablet Mattress Pad [facility] [address] 1 Matress as directed May 01, 2014 Active as directed Norvasc [facility] [address]-78 5 MG Orally Once a day January 27, 2014 Active 1 tablet Social History Social History Element Qualifiers Date Reported Tobacco Use: . Are you a: never smoker Jun 23, 2016 Marital Status: . Jun 23, 2016 Caffeine intake? . Status: Yes Jun 23, 2016 Do you exercise? . Answer: Yes Jun 23, 2016 Do you drink alcohol? . Status: Yes, Type: Socially Jun 23, 2016 Vital Signs Date/Time: Jun 23, 2016 Blood Pressure Diastolic 80 mm Hg Blood Pressure Systolic 120 mm Hg Height 61 in Temperature 98.0 F Respiratory Rate 16 /min Cardiac Monitoring Heart Rate 80 /min Summary Purpose eClinicalWorks Submission
--- OUTSIDE RECORDS SUMMARY | 2019-06-04 15:39 | XMS REPORT | Summary of Care ---
Author Author [facility] Organization [facility] Address Unknown Phone Unavailable Encounter HQ Sheryl(BLACK) [id number] Date(s): 03/10/16 - 04/08/16 [facility] [address] [place] [address]- [phone] Discharge Disposition: Home or Self Care Attending Physician: Brandie Jones MD Referring Physician: Jt Kaur MD Vital Signs Most recent to 1 oldest [Reference Range]: Blood Pressure 128/90 mmHg [90-140/60-90 mmHg] (03/10/16 9:06 AM) Peripheral Pulse 100 bpm Rate [60-100 bpm] (03/10/16 9:06 AM) Problem List Condition Effective Dates Status [...]
--- OUTSIDE RECORDS SUMMARY | 2019-06-04 15:39 | XMS REPORT | Summary of Care ---
Author Author [facility] Organization [facility] Address Unknown Phone Unavailable Encounter HQ Sheryl(BLACK) [id number] Date(s): 06/16/16 - 07/15/16 [facility] [address] [place] [address]- [phone] Discharge Disposition: Home or Self Care Attending Physician: Brandie Jones MD Referring Physician: Obed Garcia MD Vital Signs Most recent to 1 oldest [Reference Range]: Blood Pressure 125/86 mmHg [90-140/60-90 mmHg] (06/16/16 11:59 AM) Problem List Condition Effective Dates Status [...]
--- OUTSIDE RECORDS SUMMARY | 2019-06-04 15:39 | XMS REPORT | Summary of Care ---
Author Author [facility] Organization [facility] Address Unknown Phone Unavailable Encounter NILESH Saucedo(BLACK) [id number] Date(s): 10/20/17 - 10/20/17 [facility] [address] [place], [address] [address] [phone] Discharge Disposition: Home or Self Care Attending Physician: Mone Hendrickson MD Vital Signs Most recent to 1 oldest [Reference Range]: Height 154.94 cm (10/20/17 2:44 PM) Blood Pressure 124/78 mmHg [90-140/60-90 mmHg] (10/20/17 2:44 PM) Peripheral Pulse 94 bpm Rate [60-100 bpm] (10/20/17 2:44 PM) Weight 64.545 kg (10/20/17 2:44 PM) Body Mass Index 26.89 m2 (10/20/17 2:44 PM) Problem List Condition Effective Dates Status Health Status Informant Skull Active defect(Confirmed) Cerebral Active aneurysm(Confirmed) Cholestatic Active hepatitis(Confirmed) Chronic Active headache(Confirmed) CVA (cerebral 03/03/01 Resolved vascular accident)(Confirmed) Need for home health Active care(Confirmed) Abnormality of gait Active as late effect of cerebrovascular accident (CVA)(Confirmed) HTN Resolved (hypertension)(Confi rmed) HTN - Active Hypertension(Confirm ed) Hypercholesteremia(C Resolved onfirmed) Hypertension(Confirm Active ed) Internuclear Active ophthalmoplegia of left eye(Confirmed) Paralysis(Confirmed) Resolved Other muscle Resolved spasm(Confirmed) 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(Confirmed) Stroke(Confirmed) Active Allergies, Adverse Reactions, Alerts Substance Reaction Severity Status Zantac Active Zoloft Active Zanaflex Active Medications gabapentin 100 mg oral capsule See Instructions, 1 po qhs for 3 nights then 2 po qhs for 3 nights t hen 3 po qh s, # 90 cap, 0 Refill(s), Pharmacy: [id number] Start Date: 10/20/17 Stop Date: 11/18/17 Status: Completed ranitidine 150 mg oral tablet 150 mg=1 tab, PO, BID, 0 Refill(s) Start Date: 10/27/17 Stop Date: 12/01/17 Status: Completed Results No data available for this section Immunizations Given and Recorded Vaccine Date Status Refusal Reason pneumococcal 23-valent vaccine 04/23/14 Given Procedures Procedure Date Related Diagnosis Body Site Status MRI of brain1 04/21/14 Completed Breast reduction, bilateral Completed Cranioplasty2 Completed Craniotomy Completed Hair bearing graft of skin to scalp Completed 1mr brain w/o Social History Social History Type Response Employment/School Status: Unemployed. 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 Uses [employer] On [employer] Previous employment/school: Worked for [employer] previously.. Other: Lives with mother and 1dog. Has 2 brothers who are not helpful. Has 1 daughter aged 25, not involved. Uncle does provide some assistance.. Alcohol Current Smoking Status Never smoker; Exposure to Tobacco Smoke None; Cigarette Smoking Last 365 Days No; Reg Smoking Cessation Counseling No entered on: 12/31/17 Assessment and Plan No data available for this section
--- OUTSIDE RECORDS SUMMARY | 2019-06-04 15:39 | XMS REPORT | Summary of Care ---
Author Author [facility] Organization [facility] Address Unknown Phone Unavailable Encounter HQ Sheryl(BLACK) [id number] Date(s): 07/17/16 - 08/15/16 [facility] [address] [place] [address]- Discharge Disposition: Home or Self Care Attending Physician: Henry Kaur NP Referring Physician: Obed Garcia MD Vital Signs Most recent to 1 oldest [Reference Range]: Blood Pressure 136/94 mmHg [90-140/60-90 mmHg] (08/11/16 12:40 PM) Peripheral Pulse 106 bpm Rate [60-100 bpm] *HI* (08/11/16 12:40 PM) Problem List Condition Effective Dates Status [...]
--- OUTSIDE RECORDS SUMMARY | 2019-06-04 15:39 | XMS REPORT | Summary of Care ---
Author Author [facility] Organization [facility] Address Unknown Phone Unavailable Encounter NILESH Saucedo(BLACK) [id number] Date(s): 04/09/16 - 05/08/16 [facility] [address] [place] [address]- Discharge Disposition: Home or Self Care Attending Physician: Brandie Jones MD Vital Signs 1 2 3 Most recent to oldest [Reference Range]: 135/87 mmHg (04/30/16 12:30 PM) 143/88 mmHg *HI* (04/23/16 2:14 PM) 128/80 mmHg (04/16/16 2:10 PM) Blood Pressure [90-140/60-90 mmHg] 99 bpm (04/30/16 12:30 PM) 103 bpm *HI* (04/23/16 2:14 PM) 82 bpm (04/16/16 2:10 PM) Peripheral Pulse Rate [60-100 bpm] Problem [...]
--- OUTSIDE RECORDS SUMMARY | 2019-06-04 15:39 | XMS REPORT | Summary of Care ---
Author Author [facility] Organization [facility] Address Unknown Phone Unavailable Encounter NILESH Saucedo(BLACK) [id number] Date(s): 01/04/18 - 01/05/18 [facility] [address], [address] [address] [phone] Vital Signs No data available for this [...] Zantac Active Zoloft Active Zanaflex Active Medications No data available for this [...] resulting in right hemiplegia and aphasia. Uses [employer]. On [employer] Previous employment/school: Worked for [employer] previously.. Other: Lives with mother and 1dog. Has 2 brothers who are not helpful. Has 1 daughter aged 25, not involved. Uncle does provide some assistance.. Alcohol Current Smoking Status Never smoker; Exposure to Tobacco Smoke None; Cigarette Smoking Last 365 Days No; Reg Smoking Cessation Counseling No entered on: 01/03/18 Assessment and Plan No data available for this section
--- OUTSIDE RECORDS SUMMARY | 2019-06-04 15:39 | XMS REPORT | Summary of Care ---
Author Author [facility] Address Unknown Phone Unavailable Care Team Providers Care Guard Supervisor Name Role Phone NONE, None PCP Unavailable Encounter HQ Sheryl(FIN) [id number] Date(s): 07/19/15 - 08/17/[address] [phone] Discharge Disposition: Home Attending Physician: Brandie Jones MD Referring Physician: Brandie Jones MD Vital Signs Most recent to 1 oldest [Reference Range]: Height 157.48 cm (07/19/15 9:13 AM) Blood Pressure 127/80 mmHg [90-140/60-90 mmHg] (07/19/15 9:13 AM) Peripheral Pulse 100 bpm Rate [60-100 bpm] (07/19/15 9:13 AM) Weight 63.636 kg (07/19/15 9:13 AM) Body Mass Index 25.66 m2 (07/19/15 9:13 AM) Problem List Condition Effective Dates Status [...]
--- OUTSIDE RECORDS SUMMARY | 2019-06-04 15:39 | XMS REPORT ---
Author Author Brandie Jones [facility] eClinicalWorks Address Unknown Phone Unavailable Care Team Providers Care Pinion Polisher Name Role Phone Brandie Jones Unavailable Encounters Encounter Location Date Routine Meds. Brandie Jones MD April 16, 2016 Back Pain Brandie Jones MD Jun 23, 2016 Other Brandie Jones MD Jul 09, 2016 Refill Brandie Jones MD April 10, 2014 Refill Brandie Jones MD Jun 22, 2014 Refill Brandie Jones MD Oct 03, 2015 Problems Problem Type Condition ICD-9 Code Onset Dates Condition Status Problem Hemiplegia, post-stroke 438.20 Active Problem CVA [...] 719.45 Active Problem Lumbar sprain 847.2 Active Social History Social History Element Qualifiers Date Reported Tobacco Use: . Are you a: never smoker Jul 09, 2016 Marital Status: . Jul 09, 2016 Caffeine intake? . Status: Yes Jul 09, 2016 Do you exercise? . Answer: Yes Jul 09, 2016 Do you drink alcohol? . Status: Yes, Type: Socially Jul 09, 2016 Summary Purpose eClinicalWorks Submission
--- OUTSIDE RECORDS SUMMARY | 2019-06-04 15:39 | XMS REPORT | Summary of Care ---
Author Author [facility] Address Unknown Phone Unavailable Encounter NILESH Saucedo(BLACK) [id number] Date(s): 05/05/17 - 05/05/17 [facility] [address] [place], [place] [address] Discharge Disposition: Home or Self Care Attending Physician: Tyrell Melendez MD Referring Physician: Tyrell Melendez MD Vital Signs Most recent to 1 oldest [Reference Range]: Height 154.94 cm (05/05/17 1:29 PM) Blood Pressure 138/86 mmHg [90-140/60-90 mmHg] (05/05/17 1:29 PM) Respiratory Rate 18 BRMIN [14-20 BRMIN] (05/05/17 1:29 PM) Peripheral Pulse 89 bpm Rate [60-100 bpm] (05/05/17 1:29 PM) Weight 51.364 kg (05/05/17 1:29 PM) Body Mass Index 21.4 m2 (05/05/17 1:29 PM) Problem List Condition Effective Dates Status [...] Active Zantac Active Zoloft Active Medications No Known Medications Results No data available for this section [...]
--- OUTSIDE RECORDS SUMMARY | 2019-06-04 15:39 | XMS REPORT | Summary of Care ---
Author Author [facility] Neurology [facility] Organization [facility] Neurology [facility] Address Unknown Phone Unavailable Encounter NILESH Saucedo(BLACK) [id number] Date(s): 01/04/18 - 01/05/18 [facility] Neurology [facility] [address], [address] [address] [phone] Vital Signs No data available for this [...] resulting in right hemiplegia and aphasia. Uses [employer]. On [employer].. Previous employment/school: Worked for [employer] previously.. Other: Lives with mother and 1dog. [...]
--- OUTSIDE RECORDS SUMMARY | 2019-06-04 15:39 | XMS REPORT | Summary of Care ---
Author Author [facility] Neurology [facility] Organization [facility] Neurology [facility] Address Unknown Phone Unavailable Encounter NILESH Saucedo(BLACK) [id number] Date(s): 12/31/17 - 12/31/17 [facility] Neurology [facility] [address], [address] [address]- [phone] Discharge Disposition: Home or Self Care Attending Physician: Lisa Yan Vital Signs Most recent to 1 oldest [Reference Range]: Blood Pressure 132/79 mmHg [90-140/60-90 mmHg] (12/31/17 10:47 AM) Peripheral Pulse 97 bpm Rate [60-100 bpm] (12/31/17 10:47 AM) Problem List Condition Effective Dates Status [...] Active Zoloft Active Zanaflex Active Medications No Known Medications Results No [...] resulting in right hemiplegia and aphasia. Uses [employer]. On SSDI.. Previous employment/school: Worked for [email or web address] previously.. Other: Lives with mother and 1dog. [...]
--- OUTSIDE RECORDS SUMMARY | 2019-06-04 15:39 | XMS REPORT | Summary of Care ---
Author Author [facility] Organization [facility] Address Unknown Phone Unavailable Encounter NILESH Saucedo(BLACK) [id number] Date(s): 08/18/16 - 09/16/16 [facility] [address] [place] [address]- [phone] Discharge Disposition: Home or Self Care Attending Physician: Henry Kaur NP Referring Physician: Obed Garcia MD Vital Signs 1 2 3 Most recent to oldest [Reference Range]: 132/82 mmHg (09/01/16 11:14 AM) 139/94 mmHg (08/27/16 12:55 PM) 126/91 mmHg (08/18/16 12:00 PM) Blood Pressure [90-140/60-90 mmHg] 104 bpm *HI* (09/01/16 11:14 AM) 74 bpm (08/27/16 12:55 PM) 70 bpm (08/18/16 12:00 PM) Peripheral Pulse Rate [60-100 bpm] Problem [...]
--- OUTSIDE RECORDS SUMMARY | 2019-06-04 15:39 | XMS REPORT | Summary of Care ---
Author Author [facility] Address Unknown Phone Unavailable Encounter NILESH Saucedo(BLACK) [id number] Date(s): 02/17/17 - 02/17/17 [facility] [address] [place], [place] [address] Discharge Disposition: Home or Self Care Attending Physician: Tyrell Melendez MD Referring Physician: Tyrell Melendez MD Vital Signs Most recent to 1 oldest [Reference Range]: Height 154.94 cm (02/17/17 2:06 PM) Blood Pressure 126/87 mmHg [90-140/60-90 mmHg] (02/17/17 2:06 PM) Respiratory Rate 20 BRMIN [14-20 BRMIN] (02/17/17 2:06 PM) Peripheral Pulse 101 bpm Rate [60-100 bpm] *HI* (02/17/17 2:06 PM) Weight 60 kg (02/17/17 2:06 PM) Body Mass Index 24.99 m2 (02/17/17 2:06 PM) Problem List Condition Effective Dates Status [...] Zanaflex Active Zantac Active Zoloft Active Medications aspirin 81 mg tablet, chewable See Instructions, PO, 81 mg, # 30 tab, 0 Refill(s) Start Date: 02/17/17 Status: Ordered gemfibrozil 600 mg oral tablet 600 mg=1 tab, PO, Daily, 0 Refill(s) Start Date: 02/17/17 Status: Ordered pravastatin 10 mg oral tablet 10 mg=1 tab, PO, Bedtime, 0 Refill(s) Start Date: 02/17/17 Status: Ordered ranitidine 150 mg oral tablet 150 mg=1 tab, PO, BID, 0 Refill(s) Start Date: 02/17/17 Status: Ordered Results No data available for [...]
--- OUTSIDE RECORDS SUMMARY | 2019-06-04 15:39 | XMS REPORT ---
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 Name Role Phone Brandie Jones Unavailable Allergies, [...] Status Assessment Seizure disorder G40.909 Active Assessment Hemiparesis affecting right side as [...] Start Date End Date Status Dosage Lopid [facility] [address]-60 600 MG Orally Once a Day Oct 03, 2015 Active 1 tablet Zoloft [facility] [address]-21 25 MG Orally Once a day Inactive 1 tablet Mobic [facility] [address]-58 15 MG Orally Once a day Jun 23, 2016 Active 1 tablet Lasix [facility] [address]-07 20 mg Orally as needed (prn) Inactive 1 tablet Pravachol [facility] [address]-94 10 MG Orally once every night Active 1 tablet Keppra [facility] [address]-88 500 mg Orally twice a day (bid) Inactive 1 tablet Tylenol/Codeine #3 [facility] [address]-14 300-30 MG Orally every six to eight hours, PRN for Pain Inactive 1 tablet Neurontin [facility] [address]-89 100 mg Orally Once Every Night Inactive 2 capsule Aspirin [facility] [address]-42 81 MG Orally Once a day Active 1 tablet Wheelchair [facility] [address]994 1 Standard Wheelchair as directed May 01, 2014 Active as directed Phenergan [facility] [address]-91 25 MG/ML Injection three times a day (tid) as needed (prn) Inactive 1/2 half tablet Norvasc [facility] [address]-58 5 MG Orally Once a day January 27, 2014 Active 1 tablet Mattress Pad [facility] 85871-72376 1 Matress as directed May 01, 2014 Active as directed Social History Social History Element Qualifiers Date Reported Tobacco Use: . Are you a: never smoker Jul 09, 2016 Marital Status: . Jul 09, 2016 Caffeine intake? . Status: Yes Jul 09, 2016 Do you exercise? . Answer: Yes Jul 09, 2016 Do you drink alcohol? . Status: Yes, Type: Socially Jul 09, 2016 Vital Signs Date/Time: Jul 09, 2016 Blood Pressure Diastolic 80 mm Hg Blood Pressure Systolic 120 mm Hg Height 61 in Temperature 98.0 F Respiratory Rate 16 /min Cardiac Monitoring Heart Rate 80 /min Summary Purpose eClinical[employer] Submission
--- OUTSIDE RECORDS SUMMARY | 2019-06-04 15:39 | XMS REPORT | Summary of Care ---
Author Author [facility] Neurology [facility] Organization [facility] Neurology [facility] Address Unknown Phone Unavailable Encounter NILESH Saucedo(BLACK) [id number] Date(s): 01/04/18 - 01/05/18 [facility] Neurology [facility] [address], [address] [address] [phone] Vital Signs No data available for this [...] resulting in right hemiplegia and aphasia. Uses [employer]. On [employer].. Previous employment/school: Worked for [employer] previously.. Other: Lives with mother and 1dog. [...]
--- OUTSIDE RECORDS SUMMARY | 2019-06-04 15:40 | XMS REPORT | Summary of Care ---
Author Author [facility] Neurology [facility] Organization [facility] Neurology [facility] Address Unknown Phone Unavailable Encounter NILESH Saucedo(FIN) [id number] Date(s): 01/21/18 - 01/22/18 [facility] Neurology [facility] [address], [address] [address]- [phone] Vital Signs No data available for this [...] resulting in right hemiplegia and aphasia. Uses [employer]. On SSDI.. Previous employment/school: Worked for [employer] previously.. Other: Lives with mother and 1dog. [...]
--- OUTSIDE RECORDS SUMMARY | 2019-06-04 15:40 | XMS REPORT | Summary of Care ---
Author Author [facility] Neurology [facility] Organization [facility] Neurology [facility] Address Unknown Phone Unavailable Encounter NILESH Saucedo(BLACK) [id number] Date(s): 10/20/17 - 10/20/17 [facility] Neurology [facility] [address] [place], [address] [address]- [phone] Discharge Disposition: Home or Self Care Attending [...] s, # 90 cap, 0 Refill(s), Pharmacy: [facility] [id number] Start Date: 10/20/17 Stop Date: 11/18/17 Status: [...] resulting in right hemiplegia and aphasia. Uses [employer]. On [employer].. Previous employment/school: Worked for [employer] previously.. Other: Lives with mother and 1dog. [...]
--- OUTSIDE RECORDS SUMMARY | 2019-06-04 15:40 | XMS REPORT | Summary of Care ---
Author Author [facility] Organization [facility] Address Unknown Phone Unavailable Encounter NILESH Saucedo(BLACK) [id number] Date(s): 03/03/18 - 03/03/18 [address] [place] [address]- Encounter Diagnosis Corneal abrasion, left (Discharge Diagnosis) - 03/03/18 Arm pain (Discharge Diagnosis) - 03/03/18 Discharge Disposition: Home or Self Care Attending Physician: Jose Ramon Siegel MD Vital Signs 1 2 3 Most recent to oldest [Reference Range]: 98.1 DegF (03/03/18 7:19 AM) 98.2 DegF (03/03/18 12:35 AM) Temperature Oral [96.4-99.1 DegF] 128/86 mmHg (03/03/18 7:19 AM) 130/87 mmHg (03/03/18 3:44 AM) 134/96 mmHg (03/03/18 12:35 AM) Blood Pressure [90-140/60-90 mmHg] 18 BRMIN (03/03/18 7:19 AM) 20 BRMIN (03/03/18 3:44 AM) 22 BRMIN *HI* (03/03/18 12:35 AM) Respiratory Rate [14-20 BRMIN] 96 bpm (03/03/18 12:35 AM) Peripheral Pulse Rate [60-100 bpm] Problem List [...] Zantac Active Zoloft Active Zanaflex Active Medications benoxinate-fluorescein ophthalmic solution 2 drp, Route: BOTH EYES, ONCE, Start date: 03/03/18 6:27:00 CDT, Stop date: 02/19 12/06 6:27:00 CDT Start Date: 03/03/18 Stop Date: 03/03/18 Status: Deleted erythromycin topical 2% ointment 1 appl, TOP, BID, X 7 day, # 30 gm, 0 Refill(s) Start Date: 03/03/18 Stop Date: 03/10/18 Status: Ordered GI cocktail 30 mL, Route: PO, Dosing Weight 68.182, kg, ONCE, STAT, Start date: 03/03/18 3:5 4:00 CDT, Stop date: 03/03/18 3:54:00 CDT Start Date: 03/03/18 Stop Date: 03/03/18 Status: Completed morphine Sulfate 4 mg, Route: IVP, ONCE, Dosing Weight 68.182, kg, Priority: STAT, Start date: 3:54:00 CDT, Stop date: 03/03/18 3:54:00 CDT Start Date: 03/03/18 Stop Date: 03/03/18 Status: Completed ondansetron 4 mg, Route: IVP, Drug form: INJ, ONCE, Dosing Weight 68.182, kg, Priority: STAT , Start date: 03/03/18 3:54:00 CDT, Stop date: 03/03/18 3:54:00 CDT Start Date: 03/03/18 Stop Date: 03/03/18 Status: Completed Proparacaine-Fluorescein ophthalmic soln Proparacaine-Fluorescein ophthalmic soln, 2 drp, Drug form: MISC, Route: BOTH EY ES, ONCE, 03/03/18 6:38:00 CDT, Stop date: 03/03/18 6:38:00 CDT Start Date: 03/03/18 Stop Date: 03/03/18 Status: Completed Tylenol with Codeine #3 oral tablet 1 - 2 tab, PO, Q4H, PRN Pain, X 3 day, # 12 tab, 0 Refill(s) Start Date: 03/03/18 Stop Date: 03/06/18 Status: Ordered Results ELECTROLYTES Most recent to 1 oldest [Reference Range]: Sodium Lvl [135-145 149 mEq/L mEq/L] *HI* (03/03/18 1:05 AM) Potassium Lvl 3.1 mEq/L [3.5-5.1 mEq/L] *LOW* (03/03/18 1:05 AM) Chloride Lvl [95-109 111 mEq/L mEq/L] *HI* (03/03/18 1:05 AM) CO2 [24-32 mEq/L] 24 mEq/L (03/03/18 1:05 AM) AGAP [10.0-20.0 17.1 mEq/L mEq/L] (03/03/18 1:05 AM) CHEM PANEL Most recent to 1 oldest [Reference Range]: Creatinine Lvl 0.97 mg/dL [0.50-1.40 mg/dL] (03/03/18 1:05 AM) eGFR 77 mL/min/1.73m2 1 *NA* (03/03/18 1:05 AM) BUN [7-22 mg/dL] 26 mg/dL *HI* (03/03/18 1:05 AM) B/C Ratio [6-25] 27 *HI* (03/03/18 1:05 AM) Glucose Lvl [70-99 84 mg/dL mg/dL] (03/03/18 1:05 AM) Total Protein 7.8 g/dL [6.4-8.4 g/dL] (03/03/18 1:05 AM) Albumin Lvl [3.5-5.0 3.9 g/dL g/dL] (03/03/18 1:05 AM) Globulin [2.7-4.2 3.9 g/dL g/dL] (03/03/18 1:05 AM) A/G Ratio [0.7-1.6] 1.0 (03/03/18 1:05 AM) Calcium Lvl 9.6 mg/dL [8.5-10.5 mg/dL] (03/03/18 1:05 AM) ALT [0-65 unit/L] 15 unit/L (03/03/18 1:05 AM) AST [0-37 unit/L] 14 unit/L (03/03/18 1:05 AM) Alk Phos [39-136 85 unit/L unit/L] (03/03/18 1:05 AM) Bili Total [0.2-1.3 1.1 mg/dL mg/dL] (03/03/18 1:05 AM) Lipase Lvl [73-393 80 unit/L unit/L] (03/03/18 1:05 AM) 1Result Comment: The eGFR is calculated using the [...] from the National Kidney Disease Education Program ( NKDEP) which additionally recommends that when the eGFR is used in patients with extremes of body mass index for purposes of drug dosing, the eGFR should be mul tiplied by the estimated BMI. CARDIAC ENZYMES Most recent to 1 oldest [Reference Range]: Total CK [12-191 123 unit/L unit/L] (03/03/18 1:05 AM) CK MB [0.5-3.6 0.9 ng/mL ng/mL] (03/03/18 1:05 AM) CK MB Index 0.7 [0.0-2.5] (03/03/18 1:05 AM) Troponin-I <0.02 ng/mL [0.00-0.40 ng/mL] (03/03/18 1:05 AM) BNP [<=100 pg/mL] <2 pg/mL (03/03/18 1:05 AM) HEMATOLOGY Most recent to 1 oldest [Reference Range]: WBC [3.7-10.4 K/CMM] 5.3 K/CMM (03/03/18 1:05 AM) RBC [4.20-5.40 5.32 M/CMM M/CMM] (03/03/18 1:05 AM) Hgb [12.0-16.0 g/dL] 14.9 g/dL (03/03/18 1:05 AM) Hct [36.0-48.0 %] 45.9 % (03/03/18 1:05 AM) MCV [80.0-98.0 fL] 86.3 fL (03/03/18 1:05 AM) MCH [27.0-31.0 pg] 28.0 pg (03/03/18 1:05 AM) MCHC [32.0-36.0 32.5 g/dL g/dL] (03/03/18 1:05 AM) RDW [11.5-14.5 %] 16.5 % *HI* (03/03/18 1:05 AM) MPV [7.4-10.4 fL] 11.1 fL *HI* (03/03/18 1:05 AM) Platelet [133-450 164 K/CMM K/CMM] (03/03/18 1:05 AM) Segs [45.0-75.0 %] 60.0 % (03/03/18 1:05 AM) Lymphocytes 29.5 % [20.0-40.0 %] (03/03/18 1:05 AM) Monocytes [2.0-12.0 8.5 % %] (03/03/18 1:05 AM) Eosinophils [0.0-4.0 1.2 % %] (03/03/18 1:05 AM) Basophils [0.0-1.0 0.8 % %] (03/03/18 1:05 AM) Segs-Bands # 3.2 K/CMM [1.5-8.1 K/CMM] (03/03/18 1:05 AM) Lymphocytes # 1.6 K/CMM [1.0-5.5 K/CMM] (03/03/18 1:05 AM) Monocytes # [0.0-0.8 0.4 K/CMM K/CMM] (03/03/18 1:05 AM) Eosinophils # 0.1 K/CMM [0.0-0.5 K/CMM] (03/03/18 1:05 AM) PT [12.0-14.7 13.4 seconds seconds] (03/03/18 1:05 AM) INR [0.85-1.17] 1.02 (03/03/18 1:05 AM) D-Dimer 0.50 ug/mL FEU *NA* (03/03/18 1:05 AM) PTT [22.9-35.8 29.2 seconds seconds] (03/03/18 1:05 AM) Immunizations Given and Recorded Vaccine Date Status [...] resulting in right hemiplegia and aphasia. Uses [employer]. On [employer].. Previous employment/school: Worked for [employer] previously.. Other: Lives with mother and 1dog. Has 2 brothers who are not helpful. Has 1 daughter aged 25, not involved. Uncle does provide some assistance.. Alcohol Current Smoking Status Never smoker; Exposure to Tobacco Smoke None; Cigarette Smoking Last 365 Days No; Reg Smoking Cessation Counseling No entered on: 03/03/18 Assessment and Plan No data available for this section
--- OUTSIDE RECORDS SUMMARY | 2019-06-04 15:40 | XMS REPORT | Summary of Care ---
Author Author [facility] Neurology [facility] Organization [facility] Neurology [facility] Address Unknown Phone Unavailable Encounter NILESH Saucedo(BLACK) [id number] Date(s): 02/03/18 - 02/03/18 [facility] Neurology [facility] [address] [place], [address] [address] [phone] Attending Physician: Lisa Yan Vital Signs No data available for this [...] resulting in right hemiplegia and aphasia. Uses [employer]. On [employer].. Previous employment/school: Worked for [employer] previously.. Other: Lives with mother and 1dog. [...]
--- OUTSIDE RECORDS SUMMARY | 2019-06-04 15:40 | XMS REPORT | Summary of Care ---
Author Author [facility] Organization [facility] Address Unknown Phone Unavailable Encounter NILESH Saucedo(BLACK) [id number] Date(s): 03/01/18 - 03/01/18 [id number] [place] [address]- Encounter Diagnosis Hand cramps (Discharge Diagnosis) - 03/01/18 Chest pain (Discharge Diagnosis) - 03/01/18 Discharge Disposition: Home or Self Care Attending Physician: Juvencio Willson MD Vital Signs 1 2 3 Most recent to oldest [Reference Range]: 98.8 DegF (03/01/18 3:22 PM) Temperature Oral [96.4-99.1 DegF] 129/84 mmHg (03/01/18 7:30 PM) 136/92 mmHg (03/01/18 7:26 PM) 141/92 mmHg *HI* (03/01/18 6:39 PM) Blood Pressure [90-140/60-90 mmHg] 18 BRMIN (03/01/18 7:30 PM) 18 BRMIN (03/01/18 7:26 PM) 18 BRMIN (03/01/18 6:39 PM) Respiratory Rate [14-20 BRMIN] 77 bpm (03/01/18 7:30 PM) 72 bpm (03/01/18 7:26 PM) 75 bpm (03/01/18 6:39 PM) Peripheral Pulse Rate [60-100 bpm] Problem [...] Zantac Active Zoloft Active Zanaflex Active Medications Saline Flush 0.9% 10 mL, Route: IVP, Drug Form: INJ, Dosing Weight 68.182, kg, PRN, PRN Line Flush , Start date: 03/01/18 16:10:00 CDT, Duration: 30 day, Stop date: 03/31/18 16:09 :00 CDT Notes: (Same as: BD Posiflush) Start Date: 03/01/18 Stop Date: 03/01/18 Status: Discontinued Results ELECTROLYTES Most recent to 1 oldest [Reference Range]: Sodium Lvl [135-145 149 mEq/L mEq/L] *HI* (03/01/18 4:20 PM) Potassium Lvl 3.6 mEq/L [3.5-5.1 mEq/L] (03/01/18 4:20 PM) Chloride Lvl [95-109 114 mEq/L mEq/L] *HI* (03/01/18 4:20 PM) CO2 [24-32 mEq/L] 25 mEq/L (03/01/18 4:20 PM) AGAP [10.0-20.0 13.6 mEq/L mEq/L] (03/01/18 4:20 PM) CHEM PANEL Most recent to 1 oldest [Reference Range]: Creatinine Lvl 0.97 mg/dL [0.50-1.40 mg/dL] (03/01/18 4:20 PM) eGFR 77 mL/min/1.73m2 1 *NA* (03/01/18 4:20 PM) BUN [7-22 mg/dL] 23 mg/dL *HI* (03/01/18 4:20 PM) B/C Ratio [6-25] 24 (03/01/18 4:20 PM) Glucose Lvl [70-99 85 mg/dL mg/dL] (03/01/18 4:20 PM) Total Protein 7.8 g/dL [6.4-8.4 g/dL] (03/01/18 4:20 PM) Albumin Lvl [3.5-5.0 3.7 g/dL g/dL] (03/01/18 4:20 PM) Globulin [2.7-4.2 4.1 g/dL g/dL] (03/01/18 4:20 PM) A/G Ratio [0.7-1.6] 0.9 (03/01/18 4:20 PM) Calcium Lvl 9.2 mg/dL [8.5-10.5 mg/dL] (03/01/18 4:20 PM) ALT [0-65 unit/L] 15 unit/L (03/01/18 4:20 PM) AST [0-37 unit/L] 22 unit/L (03/01/18 4:20 PM) Alk Phos [39-136 86 unit/L unit/L] (03/01/18 4:20 PM) Bili Total [0.2-1.3 0.9 mg/dL mg/dL] (03/01/18 4:20 PM) 1Result Comment: The eGFR is calculated using [...] 1 oldest [Reference Range]: Total CK [12-191 132 unit/L unit/L] (03/01/18 4:20 PM) CK MB [0.5-3.6 0.7 ng/mL ng/mL] (03/01/18 4:20 PM) CK MB Index 0.5 [0.0-2.5] (03/01/18 4:20 PM) Troponin-I <0.02 ng/mL [0.00-0.40 ng/mL] (03/01/18 4:20 PM) HEMATOLOGY Most recent to 1 oldest [Reference Range]: WBC [3.7-10.4 K/CMM] 4.7 K/CMM (03/01/18 4:20 PM) RBC [4.20-5.40 5.32 M/CMM M/CMM] (03/01/18 4:20 PM) Hgb [12.0-16.0 g/dL] 15.1 g/dL (03/01/18 4:20 PM) Hct [36.0-48.0 %] 45.3 % (03/01/18 4:20 PM) MCV [80.0-98.0 fL] 85.2 fL (03/01/18 4:20 PM) MCH [27.0-31.0 pg] 28.3 pg (03/01/18 4:20 PM) MCHC [32.0-36.0 33.3 g/dL g/dL] (03/01/18 4:20 PM) RDW [11.5-14.5 %] 16.5 % *HI* (03/01/18 4:20 PM) MPV [7.4-10.4 fL] 10.7 fL *HI* (03/01/18 4:20 PM) Platelet [133-450 144 K/CMM K/CMM] (03/01/18 4:20 PM) Segs [45.0-75.0 %] 71.8 % (03/01/18 4:20 PM) Lymphocytes 18.4 % [20.0-40.0 %] *LOW* (03/01/18 4:20 PM) Monocytes [2.0-12.0 8.0 % %] (03/01/18 4:20 PM) Eosinophils [0.0-4.0 1.0 % %] (03/01/18 4:20 PM) Basophils [0.0-1.0 0.8 % %] (03/01/18 4:20 PM) Segs-Bands # 3.4 K/CMM [1.5-8.1 K/CMM] (03/01/18 4:20 PM) Lymphocytes # 0.9 K/CMM [1.0-5.5 K/CMM] *LOW* (03/01/18 4:20 PM) Monocytes # [0.0-0.8 0.4 K/CMM K/CMM] (03/01/18 4:20 PM) Immunizations Given and Recorded Vaccine Date Status [...] [employer]. On SSDI.. Previous employment/school: Worked for [employer] previously.. Other: Lives with mother and 1dog. [...]
--- OUTSIDE RECORDS SUMMARY | 2019-06-04 15:40 | XMS REPORT | Summary of Care ---
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 (Final) - Discharge Disposition: Home or Self Care Attending Physician: Tyrell Melendez MD Referring Physician: Tyrell Melendez MD Vital Signs Most recent to 1 oldest [Reference Range]: Height 157.48 cm (12/01/17 1:34 PM) Blood Pressure 137/84 mmHg [90-140/60-90 mmHg] (12/01/17 1:34 PM) Respiratory Rate 20 BRMIN [14-20 BRMIN] (12/01/17 1:34 PM) Peripheral Pulse 94 bpm Rate [60-100 bpm] (12/01/17 1:34 PM) Problem List Condition Effective Dates Status [...] Active Medications gabapentin 100 mg oral capsule 100 mg=1 cap, PO, Bedtime, 0 Refill(s) Start Date: 12/01/17 Stop Date: 01/04/18 Status: Discontinued Results No data available for this section [...] resulting in right hemiplegia and aphasia. Uses [employer]. On [employer].. Previous employment/school: Worked for [employer] previously.. Other: Lives with mother and 1dog. Has 2 brothers who are not helpful. Has 1 daughter aged 25, not involved. Uncle does provide some assistance.. Alcohol Current Smoking Status Never smoker; Exposure to Tobacco Smoke None; Cigarette Smoking Last 365 Days No; Reg Smoking Cessation Counseling No entered on: 03/07/18 Assessment and Plan No data available for this section
--- OUTSIDE RECORDS SUMMARY | 2019-06-04 15:40 | XMS REPORT | Summary of Care ---
Author Author [facility] Organization [facility] Address Unknown Phone Unavailable Encounter HQ Sheryl(FIN) [id number] Date(s): 03/27/18 - 03/28/[address] [address]- Encounter Diagnosis Shingles (Discharge Diagnosis) - 03/28/18 Discharge Disposition: Home or Self Care Attending Physician: Minh Rhodes MD Vital Signs 1 2 3 Most recent to oldest [Reference Range]: 99 DegF (03/28/18 1:31 AM) 99.2 DegF *HI* (03/27/18 10:24 PM) Temperature Oral [96.4-99.1 DegF] 130/116 mmHg (03/28/18 1:31 AM) 125/55 mmHg (03/27/18 11:06 PM) 160/72 mmHg *HI* (03/27/18 10:24 PM) Blood Pressure [90-140/60-90 mmHg] 18 BRMIN (03/28/18 1:31 AM) 18 BRMIN (03/27/18 11:06 PM) 18 BRMIN (03/27/18 10:24 PM) Respiratory Rate [14-20 BRMIN] 70 bpm (03/28/18 1:31 AM) 69 bpm (03/27/18 11:06 PM) 68 bpm (03/27/18 10:24 PM) Peripheral Pulse Rate [60-100 bpm] 79.545 kg (03/27/18 10:24 PM) Weight Problem List Condition Effective Dates Status Health [...] Zantac Active Zoloft Active Zanaflex Active Medications acetaminophen-codeine 300 mg-30 mg oral tablet 1 tab, PO, Q8H, PRN Pain, # 20 tab, 0 Refill(s) Start Date: 03/28/18 Stop Date: 04/06/18 Status: Ordered metoclopramide 5 mg, 1 mL, Route: IVP, Drug form: INJ, ONCE, Dosing Weight 79.545, kg, Priority : STAT, Start date: 03/27/18 22:47:00 CDT, Stop date: 03/27/18 22:47:00 CDT Notes: (Same as: Reglan) Start Date: 03/27/18 Stop Date: 03/27/18 Status: Completed morphine Sulfate 4 mg, 1 mL, Route: IVP, Drug form: SOLN, ONCE, Dosing Weight 79.545, kg, Priorit y: STAT, Start date: 03/27/18 22:47:00 CDT, Stop date: 03/27/18 22:47:00 CDT Notes: (Same as:MORPhine Sulfate) Start Date: 03/27/18 Stop Date: 03/27/18 Status: Completed Sodium Chloride 0.9% (Bolus) IV 1,000 mL, 1000 ml/hr, Infuse Over: 1 hr, Route: IV, 1,000, Drug form: INJ, ONCE, Priority: STAT, Dosing Weight 79.545 kg, Start date: 03/27/18 22:47:00 CDT, Stop date: 03/27/18 22:47:00 CDT Start Date: 03/27/18 Stop Date: 03/27/18 Status: Completed Results ELECTROLYTES Most recent to 1 oldest [Reference Range]: Sodium Lvl [135-145 142 mEq/L mEq/L] (03/27/18 11:05 PM) Potassium Lvl 4.4 mEq/L [3.5-5.1 mEq/L] (03/27/18 11:05 PM) Chloride Lvl [95-109 104 mEq/L mEq/L] (03/27/18 11:05 PM) CO2 [24-32 mEq/L] 20 mEq/L *LOW* (03/27/18 11:05 PM) AGAP [10.0-20.0 22.4 mEq/L mEq/L] *HI* (03/27/18 11:05 PM) CHEM PANEL Most recent to 1 oldest [Reference Range]: Creatinine Lvl 0.87 mg/dL [0.50-1.40 mg/dL] (03/27/18 11:05 PM) eGFR 87 mL/min/1.73m2 1 *NA* (03/27/18 11:05 PM) BUN [7-22 mg/dL] 18 mg/dL (03/27/18 11:05 PM) B/C Ratio [6-25] 21 (03/27/18 11:05 PM) Glucose Lvl [70-99 57 mg/dL mg/dL] *LOW* (03/27/18 11:05 PM) Total Protein 7.5 g/dL [6.4-8.4 g/dL] (03/27/18 11:05 PM) Albumin Lvl [3.5-5.0 3.2 g/dL g/dL] *LOW* (03/27/18 11:05 PM) Globulin [2.7-4.2 4.3 g/dL g/dL] *HI* (03/27/18 11:05 PM) A/G Ratio [0.7-1.6] 0.7 (03/27/18 11:05 PM) Calcium Lvl 9.4 mg/dL [8.5-10.5 mg/dL] (03/27/18 11:05 PM) ALT [0-65 unit/L] 24 unit/L (03/27/18 11:05 PM) AST [0-37 unit/L] 25 unit/L (03/27/18 11:05 PM) Alk Phos [39-136 76 unit/L unit/L] (03/27/18 11:05 PM) Bili Total [0.2-1.3 1.8 mg/dL mg/dL] *HI* (03/27/18 11:05 PM) 1Result Comment: The eGFR is calculated [...] be mul tiplied by the estimated BMI. URINE AND STOOL Most recent to 1 oldest [Reference Range]: UA Turbidity [Clear] Slight *ABN* (03/27/18 11:05 PM) UA Color Mae *NA* (03/27/18 11:05 PM) UA pH [5.0-8.0] 5.0 (03/27/18 11:05 PM) UA Spec Grav 1.031 [<=1.030] *HI* (03/27/18 11:05 PM) UA Glucose [Negative Negative mg/dL mg/dL] *NA* (03/27/18 11:05 PM) UA Blood [Negative] Negative (03/27/18 11:05 PM) UA Ketones [Negative 80 mg/dL mg/dL] *ABN* (03/27/18 11:05 PM) UA Protein [Negative 30 mg/dL mg/dL] *ABN* (03/27/18 11:05 PM) UA Urobilinogen 4.0 mg/dL [0.1-1.0 mg/dL] *HI* (03/27/18 11:05 PM) UA Bili [Negative] Small *ABN* (03/27/18 11:05 PM) UA Leuk Est Negative [Negative] (03/27/18 11:05 PM) UA Nitrite Negative [Negative] (03/27/18 11:05 PM) UA WBC [0-5 /HPF] 3 /HPF (03/27/18 11:05 PM) UA RBC [0-2 /HPF] <1 /HPF (03/27/18 11:05 PM) UA Sq Epi [Few /LPF] Occasional /LPF *NA* (03/27/18 11:05 PM) UA Hyal Cast [0-2 3 /LPF /LPF] *HI* (03/27/18 11:05 PM) UA Mucus [None Seen Many /LPF /LPF] *ABN* (03/27/18 11:05 PM) HEMATOLOGY Most recent to 1 oldest [Reference Range]: WBC [3.7-10.4 K/CMM] 5.8 K/CMM (03/27/18 11:05 PM) RBC [4.20-5.40 5.72 M/CMM M/CMM] *HI* (03/27/18 11:05 PM) Hgb [12.0-16.0 g/dL] 16.3 g/dL *HI* (03/27/18 11:05 PM) Hct [36.0-48.0 %] 49.9 % *HI* (03/27/18 11:05 PM) MCV [80.0-98.0 fL] 87.3 fL (03/27/18 11:05 PM) MCH [27.0-31.0 pg] 28.5 pg (03/27/18 11:05 PM) MCHC [32.0-36.0 32.7 g/dL g/dL] (03/27/18 11:05 PM) RDW [11.5-14.5 %] 16.9 % *HI* (03/27/18 11:05 PM) MPV [7.4-10.4 fL] 11.7 fL *HI* (03/27/18 11:05 PM) Platelet [133-450 127 K/CMM K/CMM] *LOW* (03/27/18 11:05 PM) Segs [45.0-75.0 %] 61.2 % (03/27/18 11:05 PM) Lymphocytes 24.1 % [20.0-40.0 %] (03/27/18 11:05 PM) Monocytes [2.0-12.0 13.4 % %] *HI* (03/27/18 11:05 PM) Eosinophils [0.0-4.0 0.7 % %] (03/27/18 11:05 PM) Basophils [0.0-1.0 0.6 % %] (03/27/18 11:05 PM) Segs-Bands # 3.6 K/CMM [1.5-8.1 K/CMM] (03/27/18 11:05 PM) Lymphocytes # 1.4 K/CMM [1.0-5.5 K/CMM] (03/27/18 11:05 PM) Monocytes # [0.0-0.8 0.8 K/CMM K/CMM] (03/27/18 11:05 PM) Immunizations Given and Recorded Vaccine Date [...] resulting in right hemiplegia and aphasia. Uses [employer]. On [employer].. Previous employment/school: Worked for [employer] previously.. Other: Lives with mother and 1dog. Has 2 brothers who are not helpful. Has 1 daughter aged 25, not involved. Uncle does provide some assistance.. Alcohol Current Smoking Status Never smoker; Exposure to Tobacco Smoke None; Cigarette Smoking Last 365 Days No; Reg Smoking Cessation Counseling No entered on: 03/27/18 Assessment and Plan No data available for this section
--- OUTSIDE RECORDS SUMMARY | 2019-06-04 15:40 | XMS REPORT | Summary of Care ---
Author Author [facility] Organization [facility] Address Unknown Phone Unavailable Encounter NILESH Saucedo(BLACK) [id number] Date(s): 11/18/17 - 11/18/17 [facility] [address] [place], [address] [address]- [phone] Discharge Disposition: Home or Self Care Attending Physician: Corona Lynne PA-C Vital Signs Most recent to 1 oldest [Reference Range]: Height 154.94 cm (11/18/17 10:23 AM) Blood Pressure 159/80 mmHg [90-140/60-90 mmHg] *HI* (11/18/17 10:23 AM) Peripheral Pulse 83 bpm Rate [60-100 bpm] (11/18/17 10:23 AM) Weight 64.716 kg (11/18/17 10:23 AM) Body Mass Index 26.96 m2 (11/18/17 10:23 AM) Problem List Condition Effective Dates Status [...] Active Zoloft Active Zanaflex Active Medications gabapentin 300 mg oral capsule 300 mg=1 cap, PO, Bedtime, # 90 cap, 0 Refill(s), Pharmacy: [facility] [id number] Start Date: 11/18/17 Status: Ordered Results No data available for [...] resulting in right hemiplegia and aphasia. Uses [employer]. On [employer] Previous employment/school: Worked for [employer] previously.. Other: Lives with mother and 1dog. [...]
--- OUTSIDE RECORDS SUMMARY | 2019-06-04 15:40 | XMS REPORT | Summary of Care ---
Author Author [facility] Organization [facility] Address Unknown Phone Unavailable Encounter HQ Sheryl(BLACK) [id number] Date(s): 12/16/17 - 12/16/17 [facility] [address] [place], [place] 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, left eye (Final) - Discharge Disposition: Home or Self Care Attending Physician: Tyrell Melendez MD Referring Physician: Tyrell Melendez MD Vital Signs Most recent to 1 oldest [Reference Range]: Height 154.94 cm (12/16/17 9:02 AM) Blood Pressure 147/81 mmHg [90-140/60-90 mmHg] *HI* (12/16/17 9:02 AM) Respiratory Rate 18 BRMIN [14-20 BRMIN] (12/16/17 9:02 AM) Peripheral Pulse 102 bpm Rate [60-100 bpm] *HI* (12/16/17 9:02 AM) Weight 64.744 kg (12/16/17 9:02 AM) Body Mass Index 26.97 m2 (12/16/17 9:02 AM) Problem List Condition Effective Dates Status [...] resulting in right hemiplegia and aphasia. Uses [employer] On SSDI.. Previous employment/school: Worked for [employer] previously.. Other: Lives with mother and [...]
--- OUTSIDE RECORDS SUMMARY | 2019-06-04 15:40 | XMS REPORT | Summary of Care ---
Author Author [facility] Organization [facility] Address Unknown Phone Unavailable Encounter HQ Sheryl(FIN) [id number] Date(s): 03/07/18 - 03/07/18 [facility] [address] [place] [address]- [phone] Encounter Diagnosis Hypokalemia (Discharge Diagnosis) - 03/07/18 Nausea and vomiting in adult (Discharge Diagnosis) - 03/07/18 Discharge Disposition: Home or Self Care Attending Physician: Tara Ko MD Vital Signs Most recent to 1 2 oldest [Reference Range]: Height 170.18 cm (03/07/18 2:05 PM) Temperature Oral 98.4 DegF 98.3 DegF [96.4-99.1 DegF] (03/07/18 6:30 PM) (03/07/18 2:05 PM) Blood Pressure 141/85 mmHg 145/97 mmHg [90-140/60-90 mmHg] *HI* *HI* (03/07/18 6:30 PM) (03/07/18 2:05 PM) Respiratory Rate 10 BRMIN 20 BRMIN [14-20 BRMIN] *LOW* (03/07/18 2:05 PM) (03/07/18 6:30 PM) Peripheral Pulse 88 bpm Rate [60-100 bpm] (03/07/18 2:05 PM) Weight 75 kg (03/07/18 2:05 PM) Body Mass Index 25.9 m2 (03/07/18 2:05 PM) Problem List Condition Effective Dates Status [...] Zantac Active Zoloft Active Zanaflex Active Medications Omnipaque 300 100 mL, Route: IV, Drug Form: SOLN, Dosing Weight 75, kg, ONCE, Start date: 02/19 04/07 15:36:00 CDT, Stop date: 03/07/18 15:36:00 CDT Notes: (Same as:Omnipaque 300).WASTE: F/P - Black; E - [employer] Start Date: 03/07/18 Stop Date: 03/07/18 Status: Completed ondansetron 4 mg, 2 mL, Route: IVP, Drug form: INJ, ONCE, Dosing Weight 75, kg, Priority: ST AT, Start date: 03/07/18 14:28:00 CDT, Stop date: 03/07/18 14:28:00 CDT Notes: (Same as: Chilo) MEDICATION WASTE Product Size: 4 mgProduct Was alysha: ___ mg Start Date: 03/07/18 Stop Date: 03/07/18 Status: Completed potassium chloride 10 mEq, 100 mL, Route: IVPB, Drug form: INJ, Q1H, Dosing Weight 75, kg, Total Do se=20 meq, Start date: 03/07/18 16:00:00 CDT, Duration: 2 doses or times, Stop d ate: 03/07/18 17:00:00 CDT, Peripheral Line Notes: Infuse at a rate of 10 mEq/hr.(Same as: KCL) Start Date: 03/07/18 Stop Date: 03/07/18 Status: Pending Complete potassium chloride 20 mEq oral tablet, extended release 20 mEq=1 tab, PO, BID, # 2 tab, 0 Refill(s) Start Date: 03/07/18 Stop Date: 03/08/18 Status: Ordered Sodium Chloride 0.9% (Bolus) IV 1,000 mL, 1000 ml/hr, Infuse Over: 1 hr, Route: IV, 1,000, Drug form: INJ, ONCE, Priority: STAT, Dosing Weight 75 kg, Start date: 03/07/18 14:28:00 CDT, Stop da te: 03/07/18 14:28:00 CDT Start Date: 03/07/18 Stop Date: 03/07/18 Status: Completed Zofran ODT 4 mg oral tablet, disintegrating 4 mg=1 tab, PO, BID, PRN Nausea and Vomiting, Dissolve tab under tongue, # 10 ta b, 0 Refill(s) Start Date: 03/07/18 Stop Date: 03/12/18 Status: Ordered Results ELECTROLYTES Most recent to 1 oldest [Reference Range]: Sodium Lvl [135-145 149 mEq/L mEq/L] *HI* (03/07/18 2:38 PM) Potassium Lvl 3.0 mEq/L 1 [3.5-5.1 mEq/L] *CRIT* (03/07/18 2:38 PM) Chloride Lvl [95-109 112 mEq/L mEq/L] *HI* (03/07/18 2:38 PM) CO2 [24-32 mEq/L] 25 mEq/L (03/07/18 2:38 PM) AGAP [10.0-20.0 15.0 mEq/L mEq/L] (03/07/18 2:38 PM) 1Result Comment: Critical Result(s) called to jan samayoa at 03/07/2018 15:05 by javed. Read back OK. CHEM PANEL Most recent to 1 oldest [Reference Range]: Creatinine Lvl 0.91 mg/dL [0.50-1.40 mg/dL] (03/07/18 2:38 PM) eGFR 82 mL/min/1.73m2 1 *NA* (03/07/18 2:38 PM) BUN [7-22 mg/dL] 28 mg/dL *HI* (03/07/18 2:38 PM) B/C Ratio [6-25] 31 *HI* (03/07/18 2:38 PM) Glucose Lvl [70-99 97 mg/dL mg/dL] (03/07/18 2:38 PM) Total Protein 7.7 g/dL [6.4-8.4 g/dL] (03/07/18 2:38 PM) Albumin Lvl [3.5-5.0 3.7 g/dL g/dL] (03/07/18 2:38 PM) Globulin [2.7-4.2 4.0 g/dL g/dL] (03/07/18 2:38 PM) A/G Ratio [0.7-1.6] 0.9 (03/07/18 2:38 PM) Calcium Lvl 9.5 mg/dL [8.5-10.5 mg/dL] (03/07/18 2:38 PM) ALT [0-65 unit/L] 17 unit/L (03/07/18 2:38 PM) AST [0-37 unit/L] 15 unit/L (03/07/18 2:38 PM) Alk Phos [39-136 74 unit/L unit/L] (03/07/18 2:38 PM) Bili Total [0.2-1.3 1.2 mg/dL mg/dL] (03/07/18 2:38 PM) Lipase Lvl [73-393 95 unit/L unit/L] (03/07/18 2:38 PM) 1Result Comment: The eGFR is calculated [...] Most recent to 1 oldest [Reference Range]: Troponin-I <0.02 ng/mL [0.00-0.40 ng/mL] (03/07/18 2:38 PM) URINE AND STOOL Most recent to 1 oldest [Reference Range]: UA Turbidity [Clear] Clear (03/07/18 4:30 PM) UA Color [Yellow] Light Yellow *NA* (03/07/18 4:30 PM) UA pH [5.0-8.0] 6.0 (03/07/18 4:30 PM) UA Spec Grav >1.060 [<=1.030] *HI* (03/07/18 4:30 PM) UA Glucose [Negative Negative mg/dL mg/dL] *NA* (03/07/18 4:30 PM) UA Blood [Negative] Negative (03/07/18 4:30 PM) UA Ketones [Negative Trace mg/dL mg/dL] *ABN* (03/07/18 4:30 PM) UA Protein [Negative Negative mg/dL mg/dL] (03/07/18 4:30 PM) UA Urobilinogen <=1.0 mg/dL [0.1-1.0 mg/dL] *NA* (03/07/18 4:30 PM) UA Bili [Negative] Negative *NA* (03/07/18 4:30 PM) UA Leuk Est Moderate [Negative] *ABN* (03/07/18 4:30 PM) UA Nitrite Negative [Negative] (03/07/18 4:30 PM) UA WBC [0-5 /HPF] 2 /HPF (03/07/18 4:30 PM) UA RBC [0-2 /HPF] <1 /HPF (03/07/18 4:30 PM) UA Sq Epi [Few /LPF] Occasional /LPF *NA* (03/07/18 4:30 PM) UA Mucus [None Seen Few /LPF /LPF] *NA* (03/07/18 4:30 PM) HEMATOLOGY Most recent to 1 oldest [Reference Range]: WBC [3.7-10.4 K/CMM] 5.7 K/CMM (03/07/18 2:38 PM) RBC [4.20-5.40 5.37 M/CMM M/CMM] (03/07/18 2:38 PM) Hgb [12.0-16.0 g/dL] 15.2 g/dL (03/07/18 2:38 PM) Hct [36.0-48.0 %] 46.0 % (03/07/18 2:38 PM) MCV [80.0-98.0 fL] 85.7 fL (03/07/18 2:38 PM) MCH [27.0-31.0 pg] 28.4 pg (03/07/18 2:38 PM) MCHC [32.0-36.0 33.1 g/dL g/dL] (03/07/18 2:38 PM) RDW [11.5-14.5 %] 16.4 % *HI* (03/07/18 2:38 PM) MPV [7.4-10.4 fL] 11.6 fL *HI* (03/07/18 2:38 PM) Platelet [133-450 144 K/CMM K/CMM] (03/07/18 2:38 PM) Segs [45.0-75.0 %] 52.6 % (03/07/18 2:38 PM) Lymphocytes 33.2 % [20.0-40.0 %] (03/07/18 2:38 PM) Monocytes [2.0-12.0 12.4 % %] *HI* (03/07/18 2:38 PM) Eosinophils [0.0-4.0 1.0 % %] (03/07/18 2:38 PM) Basophils [0.0-1.0 0.8 % %] (03/07/18 2:38 PM) Segs-Bands # 3.0 K/CMM [1.5-8.1 K/CMM] (03/07/18 2:38 PM) Lymphocytes # 1.9 K/CMM [1.0-5.5 K/CMM] (03/07/18 2:38 PM) Monocytes # [0.0-0.8 0.7 K/CMM K/CMM] (03/07/18 2:38 PM) Eosinophils # 0.1 K/CMM [0.0-0.5 K/CMM] (03/07/18 2:38 PM) PT [12.0-14.7 13.6 seconds seconds] (03/07/18 2:38 PM) INR [0.85-1.17] 1.04 (03/07/18 2:38 PM) Immunizations Given and Recorded Vaccine Date [...] resulting in right hemiplegia and aphasia. Uses [employer]. On [employer] Previous employment/school: Worked for [employer] previously.. Other: Lives with mother and 1dog. [...]
--- OUTSIDE RECORDS SUMMARY | 2019-06-04 15:40 | XMS REPORT | Summary of Care ---
Author Author [facility] Organization [facility] Address Unknown Phone Unavailable Encounter NILESH Saucedo(BLACK) [id number] Date(s): 12/24/17 - 12/24/17 [facility] [address] [address] Discharge Disposition: Home or Self Care Attending Physician: Nael Alanis MD Vital Signs No data available for [...] [employer]. On SSDI.. Previous employment/school: Worked for [employer] previously.. Other: Lives with mother and 1dog. [...]
--- OUTSIDE RECORDS SUMMARY | 2019-06-04 15:40 | XMS REPORT | Summary of Care ---
Author Author [facility] Organization [facility] Address Unknown Phone Unavailable Encounter NILESH Saucedo(FIN) [id number] Date(s): 02/03/18 - 02/04/18 [facility] [address], [address] [address] [phone] Vital Signs No data available for this [...] resulting in right hemiplegia and aphasia. Uses [employer]. On [employer] Previous employment/school: Worked for [employer] previously.. Other: Lives with mother and 1dog. [...]
--- OUTSIDE RECORDS SUMMARY | 2019-06-04 15:40 | XMS REPORT | Summary of Care ---
Author Author [facility] Organization [facility] Address Unknown Phone Unavailable Encounter HQ Sheryl(BLACK) [id number] Date(s): 01/03/18 - 01/04/18 [facility] [address] [place] [address]- Discharge Disposition: Home or Self Care Attending Physician: Jose Berumen DO Admitting Physician: Jose Berumen DO Vital Signs 1 2 3 Most recent to oldest [Reference Range]: 162.56 cm (01/03/18 5:20 PM) Height 97.6 DegF (01/04/18 11:39 AM) 97.2 DegF (01/04/18 8:11 AM) 97.9 DegF (01/04/18 5:16 AM) Temperature Oral [96.4-99.1 DegF] 118/80 mmHg (01/04/18 11:39 AM) 118/78 mmHg (01/04/18 8:11 AM) 111/84 mmHg (01/04/18 5:16 AM) Blood Pressure [90-140/60-90 mmHg] 20 BRMIN (01/04/18 11:39 AM) 20 BRMIN (01/04/18 8:11 AM) 18 BRMIN (01/04/18 5:16 AM) Respiratory Rate [14-20 BRMIN] 102 bpm *HI* (01/04/18 11:39 AM) 76 bpm (01/04/18 8:11 AM) 92 bpm (01/03/18 9:12 PM) Peripheral Pulse Rate [60-100 bpm] 68.182 kg (01/03/18 5:20 PM) 68.182 kg (01/03/18 5:19 PM) 68.182 kg (01/03/18 5:18 PM) Weight 25.8 m2 (01/03/18 5:20 PM) Body Mass Index Problem List Condition Effective Dates Status Health [...] Zantac Active Zoloft Active Zanaflex Active Medications acetaminophen 650 mg, 2 tab, Route: PO, Drug form: TAB, Q4H, Dosing Weight 68.182, kg, PRN Annie n 1-3/Temp > 100.4 F, Start date: 01/03/18 17:57:00 CDT, Duration: 30 day, Stop date: 02/02/18 17:56:00 CDT Notes: Do not exceed 4 gm/day. (Same as: Tylenol) Start Date: 01/03/18 Stop Date: 01/04/18 Status: Discontinued amLODIPine 5 mg, 1 tab, Route: PO, Drug form: TAB, Daily, Dosing Weight 68.182, kg, Start d ate: 01/04/18 9:00:00 CDT, Duration: 30 day, Stop date: 02/02/18 9:00:00 CDT Notes: (Same as: Norvasc) Start Date: 01/04/18 Stop Date: 01/04/18 Status: Discontinued aspirin 81 mg tablet, enteric coated 81 mg, 1 tab, Route: PO, Drug form: ECTAB, Daily, Dosing Weight 68.182, kg, Star t date: 01/04/18 9:00:00 CDT, Duration: 30 day, Stop date: 02/02/18 9:00:00 CDT Notes: Do not crush or chew.(Same As: Ecotrin) Start Date: 01/04/18 Stop Date: 01/04/18 Status: Discontinued Benadryl 25 mg, 1 cap, Route: IVP, Drug form: CAP, ONCE, Dosing Weight 64.744, kg, Priori ty: STAT, Start date: 01/03/18 14:44:00 CDT, Stop date: 01/03/18 14:44:00 CDT Notes: (Same as: Benadryl) Start Date: 01/03/18 Stop Date: 01/03/18 Status: Completed docusate 100 mg, 1 cap, Route: PO, Drug form: CAP, BID, Dosing Weight 68.182, kg, PRN as needed for constipation, Start date: 01/03/18 17:57:00 CDT, Duration: 30 day, St op date: 02/02/18 17:56:00 CDT Notes: (Same as: Colace) (Do Not Crush) Start Date: 01/03/18 Stop Date: 01/04/18 Status: Discontinued gabapentin 300 mg oral capsule 300 mg, 1 cap, Route: PO, Drug form: CAP, Bedtime, Dosing Weight 68.182, kg, Sta rt date: 01/03/18 21:00:00 CDT, Duration: 30 day, Stop date: 02/01/18 21:00:00 C DT Notes: (Same as: Neurontin) Start Date: 01/03/18 Stop Date: 01/04/18 Status: Discontinued Omnipaque 350 100 ml, Route: IV, Drug Form: SOLN, Dosing Weight 64.744, kg, ONCE, STAT, Start date: 01/03/18 17:14:00 CDT, Stop date: 01/03/18 17:14:00 CDT Notes: (same as:Omnipaque 350).WASTE: F/P - Black; E - [facility] Trash [facility] Start Date: 01/03/18 Stop Date: 01/03/18 Status: Completed ondansetron 4 mg, 2 mL, Route: IVP, Drug form: INJ, Q6H, Dosing Weight 68.182, kg, PRN Nause a & Vomiting, Start date: 01/03/18 17:57:00 CDT, Duration: 30 day, Stop date: 02/02/18 17:56:00 CDT Notes: (Same as: Zofran) MEDICATION WASTE Product Size: 4 mgProduct Was alysha: ___ mg Start Date: 01/03/18 Stop Date: 01/04/18 Status: Discontinued Plavix 75 mg, 1 tab, Route: PO, Drug form: TAB, Daily, Dosing Weight 68.182, kg, Priori ty: NOW, Start date: 01/04/18 13:03:00 CDT, Duration: 30 day, Stop date: 8 9:00:00 CDT Notes: (Same As: Plavix) Start Date: 01/04/18 Stop Date: 01/04/18 Status: Discontinued Plavix 75 mg oral tablet 75 mg=1 tab, PO, Daily, # 30 tab, 0 Refill(s), Pharmacy: [facility] [id number] Start Date: 01/04/18 Status: Ordered pravastatin 10 mg, 0.5 tab, Route: PO, Drug form: TAB, Bedtime, Dosing Weight 68.182, kg, St art date: 01/03/18 21:00:00 CDT, Duration: 30 day, Stop date: 02/01/18 21:00:00 CDT Notes: (Same as: Pravachol) Start Date: 01/03/18 Stop Date: 01/04/18 Status: Discontinued Reglan 10 mg, 2 mL, Route: IVP, Drug form: INJ, ONCE, Dosing Weight 64.744, kg, Priorit y: STAT, Start date: 01/03/18 14:44:00 CDT, Stop date: 01/03/18 14:44:00 CDT Notes: (Same as: Reglan) Start Date: 01/03/18 Stop Date: 01/03/18 Status: Completed Saline Flush 0.9% 10 mL, Route: IVP, Drug Form: INJ, Dosing Weight 64.744, kg, PRN, PRN Line Flush , Start date: 01/03/18 14:43:00 CDT, Duration: 30 day, Stop date: 02/02/18 14:42 :00 CDT Notes: Same as: BD Posiflush Sterile Start Date: 01/03/18 Stop Date: 01/04/18 Status: Discontinued Sodium Chloride 0.9% (Bolus) IV 1,000 mL, 1000 ml/hr, Infuse Over: 1 hr, Route: IV, 1,000, Drug form: INJ, ONCE, Priority: STAT, Dosing Weight 64.744 kg, Start date: 01/03/18 14:43:00 CDT, Stop date: 01/03/18 14:43:00 CDT Start Date: 01/03/18 Stop Date: 01/03/18 Status: Completed Results ELECTROLYTES Most recent to 1 oldest [Reference Range]: Sodium Lvl [135-145 142 mEq/L mEq/L] (01/03/18 3:30 PM) Potassium Lvl 4.2 mEq/L [3.5-5.1 mEq/L] (01/03/18 3:30 PM) Chloride Lvl [95-109 108 mEq/L mEq/L] (01/03/18 3:30 PM) CO2 [24-32 mEq/L] 26 mEq/L (01/03/18 3:30 PM) AGAP [10.0-20.0 12.2 mEq/L mEq/L] (01/03/18 3:30 PM) CHEM PANEL Most recent to 1 oldest [Reference Range]: Creatinine Lvl 0.80 mg/dL [0.50-1.40 mg/dL] (01/03/18 3:30 PM) eGFR 96 mL/min/1.73m2 1 *NA* (01/03/18 3:30 PM) BUN [7-22 mg/dL] 17 mg/dL (01/03/18 3:30 PM) B/C Ratio [6-25] 21 (01/03/18 3:30 PM) Glucose Lvl [70-99 81 mg/dL mg/dL] (01/03/18 3:30 PM) Total Protein 7.8 g/dL [6.4-8.4 g/dL] (01/03/18 3:30 PM) Albumin Lvl [3.5-5.0 3.8 g/dL g/dL] (01/03/18 3:30 PM) Globulin [2.7-4.2 4.0 g/dL g/dL] (01/03/18 3:30 PM) A/G Ratio [0.7-1.6] 1.0 (01/03/18 3:30 PM) Calcium Lvl 9.1 mg/dL [8.5-10.5 mg/dL] (01/03/18 3:30 PM) ALT [0-65 unit/L] 14 unit/L (01/03/18 3:30 PM) AST [0-37 unit/L] 11 unit/L (01/03/18 3:30 PM) Alk Phos [39-136 92 unit/L unit/L] (01/03/18 3:30 PM) Bili Total [0.2-1.3 0.7 mg/dL mg/dL] (01/03/18 3:30 PM) 1Result Comment: The eGFR is calculated [...] 1 oldest [Reference Range]: Total CK [12-191 79 unit/L unit/L] (01/03/18 3:30 PM) Troponin-I <0.02 ng/mL [0.00-0.40 ng/mL] (01/03/18 3:30 PM) HEMATOLOGY Most recent to 1 oldest [Reference Range]: WBC [3.7-10.4 K/CMM] 5.5 K/CMM (01/03/18 3:30 PM) RBC [4.20-5.40 5.48 M/CMM M/CMM] *HI* (01/03/18 3:30 PM) Hgb [12.0-16.0 g/dL] 15.1 g/dL (01/03/18 3:30 PM) Hct [36.0-48.0 %] 46.4 % (01/03/18 3:30 PM) MCV [80.0-98.0 fL] 84.8 fL (01/03/18 3:30 PM) MCH [27.0-31.0 pg] 27.6 pg (01/03/18 3:30 PM) MCHC [32.0-36.0 32.5 g/dL g/dL] (01/03/18 3:30 PM) RDW [11.5-14.5 %] 15.8 % *HI* (01/03/18 3:30 PM) MPV [7.4-10.4 fL] 10.4 fL (01/03/18 3:30 PM) Platelet [133-450 180 K/CMM K/CMM] (01/03/18 3:30 PM) Segs [45.0-75.0 %] 66.8 % (01/03/18 3:30 PM) Lymphocytes 24.0 % [20.0-40.0 %] (01/03/18 3:30 PM) Monocytes [2.0-12.0 6.9 % %] (01/03/18 3:30 PM) Eosinophils [0.0-4.0 1.1 % %] (01/03/18 3:30 PM) Basophils [0.0-1.0 1.2 % %] *HI* (01/03/18 3:30 PM) Segs-Bands # 3.6 K/CMM [1.5-8.1 K/CMM] (01/03/18 3:30 PM) Lymphocytes # 1.3 K/CMM [1.0-5.5 K/CMM] (01/03/18 3:30 PM) Monocytes # [0.0-0.8 0.4 K/CMM K/CMM] (01/03/18 3:30 PM) Eosinophils # 0.1 K/CMM [0.0-0.5 K/CMM] (01/03/18 3:30 PM) Basophils # [0.0-0.2 0.1 K/CMM K/CMM] (01/03/18 3:30 PM) PT [12.0-14.7 13.4 seconds seconds] (01/03/18 3:30 PM) INR [0.85-1.17] 1.02 (01/03/18 3:30 PM) PTT [22.9-35.8 29.4 seconds seconds] (01/03/18 3:30 PM) Immunizations Given and Recorded Vaccine Date [...] resulting in right hemiplegia and aphasia. Uses [employer]. On [employer] Previous employment/school: Worked for [employer] previously.. Other: Lives with mother and 1dog. Has 2 brothers who are not helpful. Has 1 daughter aged 25, not involved. Uncle does provide some assistance.. Alcohol Current Smoking Status Never smoker; Exposure to Tobacco Smoke None; Cigarette Smoking Last 365 Days No; Reg Smoking Cessation Counseling No entered on: 01/03/18 Assessment and Plan Extracted from: Title: Progress Note Author: Sravani Larson Date: 01/04/18 Progress Note - Daily [facility] Completed: Dec, 11:29 by Sravani Larson RM: 36 - 1, MAYELA ROGERS [id number] (: 1965) F Attending: Jose Berumen DOPhone: Service: Internal Medicine Reason for Admission: BLURRY [...] 5 Biceps: (L) 5 Triceps: (L) 5 Apartment Maintenance Technician: (L) 5 Iliopsoas: (R) 3-4/(L) 5 Quadriceps: (R) 3-4/(L) 5 Tibialis Anterior: (R) 1-2/(L) 5 Extensor hallucus longus: (R) 1-2/(L) 5 Gastrocnemius: (R) 2-3/(L) 5 Gait: deferred 24hr Labs 01/03 1530 Sodium Ujo668 Potassium Lvl4.2 Chloride Eka448 CO226 AGAP12.2 Glucose Lvl81 Creatinine Lvl0.80 BUN17 B/C Ratio21 Total Protein7.8 Albumin Lvl3.8 Globulin4.0 A/G Ratio1.0 Calcium Lvl9.1 ALT14 AST11 Alk Phos92 Bili Total0.7 eGFR96 Total CK79 Troponin-I<0.02 WBC5.5 RBC5.48 H Hgb15.1 Hct46.4 MCV84.8 MCH27.6 MCHC32.5 RDW15.8 H Fpyzcktq406 MPV10.4 Segs66.8 Monocytes6.9 Psaaqotresc94.0 Eosinophils1.1 Basophils1.2 H Segs-Bands #3.6 Lymphocytes #1.3 Monocytes #0.4 Eosinophils #0.1 Basophils #0.1 PT13.4 INR1.02 PTT29.4 VitalsTmp(F)[id number] 01/04 08:1197.534901/216268--- 01/04 05:1697.351432/951869--- 01/04 00:0198.793118/888830--- 01/03 21:1298.631695/112--100--- 01/03 18:4497.901664/417960--- 24 Hr Tmax: 98.3F (36.83c) at 01/04 00:01Vital Signs are the last 5 in the past 48 hours. DateWt(kg)Wt(lb)Ht(cm)Ht(in)Method 01/03 (initial) 68.18 150.80885.56 64.00Estimated I&ORecordInOutBal 1624hr Tot 0 0 0 1524hr Tot 1110 0 1110 Medications (12) Active [...] IVP ONCE Continuous Infusions: None ASSESSMENT Ms. 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 MRI brain and CTA brain did not demonstrate any acute changes, c evidence of chronic L MCA/SHAYNE territory encephalomalacia and multifocal intracranial stenosis (and occlusion of L SHAYNE). Given history and findings, pt's presentation of LOWERY/blurred vision not related to acute intracranial process. PLAN & TREATMENT -- neuro as described above -- [...] Sravani Larson PA-C on behalf of Dr. Guillermo Alvarez. Thank you for including us in the care of this patient. Addendum I saw and evaluated the patient. I agree with the findings and the plan of care as by documented in the note. Bradley Alvarez MD on 01/04/2018 21:31 Extracted from: Title: General Admission H&P * Author: Jose Berumen [...] leaves as well. Dispo: observation status Extracted from: Title: Neurology Consult Note Author: Coreen Jaeger MD Date: 01/03/18 50 y/oright handedAfricanAmerican womanwith HTN, craniotomy s/p cerebral aneurysm, and prior stroke (L MCA in 1999) left sided headache and blurry vision x 2 weeks and poor historian 1. Blurry vision and headache . MRI brain 2. neurology will follow Addendum by Heide, 2. history of aneurysm Coreen . CTA brain. Zuleyma CHAMORRO on 01/03/2018 17:05 CDT
--- OUTSIDE RECORDS SUMMARY | 2019-06-04 15:40 | XMS REPORT | Summary of Care ---
Author Author [facility] Organization [facility] Address Unknown Phone Unavailable Encounter NILESH Saucedo(BLACK) [id number] Date(s): 01/13/18 - 01/14/18 [facility] [address], [address] [address]- [phone] Vital Signs No data available for this [...] resulting in right hemiplegia and aphasia. Uses [employer]. On [employer] Previous employment/school: Worked for [employer] previously.. Other: Lives with mother and 1dog. [...]
--- OUTSIDE RECORDS SUMMARY | 2019-06-04 15:41 | XMS REPORT | Summary of Care ---
Author Author [facility] Organization [facility] Address Unknown Phone Unavailable Encounter NILESH Saucedo(BLACK) [id number] Date(s): 05/23/18 - 05/25/18 [facility] [id number] [place] [address]- Encounter Diagnosis Nausea with vomiting, unspecified (Final) - 05/31/18 Unspecified abdominal pain (Final) - Acute embolism and thrombosis of right femoral vein (Final) - Essential (primary) hypertension (Final) - Diverticulosis of large intestine without perforation or abscess without bleedin g (Final) - Bed confinement status (Final) - Hyperosmolality and hypernatremia (Final) - Aphasia following cerebral infarction (Final) - Hemiplegia and hemiparesis following cerebral infarction affecting right dominan t side (Final) - Hyperlipidemia, unspecified (Final) - Hypokalemia (Final) - Other specified inflammatory liver diseases (Final) - Internuclear ophthalmoplegia, left eye (Final) - detention (current) use of anticoagulants (Final) - 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/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 (Final) - Discharge Disposition: Home Care with Home Health Attending Physician: Maco Lowery MD Admitting Physician: Maco Lowery MD Vital Signs 1 2 3 Most recent to oldest [Reference Range]: 162.56 cm (05/24/18 1:39 AM) 162.56 cm (05/24/18 12:36 AM) Height 55.625 kg (05/24/18 1:39 AM) 60.994 kg (05/24/18 12:45 AM) Current Weight 98.6 DegF (05/25/18 8:05 PM) 98.5 DegF (05/25/18 4:00 PM) 98.2 DegF (05/25/18 8:00 AM) Temperature Oral [96.4-99.1 DegF] 131/83 mmHg (05/25/18 8:05 PM) 145/82 mmHg *HI* (05/25/18 4:00 PM) 142/87 mmHg *HI* (05/25/18 8:00 AM) Blood Pressure [90-140/60-90 mmHg] 16 BRMIN (05/25/18 8:05 PM) 18 BRMIN (05/25/18 4:00 PM) 18 BRMIN (05/25/18 8:00 AM) Respiratory Rate [14-20 BRMIN] 89 bpm (05/25/18 8:05 PM) 77 bpm (05/25/18 4:00 PM) 78 bpm (05/25/18 8:00 AM) Peripheral Pulse Rate [60-100 bpm] 55.625 kg (05/24/18 12:36 AM) Weight 21.05 m2 (05/24/18 12:36 AM) Body Mass Index Problem List Condition Effective [...] ed) Internuclear Active ophthalmoplegia of left eye(Confirmed) Moderate Active protein-calorie malnutrition(Confirm ed) Paralysis(Confirmed) Resolved Other muscle Resolved spasm(Confirmed) 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(Confirmed) Stroke(Confirmed) Active Allergies, Adverse Reactions, Alerts Substance Reaction Severity Status Zantac Active Zoloft Active Zanaflex Active Medications amLODIPine 5 mg, 1 tab, Route: PO, Drug form: TAB, Daily, Dosing Weight 55.625, kg, Start d ate: 05/25/18 9:00:00 CDT, Duration: 30 day, Stop date: 06/23/18 9:00:00 CDT Notes: (Same as: Norvasc) Start Date: 05/25/18 Stop Date: 05/26/18 Status: Discontinued D5W 1,000 mL 1,000 mL, Rate: 75 ml/hr, Infuse over: 13.3 hr, Route: IV, Dosing Weight 55.625 kg, Total Volume: 1,000, Start date: 05/24/18 15:51:00 CDT, Duration: 30 day, St op date: 06/23/18 15:50:00 CDT, 1.6, m2 Start Date: 05/24/18 Stop Date: 05/25/18 Status: Discontinued Eliquis 10 mg, 2 tab, Route: PO, Drug form: TAB, ONCE, Dosing Weight 55.625, kg, Start d ate: 05/25/18 21:00:00 CDT, Stop date: 05/25/18 21:00:00 CDT Notes: Same as: Eliquis Start Date: 05/25/18 Stop Date: 05/25/18 Status: Completed Eliquis 5 mg, Route: PO, Drug form: TAB, ONCE, Dosing Weight 55.625, kg, Start date: 01/06 17:00:00 CDT, Stop date: 05/25/18 17:00:00 CDT Start Date: 05/25/18 Stop Date: 05/25/18 Status: Discontinued Eliquis 5 mg oral tablet 5 mg, PO, Q12H, # 60 tab, 0 Refill(s) Start Date: 05/25/18 Stop Date: 05/25/18 Status: Discontinued Eliquis 5 mg oral tablet 10 mg=2 tab, PO, Q12H, Please take Eliquis 10 mg twice daily for 7 days then Marilee andre 5 mg twice daily, # 28 tab, 0 Refill(s) Start Date: 05/25/18 Stop Date: 10/23/18 Status: Completed Eliquis 5 mg oral tablet 5 mg, PO, Q12H, # 60 tab, 1 Refill(s) Start Date: 05/25/18 Stop Date: 10/23/18 Status: Completed enoxaparin 60 mg, 0.6 mL, Route: SUB-Q, Drug form: INJ, [id number], Dosing Weight 55.625, kg, Start date: 05/24/18 12:00:00 CDT, Duration: 30 day, Stop date: 06/23/18 0:00:00 CDT Notes: Nurse to ensure documentation of patient education per anticoagulation po licy. (Same as: Lovenox) Start Date: 05/24/18 Stop Date: 05/25/18 Status: Discontinued gabapentin 300 mg oral capsule 300 mg, 1 cap, Route: PO, Drug form: CAP, Q8H, Dosing Weight 55.625, kg, Start d ate: 05/25/18 0:00:00 CDT, Duration: 30 day, Stop date: 06/23/18 16:00:00 CDT Notes: (Same as: Neurontin) Start Date: 05/25/18 Stop Date: 05/26/18 Status: Discontinued gemfibrozil 600 mg, 1 tab, Route: PO, Drug form: TAB, Daily, Dosing Weight 55.625, kg, Start date: 05/25/18 9:00:00 CDT, Duration: 30 day, Stop date: 06/23/18 9:00:00 CDT Notes: (Same as: Lopid) Start Date: 05/25/18 Stop Date: 05/26/18 Status: Discontinued Heparin - one time bolus for DVT/PE 4,000 unit, Route: IVP, Drug form: INJ, ONCE, Dosing Weight 79.545, kg, Priority : STAT, Start date: 05/23/18 22:21:00 CDT, Stop date: 05/23/18 22:21:00 CDT Start Date: 05/23/18 Stop Date: 05/23/18 Status: Discontinued Heparin 40 unit/kg Bolus (Heparin Dosing Weight) Pharmacy To Manage, Route: IVP, PRN, Drug form: INJ, PRN, Heparin Protocol, Star t date: 05/23/18 22:21:00 CDT Stop date: 06/22/18 22:20:00 CDT, 30 day Start Date: 05/23/18 Stop Date: 05/23/18 Status: Discontinued Heparin 80 unit/kg Bolus (Heparin Dosing Weight) Pharmacy To Manage, Route: IVP, PRN, Drug form: INJ, PRN, Heparin Protocol, Star t date: 05/23/18 22:21:00 CDT Stop date: 06/22/18 22:20:00 CDT, 30 day Start Date: 05/23/18 Stop Date: 05/23/18 Status: Discontinued heparin additive 25,000 unit [18 unit/kg/hr] + Premix Diluent Dextrose 5% 500 mL 500 mL, Rate: 28.64 ml/hr, Infuse over: 17.5 hr, Route: IV, Dosing Weight 79.545 kg, Total Volume: 500 mL, Start date: 05/23/18 22:21:00 CDT, Duration: 30 day, Stop date: 06/22/18 22:20:00 CDT, 1.96, m2 Start Date: 05/23/18 Stop Date: 05/23/18 Status: Discontinued hydrOXYzine 25 mg=1 tab, PO, Q6H, PRN rash / allergy symptoms, 0 Refill(s) Start Date: 05/24/18 Stop Date: 10/23/18 Status: Deleted Lovenox 80 mg, Route: SUB-Q, Drug form: INJ, ONCE, Dosing Weight 79.545, kg, Priority: S TAT, Start date: 05/23/18 22:38:00 CDT, Stop date: 05/23/18 22:38:00 CDT Start Date: 05/23/18 Stop Date: 05/23/18 Status: Completed Omnipaque 300 injectable solution 100 mL, Route: IVP, Drug Form: SOLN, Dosing Weight 55.625, kg, ONCALL, GFR > 45 mL/min, Start date: 05/24/18 3:00:00 CDT, Duration: 1 doses or times Notes: (Same as:Omnipaque 300).WASTE: F/P - Black; E - Municipal Trash Bin Start Date: 05/24/18 Stop Date: 05/26/18 Status: Discontinued Phenergan + Sodium Chloride 0.9% IV 50 mL 25 mg, 1 mL, Route: IV Central, Q6H, Dosing Weight 55.625, kg, PRN Nausea & Vomiting, Priority: NOW, Start date: 05/24/18 8:58:00 CDT, Duration: 30 day, St op date: 06/23/18 8:57:00 CDT Notes: Do not give IV push. (Same as: Phenergan) Start Date: 05/24/18 Stop Date: 05/26/18 Status: Discontinued Plavix 75 mg, 1 tab, Route: PO, Drug form: TAB, Daily, Dosing Weight 55.625, kg, Start date: 05/25/18 9:00:00 CDT, Duration: 30 day, Stop date: 06/23/18 9:00:00 CDT Notes: (Same As: Plavix) Start Date: 05/25/18 Stop Date: 05/26/18 Status: Discontinued potassium chloride 20 mEq oral tablet, extended release 40 mEq, 2 tab, Route: PO, Drug form: ERTAB, ONCE, Dosing Weight 55.625, kg, Star t date: 05/24/18 15:57:00 CDT, Stop date: 05/24/18 15:57:00 CDT Notes: (Same as: K-Dur 20)"Do Not Crush"For patients unable to swallow tablet, d issolve in one half glass of water. Allow about 2 minutes for the tablets to dis integrate. Stir before giving to prepare slurry and administer.Please exclude Pa tients with feeding tube less than 14 Polish (Dobhoff, J-tube etc) and pediat chuy and patients. With food and full glass of water Start Date: 05/24/18 Stop Date: 05/24/18 Status: Completed pravastatin 10 mg, 0.5 tab, Route: PO, Drug form: TAB, Bedtime, Dosing Weight 55.625, kg, St art date: 05/24/18 21:00:00 CDT, Duration: 30 day, Stop date: 06/22/18 21:00:00 CDT Notes: (Same as: Pravachol) Start Date: 05/24/18 Stop Date: 05/26/18 Status: Discontinued Reglan 10 mg, 2 mL, Route: IVP, Drug form: INJ, ONCE, Dosing Weight 79.545, kg, Start d ate: 05/23/18 19:38:00 CDT, Stop date: 05/23/18 19:38:00 CDT Notes: (Same as: Reglan) Start Date: 05/23/18 Stop Date: 05/23/18 Status: Completed Tylenol with Codeine #3 oral tablet 1 - 2 tab, PO, Q8H, PRN Pain, # 32 tab, 0 Refill(s) Start Date: 05/24/18 Stop Date: 10/23/18 Status: Deleted Zofran 4 mg, Route: IVP, Drug form: INJ, Q8H, Dosing Weight 55.625, kg, PRN Nausea, Sta rt date: 05/24/18 8:58:00 CDT, Duration: 30 day, Stop date: 06/23/18 8:57:00 CDT Start Date: 05/24/18 Stop Date: 05/24/18 Status: Discontinued Zofran 4 mg, 2 mL, Route: IVP, Drug form: INJ, [id number], Dosing Weight 55.625, kg, PRN Na usea, Start date: 05/24/18 9:00:00 CDT, Duration: 30 day, Stop date: 06/23/18 8: 59:00 CDT Notes: (Same as: Zofran) MEDICATION WASTE Product Size: 4 mgProduct Was alysha: ___ mg Start Date: 05/24/18 Stop Date: 05/26/18 Status: Discontinued Results ELECTROLYTES 1 2 3 Most recent to oldest [Reference Range]: 142 mEq/L (05/25/18 5:08 AM) 150 mEq/L *HI* (05/24/18 7:01 AM) 146 mEq/L *HI* (05/23/18 9:45 PM) Sodium Lvl [135-145 mEq/L] 3.9 mEq/L (05/25/18 5:08 AM) 3.5 mEq/L (05/24/18 7:01 AM) 3.2 mEq/L *LOW* (05/23/18 9:45 PM) Potassium Lvl [3.5-5.1 mEq/L] 109 mEq/L (05/25/18 5:08 AM) 110 mEq/L *HI* (05/24/18 7:01 AM) 109 mEq/L (05/23/18 9:45 PM) Chloride Lvl [95-109 mEq/L] 27 mEq/L (05/25/18 5:08 AM) 28 mEq/L (05/24/18 7:01 AM) 31 mEq/L (05/23/18 9:45 PM) CO2 [24-32 mEq/L] 9.9 mEq/L *LOW* (05/25/18 5:08 AM) 15.5 mEq/L (05/24/18 7:01 AM) 9.2 mEq/L *LOW* (05/23/18 9:45 PM) AGAP [10.0-20.0 mEq/L] CHEM PANEL 1 2 3 Most recent to oldest [Reference Range]: 0.82 mg/dL (05/25/18 5:08 AM) 0.74 mg/dL (05/24/18 7:01 AM) 0.72 mg/dL (05/23/18 9:45 PM) Creatinine Lvl [0.50-1.40 mg/dL] 92 mL/min/1.73m2 1 *NA* (05/25/18 5:08 AM) 106 mL/min/1.73m2 2 *NA* (05/24/18 7:01 AM) 109 mL/min/1.73m2 3 *NA* (05/23/18 9:45 PM) eGFR 13 mg/dL (05/25/18 5:08 AM) 10 mg/dL (05/24/18 7:01 AM) 10 mg/dL (05/23/18 9:45 PM) BUN [7-22 mg/dL] 14 (05/23/18 9:45 PM) B/C Ratio [6-25] 74 mg/dL (05/25/18 5:08 AM) 84 mg/dL (05/24/18 7:01 AM) 89 mg/dL (05/23/18 9:45 PM) Glucose Lvl [70-99 mg/dL] 6.9 g/dL (05/23/18 9:45 PM) Total Protein [6.4-8.4 g/dL] 3.4 g/dL *LOW* (05/23/18 9:45 PM) Albumin Lvl [3.5-5.0 g/dL] 3.5 g/dL (05/23/18 9:45 PM) Globulin [2.7-4.2 g/dL] 1.0 (05/23/18 9:45 PM) A/G Ratio [0.7-1.6] 8.5 mg/dL (05/25/18 5:08 AM) 9.1 mg/dL (05/24/18 7:01 AM) 9.5 mg/dL (05/23/18 9:45 PM) Calcium Lvl [8.5-10.5 mg/dL] 12 unit/L (05/23/18 9:45 PM) ALT [0-65 unit/L] 16 unit/L (05/23/18 9:45 PM) AST [0-37 unit/L] 61 unit/L (05/23/18 9:45 PM) Alk Phos [39-136 unit/L] 1.0 mg/dL (05/23/18 9:45 PM) Bili Total [0.2-1.3 mg/dL] 79 unit/L (05/23/18 9:45 PM) Lipase Lvl [73-393 unit/L] 1.3 mMol/L (05/23/18 9:04 PM) Lactic Acid Lvl [0.5-2.2 mMol/L] 1Result Comment: The eGFR is calculated using [...] be mul tiplied by the estimated BMI. 2Result Comment: The eGFR is calculated using the [...] be mul tiplied by the estimated BMI. 3Result Comment: The eGFR is calculated using the [...] by the estimated BMI. URINE AND STOOL 1 2 3 Most recent to oldest [Reference Range]: Marked *ABN* (05/23/18 8:46 PM) UA Turbidity [Clear] Yellow *NA* (05/23/18 8:46 PM) UA Color [Yellow] 8.0 (05/23/18 8:46 PM) UA pH [5.0-8.0] 1.010 (05/23/18 8:46 PM) UA Spec Grav [<=1.030] Negative mg/dL *NA* (05/23/18 8:46 PM) UA Glucose [Negative mg/dL] Negative (05/23/18 8:46 PM) UA Blood [Negative] Negative mg/dL *NA* (05/23/18 8:46 PM) UA Ketones [Negative mg/dL] Negative mg/dL (05/23/18 8:46 PM) UA Protein [Negative mg/dL] <=1.0 mg/dL *NA* (05/23/18 8:46 PM) UA Urobilinogen [0.1-1.0 mg/dL] Negative *NA* (05/23/18 8:46 PM) UA Bili [Negative] Negative (05/23/18 8:46 PM) UA Leuk Est [Negative] Negative (05/23/18 8:46 PM) UA Nitrite [Negative] <1 /HPF (05/23/18 8:46 PM) UA WBC [0-5 /HPF] <1 /HPF (05/23/18 8:46 PM) UA RBC [0-2 /HPF] Occasional /LPF *NA* (05/23/18 8:46 PM) UA Sq Epi [Few /LPF] Few /HPF *NA* (05/23/18 8:46 PM) UA Amorph Akiko [None Seen /HPF] HEMATOLOGY 1 2 3 Most recent to oldest [Reference Range]: 4.7 K/CMM (05/25/18 5:08 AM) 4.7 K/CMM (05/24/18 7:01 AM) 5.5 K/CMM (05/23/18 9:04 PM) WBC [3.7-10.4 K/CMM] 4.48 M/CMM (05/25/18 5:08 AM) 4.73 M/CMM (05/24/18 7:01 AM) 5.42 M/CMM *HI* (05/23/18 9:04 PM) RBC [4.20-5.40 M/CMM] 12.7 g/dL (05/25/18 5:08 AM) 14.0 g/dL (05/24/18 7:01 AM) 15.5 g/dL (05/23/18 9:04 PM) Hgb [12.0-16.0 g/dL] 39.4 % (05/25/18 5:08 AM) 41.8 % (05/24/18 7:01 AM) 47.9 % (05/23/18 9:04 PM) Hct [36.0-48.0 %] 88.0 fL (05/25/18 5:08 AM) 88.3 fL (05/24/18 7:01 AM) 88.4 fL (05/23/18 9:04 PM) MCV [80.0-98.0 fL] 28.4 pg (05/25/18 5:08 AM) 29.6 pg (05/24/18 7:01 AM) 28.5 pg (05/23/18 9:04 PM) MCH [27.0-31.0 pg] 32.3 g/dL (05/25/18 5:08 AM) 33.5 g/dL (05/24/18 7:01 AM) 32.3 g/dL (05/23/18 9:04 PM) MCHC [32.0-36.0 g/dL] 17.3 % *HI* (05/25/18 5:08 AM) 16.9 % *HI* (05/24/18 7:01 AM) 17.2 % *HI* (05/23/18 9:04 PM) RDW [11.5-14.5 %] 10.6 fL *HI* (05/25/18 5:08 AM) 10.2 fL (05/24/18 7:01 AM) 10.7 fL *HI* (05/23/18 9:04 PM) MPV [7.4-10.4 fL] 162 K/CMM (05/25/18 5:08 AM) 155 K/CMM (05/24/18 7:01 AM) 200 K/CMM (05/23/18 9:04 PM) Platelet [133-450 K/CMM] 38.4 % *LOW* (05/24/18 7:01 AM) 51.2 % (05/23/18 9:04 PM) Segs [45.0-75.0 %] 44.4 % *HI* (05/24/18 7:01 AM) 35.5 % (05/23/18 9:04 PM) Lymphocytes [20.0-40.0 %] 12.6 % *HI* (05/24/18 7:01 AM) 9.5 % (05/23/18 9:04 PM) Monocytes [2.0-12.0 %] 3.2 % (05/24/18 7:01 AM) 2.7 % (05/23/18 9:04 PM) Eosinophils [0.0-4.0 %] 1.4 % *HI* (05/24/18 7:01 AM) 1.1 % *HI* (05/23/18 9:04 PM) Basophils [0.0-1.0 %] 1.8 K/CMM (05/24/18 7:01 AM) 2.8 K/CMM (05/23/18 9:04 PM) Neutrophils # [1.5-8.1 K/CMM] 2.1 K/CMM (05/24/18 7:01 AM) 2.0 K/CMM (05/23/18 9:04 PM) Lymphocytes # [1.0-5.5 K/CMM] 0.6 K/CMM (05/24/18 7:01 AM) 0.5 K/CMM (05/23/18 9:04 PM) Monocytes # [0.0-0.8 K/CMM] 0.1 K/CMM (05/24/18 7:01 AM) 0.1 K/CMM (05/23/18 9:04 PM) Eosinophils # [0.0-0.5 K/CMM] 0.1 K/CMM (05/24/18 7:01 AM) 0.1 K/CMM (05/23/18 9:04 PM) Basophils # [0.0-0.2 K/CMM] 14.7 seconds (05/24/18 7:01 AM) 13.2 seconds 1 (05/23/18 9:04 PM) PT [12.0-14.7 seconds] 1.15 (05/24/18 7:01 AM) 1.00 (05/23/18 9:04 PM) INR [0.85-1.17] 39.6 seconds *HI* (05/24/18 7:01 AM) 26.2 seconds (05/23/18 9:04 PM) PTT [22.9-35.8 seconds] 1Result Comment: Specimen slightly hemolyzed. 05/23/2018 21:31 [facility] Microbiology Reports TEST: Culture: Urine STATUS: Auth (Verified) BODY SITE: SOURCE: Urine, Straight Cath COLLECTED DATE/TIME: 05/23/18 8:47 PM FINAL REPORT No Growth Immunizations Given and Recorded Vaccine Date Status [...] resulting in right hemiplegia and aphasia. Uses [facility] [facility]. On [employer].. Previous employment/school: Worked for [employer] previously.. Other: Lives with mother and 1dog. Has 2 brothers who are not helpful. Has 1 daughter aged 25, not involved. Uncle does provide some assistance.. Alcohol Past, Last use: 2009. Smoking Status Never smoker; Exposure to Tobacco Smoke None; Cigarette Smoking Last 365 Days No; Reg Smoking Cessation Counseling No entered on: 10/27/18 Assessment and Plan Extracted from: Title: HemOnc Author: Myah Hernandez MD Date: 05/25/18 Impression and Plan Ms. Enrique is a 53-year-old female with known history [...] be available. Please call with questions. Extracted from: Title: Discharge Summary * Author: Maco Lowery MD Date: 05/25/18 Discharge Information Disposition to home Condition stable Medications: See med reconciliation form Diet: Heart healthy Discharge Plan In the event of any worsening symptoms patient was to come back to the ED for further evaluation Discharge summary to greater than 35 minutes Extracted from: Title: Clinical Document Author: Panchito Ceballos MD Date: 05/24/18 full H&P dictated, #[id number] date/time: 05/24/2018 01:29
--- OUTSIDE RECORDS SUMMARY | 2019-06-04 15:41 | XMS REPORT | Summary of Care ---
Author Author [facility] Organization [facility] Address Unknown Phone Unavailable Encounter NILESH Saucedo(BLACK) [id number] Date(s): 10/23/18 - 11/04/18 [facility] [id number] [place] [address]- Discharge Disposition: Acute Care Attending Physician: Ziggy Gillette MD Admitting Physician: Ziggy Gillette MD Vital Signs 1 2 3 Most recent to oldest [Reference Range]: 160.02 cm (10/28/18 3:38 PM) 160.02 cm (10/26/18 11:55 AM) 160.02 cm (10/26/18 6:57 AM) Height 58.9 kg (10/25/18 3:21 PM) 55.6 kg (10/24/18 5:25 AM) Current Weight 98.4 DegF (11/04/18 3:10 PM) 98.2 DegF (11/04/18 11:14 AM) 98.5 DegF (11/04/18 7:45 AM) Temperature Oral [96.4-99.1 DegF] 108/80 mmHg (11/04/18 3:10 PM) 130/98 mmHg (11/04/18 11:14 AM) 118/74 mmHg (11/04/18 7:45 AM) Blood Pressure [90-140/60-90 mmHg] 16 BRMIN (11/04/18 3:10 PM) 17 BRMIN (11/04/18 11:14 AM) 17 BRMIN (11/04/18 7:45 AM) Respiratory Rate [14-20 BRMIN] 92 bpm (11/04/18 3:10 PM) 78 bpm (11/04/18 11:14 AM) 107 bpm *HI* (11/04/18 7:45 AM) Peripheral Pulse Rate [60-100 bpm] 52.091 kg (10/28/18 3:38 PM) 59.4 kg (10/24/18 8:20 AM) 54.545 kg (10/23/18 7:25 PM) Weight 20.34 m2 (10/28/18 3:38 PM) 21.3 m2 (10/23/18 7:25 PM) Body Mass Index Problem List Condition [...] Zantac Active Zoloft Active Zanaflex Active Medications calcium carbonate 500 mg (200 mg elemental calcium) oral tablet 500 mg, 1 tab, Route: PO, Drug form: CHEWTAB, PRN, Dosing Weight 59.4, kg, PRN A bnormal Lab Result, FOR ICU USE ONLY, Start date: 10/24/18 11:25:00 METALLURGICAL TESTER, Duratio n: 30 day, Stop date: 11/23/18 11:24:00 METALLURGICAL TESTER Notes: (Same As: Tums)Calcium Carbonate 500 ro=104 mg elemental calcium Dose=_ mg calcium carbonate ( mg elemental calcium) Start Date: 10/24/18 Stop Date: 10/27/18 Status: Discontinued calcium carbonate 500 mg (200 mg elemental calcium) oral tablet 1,000 mg, 2 tab, Route: PO, Drug form: CHEWTAB, PRN, Dosing Weight 59.4, kg, PRN Abnormal Lab Result, FOR ICU USE ONLY, Start date: 10/24/18 11:25:00 METALLURGICAL TESTER, Durat ion: 30 day, Stop date: 11/23/18 11:24:00 METALLURGICAL TESTER Notes: (Same As: Tums)Calcium Carbonate 500 wg=268 mg elemental calcium Dose=_ mg calcium carbonate ( mg elemental calcium) Start Date: 10/24/18 Stop Date: 10/27/18 Status: Discontinued calcium gluconate 1 gm, 50 mL, Route: IVPB, Drug form: INJ, PRN, Dosing Weight 59.4, kg, PRN Abnor mal Lab Result, Start date: 10/24/18 11:25:00 METALLURGICAL TESTER, Duration: 30 day, Stop date: 11/23/18 11:24:00 METALLURGICAL TESTER, FOR ICU USE ONLY Notes: WASTE: F/P - Sink; E - Municipal Trash Bin Start Date: 10/24/18 Stop Date: 10/27/18 Status: Discontinued calcium gluconate + Sodium Chloride 0.9% IV 100 mL 2 gm, 20 mL, Route: IVPB, PRN, Dosing Weight 59.4, kg, PRN Abnormal Lab Result, For NON-ICU Patients Only., Start date: 10/27/18 15:39:00 METALLURGICAL TESTER, Duration: 30 day, Stop date: 11/26/18 15:38:00 METALLURGICAL TESTER Notes: WASTE: F/P - Sink; E - Municipal Trash Bin Start Date: 10/27/18 Stop Date: 11/04/18 Status: Discontinued calcium gluconate + Sodium Chloride 0.9% IV 100 mL 3 gm, 30 mL, Route: IVPB, PRN, Dosing Weight 59.4, kg, PRN Abnormal Lab Result, For NON-ICU Patients Only., Start date: 10/27/18 15:39:00 METALLURGICAL TESTER, Duration: 30 day, Stop date: 11/26/18 15:38:00 METALLURGICAL TESTER Notes: WASTE: F/P - Sink; E - Municipal Trash Bin Start Date: 10/27/18 Stop Date: 11/04/18 Status: Discontinued cefepime + sterile water 20 mL 2 gm, Route: IVP, ONCE, Dosing Weight 54.545, kg, Priority: STAT, Start date: 13:17:00 METALLURGICAL TESTER, Stop date: 10/23/18 13:17:00 METALLURGICAL TESTER, ABX Indication: Pneumonia Notes: (Same as: Maxipime) MEDICATION WASTE Product Size: 2000 mgProduc t Wasted: ___ mg Start Date: 10/23/18 Stop Date: 10/23/18 Status: Completed chlorhexidine topical 0.12% liquid 15 mL, Route: Swab Mouth, PRN, Drug form: LIQ, PRN Other -See Comment, Start kate e: 10/23/18 17:29:00 METALLURGICAL TESTER, Duration: 30 day, Stop date: 11/22/18 17:28:00 METALLURGICAL TESTER Notes: (Same As: Peridex) Start Date: 10/23/18 Stop Date: 10/27/18 Status: Discontinued chlorhexidine topical 0.12% liquid 15 mL, Route: Swab Mouth, Q12H, Drug form: LIQ, Start date: 10/23/18 21:00:00 CS T, Duration: 30 day, Stop date: 11/22/18 9:00:00 METALLURGICAL TESTER Notes: (Same As: Peridex) Start Date: 10/23/18 Stop Date: 10/27/18 Status: Discontinued docusate sodium 100 mg oral capsule 100 mg=1 cap, PO, BID Start Date: 10/23/18 Stop Date: 11/04/18 Status: Discontinued etomidate 20 mg, Route: IVP, ONCE, Dosing Weight 54.545, kg, Priority: STAT, Start date: 0 10/23/18 17:03:00 METALLURGICAL TESTER, Stop date: 10/23/18 17:03:00 METALLURGICAL TESTER Start Date: 10/23/18 Stop Date: 10/23/18 Status: Completed fentaNYL 50 microgram, 1 mL, Route: IVP, Drug form: INJ, Q2H, Dosing Weight 59.4, kg, PRN Pain Score 7-10, Start date: 10/25/18 7:55:00 METALLURGICAL TESTER, Duration: 30 day, Stop date: 11/24/18 7:54:00 METALLURGICAL TESTER Notes: (Same as: Sublimaze) Preservative free. Start Date: 10/25/18 Stop Date: 10/26/18 Status: Discontinued fentaNYL 25 microgram, 0.5 mL, Route: IVP, Drug form: INJ, Q2H, Dosing Weight 59.4, kg, P RN Pain Score 4-6, Start date: 10/25/18 7:55:00 METALLURGICAL TESTER, Duration: 30 day, Stop date : 11/24/18 7:54:00 METALLURGICAL TESTER Notes: (Same as: Sublimaze) Preservative free. Start Date: 10/25/18 Stop Date: 10/26/18 Status: Discontinued fentaNYL 12.5 microgram, 0.25 mL, Route: IVP, Drug form: INJ, Q2H, Dosing Weight 59.4, kg , PRN Pain Score 1-3, Start date: 10/25/18 7:55:00 METALLURGICAL TESTER, Duration: 30 day, Stop d ate: 11/24/18 7:54:00 METALLURGICAL TESTER Notes: (Same as: Sublimaze) Preservative free. Start Date: 10/25/18 Stop Date: 10/26/18 Status: Discontinued fentaNYL 1250 microgram in NS 250 mL (Titrate.) IV 1,250 microgram 1,250 microgram, 250 mL, Rate: Titrate, Start Dose: 50 microgram/hr, Titration: 25 microgram/hour every 15 minutes, Goal(s): RASS -2, Max Dose: 300 microgram/hr , Route: IV, Dosing Weight 54.545 kg, Total Volume: 250, Start date: 10/23/18 17 :18:00 METALLURGICAL TESTER,... Notes: Concentration: 5 microgram / ml Start Date: 10/23/18 Stop Date: 10/25/18 Status: Discontinued heparin 5,000 unit, 1 mL, Route: SUB-Q, Drug form: INJ, Q12H, Dosing Weight 59.4, kg, St art date: 10/26/18 21:00:00 METALLURGICAL TESTER, Duration: 30 day, Stop date: 11/25/18 9:00:[address] Notes: porcine heparin Start Date: 10/26/18 Stop Date: 11/01/18 Status: Discontinued hydrOXYzine hydrochloride 25 mg oral tablet 25 mg=1 tab, PO, BID Start Date: 10/23/18 Stop Date: 11/04/18 Status: Discontinued Keppra + Sodium Chloride 0.9% IV 100 mL 500 mg, Route: IVPB, Q12H, Dosing Weight 59.4, kg, Start date: 10/26/18 21:00:00 METALLURGICAL TESTER, Duration: 30 day, Stop date: 11/25/18 9:00:00 METALLURGICAL TESTER Notes: Same as KeppraMix with 100 mL NS, LR or D5W MEDICATION WASTE Prod uct Size: 500 mgProduct Wasted: ___ mg Start Date: 10/26/18 Stop Date: 11/01/18 Status: Discontinued Keppra 100 mg/mL oral solution 500 mg=5 mL, PO, Q12H, # 300 mL, 0 Refill(s), Pharmacy: [id number] Start Date: 11/04/18 Stop Date: 12/04/18 Status: Ordered Keppra 100 mg/mL oral solution 500 mg, 5 mL, Route: PO, Drug form: SOLN, Q12H, Dosing Weight 59.4, kg, Start da te: 10/25/18 9:00:00 METALLURGICAL TESTER, Duration: 30 day, Stop date: 11/23/18 21:00:00 METALLURGICAL TESTER Notes: Same as: Keppra Start Date: 10/25/18 Stop Date: 10/26/18 Status: Discontinued Keppra 100 mg/mL oral solution 500 mg=5 mL, PO, Q12H Start Date: 10/23/18 Stop Date: 11/04/18 Status: Discontinued Keppra 100 mg/mL oral solution 500 mg, 5 mL, Route: PO, Drug form: SOLN, Q12H, Dosing Weight 52.091, kg, Start date: 11/01/18 21:00:00 METALLURGICAL TESTER, Duration: 30 day, Stop date: 12/01/18 9:00:00 CDT Notes: Same as: Keppra Start Date: 11/01/18 Stop Date: 11/04/18 Status: Discontinued LR IV 1,000 mL 1,000 mL, Rate: 75 ml/hr, Infuse over: 13.3 hr, Route: IV, Dosing Weight 59.4 kg , Total Volume: 1,000, Start date: 10/24/18 11:21:00 METALLURGICAL TESTER, Duration: 30 day, Stop date: 11/23/18 11:20:00 METALLURGICAL TESTER, 1.64, m2 Start Date: 10/24/18 Stop Date: 10/26/18 Status: Discontinued magnesium oxide 800 mg, 2 tab, Route: PO, Drug form: TAB, PRN, Dosing Weight 59.4, kg, PRN Abnor mal Lab Result, For NON-ICU Patients Only., Start date: 10/27/18 15:39:00 METALLURGICAL TESTER, D uration: 30 day, Stop date: 11/26/18 15:38:00 METALLURGICAL TESTER Notes: (Same as: Mag-Ox 400)Magnesium oxide [id number] elemental magnesiumDose= ____mg magnesium oxide (___mg elemental magnesium) Start Date: 10/27/18 Stop Date: 11/04/18 Status: Discontinued magnesium oxide 800 mg, 2 tab, Route: PO, Drug form: TAB, PRN, Dosing Weight 59.4, kg, PRN Abnor mal Lab Result, FOR ICU USE ONLY, Start date: 10/24/18 11:25:00 METALLURGICAL TESTER, Duration: 3 0 day, Stop date: 11/23/18 11:24:00 METALLURGICAL TESTER Notes: (Same as: Mag-Ox 400)Magnesium oxide [id number] elemental magnesiumDose= ____mg magnesium oxide (___mg elemental magnesium) Start Date: 10/24/18 Stop Date: 10/27/18 Status: Discontinued magnesium sulfate 2 gm, 50 mL, Route: IVPB, Drug form: INJ, PRN, Dosing Weight 59.4, kg, PRN Abnor mal Lab Result, For NON-ICU Patients Only., Start date: 10/27/18 15:39:00 METALLURGICAL TESTER, D uration: 30 day, Stop date: 11/26/18 15:38:00 METALLURGICAL TESTER Notes: WASTE: F/P - Sink; E - Municipal Trash Bin Start Date: 10/27/18 Stop Date: 11/04/18 Status: Discontinued magnesium sulfate 1 gm, 100 mL, Route: IVPB, Drug form: INJ, PRN, Dosing Weight 59.4, kg, PRN Abno rmal Lab Result, For NON-ICU Patients Only., Start date: 10/27/18 15:39:00 METALLURGICAL TESTER, Duration: 30 day, Stop date: 11/26/18 15:38:00 METALLURGICAL TESTER Notes: WASTE: F/P - Sink; E - Municipal Trash Bin Start Date: 10/27/18 Stop Date: 11/04/18 Status: Discontinued magnesium sulfate 2 gm, 50 mL, Route: IVPB, Drug form: INJ, PRN, Dosing Weight 59.4, kg, PRN Abnor mal Lab Result, Start date: 10/24/18 11:25:00 METALLURGICAL TESTER, Duration: 30 day, Stop date: 11/23/18 11:24:00 METALLURGICAL TESTER, FOR ICU USE ONLY Notes: WASTE: F/P - Sink; E - Municipal Trash Bin Start Date: 10/24/18 Stop Date: 10/27/18 Status: Discontinued metoprolol 5 mg/5 ml INJ 2.5 mg, 2.5 mL, Route: IVP, Drug form: INJ, Q4H, Dosing Weight 59.4, kg, Start d ate: 10/28/18 12:00:00 METALLURGICAL TESTER, Duration: 30 day, Stop date: 11/27/18 8:00:00 METALLURGICAL TESTER Notes: (Same as: Lopressor)Push over 2 minutes Start Date: 10/28/18 Stop Date: 10/31/18 Status: Discontinued metoprolol 5 mg/5 ml INJ 2.5 mg, 2.5 mL, Route: IVP, Drug form: INJ, ONCE, Dosing Weight 59.4, kg, Start date: 10/26/18 17:55:00 METALLURGICAL TESTER, Stop date: 10/26/18 17:55:00 METALLURGICAL TESTER Notes: (Same as: Lopressor)Push over 2 minutes Start Date: 10/26/18 Stop Date: 10/26/18 Status: Completed metoprolol 5 mg/5 ml INJ 2.5 mg, 2.5 mL, Route: IVP, Drug form: INJ, Q4H, Dosing Weight 59.4, kg, PRN Arr hythmias, Start date: 10/26/18 17:57:00 METALLURGICAL TESTER, Duration: 30 day, Stop date: 17:56:00 METALLURGICAL TESTER Notes: (Same as: Lopressor)Push over 2 minutes Start Date: 10/26/18 Stop Date: 11/04/18 Status: Discontinued metoprolol 5 mg/5 ml INJ 2.5 mg, 2.5 mL, Route: IVP, Drug form: INJ, Q6H, Dosing Weight 59.4, kg, Start d ate: 10/31/18 22:00:00 METALLURGICAL TESTER, Duration: 30 day, Stop date: 12/01/18 5:00:00 CDT Notes: (Same as: Lopressor)Push over 2 minutes Start Date: 10/31/18 Stop Date: 11/01/18 Status: Discontinued metoprolol 5 mg/5 ml INJ 2.5 mg, 2.5 mL, Route: IVP, Drug form: INJ, Q4H, Dosing Weight 59.4, kg, Start d ate: 10/26/18 21:00:00 METALLURGICAL TESTER, Duration: 30 day, Stop date: 11/25/18 20:00:00 METALLURGICAL TESTER Notes: (Same as: Lopressor)Push over 2 minutes Start Date: 10/26/18 Stop Date: 10/27/18 Status: Discontinued metoprolol tartrate 25 mg, 1 tab, Route: PO, Drug form: TAB, Q12H, Dosing Weight 52.091, kg, Start d ate: 11/01/18 21:00:00 METALLURGICAL TESTER, Duration: 30 day, Stop date: 12/01/18 9:00:00 CDT Notes: (Same as: Lopressor) Start Date: 11/01/18 Stop Date: 11/04/18 Status: Discontinued metoprolol tartrate 25 mg, 1 tab, Route: PO, Drug form: TAB, BID, Dosing Weight 59.4, kg, Start date : 10/27/18 21:00:00 METALLURGICAL TESTER, Duration: 30 day, Stop date: 11/26/18 9:00:00 METALLURGICAL TESTER Notes: (Same as: Lopressor) Start Date: 10/27/18 Stop Date: 10/28/18 Status: Discontinued metoprolol tartrate 25 mg oral tablet 25 mg=1 tab, PO, Q12H, # 60 tab, 0 Refill(s), Pharmacy: [id number] Start Date: 11/04/18 Stop Date: 12/04/18 Status: Ordered midazolam 2 mg, 2 mL, Route: IVP, Drug form: INJ, Q2H, Dosing Weight 59.4, kg, PRN Sedatio n, Start date: 10/25/18 7:55:00 METALLURGICAL TESTER, Duration: 30 day, Stop date: 11/24/18 7:54: 00 METALLURGICAL TESTER Notes: (Same as: Versed) MEDICATION WASTE Product Size: 2 mgProduct Was alysha: ___ mg Start Date: 10/25/18 Stop Date: 10/26/18 Status: Discontinued midazolam 50 mg in NS 50 mL (Titrate.) IV 50 mg 50 mg, 50 mL, Rate: Titrate, Start Dose: 1 mg/hr, Titration: Rebolus 1 mg IV and /or Titrate infusion by 1 mg/hour every 30 minutes, Goal(s): RASS -2, Max Dose: 10 mg/hr, Route: IV, Dosing Weight 54.545 kg, Total Volume: 50, Start date: 11/09 17:19:... Notes: (Same as: Versed) Start Date: 10/23/18 Stop Date: 10/23/18 Status: Discontinued mupirocin topical 1 appl, Route: NASAL, Q12H, Drug form: OINT, Start date: 10/24/18 21:00:00 METALLURGICAL TESTER, Duration: 5 day, Stop date: 10/29/18 9:00:00 METALLURGICAL TESTER, MRSA Decolonization Start Date: 10/24/18 Stop Date: 10/29/18 Status: Completed NS 1,000 mL 1,000 mL, Rate: 100 ml/hr, Infuse over: 10 hr, Route: IV, Dosing Weight 54.545 k g, Total Volume: 1,000, Start date: 10/23/18 18:13:00 METALLURGICAL TESTER, Duration: 30 day, Sto p date: 11/22/18 18:12:00 METALLURGICAL TESTER, 1.58, m2 Start Date: 10/23/18 Stop Date: 10/24/18 Status: Discontinued ocular lubricant 1 drp, Route: BOTH EYES, Q6H, Drug form: SOLN, PRN as needed for dry eyes, Start date: 10/27/18 17:50:00 METALLURGICAL TESTER, Duration: 30 day, Stop date: 11/26/18 17:49:00 METALLURGICAL TESTER Start Date: 10/27/18 Stop Date: 11/04/18 Status: Discontinued ocular lubricant 1 drp, Route: BOTH EYES, Q6H, Drug form: SOLN, Start date: 10/23/18 18:00:00 METALLURGICAL TESTER , Duration: 30 day, Stop date: 11/22/18 12:00:00 METALLURGICAL TESTER Notes: Same as Tears Naturale and GenTeal Tears Start Date: 10/23/18 Stop Date: 10/27/18 Status: Discontinued pantoprazole 40 mg, Route: IVP, Drug form: INJ, Before Breakfast, Dosing Weight 59.4, kg, Sta rt date: 10/25/18 7:48:00 METALLURGICAL TESTER, Duration: 30 day, Stop date: 11/24/18 7:30:00 METALLURGICAL TESTER Notes: For IV push reconstitute with 10 ml 0.9% sodium chloride and push over 2 minutes. (Same as: Protonix) Start Date: 10/25/18 Stop Date: 11/04/18 Status: Discontinued pantoprazole additive 80 mg + Sodium Chloride 0.9% IV 100 mL 100 mL, Rate: 10 ml/hr, Infuse over: 10 hr, Route: IVPB, Dosing Weight 54.545 kg , Total Volume: 100, Infuse at 8 mg/hr for 72 hrs for GI bleeding, Start date: 0 10/23/18 17:27:00 METALLURGICAL TESTER, Duration: 72 hr, Stop date: 10/26/18 17:26:00 METALLURGICAL TESTER, 1.58, m 2 Notes: For IV push reconstitute with 10 ml 0.9% sodium chloride and push over 2 minutes. (Same as: Protonix) Start Date: 10/23/18 Stop Date: 10/24/18 Status: Discontinued pantoprazole additive 80 mg + Sodium Chloride 0.9% IV 100 mL 100 mL, Rate: 10 ml/hr, Infuse over: 10 hr, Route: IVPB, Dosing Weight 54.545 kg , Total Volume: 100, Infuse at 8 mg/hr for 72 hrs for GI bleeding, Start date: 0 10/23/18 17:27:00 METALLURGICAL TESTER, Duration: 72 hr, Stop date: 10/26/18 17:26:00 METALLURGICAL TESTER, 1.58, m 2 Start Date: 10/23/18 Stop Date: 10/23/18 Status: Discontinued pneumococcal 23-valent vaccine 0.5 mL, Route: IM, Drug Form: INJ, ONCALL, Start date: 10/24/18 6:30:41 METALLURGICAL TESTER, Sto p date: 11/23/18 6:25:41 METALLURGICAL TESTER Notes: (Same as: Pneumovax 23) Refrigerate Start Date: 10/24/18 Stop Date: 11/04/18 Status: Discontinued potassium chloride 10 mEq, 100 mL, Route: IVPB, Drug form: INJ, PRN, Dosing Weight 59.4, kg, PRN Ab normal Lab Result, For NON-ICU Patients Only, Start date: 10/27/18 15:39:00 METALLURGICAL TESTER, Duration: 30 day, Stop date: 11/26/18 15:38:00 METALLURGICAL TESTER Notes: Infuse at a rate of 10 mEq/hr.(Same as: KCL) Start Date: 10/27/18 Stop Date: 11/04/18 Status: Discontinued potassium chloride 20 mEq, 15 mL, Route: NJ, Drug form: LIQ, PRN, Dosing Weight 59.4, kg, PRN Abnor mal Lab Result, For NON-ICU Patients Only, Start date: 10/27/18 15:39:00 METALLURGICAL TESTER, Du ration: 30 day, Stop date: 11/26/18 15:38:00 METALLURGICAL TESTER Notes: (Same as: Potassium Chloride) Start Date: 10/27/18 Stop Date: 11/04/18 Status: Discontinued potassium chloride 20 mEq, 1 tab, Route: PO, Drug form: ERTAB, PRN, Dosing Weight 59.4, kg, PRN Abn ormal Lab Result, For NON-ICU Patients Only, Start date: 10/27/18 15:39:00 METALLURGICAL TESTER, Duration: 30 day, Stop date: 11/26/18 15:38:00 METALLURGICAL TESTER Notes: (Same as: K-Dur 20)"Do Not Crush" Give with food and full glass of water For patients unable to swallow tablet, dissolve in one half glass of water. Allo w about 2 minutes for the tablets to disintegrate. Stir before giving to prepare slurry and administer.Please exclude Patients with feeding tube less than 14 Thai (Dobhoff, J-tube etc) and pediatric and patients. Start Date: 10/27/18 Stop Date: 11/04/18 Status: Discontinued potassium chloride 20 mEq, 15 mL, Route: NJ, Drug form: LIQ, PRN, Dosing Weight 59.4, kg, PRN Abnor mal Lab Result, Start date: 10/24/18 11:25:00 METALLURGICAL TESTER, Duration: 30 day, Stop date: 11/23/18 11:24:00 METALLURGICAL TESTER, FOR ICU USE ONLY Notes: (Same as: Potassium Chloride) Start Date: 10/24/18 Stop Date: 10/27/18 Status: Discontinued potassium chloride 10 mEq, 100 mL, Route: IVPB, Drug form: INJ, PRN, Dosing Weight 59.4, kg, PRN Ab normal Lab Result, Via peripheral line, Start date: 10/24/18 11:25:00 METALLURGICAL TESTER, Durat ion: 30 day, Stop date: 11/23/18 11:24:00 METALLURGICAL TESTER, FOR ICU USE ONLY Notes: Infuse at a rate of 10 mEq/hr.(Same as: KCL) Start Date: 10/24/18 Stop Date: 10/27/18 Status: Discontinued potassium chloride 20 mEq, 1 tab, Route: PO, Drug form: ERTAB, PRN, Dosing Weight 59.4, kg, PRN Abn ormal Lab Result, Start date: 10/24/18 11:25:00 METALLURGICAL TESTER, Duration: 30 day, Stop date : 11/23/18 11:24:00 METALLURGICAL TESTER, FOR ICU USE ONLY Notes: (Same as: K-Dur 20)"Do Not Crush" Give with food and full glass of water For patients unable to swallow tablet, dissolve in one half glass of water. Allo w about 2 minutes for the tablets to disintegrate. Stir before giving to prepare slurry and administer.Please exclude Patients with feeding tube less than 14 Thai (Dobhoff, J-tube etc) and pediatric and patients. Start Date: 10/24/18 Stop Date: 10/27/18 Status: Discontinued potassium chloride 20 mEq, 100 mL, Route: IV Central, Drug form: INJ, PRN, Dosing Weight 59.4, kg, PRN Abnormal Lab Result, Via central line, Start date: 10/24/18 11:25:00 METALLURGICAL TESTER, Du ration: 30 day, Stop date: 11/23/18 11:24:00 METALLURGICAL TESTER, FOR ICU USE ONLY Notes: (Same as: KCL) Infuse no faster than 10 mEq/hr if given peripherally. Start Date: 10/24/18 Stop Date: 10/27/18 Status: Discontinued potassium phosphate + Sodium Chloride 0.9% IV 250 mL 15 mmol, 5 mL, Route: IVPB, PRN, Dosing Weight 59.4, kg, PRN Abnormal Lab Result , For NON-ICU Patients Only., Start date: 10/27/18 15:39:00 METALLURGICAL TESTER, Duration: 30 da y, Stop date: 11/26/18 15:38:00 METALLURGICAL TESTER Notes: (Same as: K Phosphate.)Do not infuse phosphorous concurrently in the same line as TPN or IVF that contains calcium. For double lumen central lines, phosp horous may be infused in a separate lumen from TPN. 1 mMol phoshate has 1.47 mE q potassium Infuse over 4 hours Start Date: 10/27/18 Stop Date: 11/04/18 Status: Discontinued potassium phosphate + Sodium Chloride 0.9% IV 250 mL 30 mmol, 10 mL, Route: IVPB, PRN, Dosing Weight 59.4, kg, PRN Abnormal Lab Resul t, For NON-ICU Patients Only., Start date: 10/27/18 15:39:00 METALLURGICAL TESTER, Duration: 30 d ay, Stop date: 11/26/18 15:38:00 METALLURGICAL TESTER Notes: (Same as: K Phosphate.)Do not infuse phosphorous concurrently in the same line as TPN or IVF that contains calcium. For double lumen central lines, phosp horous may be infused in a separate lumen from TPN. 1 mMol phoshate has 1.47 mE q potassium Infuse over 4 hours Start Date: 10/27/18 Stop Date: 11/04/18 Status: Discontinued potassium phosphate + Sodium Chloride 0.9% IV 250 mL 30 mmol, 10 mL, Route: IVPB, PRN, Dosing Weight 59.4, kg, PRN Abnormal Lab Resul t, Start date: 10/24/18 11:25:00 METALLURGICAL TESTER, Duration: 30 day, Stop date: 11/23/18 11:2 4:00 METALLURGICAL TESTER, FOR ICU USE ONLY Notes: (Same as: K Phosphate.)Do not infuse phosphorous concurrently in the same line as TPN or IVF that contains calcium. For double lumen central lines, phosp horous may be infused in a separate lumen from TPN. 1 mMol phoshate has 1.47 mE q potassium Infuse over 4 hours Start Date: 10/24/18 Stop Date: 10/27/18 Status: Discontinued potassium phosphate + Sodium Chloride 0.9% IV 250 mL 45 mmol, 15 mL, Route: IVPB, PRN, Dosing Weight 59.4, kg, PRN Abnormal Lab Resul t, Start date: 10/24/18 11:25:00 METALLURGICAL TESTER, Duration: 30 day, Stop date: 11/23/18 11:2 4:00 METALLURGICAL TESTER, FOR ICU USE ONLY Notes: (Same as: K Phosphate.)Do not infuse phosphorous concurrently in the same line as TPN or IVF that contains calcium. For double lumen central lines, phosp horous may be infused in a separate lumen from TPN. 1 mMol phoshate has 1.47 mE q potassium Infuse over 4 hours Start Date: 10/24/18 Stop Date: 10/27/18 Status: Discontinued potassium phosphate + Sodium Chloride 0.9% IV 250 mL 15 mmol, 5 mL, Route: IVPB, PRN, Dosing Weight 59.4, kg, PRN Abnormal Lab Result , Start date: 10/24/18 11:25:00 METALLURGICAL TESTER, Duration: 30 day, Stop date: 11/23/18 11:24 :00 METALLURGICAL TESTER, FOR ICU USE ONLY Notes: (Same as: K Phosphate.)Do not infuse phosphorous concurrently in the same line as TPN or IVF that contains calcium. For double lumen central lines, phosp horous may be infused in a separate lumen from TPN. 1 mMol phoshate has 1.47 mE q potassium Infuse over 4 hours Start Date: 10/24/18 Stop Date: 10/27/18 Status: Discontinued potassium phosphate-sodium phosphate 250 mg-280 mg-160 mg oral powder for recons titution 2 pkt, Route: PO, Drug Form: PDR/REC, Dosing Weight 59.4, kg, PRN, PRN Abnormal Lab Result, For NON-ICU Patients Only, Start date: 10/27/18 15:39:00 METALLURGICAL TESTER, Durati on: 30 day, Stop date: 11/26/18 15:38:00 METALLURGICAL TESTER Notes: (Same as: Phos-NaK) Each 1.5 gm pkt has 250mg phosphorous. Mix w/2.5oz w ater and stir. Start Date: 10/27/18 Stop Date: 11/04/18 Status: Discontinued potassium phosphate-sodium phosphate 250 mg-280 mg-160 mg oral powder for recons titution 2 pkt, Route: PO, Drug Form: PDR/REC, Dosing Weight 59.4, kg, PRN, PRN Abnormal Lab Result, FOR ICU USE ONLY, Start date: 10/24/18 11:25:00 METALLURGICAL TESTER, Duration: 30 da y, Stop date: 11/23/18 11:24:00 [employer] Notes: (Same as: Phos-NaK) Each 1.5 gm pkt has 250mg phosphorous. Mix w/2.5oz w ater and stir. Start Date: 10/24/18 Stop Date: 10/27/18 Status: Discontinued Protonix 40 mg, Route: IVP, Drug form: INJ, ONCE, Dosing Weight 54.545, kg, Priority: STA T, Start date: 10/23/18 16:57:00 [employer], Stop date: 10/23/18 16:57:00 [employer]ALL[employer] Notes: For IV push reconstitute with 10 ml 0.9% sodium chloride and push over 2 minutes. (Same as: Protonix) Start Date: 10/23/18 Stop Date: 10/23/18 Status: Completed Protonix 40 mg, 1 tab, Route: PO, Drug form: ECTAB, Before Breakfast, Dosing Weight 59.4, kg, Start date: 10/25/18 7:30:00 METALLURGICAL TESTER, Duration: 30 day, Stop date: 11/23/18 7:3 0:00 METALLURGICAL TESTER Notes: Tablet should not be chewed or crushed.(Same as: Protonix) Start Date: 10/25/18 Stop Date: 10/25/18 Status: Discontinued Protonix 80 mg, Route: IVP, ONCE, Dosing Weight 54.545, kg, Priority: STAT, Start date: 0 10/23/18 17:28:00 METALLURGICAL TESTER, Stop date: 10/23/18 17:28:00 METALLURGICAL TESTER Start Date: 10/23/18 Stop Date: 10/23/18 Status: Completed Protonix 40 mg oral granule =1 Pack, PO, BID, # 60 tab, 0 Refill(s), Pharmacy: [id number] Start Date: 11/04/18 Stop Date: 12/04/18 Status: Ordered rivaroxaban 15 mg oral tablet 15 mg=1 tab, PO, Daily, # 30 tab, 0 Refill(s), Pharmacy: [facility] [id number] Start Date: 11/04/18 Stop Date: 12/04/18 Status: Ordered Robinul 0.2 mg, 1 mL, Route: IVP, Drug form: INJ, QID, Dosing Weight 59.4, kg, PRN Secre tions, Start date: 10/25/18 22:41:00 METALLURGICAL TESTER, Duration: 30 day, Stop date: 11/24/18 22:40:00 METALLURGICAL TESTER Notes: (Same as: Robinul) Start Date: 10/25/18 Stop Date: 11/04/18 Status: Discontinued Saline Flush 0.9% 10 mL, Route: IVP, Drug Form: INJ, Dosing Weight 54.545, kg, PRN, PRN Line Flush , Start date: 10/23/18 13:17:00 METALLURGICAL TESTER, Duration: 30 day, Stop date: 11/22/18 13:16 :00 METALLURGICAL TESTER Notes: preservative free. Start Date: 10/23/18 Stop Date: 10/27/18 Status: Discontinued Sodium Chloride 0.9% (Bolus) IV 1,000 mL, 1000 ml/hr, Infuse Over: 1 hr, Route: IV, 1,000, Drug form: INJ, ONCE, Priority: STAT, Dosing Weight 54.545 kg, Start date: 10/23/18 16:35:00 METALLURGICAL TESTER, Stop date: 10/23/18 16:35:00 METALLURGICAL TESTER Start Date: 10/23/18 Stop Date: 10/23/18 Status: Completed Sodium Chloride 0.9% (Bolus) IV 1,000 mL, 1000 ml/hr, Infuse Over: 1 hr, Route: IV, 1,000, Drug form: INJ, ONCE, Priority: STAT, Dosing Weight 54.545 kg, Start date: 10/23/18 13:33:00 METALLURGICAL TESTER, Stop date: 10/23/18 13:33:00 METALLURGICAL TESTER Start Date: 10/23/18 Stop Date: 10/23/18 Status: Completed sodium phosphate + Dextrose 5% in Water IV 250 mL 30 mmol, 10 mL, Route: IVPB, PRN, Dosing Weight 59.4, kg, PRN Abnormal Lab Resul t, For NON-ICU Patients Only., Start date: 10/27/18 15:39:00 METALLURGICAL TESTER, Duration: 30 d ay, Stop date: 11/26/18 15:38:00 METALLURGICAL TESTER Notes: Infuse over 4 hour. Do not infuse phosphorous concurrently in the same li ne as TPN or IVF that contains calcium. For double lumen central lines, phosphor ous may be infused in a separate lumen from TPN. Start Date: 10/27/18 Stop Date: 11/04/18 Status: Discontinued sodium phosphate + Dextrose 5% in Water IV 250 mL 15 mmol, 5 mL, Route: IVPB, PRN, Dosing Weight 59.4, kg, PRN Abnormal Lab Result , For NON-ICU Patients Only., Start date: 10/27/18 15:39:00 METALLURGICAL TESTER, Duration: 30 da y, Stop date: 11/26/18 15:38:00 METALLURGICAL TESTER Notes: Infuse over 4 hour. Do not infuse phosphorous concurrently in the same li ne as TPN or IVF that contains calcium. For double lumen central lines, phosphor ous may be infused in a separate lumen from TPN. Start Date: 10/27/18 Stop Date: 11/04/18 Status: Discontinued sodium phosphate + Dextrose 5% in Water IV 250 mL 30 mmol, 10 mL, Route: IVPB, PRN, Dosing Weight 59.4, kg, PRN Abnormal Lab Resul t, Start date: 10/24/18 11:25:00 METALLURGICAL TESTER, Duration: 30 day, Stop date: 11/23/18 11:2 4:00 METALLURGICAL TESTER, FOR ICU USE ONLY Notes: Infuse over 4 hour. Do not infuse phosphorous concurrently in the same li ne as TPN or IVF that contains calcium. For double lumen central lines, phosphor ous may be infused in a separate lumen from TPN. Start Date: 10/24/18 Stop Date: 10/27/18 Status: Discontinued sodium phosphate + Dextrose 5% in Water IV 250 mL 15 mmol, 5 mL, Route: IVPB, PRN, Dosing Weight 59.4, kg, PRN Abnormal Lab Result , Start date: 10/24/18 11:25:00 METALLURGICAL TESTER, Duration: 30 day, Stop date: 11/23/18 11:24 :00 METALLURGICAL TESTER, FOR ICU USE ONLY Notes: Infuse over 4 hour. Do not infuse phosphorous concurrently in the same li ne as TPN or IVF that contains calcium. For double lumen central lines, phosphor ous may be infused in a separate lumen from TPN. Start Date: 10/24/18 Stop Date: 10/27/18 Status: Discontinued sodium phosphate + Dextrose 5% in Water IV 250 mL 45 mmol, 15 mL, Route: IVPB, PRN, Dosing Weight 59.4, kg, PRN Abnormal Lab Resul t, Start date: 10/24/18 11:25:00 METALLURGICAL TESTER, Duration: 30 day, Stop date: 11/23/18 11:2 4:00 METALLURGICAL TESTER, FOR ICU USE ONLY Notes: Infuse over 4 hour. Do not infuse phosphorous concurrently in the same li ne as TPN or IVF that contains calcium. For double lumen central lines, phosphor ous may be infused in a separate lumen from TPN. Start Date: 10/24/18 Stop Date: 10/27/18 Status: Discontinued succinylcholine Route: IV, ONCE, Dosing Weight 54.545, kg, Start date: 10/23/18 17:03:00 METALLURGICAL TESTER, St op date: 10/23/18 17:03:00 METALLURGICAL TESTER Start Date: 10/23/18 Stop Date: 10/23/18 Status: Completed Tylenol with Codeine #3 oral tablet 1 tab, PO, TID Start Date: 10/23/18 Stop Date: 11/04/18 Status: Discontinued Xarelto 15 mg, 1 tab, Route: PO, Drug form: TAB, Daily, Dosing Weight 52.091, kg, Start date: 11/03/18 9:00:00 METALLURGICAL TESTER, Duration: 30 day, Stop date: 12/02/18 9:00:00 CDT Notes: (Same as: Xarelto)Administer with food Start Date: 11/03/18 Stop Date: 11/04/18 Status: Discontinued Xarelto 15 mg, 1 tab, Route: PO, Drug form: TAB, BID, Dosing Weight 52.091, kg, Start da te: 11/02/18 9:00:00 METALLURGICAL TESTER, Duration: 30 day, Stop date: 12/01/18 17:00:00 CDT Notes: (Same as: Xarelto)Administer with food Start Date: 11/02/18 Stop Date: 11/02/18 Status: Discontinued Xarelto 15 mg oral tablet 15 mg=1 tab, PO, BID Start Date: 10/23/18 Stop Date: 11/04/18 Status: Discontinued Zofran 4 mg, Route: IVP, Drug form: INJ, ONCE, Dosing Weight 54.545, kg, Priority: STAT , Start date: 10/23/18 16:57:00 METALLURGICAL TESTER, Stop date: 10/23/18 16:57:00 METALLURGICAL TESTER Start Date: 10/23/18 Stop Date: 10/23/18 Status: Completed Zosyn + Sodium Chloride 0.9% IV 100 mL 3.375 gm, Route: IVPB, ABXQ8H, Dosing Weight 54.545, kg, Start date: 10/23/18 19 :00:00 METALLURGICAL TESTER, Duration: 7 day, Stop date: 10/30/18 11:00:00 METALLURGICAL TESTER, ABX Indication: P neumonia Notes: (Same as: Zosyn)Dosing based on Piperacillin component MEDICATION WA JASPER Product Size: 3375 mgProduct Wasted: ___ mg Start Date: 10/23/18 Stop Date: 10/30/18 Status: Completed Results BLOOD BANK RESULTS 1 2 3 Most recent to oldest [Reference Range]: B POS *Unknown* (10/23/18 5:22 PM) ABO/Rh Negative (10/23/18 5:22 PM) Antibody Scrn ELECTROLYTES 1 2 3 Most recent to oldest [Reference Range]: 142 mEq/L (10/28/18 7:36 AM) 141 mEq/L (10/27/18 5:27 AM) 141 mEq/L (10/26/18 5:17 AM) Sodium Lvl [135-145 mEq/L] 4.2 mEq/L (10/28/18 7:36 AM) 4.0 mEq/L (10/27/18 5:27 AM) 4.4 mEq/L (10/26/18 11:52 AM) Potassium Lvl [3.5-5.1 mEq/L] 110 mEq/L *HI* (10/28/18 7:36 AM) 111 mEq/L *HI* (10/27/18 5:27 AM) 113 mEq/L *HI* (10/26/18 5:17 AM) Chloride Lvl [95-109 mEq/L] 23 mEq/L *LOW* (10/28/18 7:36 AM) 25 mEq/L (10/27/18 5:27 AM) 22 mEq/L *LOW* (10/26/18 5:17 AM) CO2 [24-32 mEq/L] 13.2 mEq/L (10/28/18 7:36 AM) 9.0 mEq/L *LOW* (10/27/18 5:27 AM) 9.8 mEq/L *LOW* (10/26/18 5:17 AM) AGAP [10.0-20.0 mEq/L] CHEM PANEL 1 2 3 Most recent to oldest [Reference Range]: 0.63 mg/dL (10/28/18 7:36 AM) 0.55 mg/dL (10/27/18 5:27 AM) 0.59 mg/dL (10/26/18 5:17 AM) Creatinine Lvl [0.50-1.40 mg/dL] 117 mL/min/1.73m2 1 *NA* (10/28/18 7:36 AM) 122 mL/min/1.73m2 2 *NA* (10/27/18 5:27 AM) 119 mL/min/1.73m2 3 *NA* (10/26/18 5:17 AM) eGFR 8 mg/dL (10/28/18 7:36 AM) 7 mg/dL (10/27/18 5:27 AM) 7 mg/dL (10/26/18 5:17 AM) BUN [7-22 mg/dL] 15 (10/25/18 3:09 AM) 21 (10/23/18 2:55 PM) B/C Ratio [6-25] 101 mg/dL *HI* (10/28/18 7:36 AM) 85 mg/dL (10/27/18 5:27 AM) 127 mg/dL *HI* (10/26/18 5:17 AM) Glucose Lvl [70-99 mg/dL] 5.6 g/dL *LOW* (10/25/18 3:09 AM) 8.5 g/dL *HI* (10/23/18 2:55 PM) Total Protein [6.4-8.4 g/dL] 2.6 g/dL *LOW* (10/25/18 3:09 AM) 4.1 g/dL (10/23/18 2:55 PM) Albumin Lvl [3.5-5.0 g/dL] 3.0 g/dL (10/25/18 3:09 AM) 4.4 g/dL *HI* (10/23/18 2:55 PM) Globulin [2.7-4.2 g/dL] 0.9 (10/25/18 3:09 AM) 0.9 (10/23/18 2:55 PM) A/G Ratio [0.7-1.6] 9.3 mg/dL (10/28/18 7:36 AM) 9.2 mg/dL (10/27/18 5:27 AM) 8.4 mg/dL *LOW* (10/26/18 5:17 AM) Calcium Lvl [8.5-10.5 mg/dL] 2.5 mg/dL (10/25/18 3:09 AM) 3.2 mg/dL (10/24/18 5:36 AM) Phosphorus [2.5-4.5 mg/dL] 2.0 mg/dL (10/25/18 3:09 AM) 2.1 mg/dL (10/24/18 6:46 PM) 1.8 mg/dL (10/24/18 5:36 AM) Magnesium Lvl [1.8-2.4 mg/dL] 11 unit/L (10/25/18 3:09 AM) 17 unit/L (10/23/18 2:55 PM) ALT [0-65 unit/L] 13 unit/L (10/25/18 3:09 AM) 20 unit/L (10/23/18 2:55 PM) AST [0-37 unit/L] 44 unit/L (10/25/18 3:09 AM) 66 unit/L (10/23/18 2:55 PM) Alk Phos [39-136 unit/L] 2.0 mg/dL *HI* (10/25/18 3:09 AM) 1.3 mg/dL (10/23/18 2:55 PM) Bili Total [0.2-1.3 mg/dL] 1.4 mMol/L (10/23/18 2:55 PM) Lactic Acid Lvl [0.5-2.2 mMol/L] <0.05 ng/mL (10/23/18 2:55 PM) Procalcitonin Lvl [0.00-0.10 ng/mL] 1Result Comment: The eGFR is calculated using [...] tiplied by the estimated BMI. CARDIAC ENZYMES 1 2 3 Most recent to oldest [Reference Range]: 65 unit/L (10/23/18 2:55 PM) Total CK [12-191 unit/L] <0.02 ng/mL (10/23/18 2:55 PM) Troponin-I [0.00-0.40 ng/mL] URINE AND STOOL 1 2 3 Most recent to oldest [Reference Range]: Clear (10/23/18 5:13 PM) UA Turbidity [Clear] Ltyellow *NA* (10/23/18 5:13 PM) UA Color 7.0 (10/23/18 5:13 PM) UA pH [5.0-8.0] 1.011 (10/23/18 5:13 PM) UA Spec Grav [<=1.030] Negative *NA* (10/23/18 5:13 PM) UA Glucose [Negative] Negative (10/23/18 5:13 PM) UA Blood [Negative] 20 mg/dL *ABN* (10/23/18 5:13 PM) UA Ketones [Negative mg/dL] Negative (10/23/18 5:13 PM) UA Protein [Negative] <=1.0 mg/dL *NA* (10/23/18 5:13 PM) UA Urobilinogen [0.1-1.0 mg/dL] Negative *NA* (10/23/18 5:13 PM) UA Bili [Negative] Negative (10/23/18 5:13 PM) UA Leuk Est [Negative] Negative (10/23/18 5:13 PM) UA Nitrite [Negative] 1 /HPF (10/23/18 5:13 PM) UA WBC [0-5 /HPF] None Seen (10/23/18 5:13 PM) UA Sq Epi [Few] HEMATOLOGY 1 2 3 Most recent to oldest [Reference Range]: 6.6 K/CMM (10/28/18 7:36 AM) 6.3 K/CMM (10/27/18 5:27 AM) 6.1 K/CMM (10/26/18 5:17 AM) WBC [3.7-10.4 K/CMM] 4.58 M/CMM (10/28/18 7:36 AM) 3.99 M/CMM *LOW* (10/27/18 5:27 AM) 3.60 M/CMM *LOW* (10/26/18 5:17 AM) RBC [4.20-5.40 M/CMM] 12.3 g/dL (10/28/18 7:36 AM) 10.8 g/dL *LOW* (10/27/18 5:27 AM) 9.6 g/dL *LOW* (10/26/18 5:17 AM) Hgb [12.0-16.0 g/dL] 37.5 % (10/28/18 7:36 AM) 33.0 % *LOW* (10/27/18 5:27 AM) 29.3 % *LOW* (10/26/18:17 AM) Hct [36.0-48.0 %] 81.9 fL (10/28/18 7:36 AM) 82.7 fL (10/27/18 5:27 AM) 81.4 fL (10/26/18:17 AM) MCV [80.0-98.0 fL] 26.9 pg *LOW* (10/28/18 7:36 AM) 27.1 pg (10/27/18 5:27 AM) 26.5 pg *LOW* (10/26/18: AM) MCH [27.0-31.0 pg] 32.8 g/dL (10/28/18 7:36 AM) 32.8 g/dL (10/27/18 5:27 AM) 32.6 g/dL (10/26/18:17 AM) MCHC [32.0-36.0 g/dL] 18.8 % *HI* (10/28/18 7:36 AM) 19.7 % *HI* (10/27/18 5:27 AM) 19.3 % *HI* (10/26/18:17 AM) RDW [11.5-14.5 %] 9.2 fL (10/28/18 7:36 AM) 9.0 fL (10/27/18 5:27 AM) 9.5 fL (10/26/18:17 AM) MPV [7.4-10.4 fL] 221 K/CMM (10/28/18 7:36 AM) 180 K/CMM (10/27/18 5:27 AM) 163 K/CMM (10/26/18:17 AM) Platelet [133-450 K/CMM] 48.7 % (10/28/18 7:36 AM) 51.1 % (10/27/18 5:27 AM) 56.4 % (10/26/18:17 AM) Segs [45.0-75.0 %] 31.9 % (10/28/18 7:36 AM) 31.4 % (10/27/18 5:27 AM) 27.3 % (10/26/18 5:17 AM) Lymphocytes [20.0-40.0 %] 15.4 % *HI* (10/28/18 7:36 AM) 12.0 % (10/27/18 5:27 AM) 11.5 % (10/26/18 5:17 AM) Monocytes [2.0-12.0 %] 2.7 % (10/28/18 7:36 AM) 4.3 % *HI* (10/27/18 5:27 AM) 4.2 % *HI* (10/26/18 5:17 AM) Eosinophils [0.0-4.0 %] 1.3 % *HI* (10/28/18 7:36 AM) 1.2 % *HI* (10/27/18 5:27 AM) 0.6 % (10/26/18 5:17 AM) Basophils [0.0-1.0 %] 3.2 K/CMM (10/28/18 7:36 AM) 3.2 K/CMM (10/27/18 5:27 AM) 3.4 K/CMM (10/26/18 5:17 AM) Neutrophils # [1.5-8.1 K/CMM] 2.1 K/CMM (10/28/18 7:36 AM) 2.0 K/CMM (10/27/18 5:27 AM) 1.7 K/CMM (10/26/18 5:17 AM) Lymphocytes # [1.0-5.5 K/CMM] 1.0 K/CMM *HI* (10/28/18 7:36 AM) 0.8 K/CMM (10/27/18 5:27 AM) 0.7 K/CMM (10/26/18 5:17 AM) Monocytes # [0.0-0.8 K/CMM] 0.2 K/CMM (10/28/18 7:36 AM) 0.3 K/CMM (10/27/18 5:27 AM) 0.3 K/CMM (10/26/18 5:17 AM) Eosinophils # [0.0-0.5 K/CMM] 0.1 K/CMM (10/28/18 7:36 AM) 0.1 K/CMM (10/27/18 5:27 AM) 0.1 K/CMM (10/25/18 3:09 AM) Basophils # [0.0-0.2 K/CMM] 16.1 seconds *HI* (10/26/18 11:52 AM) 22.6 seconds *HI* (10/25/18 3:09 AM) 20.7 seconds *HI* (10/23/18 2:55 PM) PT [12.0-14.7 seconds] 1.32 *HI* (10/26/18 11:52 AM) 2.04 *HI* (10/25/18 3:09 AM) 1.82 *HI* (10/23/18 2:55 PM) INR [0.85-1.17] 41.3 seconds *HI* (10/26/18 11:52 AM) 43.7 seconds *HI* (10/25/18 3:09 AM) 32.1 seconds (10/23/18 2:55 PM) PTT [22.9-35.8 seconds] VIRAL - SEROLOGY 1 2 3 Most recent to oldest [Reference Range]: Negative (10/24/18 5:50 AM) Influ A [Negative] Negative (10/24/18 5:50 AM) Influ B [Negative] Immunizations Given and Recorded Vaccine Date Status [...] resulting in right hemiplegia and aphasia. Uses [employer]. On [employer] Previous employment/school: Worked for [employer] previously.. Other: Lives with mother and 1dog. Has 2 brothers who are not helpful. Has 1 daughter aged 25, not involved. Uncle does provide some assistance.. Alcohol Past, Last use: 2009. Smoking Status Never smoker; Exposure to Tobacco Smoke None; Cigarette Smoking Last 365 Days No; Reg Smoking Cessation Counseling No entered on: 10/27/18 Assessment and Plan Extracted from: Title: Cardiology Progress Note Author: Chet Solis MD [...] - 11/04: HR stable. Pending dispo Extracted from: Title: Hypoxia Author: Robert Reno DO Date: 10/23/18 Critical Care Medicine Chief complaint: Hypoxia History of present illness: 53 y.o female with a h/o aphasia and right sided hemiplegia following an aneurysmal ICH, DVTon AC, HTN, and HLD presented to to [facility] with a productive cough. She was transfer [...] resulting in right hemiplegia and aphasia. Uses [employer]. On [employer] Previous employment/school: Worked for [employer] previously.. Other: Lives with mother and 1dog. [...] 1,250 microgram: Titrate, IV, Stop: 11/22/18 17:17:00 METALLURGICAL TESTER. midazolam 50 mg: Titrate, IV, Stop: 11/22/18 17:18:00 METALLURGICAL TESTER. ocular lubricant: 1 drp, BOTH EYES, Q6H. pantoprazole 80 mg + Sodium Chloride 0.9% IV 100 mL: 10 ml/hr, IVPB, Stop: 10/26/18 17:26:00 METALLURGICAL TESTER. sodium chloride: 10 mL, IVP, PRN, PRN: [...] mL: 10 ml/hr, IVPB, Stop: 10/26/18 17:26:00 METALLURGICAL TESTER. pravastatin: 10 mg, 1 tab, PO, Bedtime, [...] Psychiatric: No confusion or depression Physical Exam VitalsTmp(F)[id number] 10/23 17:54----[id number]--- 10/23 17:20 61183 45% 10/23 17:09 100 45% 10/23 17:05----[id number]--- 10/23 16:00----[id number]--- 24 Hr Tmax: 97.7F (36.50c) at 10/23 12:26Vital Signs are the last 5 in the past 48 hours. Gen: no acute distress HEENT: intubated Neuro: sedated Cardio: tachycardic Pulm: diminished on right base Abd: soft, normal bowel sounds Derm: no rash Ext: no edema, no cyanosis, no limb ischemia Labs (Last four charted values) WBC H 12.1(OCT 23) Hgb 14.6(OCT 23) Hct 45.4(OCT 23) Plt 254(OCT 23) Na 141(OCT 23) K 3.8(OCT 23) CO2 24(OCT 23) Cl 109(OCT 23) Cr 0.62(OCT 23) BUN 13(OCT 23) Glucose Random 82(OCT 23) Ca 9.9(OCT 23) PT H 20.7(OCT 23) INR H 1.82(OCT 23) PTT 32.1(OCT 23) Troponin <0.02(OCT 23) Total CK 65(OCT 23) Impression: 1. Hypoxic respiratory failure 2. [...]
--- OUTSIDE RECORDS SUMMARY | 2019-06-04 15:41 | XMS REPORT | Continuity of Care Document ---
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
--- OUTSIDE RECORDS SUMMARY | 2019-06-04 15:41 | XMS REPORT | Summary of Care ---
Author Author [facility] Organization [facility] Address Unknown Phone Unavailable Encounter NILESH Saucedo(BLACK) [id number] Date(s): 12/31/17 - 12/31/17 [facility] [address] [place], [address] [address]- [phone] Discharge Disposition: Home or Self Care Attending [...] resulting in right hemiplegia and aphasia. Uses [employer]. On [employer].. Previous employment/school: Worked for [employer] previously.. Other: Lives with mother and 1dog. [...]
[2019-06-04] MEDS ORDERED: SODIUM CHLORIDE 0.9% 1000ML 1,000 ML IV STA ×2 (15:53→17:57)
--- NOTE | 2019-06-04 16:01 | NUR ---
NOTIFIED DR EUCEDA BP 68/55. VERBAL ORDER RECEIVED, 1L NS BOLUS IV ONCE.
--- NOTE | 2019-06-04 16:15 | NUR ---
NOTIFIED DR EUCEDA X3 IV UNSUCCESSFUL IV ATTEMPTS,POOR VENOUS ACCESS, BP 78/50, P 115. INSTRUCTED TO SET UP FOR AN EMERGENT CENTRAL LINE. CENTRAL LINE KIT PLACED AT BEDSIDE.
[2019-06-04] MEDS ORDERED: VANCOMYCIN 1GM/NS 250 ML 250 ML IV ONE (16:30)
--- NOTE | 2019-06-04 17:15 | NUR ---
PER DR EUCEDA, OK TO GIVE IV FLUIDS THROUGH CENTRAL LINE
[2019-06-04 17:23] LABS: BASOPHILS # (AUTO) 0.1 (0.0-0.1); BASOPHILS % 0.2 % (0.0-1.0); HEMATOCRIT 35.1 % (34.2-44.1); HEMOGLOBIN 10.8 g/dL (12.0-16.0); LYMPHOCYTES # (AUTO) 1.1 (1.0-3.2); LYMPHOCYTES % 3.8 % (18.0-39.1); MEAN CORPUSCULAR HEMOGLOBIN 24.2 pg (28-32); MEAN CORPUSCULAR HGB CONC 30.8 g/dL (31-35); MEAN CORPUSCULAR VOLUME 78.7 fL (81-99); MONOCYTES # (AUTO) 1.4 (0.2-0.8); MONOCYTES % 4.9 % (4.4-11.3); NEUTROPHILS % 89.9 % (38.7-80.0); PLATELET COUNT 193 x10e3/uL (140-360); RED BLOOD COUNT 4.46 x10e6/uL (3.6-5.1); RED CELL DISTRIBUTION WIDTH 19.9 % (11.7-14.4)
[2019-06-04 17:37] LABS: INR 1.09; PROTHROMBIN TIME 14.6 seconds (11.9-14.5)
[2019-06-04 17:38] LABS: PARTIAL THROMBOPLASTIN TIME 29.4 seconds (23.8-35.5)
[2019-06-04 17:47] LABS: ALANINE AMINOTRANSFERASE 23 IU/L (0-55); ALBUMIN 2.8 g/dL (3.5-5.0); ALBUMIN/GLOBULIN RATIO 0.6 (0.8-2.0); ALKALINE PHOSPHATASE 89 IU/L (40-150); ANION GAP 17.9 mmol/L (8-16); BLOOD UREA NITROGEN 20 mg/dL (7-26); BUN/CREATININE RATIO 22 (6-25); CALCIUM 9.8 mg/dL (8.4-10.2); CARBON DIOXIDE 31 mmol/L (22-29); CHLORIDE 99 mmol/L (98-107); CREATINE KINASE 17 IU/L (29-168); CREATININE, SERUM 0.92 mg/dL (0.57-1.11); EST GLOMERULAR FILTRATION RATE > 60 ML/MIN (60-); GLUCOSE 168 mg/dL (74-118); MAGNESIUM 2.1 MG/DL (1.3-2.1); POTASSIUM 3.9 mmol/L (3.5-5.1); SODIUM 144 mmol/L (136-145)
--- NOTE | 2019-06-04 17:47 | Diagnostic Imaging Report ---
EXAMINATION: CHEST SINGLE (PORTABLE) INDICATION: ^SOB, VENT-DEPENDENT ^[id number] ^[id number] COMPARISON: Chest radiograph from 04/19/2019 FINDINGS: AP view TUBES and LINES: Interval placement of a right IJ central venous catheter. The tip is coiled at the level of the hilar and suggestive of being in the azygos vein. Recommend readjustment. Tracheostomy tube in place, unchanged. Previously noted left PICC has been removed. LUNGS: Lungs are well inflated. Mild perihilar atelectasis, unchanged. Left lower lobe reticular opacities likely atelectasis. There is no evidence of pneumonia or pulmonary edema. PLEURA: No pleural effusion or pneumothorax. HEART AND MEDIASTINUM: The cardiomediastinal silhouette is unremarkable.. BONES AND SOFT TISSUES: No acute osseous lesion. Soft tissues are unremarkable. UPPER ABDOMEN: No free air under the diaphragm. IMPRESSION: New right IJ central venous catheter with tip suspected to be in the azygos vein. Recommend adjustment. These findings were discussed with Dr. Jaimes on 06/04/2019 at 5:40 PM. Previously noted left PICC has been removed. Signed by: Dr. Jacquelyn Barnett M.D. on 06/04/2019 5:44 PM
--- NOTE | 2019-06-04 17:57 | NUR ---
41 LACTIC ACID , NOTIFIED DR EUCEDA
[2019-06-04] MEDS ORDERED: SODIUM CHLORIDE 0.9% 1000ML 1,000 ML IV SCH (18:00)
[2019-06-04 18:02] LABS: B-TYPE NATRIURETIC PEPTIDE2 16.9 pg/mL (0-100)
--- NOTE | 2019-06-04 18:20 | NUR ---
DR EUCEDA BEDSIDE TO REPOSITION CENTRAL LINE - RADIOLOGY NOTIFIED TO TAKE CHEST XRAY TO CONFIRM PLACEMENT. ONCE PLACEMENT CONFIRMED, OK TO GIVE IV FLUIDS AND ANTIBIOTICS
[2019-06-04 18:23] LABS: BILIRUBIN,URINE NEGATIVE (NEGATIVE); CLARITY,URINE CLEAR (CLEAR); COLOR,URINE YELLOW (YELLOW); KETONES,URINE NEGATIVE (NEGATIVE); LEUKOCYTE ESTERASE ,URINE NEGATIVE (NEGATIVE); NITRITE,URINE NEGATIVE (NEGATIVE); PROTEIN,URINE DIPSTICK 1+ (NEGATIVE); URINE UROBILINOGEN 0.2 mg/dL (0.2 - 1)
[2019-06-04 18:40] LABS: BACTERIA,URINE RARE /HPF; EPITHELIAL CELLS,URINE FEW /LPF; RBC,URINE 0-5 /HPF (0-5); WBC,URINE (MAN) 0-5 /HPF (0-5)
[2019-06-04 18:47] LABS: BAND NEUTROPHILS % (MANUAL) 3 %; LYMPHOCYTES % (MANUAL) 2 % (19-48); MONOCYTES % (MANUAL) 9 % (3.4-9.0); NEUTROPHILS % (MANUAL) 86 % (40-74)
[2019-06-04 18:50] LABS: ANISOCYTOSIS SLIGHT; MICROCYTOSIS SLIG; PLATELET ESTIMATE ADEQUATE; PLATELET MORPHOLOGY COMMENT FEW GIANT
--- NOTE | 2019-06-04 18:55 | NUR ---
PER DR EUCEDA, CENTRAL LINE PLACEMENT CONFIRMED AND LINE OK TO USE AT THIS TIME
[2019-06-04] MEDS: AZTREONAM 2GM/NS 100ML 100 ML IV SCH (18:56)
[2019-06-04] MEDS: CEFEPIME 2 GM/NS 0.9% 100 ML 100 ML IV SCH (18:56)
[2019-06-04] MEDS ORDERED: ONDANSETRON HCL INJ 2MG/ML 2ML 2 MG/ML VIAL IV PRN (19:30)
--- OUTSIDE RECORDS SUMMARY | 2019-06-04 19:31 | XMS REPORT | Continuity of Care Document ---
Author Author [facility] Organization [facility] Address Unknown Phone Unavailable Care Team Providers Care Bushler Name Role Phone [employer] Unavailable Unavailable Problems Problem Status Onset Date Classification Date Reported Comments Source ASPIRATION INTO AIRWAY,VOMITING,GI BLEED Active 10/23/2018 [facility] COUGH Active 10/23/2018 [facility] Nausea with vomiting, unspecified 06/01/2018 12/12/2018 [facility] VOMITING Active 05/23/2018 [facility] ACUTE DEEP VEIN THROMBOSIS (DVT) OF RIGH Active 05/23/2018 [facility] Zoster without complications 03/28/2018 03/31/2018 [facility] INFECTION Active 03/27/2018 [facility] VOMTING Active 03/07/2018 [facility] Injury of conjunctiva and corneal abrasion without foreign body, left eye, initial encounter 03/03/2018 03/06/2018 [facility] Pain in arm, unspecified 03/03/2018 03/06/2018 [facility] CHEST PAIN Active 03/02/2018 [facility] Cramp and spasm 03/01/2018 03/04/2018 [facility] Chest pain, unspecified 03/01/2018 03/04/2018 [facility] WEAKNESS Active 03/01/2018 [facility] EVAL Active 01/11/2018 [facility] BLURRY VISION; HEADACHE Active 01/03/2018 [facility] HEAD PAIN Active 01/03/2018 [facility] Other muscle spasm 12/20/2017 03/24/2018 [facility] BOTOX INJ Active 12/01/2017 [facility] F/U Active 10/26/2017 [facility] FOLLOW UP Active 03/16/2017 [facility] BOTOX INJ. Active 03/16/2017 [facility] 2 WEEK BOTOX Active 02/17/2017 [facility] F/U LAST SAW 04/2015 Active 11/18/2016 [facility] Z86.73 Active 10/01/2016 [facility] S33.5XXA Active 06/23/2016 [facility] STROKE Active 04/26/2015 Condition 04/26/2015 [facility] SUBDURAL HEMATOMA Active 04/09/2015 Condition 04/26/2015 [facility] Cerebrovascular accident (disorder) Resolved 03/03/2001 Problem 12/12/2018 [facility],[id number], [facility], [facility] CVA Active 09/21/2000 [facility] WHEELCHAIR FINAL FITTING Active 09/21/2000 [facility] Leg [...] BMI 26.0-26.9,adult Active Diagnosis 04/18/2016 Brandie [facility] Karen Unspecified abdominal pain 12/12/2018 [facility] Acute embolism and thrombosis of right femoral vein 12/12/2018 [facility] Essential (primary) hypertension 12/12/2018 [facility] Diverticulosis of large intestine without perforation or abscess without bleeding 12/12/2018 [facility] Bed confinement status 12/12/2018 [facility] Hyperosmolality and hypernatremia 12/12/2018 [facility] Aphasia following cerebral infarction [facility]/12/2018 [facility] Hemiplegia and hemiparesis following cerebral infarction affecting right dominant side 12/12/2018 [facility] Hyperlipidemia, unspecified 12/12/2018 [facility] Hypokalemia 12/12/2018 [facility], [place] Other specified inflammatory liver diseases 12/12/2018 [facility] Internuclear ophthalmoplegia, left eye 12/12/2018 [facility] continuous 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 Intracranial aneurysm (disorder) Active Problem 12/12/2018 [facility],[id number],[facility] Cholestatic hepatitis (disorder) Active Problem 12/12/2018 [facility],[id number],[facility] Chronic headache disorder (disorder) Active Problem 12/12/2018 [facility],[id number],[facility] Finding related to ability to perform personal care activity (finding) Active Problem 12/12/2018 [facility],[id number], [facility] Hypertensive disorder, systemic arterial (disorder) Resolved Problem 12/12/2018 [facility],[id number], [facility] Hypercholesterolemia (disorder) Resolved Problem 12/12/2018 [facility],[id number], [facility] Internuclear ophthalmoplegia (disorder) Active Problem 12/12/2018 [facility],[id number], [facility] Moderate protein energy malnutrition (disorder) Active Problem 12/12/2018 [facility] Paralysis (finding) Resolved Problem 12/12/2018 [facility],[id number],[facility] Spasm (finding) Resolved Problem 12/12/2018 [facility],[id number], [facility] Spastic hemiplegia of dominant side (disorder) Active Problem 12/12/2018 [facility],[id number], [facility], [facility] ENCNTR FOR F/U EXAM AFT TRTMT FOR COND O Active [facility] OTHER MUSCLE SPASM Active [facility] PARAPLEGIA, UNSPECIFIED Active [facility] SPRAIN OF LIGAMENTS OF LUMBAR SPINE, INI Active [facility] CRAMP AND SPASM Active [facility] ACUTE EMBOLISM AND THROMBOSIS OF RIGHT F Active [facility] NAUSEA WITH VOMITING, UNSPECIFIED Active [facility] UNSP FB IN RESP TRACT, PART UNSP CAUSING Active [facility] VOMITING, UNSPECIFIED Active [facility] GASTROINTESTINAL HEMORRHAGE, UNSPECIFIED Active [facility] Medications Medication Details Route Status Patient Instructions Ordering Provider Order Date Source metoprolol tartrate 25 mg oral tablet 25 mg=1 tab, PO, Q12H, # 60 tab, 0 Refill(s), Pharmacy: [facility] Active 11/04/2018 [facility] rivaroxaban 15 mg oral tablet 15 mg=1 tab, PO, Daily, # 30 tab, 0 Refill(s), Pharmacy: [facility] Active 11/04/2018 [facility] Levetiracetam 100 MG/ML Oral Solution [Keppra] 500 mg=5 mL, PO, Q12H, # 300 mL, 0 Refill(s), Pharmacy: [facility] Active 11/04/2018 [facility] pantoprazole 40 MG Granules [Protonix] =1 Pack, PO, BID, # 60 tab, 0 Refill(s), Pharmacy: [facility] Active 11/04/2018 [facility] Xarelto 15 mg, 1 tab, Route: PO, Drug form: TAB, Daily, Dosing Weight 52.091, kg, Start date: 11/03/18 9:00:00 [employer], Duration: 30 day, Stop date: 12/02/18 9:00:00 CDTNotes: (Same as: Xarelto) Administer with food No Longer Active 11/03/2018 [facility] Xarelto 15 mg, 1 tab, Route: PO, Drug form: TAB, BID, Dosing Weight 52.091, kg, Start date: 11/02/18 9:00:00 [employer], Duration: 30 day, Stop date: 12/01/18 17:00:00 CDTNotes: (Same as: Xarelto) Administer with food Inactive 11/02/2018 [facility] metoprolol tartrate 25 mg, 1 tab, Route: PO, Drug form: TAB, Q12H, Dosing Weight 52.091, kg, Start date: 11/01/18 21:00:00 [employer], Duration: 30 day, Stop date: 12/01/18 9:00:00 CDTNotes: (Same as: Lopressor) No Longer Active 11/02/2018 [facility] Levetiracetam 100 MG/ML Oral Solution [Keppra] 500 mg, 5 mL, Route: PO, Drug form: SOLN, Q12H, Dosing Weight 52.091, kg, Start date: 11/01/18 21:00:00 [employer], Duration: 30 day, Stop date: 12/01/18 9:00:00 CDTNotes: Same as: Keppra No Longer Active 11/02/2018 [facility] Metoprolol 2.5 mg, 2.5 mL, Route: IVP, Drug form: INJ, Q6H, Dosing Weight 59.4, kg, Start date: 10/31/18 22:00:00 [employer], Duration: 30 day, Stop date: 12/01/18 5:00:00 CDTNotes: (Same as: Lopressor) Push over 2 mi nutes No Longer Active 11/01/2018 [facility] Metoprolol 2.5 mg, 2.5 mL, Route: IVP, Drug form: INJ, Q4H, Dosing Weight 59.4, kg, Start date: 10/28/18 12:00:00 [employer], Duration: 30 day, Stop date: 11/27/18 8:00:00 CSTNotes: (Same as: Lopressor) Push over 2 mi nutes No Longer Active 10/28/2018 [facility] metoprolol tartrate 25 mg, 1 tab, Route: PO, Drug form: TAB, BID, Dosing Weight 59.4, kg, Start date: 10/27/18 21:00:00 [employer], Duration: 30 day, Stop date: 11/26/18 9:00:00 CSTNotes: (Same as: Lopressor) No Longer Active 10/28/2018 [facility] ocular lubricant 1 drp, Route: BOTH EYES, Q6H, Drug form: SOLN, PRN as needed for dry eyes, Start date: 10/27/18 17:50:00 [employer], Duration: 30 day, Stop date: 11/26/18 17:49:00 [employer] No Longer Active 10/27/2018 [facility] sodium phosphate 30 mmol, 10 mL, Route: IVPB, PRN, Dosing Weight 59.4, kg, PRN Abnormal Lab Result, For NON-ICU Patients Only., Start date: 10/27/18 15:39:00 [employer], Duration: 30 day, Stop date: 11/26/18 15:38:00 CSTNotes: Infuse over 4 hour. Do not infuse phosphorous concurrently in the same line as TPN or IVF that contains calcium. For double lumen central lines, phosphorous may be infused in a separate lumen from TPN. No Longer Active 10/27/2018 [facility] potassium phosphate 15 mmol, 5 mL, Route: IVPB, PRN, Dosing Weight 59.4, kg, PRN Abnormal Lab Result, For NON-ICU Patients Only., Start date: 10/27/18 15:39:00 [employer], Duration: 30 day, Stop date: 11/26/18 15:38:00 CSTNotes: (Same as: K Phosphate.) Do not infuse phosphorous concurrently in the same line as TPN or IVF that contains calcium. For double lumen central lines, phosphorous may be infused in a separate lumen from TPN. 1 mMol phoshate has 1.47 mEq potassium Infuse over 4 hours No Longer Active 10/27/2018 [facility] potassium phosphate-sodium phosphate 250 mg-280 mg-160 mg oral powder for reconstitution 2 pkt, Route: PO, Drug Form: PDR/REC, Dosing Weight 59.4, kg, PRN, PRN Abnormal Lab Result, For NON-ICU Patients Only, Start date: 10/27/18 15:39:00 [employer], Duration: 30 day, Stop date: 11/26/18 15:38:00 CSTNotes: (Same as: Phos-NaK) Each 1.5 gm pkt has 250mg phosphorous. Mix w/2.5oz water and stir. No Longer Active 10/27/2018 [facility] Magnesium Oxide 800 mg, 2 tab, Route: PO, Drug form: TAB, PRN, Dosing Weight 59.4, kg, PRN Abnormal Lab Result, For NON-ICU Patients Only., Start date: 10/27/18 15:39:00 [employer], Duration: 30 day, Stop date: 11/26/18 15:38:00 CSTNotes: (Same as: Mag-Ox 400) Magnesium oxide [id number] elemental magnesium Dose=____mg magnesium oxide (___mg elemental magnesium) No Longer Active 10/27/2018 [facility] Potassium Chloride 10 mEq, 100 mL, Route: IVPB, Drug form: INJ, PRN, Dosing Weight 59.4, kg, PRN Abnormal Lab Result, For NON-ICU Patients Only, Start date: 10/27/18 15:39:00 [employer], Duration: 30 day, Stop date: 11/26/18 15:38:00 CSTNotes: Infuse at a rate of 10 mEq/hr. (Same as: KCL) No Longer Active 10/27/2018 [facility] Calcium Gluconate 2 gm, 20 mL, Route: IVPB, PRN, Dosing Weight 59.4, kg, PRN Abnormal Lab Result, For NON-ICU Patients Only., Start date: 10/27/18 15:39:00 [employer], Duration: 30 day, Stop date: 11/26/18 15:38:00 CSTNotes: WASTE: F/P - Sink; E - Municipal Trash Bin No Longer Active 10/27/2018 [facility] Magnesium Sulfate 2 gm, 50 mL, Route: IVPB, Drug form: INJ, PRN, Dosing Weight 59.4, kg, PRN Abnormal Lab Result, For NON-ICU Patients Only., Start date: 10/27/18 15:39:00 [employer], Duration: 30 day, Stop date: 11/26/18 15:38:00 CSTNotes: WASTE: F/P - Sink; E - Municipal Trash Bin No Longer Active 10/27/2018 [facility] Keppra 500 mg, Route: IVPB, Q12H, Dosing Weight 59.4, kg, Start date: 10/26/18 21:00:00 [employer], Duration: 30 day, Stop date: 11/25/18 9:00:00 CSTNotes: Same as Keppra Mix with 100 mL NS, LR or D5W MEDICATION WASTE Product Size: 500 mg Product Wasted: ___ mg No Longer Active 10/27/2018 [facility] heparin 5,000 unit, 1 mL, Route: SUB-Q, Drug form: INJ, Q12H, Dosing Weight 59.4, kg, Start date: 10/26/18 21:00:00 [employer], Duration: 30 day, Stop date: 11/25/18 9:00:00 CSTNotes: porcine heparin No Longer Active 10/27/2018 [facility] Metoprolol 2.5 mg, 2.5 mL, Route: IVP, Drug form: INJ, Q4H, Dosing Weight 59.4, kg, Start date: 10/26/18 21:00:00 [employer], Duration: 30 day, Stop date: 11/25/18 20:00:00 CSTNotes: (Same as: Lopressor) Push over 2 m inutes No Longer Active 10/27/2018 [facility] Metoprolol 2.5 mg, 2.5 mL, Route: IVP, Drug form: INJ, Q4H, Dosing Weight 59.4, kg, PRN Arrhythmias, Start date: 10/26/18 17:57:00 [employer], Duration: 30 day, Stop date: 11/25/18 17:56:00 CSTNotes: (Same as: Lopressor) Push over 2 minutes No Longer Active 10/26/2018 [facility] Metoprolol 2.5 mg, 2.5 mL, Route: IVP, Drug form: INJ, ONCE, Dosing Weight 59.4, kg, Start date: 10/26/18 17:55:00 [employer], Stop date: 10/26/18 17:55:00 CSTNotes: (Same as: Lopressor) Push over 2 minutes Inactive 10/26/2018 [facility] Robinul 0.2 mg, 1 mL, Route: IVP, Drug form: INJ, QID, Dosing Weight 59.4, kg, PRN Secretions, Start date: 10/25/18 22:41:00 [employer], Duration: 30 day, Stop date: 11/24/18 22:40:00 CSTNotes: (Same as: Robinul) No Longer Active 10/26/2018 [facility] Levetiracetam 100 MG/ML Oral Solution [Keppra] 500 mg, 5 mL, Route: PO, Drug form: SOLN, Q12H, Dosing Weight 59.4, kg, Start date: 10/25/18 9:00:00 [employer], Duration: 30 day, Stop date: 11/23/18 21:00:00 CSTNotes: Same as: Keppra No Longer Active 10/25/2018 [facility] Midazolam 2 mg, 2 mL, Route: IVP, Drug form: INJ, Q2H, Dosing Weight 59.4, kg, PRN Sedation, Start date: 10/25/18 7:55:00 [employer], Duration: 30 day, Stop date: 11/24/18 7:54:00 CSTNotes: (Same as: Versed) MEDICATION WASTE Product Size: 2 mg Product Wasted: ___ mg No Longer Active 10/25/2018 [facility] Fentanyl 50 microgram, 1 mL, Route: IVP, Drug form: INJ, Q2H, Dosing Weight 59.4, kg, PRN Pain Score 7-10, Start date: 10/25/18 7:55:00 [employer], Duration: 30 day, Stop date: 11/24/18 7:54:00 CSTNotes: (Same as: Ángel rodrigues) Preservative free. No Longer Active 10/25/2018 [facility] pantoprazole 40 mg, Route: IVP, Drug form: INJ, Before Breakfast, Dosing Weight 59.4, kg, Start date: 10/25/18 7:48:00 [employer], Duration: 30 day, Stop date: 11/24/18 7:30:00 CSTNotes: For IV push reconstitute with 10 ml 0.9% sodium chloride and push over 2 minutes. (Same as: Protonix) No Longer Active 10/25/2018 [facility] Protonix 40 mg, 1 tab, Route: PO, Drug form: ECTAB, Before Breakfast, Dosing Weight 59.4, kg, Start date: 10/25/18 7:30:00 [employer], Duration: 30 day, Stop date: 11/23/18 7:30:00 CSTNotes: Tablet should not be chewed or crushed. (Same as: Protonix) Inactive 10/25/2018 [facility] Mupirocin 1 appl, Route: NASAL, Q12H, Drug form: OINT, Start date: 10/24/18 21:00:00 [employer], Duration: 5 day, Stop date: 10/29/18 9:00:00 [employer]IONER, MRSA Decolonization No Longer Active 10/25/2018 [facility] Calcium Carbonate 500 MG Chewable Tablet 500 mg, 1 tab, Route: PO, Drug form: CHEWTAB, PRN, Dosing Weight 59.4, kg, PRN Abnormal Lab Result, FOR ICU USE ONLY, Start date: 10/24/18 11:25:00 [employer]IONER, Duration: 30 day, Stop date: 11/23/18 11:24:00 CSTNotes: (Same As: Tums) Calcium Carbonate 500 ej=450 mg elemental calcium Dose= mg calcium carbonate ( mg elemental calcium) No Longer Active 10/24/2018 [facility] Magnesium Oxide 800 mg, 2 tab, Route: PO, Drug form: TAB, PRN, Dosing Weight 59.4, kg, PRN Abnormal Lab Result, FOR ICU USE ONLY, Start date: 10/24/18 11:25:00 [employer]ER, Duration: 30 day, Stop date: 11/23/18 11:24:00 [employer] Notes: (Same as: Mag-Ox 400) Magnesium oxide [id number] elemental magnesium Dose=____mg magnesium oxide (___mg elemental magnesium) No Longer Active 10/24/2018 [facility] Calcium Gluconate 1 gm, 50 mL, Route: IVPB, Drug form: INJ, PRN, Dosing Weight 59.4, kg, PRN Abnormal Lab Result, Start date: 10/24/18 11:25:00 [employer] COMMISSIONER, Duration: 30 day, Stop date: 11/23/18 11:24:00 [employer] COMMISSIONER, FOR ICU USE ONLYNotes: WASTE: F/P - Sink; E - Municipal Trash Bin No Longer Active 10/24/2018 [facility] Magnesium Sulfate 2 gm, 50 mL, Route: IVPB, Drug form: INJ, PRN, Dosing Weight 59.4, kg, PRN Abnormal Lab Result, Start date: 10/24/18 11:25:00 [employer], Duration: 30 day, Stop date: 11/23/18 11:24:00 [employer] COMMISSIONER, FOR ICU USE ONLYNotes: WASTE: F/P - Sink; E - Municipal Trash Bin No Longer Active 10/24/2018 [facility] sodium phosphate 30 mmol, 10 mL, Route: IVPB, PRN, Dosing Weight 59.4, kg, PRN Abnormal Lab Result, Start date: 10/24/18 11:25:00 [employer], Duration: 30 day, Stop date: 11/23/18 11:24:00 [employer] COMMISSIONER, FOR ICU USE ONLYNotes: Infuse over 4 hour. Do not infuse phosphorous concurrently in the same line as TPN or IVF that contains calcium. For double lumen central lines, phosphorous may be infused in a separate lumen from TPN. No Longer Active 10/24/2018 [facility] Potassium Chloride 20 mEq, 15 mL, Route: NJ, Drug form: LIQ, PRN, Dosing Weight 59.4, kg, PRN Abnormal Lab Result, Start date: 10/24/18 11:25:00 [employer], Duration: 30 day, Stop date: 11/23/18 11:24:00 [employer] COMMISSIONER, FOR ICU USE ONLYNotes: (Same as: Potassium Chloride) No Longer Active 10/24/2018 [facility] potassium phosphate-sodium phosphate 250 mg-280 mg-160 mg oral powder for reconstitution 2 pkt, Route: PO, Drug Form: PDR/REC, Dosing Weight 59.4, kg, PRN, PRN Abnormal Lab Result, FOR ICU USE ONLY, Start date: 10/24/18 11:25:00 [employer], Duration: 30 day, Stop date: 11/23/18 11:24:00 CSTNotes: (Same as: Phos-NaK) Each 1.5 gm pkt has 250mg phosphorous. Mix w/2.5oz water and stir. No Longer Active 10/24/2018 [facility] potassium phosphate 30 mmol, 10 mL, Route: IVPB, PRN, Dosing Weight 59.4, kg, PRN Abnormal Lab Result, Start date: 10/24/18 11:25:00 [employer], Duration: 30 day, Stop date: 11/23/18 11:24:00 [employer] COMMISSIONER, FOR ICU USE ONLYNotes: (Same as: K Phosphate.) Do not infuse phosphorous concurrently in the same line as TPN or IVF that contains calcium. For double lumen central lines, phosphorous may be infused in a separate lumen from TPN. 1 mMol phoshate has 1.47 mEq potassium Infuse over 4 hours No Longer Active 10/24/2018 [facility] LR IV 1,000 mL 1,000 mL, Rate: 75 ml/hr, Infuse over: 13.3 hr, Route: IV, Dosing Weight 59.4 kg, Total Volume: 1,000, Start date: 10/24/18 11:21:00 [employer], Duration: 30 day, Stop date: 11/23/18 11:20:00 [employer], 1.64, m2 No Longer Active 10/24/2018 [facility] pneumococcal capsular polysaccharide type 1 vaccine / pneumococcal capsular polysaccharide type 10A vaccine / pneumococcal capsular polysaccharide type 11A vaccine / pneumococcal capsular polysaccharide type 12F vaccine / pneumococcal capsular polysacchar 0.5 mL, Route: IM, Drug Form: INJ, ONCALL, Start date: 10/24/18 6:30:41 [employer], Stop date: 11/23/18 6:25:41 CSTNotes: (Same as: Pneumovax 23) Refrigerate No Longer Active 10/24/2018 [facility] chlorhexidine gluconate 1.2 MG/ML Mouthwash 15 mL, Route: Swab Mouth, Q12H, Drug form: LIQ, Start date: 10/23/18 21:00:00 [employer]ER, Duration: 30 day, Stop date: 11/22/18 9:00:00 CSTNotes: (Same As: Peridex) No Longer Active 10/24/2018 [facility] Zosyn 3.375 gm, Route: IVPB, [id number], Dosing Weight 54.545, kg, Start date: 10/23/18 19:00:00 [employer]ER, Duration: 7 day, Stop date: 10/30/18 11:00:00 [employer]ER, ABX Indication: PneumoniaNotes: (Same as: Zosyn) Dosing based on Piperacillin component MEDICATION WASTE Product Size: 3375 mg Product Wasted: ___ mg No Longer Active 10/24/2018 [facility] NS 1,000 mL 1,000 mL, Rate: 100 ml/hr, Infuse over: 10 hr, Route: IV, Dosing Weight 54.545 kg, Total Volume: 1,000, Start date: 10/23/18 18:13:00 [employer]IONER, Duration: 30 day, Stop date: 11/22/18 18:12:00 [employer]IONER, 1.58, m2 No Longer Active 10/24/2018 [facility] ocular lubricant 1 drp, Route: BOTH EYES, Q6H, Drug form: SOLN, Start date: 10/23/18 18:00:00 [employer]ER, Duration: 30 day, Stop date: 11/22/18 12:00:00 CSTNotes: Same as Tears Naturale and GenTeal Tears No Longer Active 10/24/2018 [facility] Acetaminophen 300 MG / Codeine Phosphate 30 MG Oral Tablet [Tylenol with Codeine #3] 1 tab, PO, TID No Longer Active 10/23/2018 [facility] rivaroxaban 15 MG Oral Tablet [Xarelto] 15 mg=1 tab, PO, BID No Longer Active 10/23/2018 [facility] Levetiracetam 100 MG/ML Oral Solution [Keppra] 500 mg=5 mL, PO, Q12H No Longer Active 10/23/2018 [facility] Docusate Sodium 100 MG Oral Capsule 100 mg=1 cap, PO, BID No Longer Active 10/23/2018 [facility] Hydroxyzine Hydrochloride 25 MG Oral Tablet 25 mg=1 tab, PO, BID No Longer Active 10/23/2018 [facility] chlorhexidine gluconate 1.2 MG/ML Mouthwash 15 mL, Route: Swab Mouth, PRN, Drug form: LIQ, PRN Other -See Comment, Start date: 10/23/18 17:29:00 [employer], Duration: 30 day, Stop date: 11/22/18 17:28:00 CSTNotes: (Same As: Peridex) No Longer Active 10/23/2018 [facility] Protonix 80 mg, Route: IVP, ONCE, Dosing Weight 54.545, kg, Priority: STAT, Start date: 10/23/18 17:28:00 [employer], Stop date: 10/23/18 17:28:00 [employer]ER Inactive 10/23/2018 [facility] pantoprazole additive 80 mg + Sodium Chloride 0.9% IV 100 mL 100 mL, Rate: 10 ml/hr, Infuse over: 10 hr, Route: IVPB, Dosing Weight 54.545 kg, Total Volume: 100, Infuse at 8 mg/hr for 72 hrs for GI bleeding, Start date: 10/23/18 17:27:00 [employer], Duration: 72 hr, Stop date: 10/26/18 17:26:00 [employer], 1.58, [id number]: For IV push reconstitute with 10 ml 0.9% sodium chloride and push over 2 minutes. (Same as: Protonix) No Longer Active 10/23/2018 [facility] Midazolam 50 mg, 50 mL, Rate: Titrate, Start Dose: 1 mg/hr, Titration: Rebolus 1 mg IV and/or Titrate infusion by 1 mg/hour every 30 minutes, Goal(s): RASS -2, Max Dose: 10 mg/hr, Route: IV, Dosing Weight 54.545 kg, Total Volume: 50, Start date: 10/23/18 17:19:...Notes: (Same as: Versed) Inactive 10/23/2018 [facility] Fentanyl 1,250 microgram, 250 mL, Rate: Titrate, Start Dose: 50 microgram/hr, Titration: 25 microgram/hour every 15 minutes, Goal(s): RASS -2, Max Dose: 300 microgram/hr, Route: IV, Dosing Weight 54.545 kg, Total Volume: 250, Start date: 10/23/18 17:18:00 [employer],...Notes: Concentration: 5 microgram / ml No Longer Active 10/23/2018 [facility] Succinylcholine Route: IV, ONCE, Dosing Weight 54.545, kg, Start date: 10/23/18 17:03:00 [employer], Stop date: 10/23/18 17:03:00 [employer] Inactive 10/23/2018 [facility] Etomidate 20 mg, Route: IVP, ONCE, Dosing Weight 54.545, kg, Priority: STAT, Start date: 10/23/18 17:03:00 [employer], Stop date: 10/23/18 17:03:00 [employer] Inactive 10/23/2018 [facility] Protonix 40 mg, Route: IVP, Drug form: INJ, ONCE, Dosing Weight 54.545, kg, Priority: STAT, Start date: 10/23/18 16:57:00 [employer], Stop date: 10/23/18 16:57:00 CSTNotes: For IV push reconstitute with 10 ml 0.9% sodi um chloride and push over 2 minutes. (Same as: Protonix) Inactive 10/23/2018 [facility] Zofran 4 mg, Route: IVP, Drug form: INJ, ONCE, Dosing Weight 54.545, kg, Priority: STAT, Start date: 10/23/18 16:57:00 [employer], Stop date: 10/23/18 16:57:00 [employer] Inactive 10/23/2018 [facility] Sodium Chloride 0.9% (Bolus) IV 1,000 mL, 1000 ml/hr, Infuse Over: 1 hr, Route: IV, 1,000, Drug form: INJ, ONCE, Priority: STAT, Dosing Weight 54.545 kg, Start date: 10/23/18 16:35:00 [employer], Stop date: 10/23/18 16:35:00 [employer] Inactive 10/23/2018 [facility] Sodium Chloride 0.9% (Bolus) IV 1,000 mL, 1000 ml/hr, Infuse Over: 1 hr, Route: IV, 1,000, Drug form: INJ, ONCE, Priority: STAT, Dosing Weight 54.545 kg, Start date: 10/23/18 13:33:00 [employer], Stop date: 10/23/18 13:33:00 [employer] Inactive 10/23/2018 [facility] cefepime 2 gm, Route: IVP, ONCE, Dosing Weight 54.545, kg, Priority: STAT, Start date: 10/23/18 13:17:00 [employer], Stop date: 10/23/18 13:17:00 [employer], ABX Indication: PneumoniaNotes: (Same as: Maxipime) MEDICA TION WASTE Product Size: 2000 mg Product Wasted: ___ mg Inactive 10/23/2018 [facility] Saline Flush 0.9% 10 mL, Route: IVP, Drug Form: INJ, Dosing Weight 54.545, kg, PRN, PRN Line Flush, Start date: 10/23/18 13:17:00 [employer], Duration: 30 day, Stop date: 11/22/18 13:16:00 CSTNotes: preservative free. No Longer Active 10/23/2018 [facility] Eliquis 10 mg, 2 tab, Route: PO, Drug form: TAB, ONCE, Dosing Weight 55.625, kg, Start date: 05/25/18 21:00:00 CDT, Stop date: 05/25/18 21:00:00 CDTNotes: Same as: Eliquis Inactive 05/26/2018 [facility] apixaban 5 MG Oral Tablet [Eliquis] 10 mg=2 tab, PO, Q12H, Please take Eliquis 10 mg twice daily for 7 days then Eliquis 5 mg twice daily, # 28 tab, 0 Refill(s) No Longer Active 05/25/2018 [facility] Eliquis 5 mg, Route: PO, Drug form: TAB, ONCE, Dosing Weight 55.625, kg, Start date: 05/25/18 17:00:00 CDT, Stop date: 05/25/18 17:00:00 CDT Inactive 05/25/2018 [facility] apixaban 5 MG Oral Tablet [Eliquis] 5 mg, PO, Q12H, # 60 tab, 1 Refill(s) No Longer Active 05/25/2018 [facility] apixaban 5 MG Oral Tablet [Eliquis] 5 mg, PO, Q12H, # 60 tab, 0 Refill(s) Inactive 05/25/2018 [facility] Gemfibrozil 600 mg, 1 tab, Route: PO, Drug form: TAB, Daily, Dosing Weight 55.625, kg, Start date: 05/25/18 9:00:00 CDT, Duration: 30 day, Stop date: 06/23/18 9:00:00 CDTNotes: (Same as: Lopid) No Longer Active 05/25/2018 [facility] Amlodipine 5 mg, 1 tab, Route: PO, Drug form: TAB, Daily, Dosing Weight 55.625, kg, Start date: 05/25/18 9:00:00 CDT, Duration: 30 day, Stop date: 06/23/18 9:00:00 CDTNotes: (Same as: Norvasc) No Longer Active 05/25/2018 [facility] Plavix 75 mg, 1 tab, Route: PO, Drug form: TAB, Daily, Dosing Weight 55.625, kg, Start date: 05/25/18 9:00:00 CDT, Duration: 30 day, Stop date: 06/23/18 9:00:00 CDTNotes: (Same As: Plavix) No Longer Active 05/25/2018 [facility] gabapentin 300 MG Oral Capsule 300 mg, 1 cap, Route: PO, Drug form: CAP, Q8H, Dosing Weight 55.625, kg, Start date: 05/25/18 0:00:00 CDT, Duration: 30 day, Stop date: 06/23/18 16:00:00 CDTNotes: (Same as: Neurontin) No Longer Active 05/25/2018 [facility] Pravastatin 10 mg, 0.5 tab, Route: PO, Drug form: TAB, Bedtime, Dosing Weight 55.625, kg, Start date: 05/24/18 21:00:00 CDT, Duration: 30 day, Stop date: 06/22/18 21:00:00 CDTNotes: (Same as: Pravachol) No Longer Active 05/25/2018 [facility] Acetaminophen 300 MG / Codeine Phosphate 30 MG Oral Tablet [Tylenol with Codeine #3] 1 - 2 tab, PO, Q8H, PRN Pain, # 32 tab, 0 Refill(s) No Longer Active 05/24/2018 [facility] Hydroxyzine 25 mg=1 tab, PO, Q6H, PRN rash / allergy symptoms, 0 Refill(s) No Longer Active 05/24/2018 [facility] potassium chloride 20 mEq oral tablet, [...] Patient’s with feeding tube less than 14 Russian (Dobhoff, J-tube etc) and pediatric and patients. With food and full glass of water Inactive 05/24/2018 [facility] D5W 1,000 mL 1,000 mL, Rate: 75 ml/hr, Infuse over: 13.3 hr, Route: IV, Dosing Weight 55.625 kg, Total Volume: 1,000, Start date: 05/24/18 15:51:00 CDT, Duration: 30 day, Stop date: 06/23/18 15:50:00 CDT, 1.6, m2 No Longer Active 05/24/2018 [facility] Enoxaparin 60 mg, 0.6 mL, Route: SUB-Q, Drug form: INJ, [id number], Dosing Weight 55.625, kg, Start date: 05/24/18 12:00:00 CDT, Duration: 30 day, Stop date: 06/23/18 0:00:00 CDTNotes: Nurse to ensure documentation of patient education per anticoagulation policy. (Same as: Lovenox) No Longer Active 05/24/2018 [facility] Zofran 4 mg, 2 mL, Route: IVP, Drug form: INJ, [id number], Dosing Weight 55.625, kg, PRN Nausea, Start date: 05/24/18 9:00:00 CDT, Duration: 30 day, Stop date: 06/23/18 8:59:00 CDTNotes: (Same as: Zofran) MEDICATION WASTE Product Size: 4 mg Product Wasted: ___ mg No Longer Active 05/24/2018 [facility] Phenergan 25 mg, 1 mL, Route: IV Central, Q6H, Dosing Weight 55.625, kg, PRN Nausea & Vomiting, Priority: NOW, Start date: 05/24/18 8:58:00 CDT, Duration: 30 day, Stop date: 06/23/18 8:57:00 CDTNotes: Do not give IV push. (Same as: Phenergan) No Longer Active 05/24/2018 [facility] Zofran 4 mg, Route: IVP, Drug form: INJ, Q8H, Dosing Weight 55.625, kg, PRN Nausea, Start date: 05/24/18 8:58:00 CDT, Duration: 30 day, Stop date: 06/23/18 8:57:00 CDT Inactive 05/24/2018 [facility] Omnipaque 300 injectable solution 100 mL, Route: IVP, Drug Form: SOLN, Dosing Weight 55.625, kg, ONCALL, GFR > 45 mL/min, Start date: 05/24/18 3:00:00 CDT, Duration: 1 doses or timesNotes: (Same as:Omnipaque 300). WASTE: F/P - Black; E - Municipal Trash Bin No Longer Active 05/24/2018 [facility] Lovenox 80 mg, Route: SUB-Q, Drug form: INJ, ONCE, Dosing Weight 79.545, kg, Priority: STAT, Start date: 05/23/18 22:38:00 CDT, Stop date: 05/23/18 22:38:00 CDT Inactive 05/24/2018 [facility] Heparin 80 unit/kg Bolus (Heparin Dosing Weight) Pharmacy To Manage, Route: IVP, PRN, Drug form: INJ, PRN, Heparin Protocol, Start date: 05/23/18 22:21:00 CDT Stop date: 06/22/18 22:20:00 CDT, 30 day Inactive 05/24/2018 [facility] Heparin 40 unit/kg Bolus (Heparin Dosing Weight) Pharmacy To Manage, Route: IVP, PRN, Drug form: INJ, PRN, Heparin Protocol, Start date: 05/23/18 22:21:00 CDT Stop date: 06/22/18 22:20:00 CDT, 30 day Inactive 05/24/2018 [facility] heparin additive 25,000 unit [18 unit/kg/hr] + Premix Diluent Dextrose 5% 500 mL 500 mL, Rate: 28.64 ml/hr, Infuse over: 17.5 hr, Route: IV, Dosing Weight 79.545 kg, Total Volume: 500 mL, Start date: 05/23/18 22:21:00 CDT, Duration: 30 day, Stop date: 06/22/18 22:20:00 CDT, 1.96, m2 Inactive 05/24/2018 [facility] Heparin - one time bolus for DVT/PE 4,000 unit, Route: IVP, Drug form: INJ, ONCE, Dosing Weight 79.545, kg, Priority: STAT, Start date: 05/23/18 22:21:00 CDT, Stop date: 05/23/18 22:21:00 CDT Inactive 05/24/2018 [facility] Reglan 10 mg, 2 mL, Route: IVP, Drug form: INJ, ONCE, Dosing Weight 79.545, kg, Start date: 05/23/18 19:38:00 CDT, Stop date: 05/23/18 19:38:00 CDTNotes: (Same as: Reglan) Inactive 05/24/2018 [facility] Acetaminophen 300 MG / Codeine Phosphate 30 MG Oral Tablet 1 tab, PO, Q8H, PRN Pain, # 20 tab, 0 Refill(s) Active 03/28/2018 [facility] Metoclopramide 5 mg, 1 mL, Route: IVP, Drug form: INJ, ONCE, Dosing Weight 79.545, kg, Priority: STAT, Start date: 03/27/18 22:47:00 CDT, Stop date: 03/27/18 22:47:00 CDTNotes: (Same as: Reglan) Inactive 03/28/2018 [facility] Morphine 4 mg, 1 mL, Route: IVP, Drug form: SOLN, ONCE, Dosing Weight 79.545, kg, Priority: STAT, Start date: 03/27/18 22:47:00 CDT, Stop date: 03/27/18 22:47:00 CDTNotes: (Same as:MORPhine Sulfate) Inactive 03/28/2018 [facility] Sodium Chloride 0.9% (Bolus) IV 1,000 mL, 1000 ml/hr, Infuse Over: 1 hr, Route: IV, 1,000, Drug form: INJ, ONCE, Priority: STAT, Dosing Weight 79.545 kg, Start date: 03/27/18 22:47:00 CDT, Stop date: 03/27/18 22:47:00 CDT Inactive 03/28/2018 [facility] potassium chloride 20 mEq oral tablet, extended release 20 mEq=1 tab, PO, BID, # 2 tab, 0 Refill(s) Active 03/07/2018 [facility] Ondansetron 4 MG Disintegrating Tablet [Zofran] 4 mg=1 tab, PO, BID, PRN Nausea and Vomiting, Dissolve tab under tongue, # 10 tab, 0 Refill(s) Active 03/07/2018 [facility] Potassium Chloride 10 mEq, 100 mL, Route: IVPB, Drug form: INJ, Q1H, Dosing Weight 75, kg, Total Dose=20 meq, Start date: 03/07/18 16:00:00 CDT, Duration: 2 doses or times, Stop date: 03/07/18 17:00:00 CDT, Peripheral LineNotes: Infuse at a rate of 10 mEq/hr. (Same as: KCL) Inactive 03/07/2018 [facility] Omnipaque 300 100 mL, Route: IV, Drug Form: SOLN, Dosing Weight 75, kg, ONCE, Start date: 03/07/18 15:36:00 CDT, Stop date: 03/07/18 15:36:00 CDTNotes: (Same as:Omnipaque 300). WASTE: F/P - Black; E - Municipal T rash Bin Inactive 03/07/2018 [facility] Ondansetron 4 mg, 2 mL, Route: IVP, Drug form: INJ, ONCE, Dosing Weight 75, kg, Priority: STAT, Start date: 03/07/18 14:28:00 CDT, Stop date: 03/07/18 14:28:00 CDTNotes: (Same as: Chilo) MEDICATION WASTE Product Size: 4 mg Product Wasted: ___ mg Inactive 03/07/2018 [facility] Sodium Chloride 0.9% (Bolus) IV 1,000 mL, 1000 ml/hr, Infuse Over: 1 hr, Route: IV, 1,000, Drug form: INJ, ONCE, Priority: STAT, Dosing Weight 75 kg, Start date: 03/07/18 14:28:00 CDT, Stop date: 03/07/18 14:28:00 CDT Inactive 03/07/2018 [facility] Acetaminophen 300 MG / Codeine Phosphate 30 MG Oral Tablet [Tylenol with Codeine #3] 1 - 2 tab, PO, Q4H, PRN Pain, X 3 day, # 12 tab, 0 Refill(s) Active 03/03/2018 [facility] Erythromycin 0.02 MG/MG Topical Ointment 1 appl, TOP, BID, X 7 day, # 30 gm, 0 Refill(s) Active 03/03/2018 [facility] Proparacaine-Fluorescein ophthalmic soln Proparacaine-Fluorescein ophthalmic soln, 2 drp, Drug form: MISC, Route: BOTH EYES, ONCE, 03/03/18 6:38:00 CDT, Stop date: 03/03/18 6:38:00 CDT Inactive 03/03/2018 [facility] benoxinate-fluorescein ophthalmic solution 2 drp, Route: BOTH EYES, ONCE, Start date: 03/03/18 6:27:00 CDT, Stop date: 03/03/18 6:27:00 CDT Inactive 03/03/2018 [facility] GI cocktail 30 mL, Route: PO, Dosing Weight 68.182, kg, ONCE, STAT, Start date: 03/03/18 3:54:00 CDT, Stop date: 03/03/18 3:54:00 CDT Inactive 03/03/2018 [facility] Ondansetron 4 mg, Route: IVP, Drug form: INJ, ONCE, Dosing Weight 68.182, kg, Priority: STAT, Start date: 03/03/18 3:54:00 CDT, Stop date: 03/03/18 3:54:00 CDT Inactive 03/03/2018 [facility] Morphine 4 mg, Route: IVP, ONCE, Dosing Weight 68.182, kg, Priority: STAT, Start date: 03/03/18 3:54:00 CDT, Stop date: 03/03/18 3:54:00 CDT Inactive 03/03/[address] [facility] Saline Flush 0.9% 10 mL, Route: IVP, Drug Form: INJ, Dosing Weight 68.182, kg, PRN, PRN Line Flush, Start date: 03/01/18 16:10:00 CDT, Duration: 30 day, Stop date: 03/31/18 16:09:00 CDTNotes: (Same as: BD Posiflush) Inactive 03/01/2018 [facility] Plavix 75 mg, 1 tab, Route: PO, Drug form: TAB, Daily, Dosing Weight 68.182, kg, Priority: NOW, Start date: 01/04/18 13:03:00 CDT, Duration: 30 day, Stop date: 02/03/18 9:00:00 CDTNotes: (Same As: Plavix) Inactive 01/04/2018 [facility] clopidogrel 75 MG Oral Tablet [Plavix] 75 mg=1 tab, PO, Daily, # 30 tab, 0 Refill(s), Pharmacy: [facility] [id number] Active 01/04/2018 [facility] Amlodipine 5 mg, 1 tab, Route: PO, Drug form: TAB, Daily, Dosing Weight 68.182, kg, Start date: 01/04/18 9:00:00 CDT, Duration: 30 day, Stop date: 02/02/18 9:00:00 CDTNotes: (Same as: Norvasc) Inactive 01/04/2018 [facility] Aspirin 81 MG Enteric Coated Tablet 81 [...] Wasted: ___ mg No Longer Active 01/03/2018 [facility] Omnipaque 350 100 ml, Route: IV, Drug Form: SOLN, Dosing Weight 64.744, kg, ONCE, STAT, Start date: 01/03/18 17:14:00 CDT, Stop date: 01/03/18 17:14:00 CDTNotes: (same as:Omnipaque 350). WASTE: F/P - Black; E - M unicipal Trash Bin Inactive 01/03/2018 [facility] Benadryl 25 mg, 1 cap, Route: IVP, Drug form: CAP, ONCE, Dosing Weight 64.744, kg, Priority: STAT, Start date: 01/03/18 14:44:00 CDT, Stop date: 01/03/18 14:44:00 CDTNotes: (Same as: Benadryl) Inactive 01/03/2018 [facility] Reglan 10 mg, 2 mL, Route: IVP, Drug form: INJ, ONCE, Dosing Weight 64.744, kg, Priority: STAT, Start date: 01/03/18 14:44:00 CDT, Stop date: 01/03/18 14:44:00 CDTNotes: (Same as: Reglan) Inactive 01/03/2018 [facility] Saline Flush 0.9% 10 mL, Route: IVP, Drug Form: INJ, Dosing Weight 64.744, kg, PRN, PRN Line Flush, Start date: 01/03/18 14:43:00 CDT, Duration: 30 day, Stop date: 02/02/18 14:42:00 CDTNotes: Same as: BD Posiflush Sterile No Longer Active 01/03/2018 [facility] Sodium Chloride 0.9% (Bolus) IV [...] Bedtime, # 90 cap, 0 Refill(s), Pharmacy: [facility] [id number] [facility] Ranitidine 150 MG Oral Tablet 150 mg=1 tab, PO, BID, 0 Refill(s) No Longer Active 10/27/[facility] gabapentin 100 MG Oral Capsule See Instructions, 1 po qhs for 3 nights then 2 po qhs for 3 nights t hen 3 po qhs, # 90 cap, 0 Refill(s), Pharmacy: [facility] [id number] No Longer Active 10/20/2017 [facility] Botulinum [...] 150 MG Orally twice a day (bid) [facility] 10/01/2016 Brandie H Karen Zantac 150 Maximum Strength 1 tablet Orally Active 150 MG Orally twice a day (bid) [facility] 10/01/2016 Brandie H [facility] Mobic 1 tablet Orally No Longer Active 15 MG Orally Once a day [facility] 06/23/2016 Brandie H Karen Lopid 1 tablet Orally Active 600 MG Orally Once a Day [facility] 10/03/2015 Brandie H [facility] Acetaminophen 300 MG / Codeine Phosphate 30 MG Oral Tablet [Tylenol with Codeine #3] 1 - 2 tab, PO, Q4H, PRN Pain, # 20 tab, 0 Refill(s) Active 08/09/2015 [facility] Wheelchair as directed Standard Wheelchair Active 1 Standard Wheelchair as directed [facility] 05/01/2014 [facility] as [facility] Matress Active 1 Matress as directed [facility] 05/01/2014 Brandie H Karen Wheelchair as directed Standard Wheelchair Active 1 Standard Wheelchair as directed [facility] 05/01/2014 [facility] as directed Matress Active 1 Matress as directed [facility] Enulose 30 ml as needed Orally Active 10 GM/15ML Orally twice a day (bid) as needed (prn) [facility] 04/10/2014 Brandie [facility] Lasix 1 tablet Orally Active 20 mg Orally Once a day [facility] 01/30/2014 Brandie [facility] Norvasc 1 tablet Orally Active 5 MG Orally Once a day [facility] 01/27/2014 Brandie H [facility] Aspirin 1 tablet Orally Active 81 MG Orally Once a day [facility] Brandie [facility] Pravachol 1 tablet Orally Active 10 MG Orally once every night [facility] Brandie [facility] Tricor 1 tablet Orally No Longer Active 145 MG Orally Once a day [facility] Zoloft 1 tablet Orally No Longer Active 25 MG Orally Once a day [facility] Tylenol/Codeine #3 1 tablet Orally No Longer Active 300-30 MG Orally every six to eight hours, PRN for Pain [facility] Brandie [facility] Phenergan 1/2 half tablet Injection No Longer Active 25 MG/ML Injection three times a day (tid) as needed (prn) [facility] Brandie [facility] Neurontin 2 Capsules Orally Active 100 mg Orally Once Every Night [facility] Lasix 1 tablet Orally No Longer Active 20 mg Orally as needed (prn) [facility] Keppra 1 tablet Orally No Longer Active 500 mg Orally twice a day (bid) [facility] Brandie [facility] Aspirin 1 tablet Orally Active 81 [...] Brandieerik Jones Zanaflex Assertion Drug allergy Active [facility] Zantac Assertion Drug allergy Active [facility] Zoloft Assertion Drug allergy Active [facility] Immunizations Immunization Date Given Site Status Last Updated Comments Source pneumococcal 23-valent vaccine 04/23/2014 Left Deltoid completed [facility],[id number], [facility] Results Order Name Results Value Reference Range Date Interpretation Comments Source ELECTROLYTES AGAP 13.2 10.0 - 20.0 10/28/2018 [facility] ELECTROLYTES eGFR 117 10/28/2018 Result Comment: [...] should be multiplied by the estimated BMI. [facility] ELECTROLYTES Calcium Lvl 9.3 8.5 - 10.5 10/28/2018 [facility] ELECTROLYTES CO2 23 24 - 32 10/28/2018 [facility] ELECTROLYTES Glucose Lvl 101 70 - 99 10/28/2018 [facility] ELECTROLYTES BUN 8 7 - 22 10/28/2018 [facility] ELECTROLYTES Creatinine Lvl 0.63 0.50 - 1.40 10/28/2018 [facility] ELECTROLYTES Potassium Lvl 4.2 3.5 - 5.1 10/28/2018 [facility] ELECTROLYTES Sodium Lvl 142 135 - 145 10/28/2018 [facility] ELECTROLYTES Chloride Lvl 110 95 - 109 10/28/2018 [facility] MCHC 32.8 32.0 - 36.0 10/28/2018 [facility] MCH 26.9 27.0 - 31.0 10/28/2018 [facility] Platelet 221 133 - 450 10/28/2018 [facility] RDW 18.8 11.5 - 14.5 10/28/2018 [facility] RBC 4.58 4.20 - 5.40 10/28/2018 [facility] MCV 81.9 80.0 - 98.0 10/28/2018 [facility] Hct 37.5 36.0 - 48.0 10/28/2018 [facility] WBC 6.6 3.7 - 10.4 10/28/2018 [facility] Hgb 12.3 12.0 - 16.0 10/28/2018 [facility] MPV 9.2 7.4 - 10.4 10/28/2018 [facility] Segs 48.7 45.0 - 75.0 10/28/2018 [facility] Lymphocytes # 2.1 1.0 - 5.5 10/28/2018 [facility] Neutrophils # 3.2 1.5 - 8.1 10/28/2018 [facility] Basophils 1.3 0.0 - 1.0 10/28/2018 [facility] Eosinophils 2.7 0.0 - 4.0 10/28/2018 [facility] Monocytes 15.4 2.0 - 12.0 10/28/2018 [facility] Basophils # 0.1 0.0 - 0.2 10/28/2018 [facility] Eosinophils # 0.2 0.0 - 0.5 10/28/2018 [facility] Lymphocytes 31.9 20.0 - 40.0 10/28/2018 [facility] Monocytes # 1.0 0.0 - 0.8 10/28/2018 [facility] CHEM PANEL eGFR 122 10/27/2018 Result [...] should be multiplied by the estimated BMI. [facility] CHEM PANEL Calcium Lvl 9.2 8.5 - 10.5 10/27/2018 [facility] CHEM PANEL AGAP 9.0 10.0 - 20.0 10/27/2018 [facility] CHEM PANEL CO2 25 24 - 32 10/27/2018 [facility] CHEM PANEL Sodium Lvl 141 135 - 145 10/27/2018 [facility] CHEM PANEL Chloride Lvl 111 95 - 109 10/27/2018 [facility] CHEM PANEL Creatinine Lvl 0.55 0.50 - 1.40 10/27/2018 [facility] CHEM PANEL Potassium Lvl 4.0 3.5 - 5.1 10/27/2018 [facility] CHEM PANEL BUN 7 7 - 22 10/27/2018 [facility] CHEM PANEL Glucose Lvl 85 70 - 99 10/27/2018 [facility] Monocytes # 0.8 0.0 - 0.8 10/27/2018 [facility] Neutrophils # 3.2 1.5 - 8.1 10/27/2018 [facility] Lymphocytes # 2.0 1.0 - 5.5 10/27/2018 [facility] HEMATOLOGY Basophils 1.2 0.0 - 1.0 10/27/2018 [facility] Eosinophils # 0.3 0.0 - 0.5 10/27/2018 [facility] Eosinophils 4.3 0.0 - 4.0 10/27/2018 [facility] Basophils # 0.1 0.0 - 0.2 10/27/2018 [facility] Lymphocytes 31.4 20.0 - 40.0 10/27/2018 [facility] Monocytes 12.0 2.0 - 12.0 10/27/2018 [facility] Segs 51.1 45.0 - 75.0 10/27/2018 [facility] MPV 9.0 7.4 - 10.4 10/27/2018 [facility] RDW 19.7 11.5 - 14.5 10/27/2018 [facility] [facility] MCHC 32.8 32.0 - 36.0 10/27/2018 [facility] Platelet 180 133 - 450 10/27/2018 [facility] Hgb 10.8 12.0 - 16.0 10/27/2018 [facility] MCH 27.1 27.0 - 31.0 10/27/2018 [facility] MCV 82.7 80.0 - 98.0 10/27/2018 [facility] Hct 33.0 36.0 - 48.0 10/27/2018 [facility] RBC 3.99 4.20 - 5.40 10/27/2018 [facility] WBC 6.3 3.7 - 10.4 10/27/2018 [facility] ELECTROLYTES Potassium Lvl 4.4 3.5 - 5.1 10/26/2018 [facility] PTT 41.3 22.9 - 35.8 10/26/2018 [facility] INR 1.32 0.85 - 1.17 10/26/2018 [facility] PT 16.1 12.0 - 14.7 10/26/2018 [facility] ELECTROLYTES AGAP 9.8 10.0 - 20.0 10/26/2018 [facility] ELECTROLYTES eGFR 119 10/26/2018 Result Comment: [...] should be multiplied by the estimated BMI. [facility] ELECTROLYTES CO2 22 24 - 32 10/26/2018 [facility] ELECTROLYTES Calcium Lvl 8.4 8.5 - 10.5 10/26/2018 [facility] ELECTROLYTES Chloride Lvl 113 95 - 109 10/26/2018 [facility] ELECTROLYTES Sodium Lvl 141 135 - 145 10/26/2018 [facility] ELECTROLYTES Glucose Lvl 127 70 - 99 10/26/2018 [facility] ELECTROLYTES BUN 7 7 - 22 10/26/2018 [facility] ELECTROLYTES Creatinine Lvl 0.59 0.50 - 1.40 10/26/2018 [facility] HEMATOLOGY RBC 3.60 4.20 - 5.40 10/26/2018 [facility] HEMATOLOGY WBC 6.1 3.7 - 10.4 10/26/2018 [facility] HEMATOLOGY MCHC 32.6 32.0 - 36.0 10/26/2018 [facility] HEMATOLOGY RDW 19.3 11.5 - 14.5 10/26/2018 [facility] HEMATOLOGY Platelet 163 133 - 450 10/26/2018 [facility] MPV 9.5 7.4 - 10.4 10/26/2018 [facility] Hct 29.3 36.0 - 48.0 10/26/2018 [facility] MCV 81.4 80.0 - 98.0 10/26/2018 [facility] MCH 26.5 27.0 - 31.0 10/26/2018 [facility] HEMATOLOGY Hgb 9.6 12.0 - 16.0 10/26/2018 [facility] HEMATOLOGY Basophils 0.6 0.0 - 1.0 10/26/2018 [facility] HEMATOLOGY Lymphocytes # 1.7 1.0 - 5.5 10/26/2018 [facility] HEMATOLOGY Eosinophils # 0.3 0.0 - 0.5 10/26/2018 [facility] HEMATOLOGY Monocytes # 0.7 0.0 - 0.8 10/26/2018 [facility] HEMATOLOGY Neutrophils # 3.4 1.5 - 8.1 10/26/2018 [facility] HEMATOLOGY Eosinophils 4.2 0.0 - 4.0 10/26/2018 [facility] HEMATOLOGY Monocytes 11.5 2.0 - 12.0 10/26/2018 [facility] HEMATOLOGY Segs 56.4 45.0 - 75.0 10/26/2018 [facility] Lymphocytes 27.3 20.0 - 40.0 10/26/2018 [facility] CHEM PANEL Phosphorus 2.5 2.5 - 4.5 10/25/2018 [facility] CHEM PANEL Magnesium Lvl 2.0 1.8 - 2.4 10/25/2018 [facility] CHEM PANEL Total Protein 5.6 6.4 - 8.4 10/25/2018 [facility] CHEM PANEL Bili Total 2.0 0.2 - 1.3 10/25/2018 [facility] CHEM PANEL ALT 11 0 - 65 10/25/2018 [facility] CHEM PANEL Albumin Lvl 2.6 3.5 - 5.0 10/25/2018 [facility] CHEM PANEL AST 13 0 - 37 10/25/2018 [facility] CHEM PANEL Alk Phos 44 39 - 136 10/25/2018 [facility] CHEM PANEL Globulin 3.0 2.7 - 4.2 10/25/2018 [facility] CHEM PANEL B/C Ratio 15 6 - 25 10/25/2018 [facility] CHEM PANEL A/G Ratio 0.9 0.7 - 1.6 10/25/2018 [facility] HEMATOLOGY Basophils # 0.1 0.0 - 0.2 10/25/2018 [facility] HEMATOLOGY PTT 43.7 22.9 - 35.8 10/25/2018 [facility] HEMATOLOGY PT 22.6 12.0 - 14.7 10/25/2018 [facility] HEMATOLOGY INR 2.04 0.85 - 1.17 10/25/2018 [facility] CHEM PANEL Magnesium Lvl 2.1 1.8 - 2.4 10/25/2018 [facility] VIRAL - SEROLOGY Influ A Negative (10/24/18 5:50 AM) Negative 10/24/2018 [facility] VIRAL - SEROLOGY Influ B Negative (10/24/18 5:50 AM) Negative 10/24/2018 [facility] CHEM PANEL Magnesium Lvl 1.8 1.8 - 2.4 10/24/2018 [facility] CHEM PANEL Phosphorus 3.2 2.5 - 4.5 10/24/2018 [facility] BLOOD BANK RESULTS ABO/Rh B POS 10/23/2018 [facility]LOOD [facility] RES[facility] Antibody Scrn Negative (10/23/18 5:22 PM) 10/23/2018 [facility] URINE AND STOOL UA Urobilinogen <=1.0 mg/dL 0.1 - 1.0 10/23/2018 [facility] URINE AND STOOL UA pH 7.0 5.0 - 8.0 10/23/2018 [facility] URINE AND STOOL UA Spec Grav 1.011 <=1.030 10/23/2018 [facility] URINE AND STOOL UA Ketones 20 mg/dL Negative mg/dL 10/23/2018 [facility] URINE AND STOOL UA Bili Negative *NA* (10/23/18 5:13 PM) Negative 10/23/2018 [facility] URINE AND STOOL UA Blood Negative (10/23/18 5:13 PM) Negative 10/23/2018 [facility] URINE AND STOOL UA Leuk Est Negative (10/23/18 5:13 PM) Negative 10/23/2018 [facility] URINE AND STOOL UA Nitrite Negative (10/23/18 5:13 PM) Negative 10/23/2018 [facility] URINE AND STOOL UA WBC 1 0 - 5 10/23/2018 [facility] URINE AND STOOL UA Sq Epi None Seen (10/23/18 5:13 PM) Few 10/23/2018 [facility] URINE AND STOOL UA Glucose Negative *NA* (10/23/18 5:13 PM) Negative 10/23/2018 [facility] URINE AND STOOL UA Protein Negative (10/23/18 5:13 PM) Negative 10/23/2018 [facility] URINE AND STOOL UA Color Ltyellow 10/23/2018 [facility] URINE AND STOOL UA Turbidity Clear (10/23/18 5:13 PM) Clear 10/23/2018 [facility] CARDIAC ENZYMES Total CK 65 12 - 191 10/23/2018 [facility] CARDIAC ENZYMES Troponin-I <0.02 0.00 - 0.40 10/23/2018 [facility] CHEM PANEL Alk Phos 66 39 - 136 10/23/2018 [facility] CHEM PANEL Bili Total 1.3 0.2 - 1.3 10/23/2018 [facility] CHEM PANEL ALT 17 0 - 65 10/23/2018 [facility] CHEM PANEL AST 20 0 - 37 10/23/2018 [facility] CHEM PANEL Total Protein 8.5 6.4 - 8.4 10/23/2018 [facility] CHEM PANEL Albumin Lvl 4.1 3.5 - 5.0 10/23/2018 [facility] CHEM PANEL A/G Ratio 0.9 0.7 - 1.6 10/23/2018 [facility] CHEM PANEL B/C Ratio 21 6 - 25 10/23/2018 [facility] CHEM PANEL Globulin 4.4 2.7 - 4.2 10/23/2018 [facility] CHEM PANEL Lactic Acid Lvl 1.4 0.5 - 2.2 10/23/2018 [facility] CHEM PANEL Procalcitonin Lvl <0.05 0.00 - 0.10 10/23/2018 [facility] HEMATOLOGY PTT 32.1 22.9 - 35.8 10/23/2018 [facility] HEMATOLOGY PT 20.7 12.0 - 14.7 10/23/2018 [facility] HEMATOLOGY INR 1.82 0.85 - 1.17 10/23/2018 [facility] CHEM PANEL eGFR 92 05/25/2018 Result [...] should be multiplied by the estimated BMI. [facility] CHEM PANEL Glucose Lvl 74 70 - 99 05/25/2018 [facility] CHEM PANEL Creatinine Lvl 0.82 0.50 - 1.40 05/25/2018 [facility] CHEM PANEL BUN 13 7 - 22 05/25/2018 [facility] CHEM PANEL Potassium Lvl 3.9 3.5 - 5.1 05/25/2018 [facility] CHEM PANEL CO2 27 24 - 32 05/25/2018 [facility] CHEM PANEL Sodium Lvl 142 135 - 145 05/25/2018 [facility] CHEM PANEL Chloride Lvl 109 95 - 109 05/25/2018 [facility] CHEM PANEL AGAP 9.9 10.0 - 20.0 05/25/2018 [facility] CHEM PANEL Calcium Lvl 8.5 8.5 - 10.5 05/25/2018 [facility] HEMATOLOGY RBC 4.48 4.20 - 5.40 05/25/2018 [facility] HEMATOLOGY WBC 4.7 3.7 - 10.4 05/25/2018 [facility] HEMATOLOGY MCV 88.0 80.0 - 98.0 05/25/2018 [facility] MCH 28.4 27.0 - 31.0 05/25/2018 [facility] HEMATOLOGY Hct 39.4 36.0 - 48.0 05/25/2018 [facility] Hgb 12.7 12.0 - 16.0 05/25/2018 [facility] MPV 10.6 7.4 - 10.4 05/25/2018 [facility] Platelet 162 133 - 450 05/25/2018 [facility] MCHC 32.3 32.0 - 36.0 05/25/2018 [facility] RDW 17.3 11.5 - 14.5 05/25/2018 [facility] CHEM PANEL eGFR 106 05/24/2018 Result [...] should be multiplied by the estimated BMI. [facility] CHEM PANEL Glucose Lvl 84 70 - 99 05/24/2018 [facility] CHEM PANEL Sodium Lvl 150 135 - 145 05/24/2018 [facility] CHEM PANEL BUN 10 7 - 22 05/24/2018 [facility] CHEM PANEL Creatinine Lvl 0.74 0.50 - 1.40 05/24/2018 [facility] CHEM PANEL Potassium Lvl 3.5 3.5 - 5.1 05/24/2018 [facility] CHEM PANEL CO2 28 24 - 32 05/24/2018 [facility] CHEM PANEL Chloride Lvl 110 95 - 109 05/24/2018 [facility] CHEM PANEL Calcium Lvl 9.1 8.5 - 10.5 05/24/2018 [facility] CHEM PANEL AGAP 15.5 10.0 - 20.0 05/24/2018 [facility] HEMATOLOGY Eosinophils 3.2 0.0 - 4.0 05/24/2018 [facility] HEMATOLOGY Lymphocytes 44.4 20.0 - 40.0 05/24/2018 [facility] HEMATOLOGY Segs 38.4 45.0 - 75.0 05/24/2018 [facility] HEMATOLOGY Monocytes 12.6 2.0 - 12.0 05/24/2018 [facility] Basophils 1.4 0.0 - 1.0 05/24/2018 [facility] Eosinophils # 0.1 0.0 - 0.5 05/24/2018 [facility] Monocytes # 0.6 0.0 - 0.8 05/24/2018 [facility] Lymphocytes # 2.1 1.0 - 5.5 05/24/2018 [facility] Neutrophils # 1.8 1.5 - 8.1 05/24/2018 [facility] Basophils # 0.1 0.0 - 0.2 05/24/2018 [facility] INR 1.15 0.85 - 1.17 05/24/2018 [facility] PT 14.7 12.0 - 14.7 05/24/2018 [facility] PTT 39.6 22.9 - 35.8 05/24/2018 [facility] WBC 4.7 3.7 - 10.4 05/24/2018 [facility] Platelet 155 133 - 450 05/24/2018 [facility] RDW 16.9 11.5 - 14.5 05/24/2018 [facility] MCH 29.6 27.0 - 31.0 05/24/2018 [facility] MCHC 33.5 32.0 - 36.0 05/24/2018 [facility] MCV 88.3 80.0 - 98.0 05/24/2018 [facility] Hgb 14.0 12.0 - 16.0 05/24/2018 [facility] RBC 4.73 4.20 - 5.40 05/24/2018 [facility] Hct 41.8 36.0 - 48.0 05/24/2018 [facility] MPV 10.2 7.4 - 10.4 05/24/2018 [facility] CHEM PANEL eGFR 109 05/24/2018 Result [...] should be multiplied by the estimated BMI. [facility] CHEM PANEL AGAP 9.2 10.0 - 20.0 05/24/2018 [facility] CHEM PANEL B/C Ratio 14 6 - 25 05/24/2018 [facility] CHEM PANEL A/G Ratio 1.0 0.7 - 1.6 05/24/2018 [facility] CHEM PANEL ALT 12 0 - 65 05/24/2018 [facility] CHEM PANEL AST 16 0 - 37 05/24/2018 [facility] CHEM PANEL Globulin 3.5 2.7 - 4.2 05/24/2018 [facility] CHEM PANEL Sodium Lvl 146 135 - 145 05/24/2018 [facility] CHEM PANEL Potassium Lvl 3.2 3.5 - 5.1 05/24/2018 [facility] CHEM PANEL Chloride Lvl 109 95 - 109 05/24/2018 [facility] CHEM PANEL Calcium Lvl 9.5 8.5 - 10.5 05/24/2018 [facility] CHEM PANEL CO2 31 24 - 32 05/24/2018 [facility] CHEM PANEL Albumin Lvl 3.4 3.5 - 5.0 05/24/2018 [facility] CHEM PANEL Total Protein 6.9 6.4 - 8.4 05/24/2018 [facility] CHEM PANEL Alk Phos 61 39 - 136 05/24/2018 [facility] CHEM PANEL Bili Total 1.0 0.2 - 1.3 05/24/2018 [facility] CHEM PANEL Creatinine Lvl 0.72 0.50 - 1.40 05/24/2018 [facility] CHEM PANEL Glucose Lvl 89 70 - 99 05/24/2018 [facility] CHEM PANEL BUN 10 7 - 22 05/24/2018 [facility] CHEM PANEL Lipase Lvl 79 73 - 393 05/24/2018 [facility] CHEM PANEL Lactic Acid Lvl 1.3 0.5 - 2.2 05/24/2018 [facility] HEMATOLOGY PTT 26.2 22.9 - 35.8 05/24/2018 [facility] HEMATOLOGY INR 1.00 0.85 - 1.17 05/24/2018 [facility] HEMATOLOGY PT 13.2 12.0 - 14.7 05/24/2018 Result Comment: Specimen slightly hemolyzed. 05/23/2018 21:31 iko [facility] WBC 5.5 3.7 - 10.4 05/24/2018 [facility] RBC 5.42 4.20 - 5.40 05/24/2018 [facility] Hgb 15.5 12.0 - 16.0 05/24/2018 [facility] Platelet 200 133 - 450 05/24/2018 [facility] MPV 10.7 7.4 - 10.4 05/24/2018 [facility] MCH 28.5 27.0 - 31.0 05/24/2018 [facility] MCHC 32.3 32.0 - 36.0 05/24/2018 [facility] Hct 47.9 36.0 - 48.0 05/24/2018 [facility] MCV 88.4 80.0 - 98.0 05/24/2018 [facility] RDW 17.2 11.5 - 14.5 05/24/2018 [facility] Basophils # 0.1 0.0 - 0.2 05/24/2018 [facility] Monocytes # 0.5 0.0 - 0.8 05/24/2018 [facility] Eosinophils # 0.1 0.0 - 0.5 05/24/2018 [facility] Eosinophils 2.7 0.0 - 4.0 05/24/2018 [facility] Basophils 1.1 0.0 - 1.0 05/24/2018 [facility] Lymphocytes 35.5 20.0 - 40.0 05/24/2018 [facility] Monocytes 9.5 2.0 - 12.0 05/24/2018 [facility] Neutrophils # 2.8 1.5 - 8.1 05/24/2018 [facility] Lymphocytes # 2.0 1.0 - 5.5 05/24/2018 [facility] Segs 51.2 45.0 - 75.0 05/24/2018 [facility] Culture: Urine No Growth 05/24/2018 [facility] URINE AND STOOL UA Urobilinogen <=1.0 mg/dL 0.1 - 1.0 05/24/2018 [facility] URINE AND STOOL UA WBC <1 0 - 5 05/24/2018 [facility] URINE AND STOOL UA RBC <1 0 - 2 05/24/2018 [facility] URINE AND STOOL UA Blood Negative (05/23/18 8:46 PM) Negative 05/24/2018 [facility] URINE AND STOOL UA Sq Epi Occasional /LPF Few /LPF 05/24/2018 [facility] URINE AND STOOL UA Leuk Est Negative (05/23/18 8:46 PM) Negative 05/24/2018 [facility] URINE AND STOOL UA Nitrite Negative (05/23/18 8:46 PM) Negative 05/24/2018 [facility] URINE AND STOOL UA Amorph Akiko Few /HPF None Seen /HPF 05/24/2018 [facility] URINE AND STOOL UA Protein Negative mg/dL Negative mg/dL 05/24/2018 [facility] URINE AND STOOL UA Glucose Negative mg/dL Negative mg/dL 05/24/2018 [facility] URINE AND STOOL UA Ketones Negative mg/dL Negative mg/dL 05/24/2018 [facility] URINE AND STOOL UA Bili Negative *NA* (05/23/18 8:46 PM) Negative 05/24/2018 [facility] URINE AND STOOL UA pH 8.0 5.0 - 8.0 05/24/2018 [facility] URINE AND STOOL UA Spec Grav 1.010 <=1.030 05/24/2018 [facility] URINE AND STOOL UA Color Yellow *NA* (05/23/18 8:46 PM) Yellow 05/24/2018 [facility] URINE AND STOOL UA Turbidity Marked *ABN* (05/23/18 8:46 PM) Clear 05/24/2018 [facility] ELECTROLYTES AGAP 22.4 10.0 - 20.0 03/28/2018 [facility] ELECTROLYTES B/C Ratio 21 6 - 25 03/28/2018 [facility] ELECTROLYTES Globulin 4.3 2.7 - 4.2 03/28/2018 [facility] ELECTROLYTES A/G Ratio 0.7 0.7 - 1.6 03/28/2018 [facility] ELECTROLYTES Potassium Lvl 4.4 3.5 - 5.1 03/28/2018 [facility] ELECTROLYTES CO2 20 24 - 32 03/28/[address] [facility] ELECTROLYTES Chloride Lvl 104 95 - 109 03/28/[address] [facility] ELECTROLYTES Albumin Lvl 3.2 3.5 - 5.0 03/28/2018 [facility] ELECTROLYTES Calcium Lvl 9.4 8.5 - 10.5 03/28/2018 [facility] ELECTROLYTES Glucose Lvl 57 70 - 99 03/28/2018 [facility] ELECTROLYTES BUN 18 7 - 22 03/28/2018 [facility] ELECTROLYTES Sodium Lvl 142 135 - 145 03/28/2018 [facility] ELECTROLYTES ALT 24 0 - 65 03/28/[address] [facility] ELECTROLYTES Creatinine Lvl 0.87 0.50 - 1.40 03/28/2018 [facility] ELECTROLYTES AST 25 0 - 37 03/28/2018 [facility] ELECTROLYTES eGFR 87 03/28/2018 Result Comment: The [...] should be multiplied by the estimated BMI. [facility] ELECTROLYTES Bili Total 1.8 0.2 - 1.3 03/28/2018 [facility] ELECTROLYTES Alk Phos 76 39 - 136 03/28/2018 [facility] ELECTROLYTES Total Protein 7.5 6.4 - 8.4 03/28/2018 [facility] HEMATOLOGY Segs 61.2 45.0 - 75.0 03/28/2018 [facility] HEMATOLOGY Lymphocytes # 1.4 1.0 - 5.5 03/28/2018 [facility] HEMATOLOGY Monocytes # 0.8 0.0 - 0.8 03/28/2018 [facility] HEMATOLOGY Segs-Bands # 3.6 1.5 - 8.1 03/28/2018 [facility] HEMATOLOGY Lymphocytes 24.1 20.0 - 40.0 03/28/2018 [facility] HEMATOLOGY Monocytes 13.4 2.0 - 12.0 03/28/2018 [facility] HEMATOLOGY Eosinophils 0.7 0.0 - 4.0 03/28/2018 [facility] HEMATOLOGY Basophils 0.6 0.0 - 1.0 03/28/2018 [facility] HEMATOLOGY Platelet 127 133 - 450 03/28/2018 [facility] HEMATOLOGY MPV 11.7 7.4 - 10.4 03/28/2018 [facility] HEMATOLOGY MCHC 32.7 32.0 - 36.0 03/28/2018 [facility] HEMATOLOGY RDW 16.9 11.5 - 14.5 03/28/2018 [facility] HEMATOLOGY Hct 49.9 36.0 - 48.0 03/28/2018 [facility] HEMATOLOGY Hgb 16.3 12.0 - 16.0 03/28/2018 [facility] HEMATOLOGY MCV 87.3 80.0 - 98.0 03/28/2018 [facility] HEMATOLOGY MCH 28.5 27.0 - 31.0 03/28/2018 [facility] HEMATOLOGY RBC 5.72 4.20 - 5.40 03/28/2018 [facility] HEMATOLOGY WBC 5.8 3.7 - 10.4 03/28/2018 [facility] URINE AND STOOL UA Color Mae 03/28/2018 [facility] URINE AND STOOL UA Hyal Cast 3 0 - 2 03/28/2018 [facility] URINE AND STOOL UA WBC 3 0 - 5 03/28/2018 [facility] URINE AND STOOL UA Sq Epi Occasional /LPF Few /LPF 03/28/2018 [facility] URINE AND STOOL UA Mucus Many /LPF None Seen /LPF 03/28/2018 [facility] URINE AND STOOL UA RBC <1 0 - 2 03/28/2018 [facility] URINE AND STOOL UA Urobilinogen 4.0 0.1 - 1.0 03/28/2018 [facility] URINE AND STOOL UA Leuk Est Negative (03/27/18 11:05 PM) Negative 03/28/2018 [facility] URINE AND STOOL UA Nitrite Negative (03/27/18 11:05 PM) Negative 03/28/2018 [facility] URINE AND STOOL UA Blood Negative (03/27/18 11:05 PM) Negative 03/28/2018 [facility] URINE AND STOOL UA Bili Small *ABN* (03/27/18 11:05 PM) Negative 03/28/2018 [facility] URINE AND STOOL UA Glucose Negative mg/dL Negative mg/dL 03/28/2018 [facility] URINE AND STOOL UA Ketones 80 mg/dL Negative mg/dL 03/28/2018 [facility] URINE AND STOOL UA Protein 30 mg/dL Negative mg/dL 03/28/2018 [facility] URINE AND STOOL UA pH 5.0 5.0 - 8.0 03/28/2018 [facility] URINE AND STOOL UA Spec Grav 1.031 <=1.030 03/28/2018 [facility] URINE AND STOOL UA Turbidity Slight *ABN* (03/27/18 11:05 PM) Clear 03/28/2018 [facility] URINE AND STOOL UA Urobilinogen <=1.0 mg/dL 0.1 - 1.0 03/07/2018 [facility] URINE AND STOOL UA RBC <1 0 - 2 03/07/2018 [facility] URINE AND STOOL UA WBC 2 0 - 5 03/07/2018 [facility] URINE AND STOOL UA Sq Epi Occasional /LPF Few /LPF 03/07/2018 [facility] URINE AND STOOL UA Bili Negative *NA* (03/07/18 4:30 PM) Negative 03/07/2018 [facility] URINE AND STOOL UA Nitrite Negative (03/07/18 4:30 PM) Negative 03/07/2018 [facility] URINE AND STOOL UA Blood Negative (03/07/18 4:30 PM) Negative 03/07/2018 [facility] URINE AND STOOL UA Mucus Few /LPF None Seen /LPF 03/07/2018 [facility] URINE AND STOOL UA Leuk Est Moderate *ABN* (03/07/18 4:30 PM) Negative 03/07/2018 [facility] URINE AND STOOL UA Ketones Trace mg/dL Negative mg/dL 03/07/2018 [facility] URINE AND STOOL UA Glucose Negative mg/dL Negative mg/dL 03/07/2018 [facility] URINE AND STOOL UA Color Light Yellow *NA* (03/07/18 4:30 PM) Yellow 03/07/2018 [facility] URINE AND STOOL UA Spec Grav >1.060 <=1.030 03/07/2018 [facility] URINE AND STOOL UA Turbidity Clear (03/07/18 4:30 PM) Clear 03/07/2018 [facility] URINE AND STOOL UA pH 6.0 5.0 - 8.0 03/07/2018 [facility] URINE AND STOOL UA Protein Negative mg/dL Negative mg/dL 03/07/2018 [facility] CARDIAC ENZYMES Troponin-I <0.02 0.00 - 0.40 03/07/2018 [facility] CHEM PANEL Lipase Lvl 95 73 - 393 03/07/2018 [facility] CHEM PANEL eGFR 82 03/07/2018 Result Comment: [...] should be multiplied by the estimated BMI. [facility] CHEM PANEL Globulin 4.0 2.7 - 4.2 03/07/2018 [facility] CHEM PANEL Total Protein 7.7 6.4 - 8.4 03/07/2018 [facility] CHEM PANEL Albumin Lvl 3.7 3.5 - 5.0 03/07/2018 [facility] CHEM PANEL Bili Total 1.2 0.2 - 1.3 03/07/2018 [facility] [facility] AST 15 0 - 37 03/07/2018 [facility] CHEM PANEL Alk Phos 74 39 - 136 03/07/2018 [facility] CHEM PANEL Calcium Lvl 9.5 8.5 - 10.5 03/07/2018 [facility] CHEM PANEL B/C Ratio 31 6 - 25 03/07/2018 [facility] CHEM PANEL Chloride Lvl 112 95 - 109 03/07/2018 [facility] CHEM PANEL CO2 25 24 - 32 03/07/2018 [facility] CHEM PANEL AGAP 15.0 10.0 - 20.0 03/07/2018 [facility] CHEM PANEL ALT 17 0 - 65 03/07/2018 [facility] CHEM PANEL A/G Ratio 0.9 0.7 - 1.6 03/07/2018 [facility] CHEM PANEL Potassium Lvl 3.0 3.5 - 5.1 03/07/2018 Result Comment: Critical Result(s) called to jan solis at 03/07/2018 15:05 by javed. Read back OK. [facility] CHEM PANEL BUN 28 7 - 22 03/07/2018 [facility] CHEM PANEL Sodium Lvl 149 135 - 145 03/07/2018 [facility] CHEM PANEL Glucose Lvl 97 70 - 99 03/07/2018 [facility] CHEM PANEL Creatinine Lvl 0.91 0.50 - 1.40 03/07/2018 [facility] HEMATOLOGY INR 1.04 0.85 - 1.17 03/07/2018 [facility] HEMATOLOGY PT 13.6 12.0 - 14.7 03/07/2018 [facility] HEMATOLOGY Basophils 0.8 0.0 - 1.0 03/07/2018 [facility] HEMATOLOGY Eosinophils 1.0 0.0 - 4.0 03/07/2018 [facility] HEMATOLOGY Monocytes 12.4 2.0 - 12.0 03/07/2018 [facility] HEMATOLOGY Lymphocytes 33.2 20.0 - 40.0 03/07/2018 [facility] HEMATOLOGY Segs 52.6 45.0 - 75.0 03/07/2018 [facility] HEMATOLOGY Eosinophils # 0.1 0.0 - 0.5 03/07/2018 [facility] HEMATOLOGY Monocytes # 0.7 0.0 - 0.8 03/07/2018 [facility] HEMATOLOGY Lymphocytes # 1.9 1.0 - 5.5 03/07/2018 [facility] HEMATOLOGY Segs-Bands # 3.0 1.5 - 8.1 03/07/2018 [facility] HEMATOLOGY MPV 11.6 7.4 - 10.4 03/07/2018 [facility] HEMATOLOGY Platelet 144 133 - 450 03/07/2018 [facility] HEMATOLOGY MCH 28.4 27.0 - 31.0 03/07/2018 [facility] HEMATOLOGY MCV 85.7 80.0 - 98.0 03/07/2018 [facility] HEMATOLOGY RDW 16.4 11.5 - 14.5 03/07/2018 [facility] HEMATOLOGY MCHC 33.1 32.0 - 36.0 03/07/2018 [facility] HEMATOLOGY WBC 5.7 3.7 - 10.4 03/07/2018 [facility] HEMATOLOGY RBC 5.37 4.20 - 5.40 03/07/2018 [facility] HEMATOLOGY Hct 46.0 36.0 - 48.0 03/07/2018 [facility] HEMATOLOGY Hgb 15.2 12.0 - 16.0 03/07/2018 [facility] CARDIAC ENZYMES CK MB Index 0.7 0.0 - 2.5 03/03/2018 [facility] CARDIAC ENZYMES BNP <2 <=100 pg/mL 03/03/2018 [facility] CARDIAC ENZYMES Troponin-I <0.02 0.00 - 0.40 03/03/2018 [facility] CARDIAC ENZYMES Total CK 123 12 - 191 03/03/2018 [facility] CARDIAC ENZYMES CK MB 0.9 0.5 - 3.6 03/03/2018 [facility] CHEM PANEL eGFR 77 03/03/2018 Result Comment: [...] should be multiplied by the estimated BMI. [facility] CHEM PANEL Glucose Lvl 84 70 - 99 03/03/2018 [facility] CHEM PANEL Globulin 3.9 2.7 - 4.2 03/03/2018 [facility] CHEM PANEL A/G Ratio 1.0 0.7 - 1.6 03/03/2018 [facility] CHEM PANEL AGAP 17.1 10.0 - 20.0 03/03/2018 [facility] CHEM PANEL B/C Ratio 27 6 - 25 03/03/2018 [facility] CHEM PANEL Albumin Lvl 3.9 3.5 - 5.0 03/03/2018 [facility] CHEM PANEL Bili Total 1.1 0.2 - 1.3 03/03/2018 [facility] CHEM PANEL AST 14 0 - 37 03/03/2018 [facility] CHEM PANEL Alk Phos 85 39 - 136 03/03/2018 [facility] CHEM PANEL ALT 15 0 - 65 03/03/2018 [facility] CHEM PANEL Calcium Lvl 9.6 8.5 - 10.5 03/03/2018 [facility] CHEM PANEL Total Protein 7.8 6.4 - 8.4 03/03/2018 [facility] CHEM PANEL Sodium Lvl 149 135 - 145 03/03/2018 [facility] CHEM PANEL BUN 26 7 - 22 03/03/2018 [facility] CHEM PANEL Creatinine Lvl 0.97 0.50 - 1.40 03/03/2018 [facility] CHEM PANEL Chloride Lvl 111 95 - 109 03/03/2018 [facility] CHEM PANEL CO2 24 24 - 32 03/03/2018 [facility] CHEM PANEL Potassium Lvl 3.1 3.5 - 5.1 03/03/2018 [facility] CHEM PANEL Lipase Lvl 80 73 - 393 03/03/2018 [facility] HEMATOLOGY Eosinophils # 0.1 0.0 - 0.5 03/03/2018 [facility] HEMATOLOGY Monocytes # 0.4 0.0 - 0.8 03/03/2018 [facility] HEMATOLOGY Lymphocytes # 1.6 1.0 - 5.5 03/03/2018 [facility] HEMATOLOGY Basophils 0.8 0.0 - 1.0 03/03/2018 [facility] HEMATOLOGY Eosinophils 1.2 0.0 - 4.0 03/03/2018 [facility] HEMATOLOGY Monocytes 8.5 2.0 - 12.0 03/03/2018 [facility] HEMATOLOGY Lymphocytes 29.5 20.0 - 40.0 03/03/2018 [facility] HEMATOLOGY Segs-Bands # 3.2 1.5 - 8.1 03/03/2018 [facility] HEMATOLOGY Segs 60.0 45.0 - 75.0 03/03/2018 [facility] HEMATOLOGY D-Dimer 0.50 03/03/2018 [facility] HEMATOLOGY PTT 29.2 22.9 - 35.8 03/03/2018 [facility] HEMATOLOGY PT 13.4 12.0 - 14.7 03/03/2018 [facility] HEMATOLOGY INR 1.02 0.85 - 1.17 03/03/2018 [facility] HEMATOLOGY RBC 5.32 4.20 - 5.40 03/03/2018 [facility] HEMATOLOGY WBC 5.3 3.7 - 10.4 03/03/2018 [facility] HEMATOLOGY MPV 11.1 7.4 - 10.4 03/03/2018 [facility] HEMATOLOGY Platelet 164 133 - 450 03/03/2018 [facility] HEMATOLOGY RDW 16.5 11.5 - 14.5 03/03/2018 [facility] HEMATOLOGY MCH 28.0 27.0 - 31.0 03/03/2018 [facility] HEMATOLOGY MCV 86.3 80.0 - 98.0 03/03/2018 [facility] HEMATOLOGY Hct 45.9 36.0 - 48.0 03/03/2018 [facility] HEMATOLOGY Hgb 14.9 12.0 - 16.0 03/03/2018 [facility] HEMATOLOGY MCHC 32.5 32.0 - 36.0 03/03/2018 [facility] CARDIAC ENZYMES CK MB 0.7 0.5 - 3.6 03/01/2018 [facility] CARDIAC ENZYMES Troponin-I <0.02 0.00 - 0.40 03/01/2018 [facility] CARDIAC ENZYMES Total CK 132 12 - 191 03/01/2018 [facility] CARDIAC ENZYMES CK MB Index 0.5 0.0 - 2.5 03/01/2018 [facility] CHEM PANEL eGFR 77 03/01/2018 Result Comment: [...] should be multiplied by the estimated BMI. [facility] CHEM PANEL Globulin 4.1 2.7 - 4.2 03/01/2018 [facility] CHEM PANEL Bili Total 0.9 0.2 - 1.3 03/01/2018 [facility] CHEM PANEL AGAP 13.6 10.0 - 20.0 03/01/2018 [facility] CHEM PANEL A/G Ratio 0.9 0.7 - 1.6 03/01/2018 [facility] CHEM PANEL ALT 15 0 - 65 03/01/2018 [facility] CHEM PANEL Albumin Lvl 3.7 3.5 - 5.0 03/01/2018 [facility] CHEM PANEL B/C Ratio 24 6 - 25 03/01/2018 [facility] CHEM PANEL Alk Phos 86 39 - 136 03/01/2018 [facility] CHEM PANEL AST 22 0 - 37 03/01/2018 [facility] CHEM PANEL Calcium Lvl 9.2 8.5 - 10.5 03/01/2018 [facility] CHEM PANEL Total Protein 7.8 6.4 - 8.4 03/01/2018 [facility] CHEM PANEL CO2 25 24 - 32 03/01/2018 [facility] CHEM PANEL BUN 23 7 - 22 03/01/2018 [facility] CHEM PANEL Glucose Lvl 85 70 - 99 03/01/2018 [facility] CHEM PANEL Creatinine Lvl 0.97 0.50 - 1.40 03/01/2018 [facility] CHEM PANEL Potassium Lvl 3.6 3.5 - 5.1 03/01/2018 [facility] CHEM PANEL Sodium Lvl 149 135 - 145 03/01/2018 [facility] CHEM PANEL Chloride Lvl 114 95 - 109 03/01/2018 [facility] HEMATOLOGY RBC 5.32 4.20 - 5.40 03/01/2018 [facility] HEMATOLOGY Hgb 15.1 12.0 - 16.0 03/01/2018 [facility] HEMATOLOGY Hct 45.3 36.0 - 48.0 03/01/2018 [facility] HEMATOLOGY MCH 28.3 27.0 - 31.0 03/01/2018 [facility] HEMATOLOGY MCV 85.2 80.0 - 98.0 03/01/2018 [facility] HEMATOLOGY MPV 10.7 7.4 - 10.4 03/01/2018 [facility] HEMATOLOGY Platelet 144 133 - 450 03/01/2018 [facility] HEMATOLOGY RDW 16.5 11.5 - 14.5 03/01/2018 [facility] HEMATOLOGY MCHC 33.3 32.0 - 36.0 03/01/2018 [facility] HEMATOLOGY WBC 4.7 3.7 - 10.4 03/01/2018 [facility] HEMATOLOGY Segs-Bands # 3.4 1.5 - 8.1 03/01/2018 [facility] HEMATOLOGY Basophils 0.8 0.0 - 1.0 03/01/2018 [facility] HEMATOLOGY Lymphocytes # 0.9 1.0 - 5.5 03/01/2018 [facility] HEMATOLOGY Eosinophils 1.0 0.0 - 4.0 03/01/2018 [facility] HEMATOLOGY Monocytes 8.0 2.0 - 12.0 03/01/2018 [facility] HEMATOLOGY Monocytes # 0.4 0.0 - 0.8 03/01/2018 [facility] HEMATOLOGY Segs 71.8 45.0 - 75.0 03/01/2018 [facility] HEMATOLOGY Lymphocytes 18.4 20.0 - 40.0 03/01/2018 [facility] CARDIAC ENZYMES Total CK 79 12 - 191 01/03/2018 [facility] CARDIAC ENZYMES Troponin-I <0.02 0.00 - 0.40 01/03/2018 [facility] CHEM PANEL eGFR 96 01/03/2018 Result Comment: [...] should be multiplied by the estimated BMI. [facility] CHEM PANEL Sodium Lvl 142 135 - 145 01/03/2018 [facility] CHEM PANEL Creatinine Lvl 0.80 0.50 - 1.40 01/03/2018 [facility] CHEM PANEL AST 11 0 - 37 01/03/2018 [facility] CHEM PANEL ALT 14 0 - 65 01/03/2018 [facility] CHEM PANEL Albumin Lvl 3.8 3.5 - 5.0 01/03/2018 [facility] CHEM PANEL Total Protein 7.8 6.4 - 8.4 01/03/2018 [facility] CHEM PANEL Calcium Lvl 9.1 8.5 - 10.5 01/03/2018 [facility] CHEM PANEL Bili Total 0.7 0.2 - 1.3 01/03/2018 [facility] CHEM PANEL Alk Phos 92 39 - 136 01/03/2018 [facility] CHEM PANEL CO2 26 24 - 32 01/03/2018 [facility] CHEM PANEL Chloride Lvl 108 95 - 109 01/03/2018 [facility] CHEM PANEL Potassium Lvl 4.2 3.5 - 5.1 01/03/2018 [facility] CHEM PANEL Glucose Lvl 81 70 - 99 01/03/2018 [facility] CHEM PANEL BUN 17 7 - 22 01/03/2018 [facility] CHEM PANEL AGAP 12.2 10.0 - 20.0 01/03/2018 [facility] CHEM PANEL A/G Ratio 1.0 0.7 - 1.6 01/03/2018 [facility] CHEM PANEL Globulin 4.0 2.7 - 4.2 01/03/2018 [facility] CHEM PANEL B/C Ratio 21 6 - 25 01/03/2018 [facility] HEMATOLOGY Basophils # 0.1 0.0 - 0.2 01/03/2018 [facility] HEMATOLOGY Eosinophils # 0.1 0.0 - 0.5 01/03/2018 [facility] HEMATOLOGY Lymphocytes 24.0 20.0 - 40.0 01/03/2018 [facility] HEMATOLOGY Segs 66.8 45.0 - 75.0 01/03/2018 [facility] HEMATOLOGY Monocytes 6.9 2.0 - 12.0 01/03/2018 [facility] HEMATOLOGY Segs-Bands # 3.6 1.5 - 8.1 01/03/2018 [facility] HEMATOLOGY Lymphocytes # 1.3 1.0 - 5.5 01/03/2018 [facility] HEMATOLOGY Monocytes # 0.4 0.0 - 0.8 01/03/2018 [facility] HEMATOLOGY Eosinophils 1.1 0.0 - 4.0 01/03/2018 [facility] HEMATOLOGY Basophils 1.2 0.0 - 1.0 01/03/2018 [facility] HEMATOLOGY RBC 5.48 4.20 - 5.40 01/03/2018 [facility] HEMATOLOGY Hgb 15.1 12.0 - 16.0 01/03/2018 [facility] HEMATOLOGY Hct 46.4 36.0 - 48.0 01/03/2018 [facility] HEMATOLOGY MCV 84.8 80.0 - 98.0 01/03/2018 [facility] HEMATOLOGY RDW 15.8 11.5 - 14.5 01/03/2018 [facility] HEMATOLOGY MCH 27.6 27.0 - 31.0 01/03/2018 [facility] HEMATOLOGY MCHC 32.5 32.0 - 36.0 01/03/2018 [facility] HEMATOLOGY Platelet 180 133 - 450 01/03/2018 [facility] HEMATOLOGY MPV 10.4 7.4 - 10.4 01/03/2018 [facility] HEMATOLOGY WBC 5.5 3.7 - 10.4 01/03/2018 [facility] HEMATOLOGY PT 13.4 12.0 - 14.7 01/03/2018 [facility] HEMATOLOGY INR 1.02 0.85 - 1.17 01/03/2018 [facility] HEMATOLOGY PTT 29.4 22.9 - 35.8 01/03/2018 [facility] Pathology Reports No Data Provided for This [...] considerations include endometrial carcinoma. SL: RONAK 10/30/2018 [facility] Chest 1view DX Study: Chest 1view DX Clinical Indication: - aspiration Comparison: Chest x-ray from 10/25/2018 FINDINGS: Cardiac silhouette is normal in size. Asymmetric elevation of the right hemidiaphragm is seen with mild right basilar atelectasis. There is no pleural effusion or pneumothorax. The osseous structures are unremarkable. IMPRESSION: Mild right basilar atelectasis. SL: WILLIAM 10/27/2018 [facility] Esophagus BA swallow function video DX Patient Name: MAYELA JASON : 1965; Age: 53 years Female MR: [id number] Study: Esophagus BA swallow function video DX Order Time: 10/27/2018 13:11 [employer] Clinical Indication: Dysphagia FT- 1 min 29 seconds Reference Air Kerma-6.[address] Church - history of aspiration. COMPARISON: None. FT- 1 min 29 seconds Reference Air Kerma-6.25 mGy TECHNIQUE: Fluoroscopic assistance was provided for the speech pathologist for modified barium swallow examination. Varying consistencies of barium were administered po. FINDINGS: Thin consistency barium: No aspiration or any significant laryngeal penetration. [place] consistency barium: No aspiration or any significant laryngeal penetration. Honey consistency barium: No aspiration or any significant laryngeal penetration. Pudding coated barium: No aspiration or any significant laryngeal penetration. Barium with cracker preparation: No aspiration or any significant laryngeal penetration. IMPRESSION: Normal modified swallow. SL: [id number] 10/27/2018 [facility] 1view DX Clinical Indication:53 years Female [...] hemidiaphragm. Right basilar atelectasis or infiltrate. 10/25/2018 [facility] Abdomen AP DX Clinical Indication: - [...] Enteric tube tip overlies the stomach. SL: [id number] 10/24/2018 [facility] 1view DX Patient Name: MAYELA JASON : 1965; Age: 53 years y/o Female MR: [id number] Study: Chest 1view DX 10/24/2018 3:00 AM [employer] Ordering Physician: Robert Reno DO Comparison: Chest [...] atelectasis and layering effusion. SL: KOURTNEY 10/24/2018 [facility] Chest 1 v for Placement DX [...] associated with relaxation atelectasis. SL: TRAVIS 10/23/2018 [facility] Ext Lower Venous Doppler Bilat US [...] the right or left lower extremities. SL: [id number] 10/23/2018 [facility] Chest 1 v for Placement DX [...] elevation with compressive atelectasis. SL: ER-M 10/23/2018 [facility] Chest 1view DX 1 VIEW CXR. PORTABLE EXAM 1:25 PM HISTORY: Cough. Sore throat. COMPARISON: 05/23/2018 chest x-ray. Chronic right hemidiaphragm elevation again noted. The lungs are clear. Cardiomediastinal silhouette and bony thorax normal. IMPRESSION: Normal exam. END OF IMPRESSION SL: [id number] 10/23/2018 [facility] Abdomen/Pelvis w IV contrast CT Study: [...] 2. Colonic diverticulosis without acute diverticulitis. SL: [id number] 05/24/2018 [facility] Spine cervical wo contrast CT (ER) [...] of iterative reconstruction technique CT radiation dose: ZGW=3247 mGy-cm FINDINGS: Anatomic alignment is intact from [...] of the cervical spine. SL: ZHANE 05/23/2018 [facility] Ext Lower Venous Doppler Unilat US [...] department, at 9:44 PM on 05/23/2018. SL: [id number] 05/23/2018 [facility] Chest 1view DX EXAM: Chest 1view DX DATE: 05/23/2018 7:38 PM CDT INDICATION: Abnormal chest sounds - vomiting COMPARISON: 03/07/2018. IMPRESSION: Stable cardiac silhouette and mediastinum. Tortuous atherosclerotic thoracic aorta. No focal consolidation, significant pleural effusion or pneumothorax. SL: [id number] 05/23/2018 [facility] Brain wo contrast CT Study: Brain [...] No acute intracranial pathology is seen. SL: [id number] 05/23/2018 [facility] Abdomen/Pelvis w IV contrast CT STUDY: Abdomen/Pelvis w IV contrast CT 03/07/2018 2:37 PM CDT Ordering Physician: Tara Ko MD Patient Name: MAYELA KAY MR: [id number] : 1965; Age: 52 years y/o Female [...] Bilateral spondylolysis of L5 without spondylolisthesis. SL: [id number] 03/07/2018 [facility] Chest 1view DX Study: Chest 1view DX Clinical Indication: - n/v/ams Comparison: Chest x-ray from 03/03/2018 FINDINGS: The cardiac silhouette is normal in size. The lungs are clear and without consolidation or congestion. No pleural effusion or pneumothorax is seen. The osseous structures are unremarkable. IMPRESSION: No acute cardiopulmonary disease. SL: [id number] 03/07/2018 [facility] Brain contrast CT Study: Brain wo contrast [...] previous study performed 4 days ago. SL: [id number] 03/07/[address] [facility] [address] HEAD WITHOUT CONTRAST CLINICAL [...] left internal carotid artery territory infarct. 03/03/2018 [facility] Wrist complete DX CLINICAL HISTORY : , - Pain s/p fall EXAM : 3 views of the left wrist 03/03/2018 4:39 AM CDT COMPARISON : None FINDINGS : There is no acute fracture or dislocation. There is no focal soft tissue swelling. The bony alignment is normal. The inter-carpal, carpometacarpal, and visualized metacarpophalangeal joints are normal. IMPRESSION: No acute fracture or dislocation. 03/03/2018 [facility] Hand 2 views DX CLINICAL HISTORY : [...] IMPRESSION: No acute fracture or dislocation. 03/03/2018 [facility] Shoulder series DX CLINICAL HISTORY: , - Pain s/p fall EXAM: 3 views of the left shoulder 03/03/2018 4:39 AM CDT Comparisons: None. FINDINGS: There is no acute fracture or dislocation. The glenohumeral articulation is intact. The acromioclavicular joint is normal. Limited evaluation of the left chest demonstrates no gross abnormalities. IMPRESSION: No acute fracture or dislocation. 03/03/2018 [facility] Chest 1view DX Clinical History : , [...] acute cardiopulmonary disease (stable appearing chest). 03/03/2018 [facility] Chest 1view DX : 1965. Technique: Portable AP chest x-ray. Comparison: January 03, 2018. Clinical history: - chest pain. Heart size: Normal. Lungs: No acute consolidation. Shallow inspiration. Pleura: No pleural effusion. No pneumothorax. Mediastinum and rafiq: Unremarkable. Musculoskeletal: Unremarkable. Support tubings: None. Impression: 1. No active disease in the chest. 03/01/2018 [facility] Brain wo contrast MRI Patient Name: MAYELA KAY : 1965; Age: 52 years y/o Female MR: [id number] Study: Brain wo contrast MRI 01/03/2018 5:04 [...] left middle cerebral artery are small. SL: [id number] 01/03/2018 [facility] Abdomen AP DX Patient Name: MAYELA KAY : 1965; Age: 52 years y/o Female MR: [id number] Study: Abdomen AP DX dated 01/03/2018. Clinical Indication: - metal screen for MRI; Comparison: None Contrast is seen within nondilated collecting systems bilaterally and within the bladder that has an unremarkable appearance. Nonpathologic bowel gas pattern without evidence of bowel obstruction. No radiopaque foreign body identified on the abdominal film to preclude patient from having MRI study. SL: [id number] 01/03/2018 [facility] Chest 1view DX Clinical Indication: Metal screen [...] structures identified in the imaged chest. SL: [id number] 01/03/2018 [facility] Brain CTA HEAD CTA HISTORY: Headache; aneurysm; [...] encephalomalacia with sparing of only the left CLINICAL NURSE REVIEWER distribution brain parenchyma. 2. 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 3. Moderate diffuse stenosis of the left supraclinoid intracranial internal carotid artery and left MCA. Occlusion of the left SHAYNE. 4. No other arterial stenosis or occlusion. 5. No aneurysm. SL: ROSY 01/03/2018 [facility] Brain wo contrast CT Clinical Indication: - [...] ventricle. 2. No acute intracranial abnormality. SL: [id number] 01/03/2018 [facility] Spine lumbar series DX Patient Name: MAYELA KAY : 1965; Age: 51 years y/o Female MR: [id number] * LUMBAR SPINE, 5 views HISTORY: ; [...] be positional or related to spasm. SL: [id number] 06/23/2016 [facility] Hip 2 views DX EXAM: XR RIGHT [...] Date Comments Source Heart Rate 92 11/04/2018 [facility] Temperature Oral (F) 98.4 F 11/04/2018 [facility] Systolic (mm Hg) 108 11/04/2018 [facility] Diastolic (mm Hg) 80 11/04/2018 [facility] Respitory Rate 16 11/04/2018 [facility] Respitory Rate 17 11/04/2018 [facility] Systolic (mm Hg) 130 11/04/2018 [facility] Diastolic (mm Hg) 98 11/04/2018 [facility] Temperature Oral (F) 98.2 F 11/04/2018 [facility] Heart Rate 78 11/04/2018 [facility] Respitory Rate 17 11/04/2018 [facility] Systolic (mm Hg) 118 11/04/2018 [facility] Diastolic (mm Hg) 74 11/04/2018 [facility] Temperature Oral (F) 98.5 F 11/04/2018 [facility] Heart Rate 107 11/04/2018 [facility] BMI Calculated 20.34 10/28/2018 [facility] Weight 52.091 10/28/2018 [facility] Height 160.02 cm 10/28/2018 [facility] Height 160.02 cm 10/26/2018 [facility] Height 160.02 cm 10/26/2018 [facility] Weight 59.4 10/24/2018 [facility] Weight 54.545 10/24/2018 [facility] BMI Calculated 21.3 10/24/2018 [facility] Heart Rate 89 05/26/2018 [facility] Temperature Oral (F) 98.6 F 05/26/2018 [facility] Respitory Rate 16 05/26/2018 [facility] Systolic (mm Hg) 131 05/26/2018 [facility] Diastolic (mm Hg) 83 05/26/2018 [facility] Respitory Rate 18 05/25/2018 [facility] Systolic (mm Hg) 145 05/25/2018 [facility] Diastolic (mm Hg) 82 05/25/2018 [facility] Temperature Oral (F) 98.5 F 05/25/2018 [facility] Heart Rate 77 05/25/2018 [facility] Temperature Oral (F) 98.2 F 05/25/2018 [facility] Heart Rate 78 05/25/2018 [facility] Respitory Rate 18 05/25/2018 [facility] Systolic (mm Hg) 142 05/25/2018 [facility] Diastolic (mm Hg) 87 05/25/2018 [facility] Height 162.56 cm 05/24/2018 [facility] Height 162.56 cm 05/24/2018 [facility] BMI Calculated 21.05 05/24/2018 [facility] Weight 55.625 05/24/2018 [facility] Temperature Oral (F) 99 F 03/28/2018 [facility] Respitory Rate 18 03/28/[address] [facility] Systolic (mm Hg) 130 03/28/[address] [facility] Diastolic (mm Hg) 116 03/28/[address] [facility] Heart Rate 70 03/28/[address] [facility] Respitory Rate 18 03/28/2018 [facility] Heart Rate 69 03/28/[address] [facility] Systolic (mm Hg) 125 03/28/[address] [facility] Diastolic (mm Hg) 55 03/28/2018 [facility] Weight 79.545 03/28/2018 [facility] Temperature Oral (F) 99.2 F 03/28/2018 [facility] Respitory Rate 18 03/28/2018 [facility] Heart Rate 68 03/28/[address] [facility] Systolic (mm Hg) 160 03/28/[address] [facility] Diastolic (mm Hg) 72 03/28/2018 [facility] Temperature Oral (F) 98.4 F 03/07/2018 [facility] Respitory Rate 10 03/07/2018 [facility] Systolic (mm Hg) 141 03/07/2018 [facility] Diastolic (mm Hg) 85 03/07/2018 [facility] Weight 75 03/07/2018 [facility] BMI Calculated 25.9 03/07/2018 [facility] Height 170.18 cm 03/07/2018 [facility] Temperature Oral (F) 98.3 F 03/07/2018 [facility] Respitory Rate 20 03/07/2018 [facility] Heart Rate 88 03/07/2018 [facility] Systolic (mm Hg) 145 03/07/2018 [facility] Diastolic (mm Hg) 97 03/07/2018 [facility] Systolic (mm Hg) 128 03/03/2018 [facility] Diastolic (mm Hg) 86 03/03/2018 [facility] Respitory Rate 18 03/03/2018 [facility] Temperature Oral (F) 98.1 F 03/03/2018 [facility] Systolic (mm Hg) 130 03/03/[address] [facility] Diastolic (mm Hg) 87 03/03/2018 [facility] Respitory Rate 20 03/03/2018 [facility] Systolic (mm Hg) 134 03/03/2018 [facility] Diastolic (mm Hg) 96 03/03/2018 [facility] Heart Rate 96 03/03/2018 [facility] Temperature Oral (F) 98.2 F 03/03/2018 [facility] Respitory Rate 22 03/03/2018 [facility] Systolic (mm Hg) 129 03/02/2018 [facility] Diastolic (mm Hg) 84 03/02/2018 [facility] Respitory Rate 18 03/02/2018 [facility] Heart Rate 77 03/02/2018 [facility] Respitory Rate 18 03/02/2018 [facility] Heart Rate 72 03/02/[address] [facility] Systolic (mm Hg) 136 03/02/2018 [facility] Diastolic (mm Hg) 92 03/02/2018 [facility] Heart Rate 75 03/01/2018 [facility] Respitory Rate 18 03/01/[address] [facility] Systolic (mm Hg) 141 03/01/[address] [facility] Diastolic (mm Hg) 92 03/01/2018 [facility] Temperature Oral (F) 98.8 F 03/01/[address] [facility] Systolic (mm Hg) 118 01/04/2018 [facility] Diastolic (mm Hg) 80 01/04/2018 [facility] Temperature Oral (F) 97.6 F 01/04/2018 [facility] Respitory Rate 20 01/04/2018 [facility] Heart Rate 102 01/04/2018 [facility] Systolic (mm Hg) 118 01/04/2018 [facility] Diastolic (mm Hg) 78 01/04/2018 [facility] Temperature Oral (F) 97.2 F 01/04/2018 [facility] Respitory Rate 20 01/04/2018 [facility] Heart Rate 76 01/04/2018 [facility] Respitory Rate 18 01/04/2018 [facility] Temperature Oral (F) 97.9 F 01/04/2018 [facility] Systolic (mm Hg) 111 01/04/2018 [facility] Diastolic (mm Hg) 84 01/04/2018 [facility] Heart Rate 92 01/04/2018 [facility] Weight [...] H Karen Diastolic (mm Hg) 80 10/01/2016 Brandie H Karen Systolic (mm Hg) 120 10/01/2016 [...] 80 04/16/2016 [facility] Weight 138 04/16/2016 Brandie H Karen Height 61 04/16/2016 Brandie H [...] Date Status Source Brandie Jones MD Refill [id number] 04/10/2014 04/10/2014 Brandie H Karen Jones MD Refill [id number] 04/10/2014 04/10/2014 Brandie Jones MD Refill [id number] 04/10/2014 04/10/2014 Brandie Jones MD Refill [id number] 04/10/2014 04/10/2014 Brandie Jones MD Refill [id number] 04/10/2014 04/10/2014 Brandie Jones MD Refill [id number] 04/10/2014 04/10/2014 Brandie Jones MD Refill [id number] 04/10/2014 04/10/2014 Brandie Jones MD Refill [id number] 04/10/2014 04/10/2014 Brandie Jones MD Refill [id number] 04/10/2014 04/10/2014 Brandie Jones MD Refill [id number] 06/22/2014 06/22/2014 Brandie Jones MD Refill [id number] 06/22/2014 06/22/2014 Brandie Jones MD Refill [id number] 06/22/2014 06/22/2014 Brandie Jones MD Refill [id number] 06/22/2014 06/22/2014 Brandie Jones MD Refill [id number] 06/22/2014 06/22/2014 Brandie Jones MD Refill [id number] 06/22/2014 06/22/2014 Brandie Jones MD Refill [id number] 06/22/2014 06/22/2014 Brandie Jones MD Refill [id number] 06/22/2014 06/22/2014 Brandie Jones [facility] [place] Visit [id number] Isaac Rees MD 04/26/2015 04/26/2015 [facility] Neuro Outpatient [id number] KALEE CAROLA 06/27/2015 Active [facility] OP Recurring [id number] Brandie Jones 07/19/2015 08/18/2015 [facility] Outpatient [id number] Tyrell Melendez 08/09/2015 08/10/2015 [facility] Brandie Jones MD Refill [id number] 10/03/2015 10/03/2015 Brandie Jones MD Refill [id number] 10/03/2015 10/03/2015 Brandie Jones MD Refill [id number] 10/03/2015 10/03/2015 Brandie Jones MD Refill [id number] 10/03/2015 10/03/2015 Brandie Jones MD Refill [id number] 10/03/2015 10/03/2015 Brandie Jones MD Refill [id number] 10/03/2015 10/03/2015 Brandie Jones [facility] OP Recurring [id number] Brandie Jones 11/13/2015 12/13/2015 [facility] OP Therapy Patients [id number] Brandie Jones 03/10/2016 04/09/2016 [facility] OP Therapy Patients [id number] Brandie Jones 04/09/2016 05/09/2016 [facility] Brandie Jones MD Routine Meds. [id number] 04/16/2016 04/16/2016 Brandie Jones MD Routine Meds. [id number] 04/16/2016 04/16/2016 Brandie Jones MD Routine Meds. [id number] 04/16/2016 04/16/2016 Brandie Jones MD Routine Meds. [id number] 04/16/2016 04/16/2016 Brandie Jones MD Routine Meds. [id number] 04/16/2016 04/16/2016 Brandie Jones [facility] OP Therapy Patients [id number] Brandie Jones 05/12/2016 06/11/2016 [facility] OP Therapy Patients [id number] Obed Garcia 06/16/2016 07/16/2016 [facility] Brandie Jones MD Back Pain [id number] 06/23/2016 06/23/2016 Brandie Jones MD Back Pain [id number] 06/23/2016 06/23/2016 Brandie Jones MD Back Pain [id number] 06/23/2016 06/23/2016 Brandie Jones [facility] Outpatient [id number] Brandie Jones 06/23/2016 06/24/2016 [facility] Brandie Jones MD Back Pain [id number] 06/23/2016 06/23/2016 Brandie Jones MD Routine Meds. [id number] 07/09/2016 07/09/2016 Brandie Jones MD Routine Meds. [id number] 07/09/2016 07/09/2016 Brandie Jones MD Other [id number] 07/09/2016 07/09/2016 Brandie Jones MD Other [id number] 07/09/2016 07/09/2016 Brandie Jones MD Other [id number] 07/09/2016 07/09/2016 Brandie Jones [facility] OP Therapy Patients [id number] Obed Hutchinson 07/17/2016 08/16/2016 [facility] OP Therapy Patients [id number] Obed Hutchinson 08/18/2016 09/17/2016 [facility] Brandie Jones MD [facility] [id number] 10/01/2016 10/01/2016 Brandie Jones [facility] Outpatient [id number] [facility] 02/17/2017 02/18/2017 [facility] Outpatient [id number] [facility] 03/03/2017 03/04/2017 [facility] Outpatient [id number] [facility] 05/05/2017 05/06/2017 [facility] Outpatient [id number] MONE HENDRICKSON 10/20/2017 [facility] Neurology [facility] Outpatient [id number] Mone Hendrickson 10/20/2017 10/21/2017 [facility] Outpatient [id number] DIONYSIA VIDYA 11/18/2017 [facility] Neurology [facility] Outpatient [id number] Dionysia Vidya 11/18/2017 11/19/2017 [facility] [id number] 12/01/2017 12/02/2017 [facility] Outpatient [id number] [facility] 12/16/2017 12/17/2017 [facility] Outpatient Imaging [facility] Outpt Diag Services [id number] Nael Alanis 12/24/2017 12/25/2017 [id number] Outpatient [id number] LISA FLURY 12/31/2017 Active [facility] Outpatient [id number] Lisa Flury 12/31/2017 01/01/2018 [facility] Observation [id number] Jose Berumen 01/03/2018 01/04/2018 [facility] Phone Message [id number] 01/04/2018 01/06/2018 [facility] Phone Message [id number] 01/04/2018 01/06/2018 [facility] Phone Message [id number] 01/04/2018 01/06/2018 [facility] Phone Message [id number] 01/13/2018 01/15/2018 [facility] Phone Message [id number] 01/21/2018 01/23/2018 [facility] Outpatient [id number] LISA FLURY 02/03/2018 Active [facility] Ambulatory Pre-Reg [id number] Lisa Flury 02/03/2018 02/03/2018 [facility] Phone Message [id number] 02/03/2018 02/05/2018 [facility] Emergency [id number] Juvencio Willson 03/01/2018 03/02/2018 [facility] Emergency [id number] Jose Ramongonzález Siegel 03/03/2018 03/03/2018 [facility] Emergency [id number] Tara Avitiaacott 03/07/2018 03/08/2018 [facility] Emergency [id number] Minh Lopesu 03/28/2018 03/28/2018 [facility] Observation [id number] Maco Lowery 05/23/2018 05/26/2018 [facility] Inpatient [id number] Ziggy Qureshiugouris 10/23/2018 11/04/2018 [facility] Procedures Procedure Code Date Perfomer Comments Source MRI of brain<sup>1</sup> [id number] 04/21/2014 mr brain w/o [facility],[id number], [facility] Breast reduction, bilateral [id number] [facility],[id number], [facility] Cranioplasty<sup>2</sup> [id number] 05/2015 [facility],[id number], [facility] Craniotomy [id number] [facility],[id number], [facility] Hair bearing graft of skin to scalp [id number] [facility],[id number], [facility] Assessment and Plan Assessment and Plan [...] AC, HTN, and HLD presented to to [facility] with a productive cough. She was transfer [...] resulting in right hemiplegia and aphasia. Uses [employer]. On [employer] Previous employment/school: Worked for [employer] previously.. Other: Lives with mother and 1dog. [...] 1,250 microgram: Titrate, IV, Stop: 11/22/18 17:17:00 [employer]. midazolam 50 mg: Titrate, IV, Stop: 11/22/18 17:18:00 [employer]. ocular lubricant: 1 drp, BOTH EYES, Q6H. pantoprazole 80 mg + Sodium Chloride 0.9% IV 100 mL: 10 ml/hr, IVPB, Stop: 10/26/18 17:26:00 [employer]. sodium chloride: 10 mL, IVP, PRN, PRN: [...] mL: 10 ml/hr, IVPB, Stop: 10/26/18 17:26:00 [employer]. pravastatin: 10 mg, 1 tab, PO, Bedtime, [...] Ceballos MD Date: 05/24/18 full H&P dictated, #[id number] date/time: 05/24/2018 01:29 05/26/2018 [facility] Extracted from:Title: Progress Note Author: Sravani Larson Date: 01/04/18 Progress Note - Daily [facility] Completed: Dec, 11:29 by Sravani Larson RM: [...] 5 Biceps: (L) 5 Triceps: (L) 5 [place] Pumper: (L) 5 Iliopsoas: (R) 3-4/(L) 5 Quadriceps: [...] residual L spastic hemiparesis who presented to [facility] c her mother c reported h/o [...] history of aneurysm . CTA brain. 01/04/2018 [facility] Plan of Care No Data Provided for [...] Cessation Counseling No entered on: 03/07/18 10/20/2017 [facility] Social History TypeResponse Employment/School Status: Unemployed. Work/School [...] Cessation Counseling No entered on: 03/07/18 10/20/2017 [facility] Social History TypeResponse Employment/School Status: [...] Cessation Counseling No entered on: 03/27/18 10/20/2017 [facility] Social History TypeResponse Employment/School Status: Unemployed. 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 Uses [employer]. On SSDI.. Previous employment/school: Worked for [employer] previously.. Other: Lives with mother and 1dog. Has 2 brothers who are not helpful. Has 1 daughter aged 25, not involved. Uncle does provide some assistance.. Alcohol Current Smoking Status Never smoker; Exposure to Tobacco Smoke None; Cigarette Smoking Last 365 Days No; Reg Smoking Cessation Counseling No entered on: 03/27/18 10/20/2017 [id number] Social History TypeResponse Employment/School Status: Unemployed. 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 Uses [employer]. On SSDI.. Previous employment/school: Worked for [employer] previously.. Other: Lives with mother and 1dog. Has 2 brothers who are not helpful. Has 1 daughter aged 25, not involved. Uncle does provide some assistance.. Alcohol Past, Last use: 2009. Smoking Status Never smoker; Exposure to Tobacco Smoke None; Cigarette Smoking Last 365 Days No; Reg Smoking Cessation Counseling No entered on: 10/27/18 10/20/2017 [facility] Social History ElementQualifiersDate Reported Tobacco Use: [...]
--- NOTE | 2019-06-04 21:03 | Diagnostic Imaging Report ---
EXAMINATION: CHEST SINGLE (PORTABLE) INDICATION: Repositioned central line COMPARISON: Chest radiograph 04/19/2019 FINDINGS: AP view TUBES and LINES: Interval placement of a right IJ central venous catheter with tip in the right atrium. Tracheostomy tube tip projects in the intrathoracic trachea.. LUNGS: Lungs are well inflated. Mild right basilar atelectasis, slightly elevated right hemidiaphragm. There is no evidence of pneumonia or pulmonary edema. PLEURA: No pleural effusion or pneumothorax. HEART AND MEDIASTINUM: The cardiomediastinal silhouette is unremarkable. BONES AND SOFT TISSUES: No acute osseous lesion. Soft tissues are unremarkable. UPPER ABDOMEN: No free air under the diaphragm. IMPRESSION: Interval placement of a right IJ central venous catheter with tip in the right atrium Mild right basilar atelectasis, slightly elevated right hemidiaphragm. Signed by: Harsh Alejandro DO on 06/04/2019 7:15 PM
--- NOTE | 2019-06-04 21:10 | NUR ---
Received to 196 from ER. Placed on EKG, pulse ox & NBP for monitoring. Trach to vent. Vent settings: TV 400, FIO2 40%, PRVC 12 & PEEP 5cm. PEG tube flushed and patent. Admission history, Vaccine history, & Initial admission assessment done.
[2019-06-04] MEDS: DEXTROSE 5%/LACTATED RINGERS 1,000 ML IV SCH (21:19)
--- NOTE | 2019-06-04 21:30 | NUR ---
D5LR started @ 70ml/hr.
--- NOTE | 2019-06-04 22:20 | NUR ---
Nasal swabs sent for MRSA screen.
[2019-06-05] VITALS (25 sets, daily range): BP systolic 93–177; BP diastolic 69–174
[2019-06-05] MEDS ORDERED: AZTREONAM 1 GM VIAL ONE (01:06)
[2019-06-05] MEDS ORDERED: SODIUM CHLORIDE 0.9% 100 ML ONE (01:07)
[2019-06-05] MEDS: AZTREONAM 2GM/NS 100ML 100 ML IV SCH ×2 (01:19→09:55)
[2019-06-05 03:02] LABS: CREATINE KINASE MB 1.7 ng/mL (0-5.0)
[2019-06-05] MEDS: CEFEPIME 2 GM/NS 0.9% 100 ML 100 ML IV SCH ×2 (04:28→17:36)
[2019-06-05 05:22] LABS: BASOPHILS % 0.3 % (0.0-1.0); EOSINOPHILS # (AUTO) 0.2 (0.0-0.4); EOSINOPHILS % 1.8 % (0.0-6.0); HEMOGLOBIN 8.3 g/dL (12.0-16.0); LYMPHOCYTES # (AUTO) 1.9 (1.0-3.2); LYMPHOCYTES % 16.4 % (18.0-39.1); MEAN CORPUSCULAR HEMOGLOBIN 23.2 pg (28-32); MEAN CORPUSCULAR HGB CONC 29.6 g/dL (31-35); MEAN CORPUSCULAR VOLUME 78.4 fL (81-99); MONOCYTES # (AUTO) 0.8 (0.2-0.8); MONOCYTES % 7.1 % (4.4-11.3); NEUTROPHILS # (AUTO) 8.5 (2.1-6.9); PLATELET COUNT 117 x10e3/uL (140-360); RED BLOOD COUNT 3.57 x10e6/uL (3.6-5.1); RED CELL DISTRIBUTION WIDTH 19.7 % (11.7-14.4)
[2019-06-05 05:45] LABS: ALANINE AMINOTRANSFERASE 20 IU/L (0-55); ALBUMIN 2.3 g/dL (3.5-5.0); ALKALINE PHOSPHATASE 63 IU/L (40-150); BLOOD UREA NITROGEN 18 mg/dL (7-26); BUN/CREATININE RATIO 30 (6-25); CARBON DIOXIDE 26 mmol/L (22-29); CHLORIDE 111 mmol/L (98-107); EST GLOMERULAR FILTRATION RATE > 60 ML/MIN (60-); GLUCOSE 95 mg/dL (74-118); SODIUM 146 mmol/L (136-145)
[2019-06-05 05:58] LABS: ALBUMIN/GLOBULIN RATIO 0.6 (0.8-2.0); MAGNESIUM 1.8 MG/DL (1.3-2.1)
[2019-06-05 05:59] LABS: ANION GAP 11.8 mmol/L (8-16)
[2019-06-05 06:00] LABS: POTASSIUM 2.8 mmol/L (3.5-5.1)
--- NOTE | 2019-06-05 06:10 | NUR ---
K+ 2.8. Results called to Dr. Fitch. Orders given.
[2019-06-05 06:14] LABS: CHOL/HDL RATIO 2.9 (3.0-3.6)
[2019-06-05] MEDS ORDERED: POTASSIUM CHLORIDE 20MEQ/100ML 200 ML IV ONE (06:15)
[2019-06-05] MEDS ORDERED: POTASSIUM CHLORIDE 20MEQ/15ML UDC PEG ONE (06:15)
--- NOTE | 2019-06-05 06:15 | NUR ---
KCL 20mEq elixir given per PEG tube. KCL 20meq given IV. 2nd 20meq will be given IV following.
[2019-06-05] MEDS ORDERED: POTASSIUM CHLORIDE 20MEQ/100ML 100 ML ONE (06:18)
--- NOTE | 2019-06-05 07:11 | Consultation ---
DATE OF CONSULTATION: 06/04/2019 Pulmonary Medicine Consult REASON FOR REFERRAL: Chronic respiratory failure. HISTORY OF PRESENT ILLNESS: Ms. Marcus is a pleasant 54-year-old female with respiratory distress. The patient had known CVA resulting in the aphasia and partial hemiparesis. She has secondary seizure disorder. She had hospitalization required at one point and she received tracheostomy and PEG tube. She was sent a few months ago to [facility] for further care. The patient has had a few hospitalizations in the interim. The patient has been under the care of Dr. Jaquan Faustin for a number of months now when she was sent from care home facility. She has had an altered mental status and low blood pressure. The patient came to [facility]. White blood count of 29,000. Lactic acid was 42, elevated. Albumin was 2.8. The patient's kidney function remained stable. She was given some fluid where her hypotension responded to boluses . Urinalysis with no lois pus. Abdominal exam is limited. Chest x-ray with atelectasis versus pneumonia. PAST MEDICAL HISTORY: CVA; hypertension; hyperlipidemia; history of dysphagia, status post feeding tube; chronic respiratory failure, status post tracheostomy; secondary seizures; protein-calorie malnutrition, unspecified per chart; depression; diabetes. MEDICATIONS: Per list. ALLERGIES: PER LIST. SOCIAL HISTORY: No active smoking. No drinking. No drugs. FAMILY HISTORY: Noncontributory. REVIEW OF SYSTEMS: Cannot get as the patient is not speaking. OBJECTIVE: VITAL SIGNS: The patient without fevers now. VITAL SIGNS: Stabilizing better after boluses. HEENT: Normocephalic, atraumatic. NECK: Supple. Throat midline. Tracheostomy in place. LUNGS: Bilateral air entry, few rhonchi. CARDIOVASCULAR: S1 and S2. No murmurs, rubs, or gallops. ABDOMEN: Soft, nontender. EXTREMITIES: No clubbing, no cyanosis, there is no edema except at the distal feet. INTEGUMENT: No rash or purpura, Undersides were not examined due to no admit status. LABORATORY DATA: Labs reviewed per the chart record. IMPRESSION AND PLAN: 1. Hypotension, presumed severe sepsis, possibly from pneumonia. 2. Chronic respiratory failure, status post tracheostomy. 3. Acute respiratory failure, on ventilator. 4. Treated pneumonia. 5. Sepsis, possible other etiology under investigation. 6. History of stroke. 7. History of secondary seizure. 8. Moderate protein-calorie malnutrition. 9. History of hypertension. 10. Hyperlipidemia. Continue ventilator support. Ventilator and tracheostomy care. Continue antibiotics. The patient to get serial evaluation to ensure no other source of sepsis come out. Get gibbons cultures. We will evaluate. Give additional fluid and follow up repeat labs tomorrow. The patient in critical condition. We will ensure further improvement. Thank you very much, Dr. Faustin and Dr. Fitch, for this consult. Please call for questions. MD CLEMENTE Abrams/MODL /[id number]
--- NOTE | 2019-06-05 07:52 | Diagnostic Imaging Report ---
A single frontal view of the chest. HISTORY: CHF, respiratory distress COMPARISON: Chest radiograph June 04, 2018 DISCUSSION: Right anterior oblique rotation. Multiple overlying artifacts. See impression. IMPRESSION: 1. Slightly increased right basilar atelectasis. 2. Unchanged tracheostomy tube. 3. Interval retraction of the right internal jugular central venous catheter, the tip now projects in the region of the distal superior vena cava. Signed by: Dr. Delfin Frausto D.O., M.M.M. on 06/05/2019 7:49 AM
--- NOTE | 2019-06-05 09:33 | NUR ---
Change of attending request to Dr. Draper per Dr. Ftich. Spoke with Cha regarding request. waiting for further assessment and orders. will continue to monitor
[2019-06-05] MEDS: DEXTROSE 5%/LACTATED RINGERS 1,000 ML IV SCH ×2 (09:48→23:42)
[2019-06-05] MEDS ORDERED: HYDRALAZINE HCL 20 MG/ML VIAL IV PRN (11:00)
[2019-06-05] MEDS: ALBUTEROL/IPRATROPIUM 3 ML NEB NEB SCH ×4 (11:00→22:05)
[2019-06-05] MEDS ORDERED: ACETAMINOPHEN/CODEINE 300MG - 30MG TAB GT PRN (11:00)
[2019-06-05] MEDS ORDERED: DOCUSATE SODIUM LIQD 100 MG/10 ML UDC PEG PRN (11:00)
[2019-06-05] MEDS ORDERED: BISACODYL 10 MG SUPP PR PRN (11:00)
[2019-06-05] MEDS ORDERED: ACETAMINOPHEN 325 MG/10 ML UDC PEG PRN (11:00)
[2019-06-05] MEDS ORDERED: ALBUTEROL/IPRATROPIUM 3 ML NEB NEB PRN (11:00)
[2019-06-05] MEDS ORDERED: ALPRAZOLAM 0.5 MG TAB GT PRN (11:00)
[2019-06-05] MEDS ORDERED: GLYCOPYRROLATE 0.2 MG/ML VIAL IV PRN (11:00)
[2019-06-05] MEDS ORDERED: ONDANSETRON HCL INJ 2MG/ML 2ML 2 MG/ML VIAL IV PRN (11:00)
--- NOTE | 2019-06-05 11:52 | Progress Note ---
DATE: Pulmonary Critical Care Progress Note SUBJECTIVE: The patient was transferred back to the hospital from recently admitted to [facility] in [facility] after an aspiration pneumonia following a stroke. She had difficulty weaning from the ventilator, [facility], she had some more difficulty breathing and was sent back to the emergency department. She is now resting comfortably and was switched to pressure support, CPAP. She is not on antibiotics for leukocytosis. PHYSICAL EXAMINATION: VITAL SIGNS: The patient is afebrile. The blood pressure is 148/90 and pulse is 72. Saturation is 100%. HEENT: Shows no facial swelling or erythema. NECK: Tracheostomy site is clean. There is no drainage. CARDIAC: Reveals a regular rate and rhythm with normal S1, S2. There are no murmurs or rubs. LUNGS: Auscultation of lungs reveals rhonchorous breath sounds bilaterally. There is no wheezing. ABDOMEN: Soft, nontender. There is no rebound or guarding. EXTREMITIES: Show no leg edema or calf tenderness. There is no cyanosis or clubbing. SKIN: Shows no rashes. NEUROLOGICAL: Shows no focal abnormalities. A persistent hemiparesis. LABORATORY DATA: White blood cell count has improved from 29 to 11.5 and hemoglobin is 8.3. The platelet count is 117. The potassium is 2.8 and the BUN to creatinine ratio is normal. The other electrolytes are within normal limits. RADIOGRAPHIC DATA: Chest x-ray shows a right IJ line and tracheostomy. There is some right basilar atelectasis. IMPRESSION: 1. Dssyu-pw-udlrizk respiratory failure. 2. Recurrent healthcare-associated pneumonia. 3. Remote history of stroke. 4. Moderate protein-calorie malnutrition. 5. Thrombocytopenia. 6. Hypokalemia. 7. Anemia, secondary to chronic blood loss. PLAN: 1. CPAP and pressure support as tolerated with repeat ABG. 2. Continue antibiotics and await culture results. 3. Replace potassium. 4. Deep venous thrombosis prophylaxis. 5. Continue enteral feedings. Rufino Melendrez MD LM/SIDRA /[id number]
[2019-06-05] MEDS: METOCLOPRAMIDE HCL 10 MG/2ML VIAL IV SCH ×3 (12:00→23:41)
[2019-06-05 12:41] LABS: CREATINE KINASE MB 1.4 ng/mL (0-5.0)
[2019-06-05 13:43] LABS: ABG HCO3 28 mmol/L (23-28); ABG PCO2 45 mmHg (41-51); ABG PO2 162 mmHg (80-105)
[2019-06-05] MEDS: METOPROLOL TARTRATE 50 MG TAB GT SCH ×2 (15:15→23:38)
[2019-06-05] MEDS: SCOPOLAMINE 1.5 MG PATCH TD SCH (15:15)
[2019-06-05] MEDS: LEVETIRACETAM ORAL SOLUTION 500 MG/5 ML SOLN PEG SCH ×2 (15:15→23:41)
[2019-06-05] MEDS: VANCOMYCIN 750MG/NS 150ML IVPB 150 ML IV SCH ×2 (15:42→23:41)
[2019-06-05] MEDS: ATORVASTATIN 10 MG TAB GT SCH (21:36)
[2019-06-05] MEDS: RIVAROXABAN 20 MG TABLET GT SCH (21:36)
[2019-06-06] VITALS (27 sets, daily range): BP systolic 118–171; BP diastolic 74–121
[2019-06-06] MEDS: ALBUTEROL/IPRATROPIUM 3 ML NEB NEB SCH ×6 (03:00→23:20)
--- NOTE | 2019-06-06 04:06 | Consultation ---
DATE OF CONSULTATION: 06/05/2019 REASON FOR CONSULTATION: Aspiration pneumonia. Recommendation antibiotic. HISTORY OF PRESENT ILLNESS: This patient, who is known to me from before. 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 The patient who has multiple hospitalization for recurrent aspiration, she does have history of tracheostomy, PEG tube placement. The [facility]. She has come in with shortness of breath and cough. The patient was admitted, transferred here. She is currently in ICU, does not really provide any meaningful information, history was taken mainly from the chart. No family at the bedside, but I was able to review her records. PAST MEDICAL HISTORY: As mentioned above, CVA, hypertension, hyperlipidemia, dysphagia, feeding tube placement, chronic respiratory failure, status post tracheostomy; secondary seizure, protein-calorie malnutrition, depression, diabetes. PAST SURGICAL HISTORY: As mentioned above. ALLERGIES: AKA. SOCIAL HISTORY: From intermediate. FAMILY HISTORY: Could not be obtained. REVIEW OF SYSTEMS: Could not be obtained. IMAGING: Her chest x-ray showed right IJ tracheostomy, right basilar atelectasis. LABORATORY DATA: Showed a white count when she first came was 28.8, hemoglobin 10.8. Her white count now is 11.4 and her hemoglobin 8.3. Sodium 146, potassium 2.4, creatinine 0.6. Lactic acid was 41 on admission. MEDICATIONS: She is currently on transdermal scopolamine, Lopressor. She was started on antibiotic, vancomycin and cefepime. Discussed with the nursing team. Discussed with the pharmacy. She is also on glycopyrrolate, Colace, Dulcolax, and Tylenol. PHYSICAL EXAMINATION: GENERAL: She is currently alert, noncommunicative. VITAL SIGNS: Stable, afebrile. HEENT: Normocephalic. CHEST: Few rhonchi bilateral. HEART: S1, S2. No murmur. ABDOMEN: Soft. Bowel sounds present. No tenderness. EXTREMITIES: No edema. SKIN: No rash. IMPRESSION: 1. Sepsis on admission, aspiration pneumonia, healthcare-associated pneumonia. She is currently on vancomycin, cefepime. She showed significant improvement, maybe we can do a short of course of antibiotic, that is to be determined. We will follow vancomycin trough. We will follow the cultures. Continue with supportive care. 2. Other medical problem are listed above, seem to be stable per other attending. 3. Chronic respiratory failure with acute exacerbation, status post trach. 4. Aspiration with PEG. 5. Seizure disorder. 6. Moderate protein malnutrition. DICTATION ENDS HERE MD JEZ Ace/MODL /[id number]
[2019-06-06] MEDS: CEFEPIME 2 GM/NS 0.9% 100 ML 100 ML IV SCH ×2 (04:46→16:04)
[2019-06-06 05:34] LABS: BASOPHILS % 0.6 % (0.0-1.0); EOSINOPHILS # (AUTO) 0.5 (0.0-0.4); EOSINOPHILS % 8.1 % (0.0-6.0); HEMATOCRIT 30.7 % (34.2-44.1); HEMOGLOBIN 9.4 g/dL (12.0-16.0); LYMPHOCYTES # (AUTO) 1.7 (1.0-3.2); LYMPHOCYTES % 27.1 % (18.0-39.1); MEAN CORPUSCULAR HEMOGLOBIN 23.6 pg (28-32); MEAN CORPUSCULAR HGB CONC 30.6 g/dL (31-35); MEAN CORPUSCULAR VOLUME 77.1 fL (81-99); MONOCYTES # (AUTO) 0.6 (0.2-0.8); MONOCYTES % 8.7 % (4.4-11.3); NEUTROPHILS # (AUTO) 3.5 (2.1-6.9); NEUTROPHILS % 55.2 % (38.7-80.0); PLATELET COUNT 133 x10e3/uL (140-360); RED BLOOD COUNT 3.98 x10e6/uL (3.6-5.1); RED CELL DISTRIBUTION WIDTH 19.7 % (11.7-14.4)
[2019-06-06 05:54] LABS: ALANINE AMINOTRANSFERASE 22 IU/L (0-55); ALBUMIN 2.4 g/dL (3.5-5.0); ALBUMIN/GLOBULIN RATIO 0.6 (0.8-2.0); ALKALINE PHOSPHATASE 60 IU/L (40-150); ANION GAP 11.1 mmol/L (8-16); BLOOD UREA NITROGEN 9 mg/dL (7-26); BUN/CREATININE RATIO 17 (6-25); CALCIUM 9.6 mg/dL (8.4-10.2); CARBON DIOXIDE 25 mmol/L (22-29); CHLORIDE 105 mmol/L (98-107); CREATININE, SERUM 0.54 mg/dL (0.57-1.11); EST GLOMERULAR FILTRATION RATE > 60 ML/MIN (60-); GLUCOSE 94 mg/dL (74-118); POTASSIUM 3.1 mmol/L (3.5-5.1); SODIUM 138 mmol/L (136-145)
[2019-06-06] MEDS: METOCLOPRAMIDE HCL 10 MG/2ML VIAL IV SCH ×3 (06:08→17:04)
[2019-06-06 06:11] LABS: FERRITIN 68.01 ng/mL (4.63-204.00)
[2019-06-06 07:26] LABS: FOLATE 31.4 ng/mL (7.0-15.4)
[2019-06-06] MEDS: DEXTROSE 5%/LACTATED RINGERS 1,000 ML IV SCH (08:00)
--- NOTE | 2019-06-06 08:37 | Diagnostic Imaging Report ---
EXAMINATION: CHEST SINGLE (PORTABLE) INDICATION: Respiratory failure COMPARISON: Multiple prior chest radiographs, most recently of 06/05/2019 FINDINGS: LINES/TUBES:Tracheostomy tube in unchanged position. Right IJ central venous catheter unchanged. EKG leads overlie the chest. LUNGS:The lungs are moderately inflated. A focal consolidation or pulmonary edema. Mild subsegmental atelectasis at the right and left lung base. PLEURA:No pleural effusion or pneumothorax. MEDIASTINUM:The cardiomediastinal silhouette appears normal in size and shape. BONES/SOFT TISSUES:No acute osseous injury. ABDOMEN:No free air under the diaphragm. IMPRESSION: No significant interval change. Signed by: Thuy Mahmood MD on 06/06/2019 8:34 AM
[2019-06-06] MEDS ORDERED: DOCUSATE SODIUM 100 MG CAP PO SCH (09:00)
[2019-06-06] MEDS: AMLODIPINE BESYLATE 10 MG TAB GT SCH (10:06)
[2019-06-06] MEDS: PANTOPRAZOLE SODIUM 40 MG SUSPDR.PKT GT SCH (10:06)
[2019-06-06] MEDS: SERTRALINE HCL 50 MG TAB GT SCH (10:06)
[2019-06-06] MEDS ORDERED: POTASSIUM CHLORIDE 20MEQ/15ML UDC NG ONE (10:15)
[2019-06-06] MEDS ORDERED: DIATRIZOATE MEGL/DIATRIZOA SOD 30 ML BTL PO ONE (10:19)
--- NOTE | 2019-06-06 10:57 | Diagnostic Imaging Report ---
Exam: KUB - 2 views Indication: Confirmation of gastrostomy tube placement Comparison: None Findings: Contrast injection through the indwelling gastrostomy tube shows opacification of the stomach lumen, confirming intraluminal placement. Nonobstructive bowel gas pattern. No free air. The osseous structures appear unremarkable. Impression: Intraluminal positioning of gastrostomy tube. Signed by: Thuy Mahmood MD on 06/06/2019 10:53 AM
[2019-06-06] MEDS: LEVETIRACETAM ORAL SOLUTION 500 MG/5 ML SOLN PEG SCH ×2 (11:59→22:56)
[2019-06-06] MEDS: METOPROLOL TARTRATE 50 MG TAB GT SCH ×2 (12:00→22:56)
--- NOTE | 2019-06-06 12:54 | NUR ---
Nutrition Intervention Note RD Recommendation(s) for Physician: - Recommend TF of Vital AF with goal rate of 50 ml/hr (provides 1440 kcal and 90 gm protein per day). - Water flushes and fluid management per MD. Plan of Care: RD following, monitoring for tolerance and adequacy Nutrition reason for involvement: MD Consult, Nutrition Risk Trigger- PEG, EN on admit RD Assessment 06/06: 54 YOF admitted from [place] for sepsis with hx of CVA. Pt with trach and PEG at admit, vent dependent. No family at bedside at time of visit. Chart reviewed. No recent wt loss noted, pt weighing 123# 3 mo ago per prior admit. TF rec's discussed with RN on unit, recommend change in formula to better meet needs on vent. Will monitor and continue to follow. Principal Problems/Diagnoses: sepsis PMH: CVA with dysphagia, aphasia, and hemiparesis, HLD, HTN, DM, seizure disorder GI: WDL, no BM yet Skin: sacral/buttocks stage II per RN Labs: 06/06: Na 138, K 3.1, BUN 9, Cr 0.54, Gluc 94 Meds: abx, reglan, lipitor, zofran, protonix, colace, dulcolax Ht: 63 in Wt: 123 lb BMI: 21.8 IBW:115 lb Malnutrition Evaluation (06/06/19) The patient does not meet criteria for a specified degree of malnutrition at this time. Will re-evaluate at follow-up as appropriate. Nutrition Prescription (Diet Order): Jevity 1.2- order pending Estimated Nutritional Needs: 1259-2532 calories/day (20-25 kcal/kg CBW) 73-112 g protein/day (1.3-2 g pro/kg CBW) Diet Adequacy: Not meeting calorie needs, Not meeting protein needs Diet Education Needs Assessment: Diet education not indicated, patient on TF. Nutrition Care Level: Mod Nutrition Diagnosis: Inadequate energy and protein intake related to pt requiring EN via PEG on admit as evidenced by EN pending initiation. Goal: Patient will meet 75-100% of estimated needs by follow up Progress: N/A Interventions: Composition, Rate, Route, Recommended Modifications, Collaboration with other providers Monitoring/Evaluation: Total energy intake, Total protein intake, Formula/Solution Signed: Grecia Harrell RD, LD, [facility]
[2019-06-06] MEDS: VANCOMYCIN 750MG/NS 150ML IVPB 150 ML IV SCH (13:30)
--- NOTE | 2019-06-06 20:43 | Diagnostic Imaging Report ---
EXAM: CT Abdomen and Pelvis WITH contrast INDICATION: Infection . Sepsis COMPARISON: 04/17/2019 TECHNIQUE: Abdomen and pelvis were scanned utilizing a multidetector helical scanner from the lung base to the pubic symphysis after administration of IV contrast. Coronal and sagittal reformations were obtained. Routine protocol was performed. Scan was performed when during portal venous phase. IV CONTRAST: 100 mL of Isovue-370 ORAL CONTRAST: Gastrografin COMPLICATIONS: None RADIATION DOSE: Total DLP: ... mGy*cm Estimated effective dose: (DLP x 0.015 x size factor) mSv CTDIvol has been reviewed. It is below the limits set by the Radiation Protocol Committee (RPC). Dose modulation, iterative reconstruction, and/or weight based adjustment of the mA/kV was utilized to reduce the radiation dose to as low as reasonably achievable. FINDINGS: LINES and TUBES: Percutaneous gastrostomy tube. Catheter in the urinary bladder. LOWER THORAX: Opacities in the lung bases left side greater than right could be due to multifocal pneumonia in the appropriate clinical context HEPATOBILIARY: No focal hepatic lesions. No biliary ductal dilation. GALLBLADDER: No radio-opaque stones or sludge. No wall thickening. SPLEEN: No splenomegaly. PANCREAS: No focal masses or ductal dilatation. ADRENALS: No adrenal nodules KIDNEYS/URETERS: Kidneys enhance symmetrically. No hydronephrosis. No cystic or solid mass lesions. No stones. GI TRACT: No abnormal distention, wall thickening, or evidence of bowel obstruction. Scattered diverticulosis without evidence of diverticulitis PELVIC ORGANS/BLADDER: Unremarkable. LYMPH NODES: No lymphadenopathy. VESSELS: Unremarkable. PERITONEUM / RETROPERITONEUM: No free air or fluid. BONES: Unremarkable. SOFT TISSUES: Unremarkable. IMPRESSION: Opacities in the lung bases left side greater than right could be due to multifocal pneumonia in the appropriate clinical context. No acute CT abnormality in the abdomen or pelvis. Signed by: Dr. Remington Perez M.D. on 06/06/2019 8:40 PM
[2019-06-06] MEDS: ATORVASTATIN 10 MG TAB GT SCH (22:00)
[2019-06-06] MEDS: RIVAROXABAN 20 MG TABLET GT SCH (22:00)
--- NOTE | 2019-06-06 22:43 | NUR ---
Pulmonary [id number]
[2019-06-07] VITALS (24 sets, daily range): BP systolic 95–181; BP diastolic 63–103
[2019-06-07] MEDS: METOCLOPRAMIDE HCL 10 MG/2ML VIAL IV SCH ×4 (00:10→18:37)
[2019-06-07] MEDS: VANCOMYCIN 750MG/NS 150ML IVPB 150 ML IV SCH ×2 (00:10→11:34)
--- NOTE | 2019-06-07 00:36 | Consultation ---
DATE OF CONSULTATION: 06/06/2019 Cardiology Consultation REASON FOR CONSULTATION: Evaluate cardiac status. SOURCE OF INFORMATION: Patient's record. The patient cannot give any information. She is aphasic. She is on ventilator via tracheostomy tube. HISTORY: A 54-year-old lady, who is known with major CVA with aphasia and right body hemiparesis. She does have seizure disorder. She was at this institution recently, where she had tracheostomy and PEG tube placement. She was sent [facility]. The patient had several hospitalizations back and forth to half-way care to hospitals and to [facility]. It was noted she was hypotensive and very ill and she is unresponsive. She was brought to this institution on June 04, 2019. The patient was septic with a white blood cell count of 28,000 with left shift. Her lactic acid was elevated. She was hypotensive and very ill. The patient was treated aggressively with medication, with that it seems she is getting better. Blood culture unfortunately showed the presence of Staph aureus. Cardiac consultation is obtained to evaluate the patient. The patient also does have history of tachycardia and she was maintained on Lipitor and beta-don in addition to Xarelto 20 mg a day. It is unknown who started her on that and why. The patient visited. She is on ventilator. She is unable to give much of information and she is aphasic. CURRENT MEDICATIONS: Cefepime, IV fluid with Ringer's lactate, vancomycin, albuterol, amlodipine 10 mg per day, atorvastatin 10 mg per day, hydralazine p.r.n., Keppra 500 mg every 12 hours, Reglan 10 mg every 6 hours, metoprolol 50 mg every 12 hours, Protonix, Xarelto 20 mg every evening. ALLERGIES: NONE. PAST MEDICAL HISTORY: 1. CVA. 2. Hypertension. 3. Hyperlipidemia. 4. Aphasia and right body hemiplegia. 5. Chronic respiratory failure. 6. The patient on tracheostomy, PEG tube. 7. Aspiration pneumonia. PHYSICAL EXAMINATION: GENERA:: The patient appears to be ill. VITAL SIGNS: Height of 5 feet 4 inches, weight of 128 pounds. Blood pressure 140/80, heart rate of 60, respiratory rate of 18, temperature of 96 Fahrenheit. HEENT: There is redness and irritation of the right eye. NECK: Tracheostomy tube in place. The patient on ventilator via tracheostomy tube. Unable to evaluate jugular venous pulsation. CHEST: Bilateral crackles. HEART: PMI in the fifth left intercostal space. Normal first and seconds. ABDOMEN: PEG tube is in place. EXTREMITIES: No cyanosis, no clubbing, no edema. NEUROLOGIC: The patient is aphasic with right body hemiparesis. OTHER FINDINGS: The patient is having Wyman catheter and right IJ line. LABORATORY DATA: White blood cell count of 28.8, hemoglobin of 9.4, hematocrit 30%, and platelet count of 133. Chest x-ray showing IJ in place. No volume overload. EKG normal sinus rhythm, nonspecific ST changes. Blood cultures are positive for Staph aureus. White blood cell count on admission of 28.8, today at 6.3; hemoglobin of 9.4, hematocrit 30%. IMPRESSION AND PLAN: 1. Staphylococcus aureus bacteremia. 2. Chronic respiratory failure, on tracheostomy and ventilator. 3. Major cerebrovascular accident with aphasia and right body sided weakness. 4. PEG tube placement. 5. History of hypertension. 6. The patient is on Xarelto, questionable cause. Cardiac riddle, my recommendation will be to observe the patient's progression. We will review her echocardiogram ordered. She is on appropriate antibiotics. The patient is on Xarelto, questionable why. We will try to get more information from the family or from the physicians or from medical record to formulate a plan. For the time being, the treatment will be supportive for her hypertension and her infection. We will review her echocardiogram. MD HUGO Panda/SIDRA /[id number]
--- NOTE | 2019-06-07 01:32 | Progress Note ---
DATE: 06/06/2019 Pulmonary Critical Care Medicine Progress Note SUBJECTIVE: Ms. Marcus was seen and examined at bedside. At this time, she remains on ventilator. Rate 12, tidal volume 400, FiO2 of 35%, PEEP of 5. Peak pressure 19, minute ventilation 5 L/minute, respiratory rate 12. Chest x-ray remains with left hazy opacity. Abdominal x-ray with contrast demonstrated enteric gastric placement feeding tube. The patient does arouse on stimulation. REVIEW OF SYSTEMS: Cannot get as she is on ventilator. OBJECTIVE: VITAL SIGNS: Afebrile, vital signs noted and reviewed per the chart record. Blood pressure mildly high. GENERAL: In bed, awakens to mild stimuli, on ventilator via tracheostomy. HEENT: Normocephalic and atraumatic. NECK: Supple. Throat midline. LUNGS: Bilateral air entry, limited, but rare rhonchi. CARDIOVASCULAR: S1 and S2. No murmurs, rubs, or gallops. ABDOMEN: Soft, nontender. EXTREMITIES: No clubbing, no cyanosis, there is mostly no edema. INTEGUMENT: No rash. No purpura. LABORATORY DATA: Potassium 3.1, BUN 9, creatinine 0.5, bicarbonate 25. White count 6, hematocrit 31, and platelets 133. IMPRESSION AND PLAN: 1. Acute respiratory failure, on ventilator. 2. Chronic respiratory failure, status post tracheostomy. Ventilator dependent. 3. History of cerebrovascular accident. 4. Treatment as sepsis, pneumonia versus urinary tract infection versus other. 5. Hypertension; hyperlipidemia; dysphagia, status post feeding tube; history of secondary seizures; protein-calorie malnutrition per chart, severe. 6. Diabetes. Continue antibiotics per Infectious Disease expert. For now, maintain tracheostomy in place and local tracheostomy care. We still await sputum to be sent off for culture. The patient remained on ventilator. Reasonable to commence feeds. Thank you very much, Dr. Faustin and Dr. Draper, for allowing me a chance to participate in the care of Ms. Marcus. Please do not hesitate to contact me if I can help in any way. Corwin Zhong MD GMN/MODL /[id number]
[2019-06-07 03:20] LABS: BASOPHILS # (AUTO) 0.1 (0.0-0.1); BASOPHILS % 0.8 % (0.0-1.0); EOSINOPHILS # (AUTO) 0.6 (0.0-0.4); EOSINOPHILS % 8.8 % (0.0-6.0); HEMATOCRIT 33.4 % (34.2-44.1); HEMOGLOBIN 10.5 g/dL (12.0-16.0); LYMPHOCYTES % 26.8 % (18.0-39.1); MEAN CORPUSCULAR HGB CONC 31.4 g/dL (31-35); MEAN CORPUSCULAR VOLUME 76.3 fL (81-99); MONOCYTES # (AUTO) 0.7 (0.2-0.8); MONOCYTES % 9.8 % (4.4-11.3); NEUTROPHILS # (AUTO) 3.9 (2.1-6.9); NEUTROPHILS % 53.4 % (38.7-80.0); PLATELET COUNT 179 x10e3/uL (140-360); RED BLOOD COUNT 4.38 x10e6/uL (3.6-5.1); RED CELL DISTRIBUTION WIDTH 19.2 % (11.7-14.4)
[2019-06-07] MEDS: ALBUTEROL/IPRATROPIUM 3 ML NEB NEB SCH ×6 (03:22→23:10)
[2019-06-07 03:41] LABS: ANION GAP 13.1 mmol/L (8-16); BLOOD UREA NITROGEN 5 mg/dL (7-26); BUN/CREATININE RATIO 8 (6-25); CALCIUM 9.9 mg/dL (8.4-10.2); CARBON DIOXIDE 24 mmol/L (22-29); CHLORIDE 103 mmol/L (98-107); CREATININE, SERUM 0.62 mg/dL (0.57-1.11); EST GLOMERULAR FILTRATION RATE > 60 ML/MIN (60-); GLUCOSE 101 mg/dL (74-118); POTASSIUM 3.1 mmol/L (3.5-5.1); SODIUM 137 mmol/L (136-145)
[2019-06-07] MEDS: CEFEPIME 2 GM/NS 0.9% 100 ML 100 ML IV SCH ×2 (03:52→17:00)
[2019-06-07] MEDS: DEXTROSE 5%/LACTATED RINGERS 1,000 ML IV SCH ×2 (04:42→18:38)
[2019-06-07] MEDS ORDERED: IOPAMIDOL 370 MG/ML 200 ML INFUS..BTL INJ ONE (06:37)
[2019-06-07] MEDS ORDERED: SODIUM CHLORIDE 0.9% 50ML 50 ML ONE (06:37)
[2019-06-07 07:54] LABS: EOSINOPHILS % (MANUAL) 7 % (0-7); LYMPHOCYTES % (MANUAL) 27 % (19-48); MONOCYTES % (MANUAL) 8 % (3.4-9.0); NEUTROPHILS % (MANUAL) 58 % (40-74); PLATELET ESTIMATE MODERATELY DECREASED; RBC MORPHOLOGY COMMENT NORMAL
[2019-06-07] MEDS: PANTOPRAZOLE SODIUM 40 MG SUSPDR.PKT GT SCH (10:00)
[2019-06-07] MEDS: SERTRALINE HCL 50 MG TAB GT SCH (10:00)
[2019-06-07] MEDS: AMLODIPINE BESYLATE 10 MG TAB GT SCH (10:35)
[2019-06-07] MEDS: LEVETIRACETAM ORAL SOLUTION 500 MG/5 ML SOLN PEG SCH ×2 (11:34→23:58)
[2019-06-07] MEDS: METOPROLOL TARTRATE 50 MG TAB GT SCH ×2 (11:34→23:58)
--- NOTE | 2019-06-07 17:19 | NUR ---
FAXED CLINICALS TO [facility] PER CM DIRECTION, TO INITIATE WAITING ON MD FOR FURTHER INSTRUCTION
[2019-06-07] MEDS ORDERED: POTASSIUM CHLORIDE 20MEQ/15ML UDC NG ONE (19:45)
[2019-06-07] MEDS: RIVAROXABAN 20 MG TABLET GT SCH (21:11)
[2019-06-07] MEDS: ATORVASTATIN 10 MG TAB GT SCH (21:11)
--- NOTE | 2019-06-07 23:34 | NUR ---
Pulmonary Critical Care Medicine DATE: 06/07/2019 SUBJECTIVE: D5 LR at 70 cc/h IV fluid ongoing Patient continues on ventilator, stable settings. Peak pressure 23, respiratory rate 12, minimal ventilation 5 L/m. mmore airway secretions today REVIEW OF SYSTEMS: Cannot get as she is on ventilator. OBJECTIVE: VITAL SIGNS: vital signs noted and reviewed per the chart record. GENERAL: In bed, awakens to mild stimuli, on ventilator via tracheostomy. HEENT: Normocephalic and atraumatic. NECK: Supple. Throat midline. LUNGS: Bilateral air entry, limited, but rare rhonchi. CARDIOVASCULAR: S1 and S2. No murmurs, rubs, or gallops. ABDOMEN: Soft, nontender. EXTREMITIES: No clubbing, no cyanosis, there is mostly no edema. INTEGUMENT: No rash. No purpura. LABORATORY DATA: Potassium 3.1, 0.6 creatinine. 7.2 weight 33 Hematocrit, 179 Platelets. IMPRESSION AND PLAN: 1. Acute respiratory failure, on ventilator. 2. Chronic respiratory failure, status post tracheostomy. Ventilator dependent. 3. Hx cerebrovascular accident. 4. Treatment as sepsis, pneumonia versus urinary tract infection versus other. 5. Hypertension; hyperlipidemia; dysphagia, status post feeding tube; history of secondary seizures; protein-calorie malnutrition per chart, severe. 6. Diabetes. Continue antibiotics per infectious disease maintain tracheostomy Continue ventilator support Follow-up sputum culture Continue tube feeds Thank you very much, Dr. Faustin and Dr. Draper, for allowing me a chance to participate in the care of Ms. Marcus. Please do not hesitate to contact me if I can help in any way.
[2019-06-08] VITALS (17 sets, daily range): BP systolic 85–142; BP diastolic 59–95
[2019-06-08] MEDS: METOCLOPRAMIDE HCL 10 MG/2ML VIAL IV SCH ×5 (00:06→23:48)
[2019-06-08] MEDS: VANCOMYCIN 750MG/NS 150ML IVPB 150 ML IV SCH ×2 (00:06→12:00)
[2019-06-08] MEDS: ALBUTEROL/IPRATROPIUM 3 ML NEB NEB SCH ×6 (03:07→23:45)
[2019-06-08] MEDS: CEFEPIME 2 GM/NS 0.9% 100 ML 100 ML IV SCH ×2 (04:12→16:12)
[2019-06-08 04:25] LABS: BASOPHILS % 0.5 % (0.0-1.0); EOSINOPHILS # (AUTO) 0.7 (0.0-0.4); EOSINOPHILS % 8.8 % (0.0-6.0); HEMATOCRIT 29.5 % (34.2-44.1); LYMPHOCYTES % 26.1 % (18.0-39.1); MEAN CORPUSCULAR HEMOGLOBIN 23.9 pg (28-32); MEAN CORPUSCULAR HGB CONC 30.5 g/dL (31-35); MEAN CORPUSCULAR VOLUME 78.2 fL (81-99); MONOCYTES # (AUTO) 0.8 (0.2-0.8); MONOCYTES % 10.4 % (4.4-11.3); NEUTROPHILS % 53.8 % (38.7-80.0); PLATELET COUNT 171 x10e3/uL (140-360); RED BLOOD COUNT 3.77 x10e6/uL (3.6-5.1); RED CELL DISTRIBUTION WIDTH 19.3 % (11.7-14.4)
[2019-06-08 04:41] LABS: ANION GAP 12.3 mmol/L (8-16); BLOOD UREA NITROGEN 8 mg/dL (7-26); BUN/CREATININE RATIO 12 (6-25); CALCIUM 9.6 mg/dL (8.4-10.2); CARBON DIOXIDE 23 mmol/L (22-29); CHLORIDE 111 mmol/L (98-107); CREATININE, SERUM 0.66 mg/dL (0.57-1.11); EST GLOMERULAR FILTRATION RATE > 60 ML/MIN (60-); GLUCOSE 92 mg/dL (74-118); SODIUM 142 mmol/L (136-145)
[2019-06-08 04:42] LABS: POTASSIUM 4.3 mmol/L (3.5-5.1)
[2019-06-08 08:35] LABS: EOSINOPHILS % (MANUAL) 7 % (0-7); LYMPHOCYTES % (MANUAL) 29 % (19-48); MONOCYTES % (MANUAL) 13 % (3.4-9.0); NEUTROPHILS % (MANUAL) 51 % (40-74); PLATELET ESTIMATE MODERATELY DECREASED; PLATELET MORPHOLOGY COMMENT FEW LARGE; RBC MORPHOLOGY COMMENT NORMAL
[2019-06-08] MEDS: AMLODIPINE BESYLATE 10 MG TAB GT SCH (08:41)
[2019-06-08] MEDS: PANTOPRAZOLE SODIUM 40 MG SUSPDR.PKT GT SCH (08:41)
[2019-06-08] MEDS: SERTRALINE HCL 50 MG TAB GT SCH (08:41)
[2019-06-08] MEDS: DEXTROSE 5%/LACTATED RINGERS 1,000 ML IV SCH ×2 (08:41→23:26)
[2019-06-08] MEDS: SCOPOLAMINE 1.5 MG PATCH TD SCH (11:35)
[2019-06-08] MEDS: LEVETIRACETAM ORAL SOLUTION 500 MG/5 ML SOLN PEG SCH ×2 (11:35→23:43)
[2019-06-08] MEDS: METOPROLOL TARTRATE 50 MG TAB GT SCH ×2 (11:44→22:42)
--- NOTE | 2019-06-08 15:12 | NUR ---
DETENTION FACILITY DISCHARGE INFORMATION PATIENT HAS BEEN ACCEPTED TO: [facility] NAME: [facility] ADDRESS: [id number], [facility] [id number] ACCEPTING MD: LISSA ROOM:506A NURSE CALL REPORT TO: [phone] IMM SIGNED AND OBTAINED (if applicable): CALLED SISTER LYUDMILA PACE [phone] THE FOLLOWING DOCUMENTS MUST ACCOMPANY PATIENT FOR TRANSFER: COPIED CHART: CLINICALS IN PACKET.
--- NOTE | 2019-06-08 17:37 | Progress Note ---
DATE: SUBJECTIVE: Ms. Marcus is doing better. In general, there is no new complaint. PHYSICAL EXAMINATION: GENERAL: She is currently alert. VITAL SIGNS: Stable. Afebrile. HEENT: She is not icteric. NECK: Supple. CHEST: Clear. . ABDOMEN: Soft. Bowel sounds present. No tenderness. EXTREMITIES: No edema. LABORATORY DATA: Reviewed. Sputum, gram-negative bacilli. Her blood showing MRSA on the . Her white count is 7.5, hemoglobin of 9. Sodium 142, potassium 4.3. IMPRESSION: 1. Sepsis MRSA, present on admission. 2. Chronic respiratory failure. 3. Cerebrovascular accident with aphasia with right-sided weakness. 4. History of hypertension. Echocardiogram was done. Recommend to continue with vancomycin for now. We will await the echocardiogram. Cefepime for 8 days for pneumonia. We will follow. MD JEZ Ace/SIDRA /[id number]
[2019-06-08] MEDS: ATORVASTATIN 10 MG TAB GT SCH (21:20)
[2019-06-08] MEDS: RIVAROXABAN 20 MG TABLET GT SCH (21:20)
--- NOTE | 2019-06-08 21:50 | NUR ---
Pulmonary Critical Care Medicine DATE: 06/08/2019 SUBJECTIVE: D5 LR at 70 cc/h IV fluid on ventilator tracheostomy in place minimal ventilation 5 L/m. some airway secretions REVIEW OF SYSTEMS: Cannot get as she is on ventilator. OBJECTIVE: VITAL SIGNS: vital signs noted and reviewed per the chart record. GENERAL: In bed, awakens to mild stimuli, on ventilator via tracheostomy. HEENT: Normocephalic and atraumatic. NECK: Supple. Throat midline. LUNGS: Bilateral air entry, limited, but rare rhonchi. CARDIOVASCULAR: S1 and S2. No murmurs, rubs, or gallops. ABDOMEN: Soft, nontender. EXTREMITIES: No clubbing, no cyanosis, there is mostly no edema. INTEGUMENT: No rash. No purpura. LABORATORY DATA: k 4.3c cr 0.66. 7.5 wbc. IMPRESSION AND PLAN: 1. Acute respiratory failure, on ventilator. 2. Chronic respiratory failure, status post tracheostomy. Ventilator dependent. 3. Hx cerebrovascular accident. 4. Treatment as sepsis, pneumonia versus urinary tract infection versus other. 5. Hypertension; hyperlipidemia; dysphagia, status post feeding tube; history of secondary seizures; protein-calorie malnutrition per chart, severe. 6. Diabetes. Continue antibiotics per infectious disease maintain tracheostomy Continue ventilator support Follow-up sputum culture Continue tube feeds Thank you very much, Dr. Faustin and Dr. Draper, for allowing me a chance to participate in the care of Ms. Marcus. Please do not hesitate to contact me if I can help in any way.
[2019-06-09] VITALS (14 sets, daily range): BP systolic 105–152; BP diastolic 73–102
[2019-06-09] MEDS: ALBUTEROL/IPRATROPIUM 3 ML NEB NEB SCH ×4 (03:15→14:30)
[2019-06-09] MEDS: CEFEPIME 2 GM/NS 0.9% 100 ML 100 ML IV SCH ×2 (04:00→14:29)
[2019-06-09] MEDS: METOCLOPRAMIDE HCL 10 MG/2ML VIAL IV SCH ×2 (05:53→11:08)
[2019-06-09] MEDS: PANTOPRAZOLE SODIUM 40 MG SUSPDR.PKT GT SCH (08:15)
[2019-06-09] MEDS: AMLODIPINE BESYLATE 10 MG TAB GT SCH (08:15)
[2019-06-09] MEDS: SERTRALINE HCL 50 MG TAB GT SCH (08:15)
[2019-06-09] MEDS ORDERED: VANCOMYCIN 1GM/NS 250 ML 250 ML IV SCH (09:00)
[2019-06-09] MEDS: METOPROLOL TARTRATE 50 MG TAB GT SCH (11:08)
[2019-06-09] MEDS: LEVETIRACETAM ORAL SOLUTION 500 MG/5 ML SOLN PEG SCH (11:08)
--- NOTE | 2019-06-09 15:04 | NUR ---
CALLED DAUGHTER AND EDUCATED ABOUT IMM, LEFT COPY WITH FAMILY TO TAKE BACK TO FACILITY IN PACKET.
--- NOTE | 2019-06-09 16:59 | Progress Note ---
DATE: SUBJECTIVE: Ms. Marcus remains in intensive care unit, but she is more alert. No new issues. No new problems. REVIEW OF SYSTEMS: Otherwise unremarkable. LABORATORY DATA: Her repeat blood cultures are negative for 48 hours. Her white count is down to 7.5. Sodium 142, potassium 4.3, creatinine 0.66. PHYSICAL EXAMINATION: GENERAL: Reviewed. She is currently alert, follows simple command. VITAL SIGNS: Stable, currently afebrile. HEENT: Not icteric. NECK: Supple. CHEST: Clear. HEART: S1, S2. No murmurs. ABDOMEN: Soft. IMPRESSION: 1. Aspiration pneumonia, clinically better. The patient is colonized with Pseudomonas aeruginosa. 2. Sepsis with methicillin-resistant Staphylococcus aureus present on admission, source is unclear. 3. Endocarditis ruled out. Repeat blood culture is negative. Echocardiogram negative. RECOMMENDATIONS: I would recommend to continue vancomycin for 2 weeks total in addition to stay here. We will keep her on cefepime as well. She is here clinically, seems to have improved and could be discharged to skilled care facility as ordered with vancomycin, weekly CBC, weekly Chem panel and clinical evaluation to make sure patient does not aspirate, on aspiration precaution. MD JEZ Ace/SIDRA /[id number]
--- NOTE | 2019-06-09 17:44 | NUR ---
Pulmonary Critical Care Medicine DATE: 06/09/2019 SUBJECTIVE: tube feeds 30 /hr on ventilator tracheostomy in place some airway secretions REVIEW OF SYSTEMS: Cannot get as she is on ventilator. OBJECTIVE: VITAL SIGNS: vital signs noted and reviewed per the chart record. GENERAL: In bed, awakens to mild stimuli, on ventilator via tracheostomy. HEENT: Normocephalic and atraumatic. NECK: Supple. Throat midline. LUNGS: Bilateral air entry, limited, but rare rhonchi. CARDIOVASCULAR: S1 and S2. No murmurs, rubs, or gallops. ABDOMEN: Soft, nontender. EXTREMITIES: No clubbing, no cyanosis, there is mostly no edema. INTEGUMENT: No rash. No purpura. LABORATORY DATA: k 4.3c cr 0.66. 7.5 wbc. IMPRESSION AND PLAN: 1. Acute respiratory failure, on ventilator. 2. Chronic respiratory failure, status post tracheostomy. Ventilator dependent. 3. Hx cerebrovascular accident. 4. Treatment as sepsis, pneumonia versus urinary tract infection versus other. Pseudomonas pneumonia, acquired prior to hospitalization 5. Hypertension; hyperlipidemia; dysphagia, status post feeding tube; history of secondary seizures; protein-calorie malnutrition per chart, severe. 6. Diabetes. Continue antibiotics per infectious disease maintain tracheostomy Continue ventilator support Follow-up sputum culture Continue tube feeds Thank you very much, Dr. Faustin and Dr. Draper, for allowing me a chance to participate in the care of Ms. Marcus. Please do not hesitate to contact me if I can help in any way.
[2019-06-10] MEDS ORDERED: AMLODIPINE BESYLATE 10 MG TAB PO SCH (09:00)
--- NOTE | 2019-06-11 16:44 | Discharge Summary ---
ADMISSION DIAGNOSES: 1. Possible aspiration pneumonia with septic shock. 2. Acute on chronic respiratory failure. 3. History of seizures and cerebrovascular accident. 4. Hypertension. 5. Microcytic anemia. 6. Hypokalemia. 7. Methicillin-resistant Staphylococcus aureus bacteremia. 8. Pseudomonas aeruginosa urinary tract infection. DISCHARGE DIAGNOSES: 1. Possible aspiration pneumonia with septic shock. 2. Acute on chronic respiratory failure. 3. History of seizures and cerebrovascular accident. 4. Hypertension. 5. Microcytic anemia. 6. Hypokalemia. 7. Methicillin-resistant Staphylococcus aureus bacteremia. 8. Pseudomonas aeruginosa urinary tract infection. HISTORY: Hypertension, CVA, seizure, aspiration pneumonia, dysphagia. PAST SURGICAL HISTORY: Trach and PEG placement. FAMILY HISTORY: Noncontributory. SOCIAL HISTORY: Noncontributory. HOSPITAL COURSE: A 54-year-old female with past medical history of CVA and seizures, resulting in chronic respiratory failure/PEG placement and dysphagia with PEG, chronic respiratory failure with trach placement and dysphagia with PEG placement, admits from [facility] after staff found her foaming at the mouth and was found unresponsive. She improved after suctioning, but was still transferred to the hospital. On admission, her lactic was 41. She was started on and cefepime. ID was consulted as well as Pulmonology. She was started on med and initially was vented, but tried to wean to CPAP, but she failed. Her tube feeds were resumed and she tolerated them. She was placed back on the vent as that is her baseline. Pulmonology cleared the patient for discharge. The patient had a right IJ placed. CT of the abdomen showed opacities in the lung bases. Blood culture one result came back positive for MRSA. She was started on just Vanco. Sputum culture came back positive for Pseudomonas aeruginosa, both of which were sensitive to Vanco, so per Infectious Disease recommendation she [facility]. Vital signs stable, patient afebrile. Dictated by Cha Pendleton NP MD VIDYA Marino/MODL /[id number]
== END 2019-06-09 17:23 | disposition home or self-care (01) | DRG 870 ==
LOC: ER 15:33 → ERHOLD 19:26 → ICU 20:50
PROVIDERS: ADMIT Internal Medicine; ATTEND Internal Medicine
PROC: 5A1955Z Respiratory Ventilation, Greater than 96 Consecutive Hours (ICD-10-PCS; principal; 2019-06-04)
PROC: 02HV33Z Insertion of Infusion Device into Superior Vena Cava, Percutaneous Approach (ICD-10-PCS; 2019-06-04)
PROC: B548ZZA Ultrasonography of Superior Vena Cava, Guidance (ICD-10-PCS; 2019-06-04)
DX: A41.02 Sepsis due to Methicillin resistant Staphylococcus aureus (principal); J69.0 Pneumonitis due to inhalation of food and vomit; J96.20 Acute and chronic respiratory failure, unspecified whether with hypoxia or hypercapnia; R65.21 Severe sepsis with septic shock; E44.0 Moderate protein-calorie malnutrition; I69.351 Hemiplegia and hemiparesis following cerebral infarction affecting right dominant side; Z99.11 Dependence on respirator [ventilator] status; G40.802 Other epilepsy, not intractable, without status epilepticus; I50.9 Heart failure, unspecified; I69.320 Aphasia following cerebral infarction; E78.5 Hyperlipidemia, unspecified; E87.6 Hypokalemia; D63.8 Anemia in other chronic diseases classified elsewhere; D69.6 Thrombocytopenia, unspecified; I11.0 Hypertensive heart disease with heart failure; D64.9 Anemia, unspecified; R13.10 Dysphagia, unspecified; Z93.1 Gastrostomy status; Z79.01 Long term (current) use of anticoagulants; Z87.891 Personal history of nicotine dependence; Z82.49 Family history of ischemic heart disease and other diseases of the circulatory system; Z93.0 Tracheostomy status; I69.398 Other sequelae of cerebral infarction; E11.9 Type 2 diabetes mellitus without complications; D50.0 Iron deficiency anemia secondary to blood loss (chronic); Z22.39 Carrier of other specified bacterial diseases; B96.5 Pseudomonas (aeruginosa) (mallei) (pseudomallei) as the cause of diseases classified elsewhere
CPT/HCPCS: 31720; 36415; 36555; 36556; 36600; 51700; 71045; 74018; 74177; 80048; 80053; 80061; 80202; 81001; 82550; 82553; 82607; 82728; 82746; 82805; 83540; 83605; 83735; 83880; 84100; 84466; 84484; 85025; 85610; 85730; 87040; 87070; 87071; 87081; 87086; 87186; 87205; 87449; 93005; 93306; 94002; 94003; 94640; 99284; J0360; J2765; J3370; J3480; J7030; J7050; Q9967